=== PATIENT | female | born 1970 | race Caucasian/White ===

== ENCOUNTER 2017-04-16 10:37 | Day surgery (SDC) | payer BC, SELFPAY ==
[2017-04-16] VITALS (11 sets, daily range): BP systolic 115–148; BP diastolic 55–87; PULSE 78–98; RESP 16–18; TEMP 36.3–36.7; O2SAT 94–100; BMI 36.6; BMI 36.8
--- NOTE | 2017-04-16 11:15 | PCM.HPOB.BLA ---
(1) Uterine fibroid Status: Acute History and Physical Date of Admission: 04/16/17 Intake Vital Signs 03/29/17 Height 5 ft 7 in 03/29/17 Weight: 238 lb 03/29/17 Body Mass Index (BMI) 37.3 03/29/17 Blood Pressure 140/83 03/29/17 Blood Pressure Location Lt brachial 03/29/17 Blood Pressure Position Sitting Intake Visit Reasons: Pelvic Exam Is patient in pain?: No Allergies No Known Allergies Allergy (Verified 03/29/17 11:24) Medications Amitriptyline HCl 100 mg PO QHS 03/07/16 [History Confirmed 03/29/17] Amlodipine [Norvasc] 10 mg PO DAILY 03/07/16 [History Confirmed 03/29/17] Calcium Citrate/Vitamin D3 [Calcium Citrate - Vit D Caplet] 1 ea PO DAILY 03/07/16 [History Confirmed 03/29/17] Cranberry Conc/Ascorbic Acid [Cranberry 12,600 mg Softgel] 1 ea PO DAILY 03/07/16 [History Confirmed 03/29/17] Lisinopril [Zestril] 20 mg PO DAILY 03/07/16 [History Confirmed 03/29/17] Metoprolol(XL)Succ [Toprol Xl (Beta Adan)] 100 mg PO DAILY 03/07/16 [History Confirmed 03/29/17] Multivitamin [Multiple Vitamins] 1 ea PO DAILY 03/07/16 [History Confirmed 03/29/17] Omeprazole [Prilosec] 20 mg PO DAILY 03/07/16 [History Confirmed 03/29/17] Potassium (Otc) [Potassium Otc] 99 mg PO DAILY 03/07/16 [History Confirmed 03/29/17] Simvastatin [Zocor] 10 mg PO QHS 03/07/16 [History Confirmed 03/29/17] Docusate Sodium [Colace] 100 mg PO BID PRN PRN #10 cap 03/14/16 [Rx Confirmed 03/29/17] Hydrocodone Bitart/Apap 5-325 [[place] 5/325] 1 - 2 tab PO Q4H PRN PRN #20 tab 03/24/17 [Rx Confirmed 03/29/17] Naproxen [Naprosyn] 500 mg PO BID PRN #20 tab 03/24/17 [Rx Confirmed 03/29/17] Is last menstrual period known: Yes Patient : No PFSH Medical History Hypertension (Chronic) Surgical History H/O tubal ligation (Acute) History of tonsillectomy (Acute) carpal tunnel surgery (Acute) tailbone cyst (Acute) Family History Mother Breast cancer Father Heart disease Grandfather Myocardial infarction Social History Smoking Status: Never smoker alcohol intake: current details: 1 glass of wine a night substance use type: does not use caffeine: Yes what type of physical activity do you participate in: none seatbelt use: always do you feel safe at home: Yes additional social history: 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 Date Name GA/Weeks Outcome Route Bth Weight Infant Gen Labor Lgth Anesthesia Del Locatn Provider FOB Unknown 1990 [place] Unknown 1998 [facility] Pelvic Exam: Details: GABRIELA RUSSELL is a 46 year old who presents for surgical consultation for hysterectomy. She has had persistent lower pelvic pain and irregular bleeding, enlarged uterus with multiple fibroids seen on US. she denies any previous pelvic srugery other than a tubal ligation.. she has had 2 previous SVDs. Female Reproductive History Questions: Metorrhagia: Yes, Sexually active: Yes ROS Const Constitutional: Denies poor appetite, headache(s), fever(s), increased appetite, weight gain, weight loss or fatigue Cardio Card: Denies chest pain Resp Resp: Denies dyspnea or cough : Reports as per HPI Exam Const General: cooperative, healthy appearing, comfortable, no acute distress, well developed Nutritional Appearance: average body habitus Orientation: alert HENMT Head: normal to inspection, normocephalic Neck Neck: normal visual inspection, trachea midline Thyroid: thyroid normal Resp Effort & Inspection: normal respiratory effort GI Palpation: soft, mass (enlarged uterus 16 week size mobile, with right lower and upper fibroids) Skin General: no rashes or lesions noted Assessment & Plan Problems 1. Intramural and subserous leiomyoma of uterus D25.1; D25.2 2. Pelvic mass in female R19.00 3. Abnormal uterine bleeding N93.9 Plan discussed hysterectomy approach- will attempt laparoscopic approach but at least a 30% chance of having to open. patient agrees to procedure. Discussed with the patient risks of surgery including risks of anesthesia, bleeding, infection, damage to surrounding structures such as bowel, bladder, or vasculature that could lead to additional surgery to repair. I discussed the risk of needing to convert to open abdominal procedure if unable to perform the procedure laparoscopically.
[2017-04-16 11:21] LABS: Basophil# 0.07 X10^3/uL; Basophil% 0.8 % (0-1); Eosinophils% 2.3 % (0-5); Hematocrit 38.3 % (37-47); Lymphocyte % 22.6 % (19-41); Mean Corp Hgb Conc 33.9 g/gl (32-36); Mean Corpuscular Hgb 28.8 pg (27.0-32.0); Mean Corpuscular Volume 84.9 fL (81-99); Mean Platelet Vol. 9.5 fl (6.2-12.0); Monocyte# 0.58 X10^3/uL; Monocyte% 6.6 % (0-10); Neutrophil # 5.98 X10^3/uL (2.7-7.7); Neutrophil % 67.5 % (47-70); Platelet Count 301 K/mm3 (150-450); RBC Distribution Width CV 12.8 % (11.6-14.6); RBC Distribution Width SD 38.8 fl (35.1-43.9); Red Blood Count 4.51 M/mm3 (4.2-5.4); White Blood Count 8.9 K/mm3 (4.4-11.0)
[2017-04-16 11:25] LABS: POSITIVE COUNT NO; POSITIVE DIFFERENTIAL NO; POSITIVE MORPHOLOGY NO
[2017-04-16 11:32] LABS: Anion Gap 8 (5-15); BUN 11 mg/dL (7-18); Calcium,Total 8.5 mg/dL (8.5-10.1); Chloride 108 mmol/L (98-107); Creatinine, Serum 0.79 mg/dL (0.55-1.02); EST Glomerular Filtration Rate 84 mL/min (>60); Est Glom Filt Rate - Afr Amer 101 mL/min (>60); Estimated Creatinine Clearance 86.53 ml/min; Glucose 100 mg/dL (70-110); Sodium Level 140 mmol/L (136-145)
--- NOTE | 2017-04-16 13:00 | HYST_PTH ---
PATIENT: GABRIELA RUSSELL LOC: [facility] [place] U#:[id number] AGE/SX: 47/F ROOM: RE04/16/[address]: Dr. Petty Spirnger MD : [id number] BED: DIS: 04/17/2017 SPEC #: [id number] RECD: 04/17/17 08:17 STATUS: FLAKITA RAFFY #: [id number] HOLLIE: 04/16/17 13:[address]: Petty Springer DEPT: SURGICAL PATHOLOGY RECD BY: Lalit Acosta ENTERED: 04/17/17 12:33 SP TYPE: HYSTERECT OTHR DR: Dr. Kandy Valle DO Tissues: Uterus, NOS Procedures: Surgery Specimen Level V HEADER OPERATION: Laparoscopic-assisted vaginal hysterectomy, bilateral salpingectomy PRE-OP DIAGNOSIS: Intramural and subserosus leiomyoma of uterus; pelvic mass; abnormal uterine bleeding TISSUE SUBMITTED: Uterus, bilateral fallopian tubes MICROSCOPIC DIAGNOSIS Uterus, hysterectomy (morcellated uterus): Cervix ? nabothian cysts and mild chronic inflammation. Endometrium ? secretory endometrium. Myometrium ? leiomyomas. Right and fallopian tubes ? changes of hydrosalpinx and hemosalpinx. AM:bertha 04/18/17 COMMENT Case has been reviewed in consultation with Dr. Umana who concurs with the above diagnosis. IDC:SJ MICROSCOPIC DESCRIPTION Slides are reviewed. GROSS DESCRIPTION Received in fixative is one container labeled with the patient's name and designated uterus and bilateral fallopian tubes. The specimen consists of a hysterectomy specimen in multiple pieces consisting of uterus, cervix and bilateral fallopian tubes. One of the fallopian tubes is attached to one piece and the second fallopian tube is detached. All the pieces of uterus with cervix weigh in aggregate 940 gm and measures in aggregate 25 x 21 x 7 cm. The largest piece of uterus measures 14 x 12 x 7 cm. Two pieces show portion of cervix. The endocervical canal measures 4 cm in length and the endocervical mucosa is focally congested and unremarkable. The ectocervical mucosa is also unremarkable. Obvious endometrial lining could not be identified. Focal areas show hemorrhagic surfaces of possible endometrial lining. No obvious lesion is identified. Possible endometrium measures 0.1 cm in thickness. Some of the pieces show nodular masses. The largest identifiable nodular mass measures 9 cm in greatest dimension. Sections of these masses reveal yoon whorled cut surfaces without areas of hemorrhage, necrosis or cystic degeneration. The uninvolved uterine wall measures up to 3 cm in thickness. The fallopian tube attached to one of the pieces of uterus measures 6.5 cm in length and up to 0.7 cm in diameter. It is interrupted in the middle consistent with previous tubal occlusion. The proximal portion of the fallopian tube is dilated and filled with clear fluid. The lumen measures up to 0.3 to 0.4 cm in diameter. The lumen is filled with clear to bloody fluid. The portion of the second fallopian tube attached to the other piece of uterus measures 3 cm in length and up to 1 cm in diameter. The lumen is dilated and filled with clear fluid. The detached portion of second fallopian tube with fimbrial end measures 3 cm in length and 0.6 cm in diameter. Sections of this piece reveal unremarkable cut surfaces. Technical Inspector sections are submitted in 12 cassettes as follows: 1 & 2 ? cervix, 3-6 ? uterine wall with possible endometrial tissue, 7 & 8 ? largest nodular mass, 9 & 10 ? smaller and intermediate size nodular masses, 11 ? fallopian tube, 12 ? second fallopian tube (12 contains the second fallopian tube with detached portion and also the attached portion). / RIGOBERTO:bertha 04/17/17 TC:1 CPT: 25804
--- NOTE | 2017-04-16 13:46 | PCM.OPRPT ---
Problem List (1) Uterine fibroid Status: Acute (2) Enlarged uterus Status: Acute Report of Operation Date of Procedure: 04/16/17 Pre-Operative Diagnosis: fibroid enlarged uterus aub Post-Operative Diagnosis: same Surgery/Procedure Performed:: lavh bs cystoscopy significant debulking of uterus and removal of the morcellated portions vaginally Description of Surgical Findings:: Significantly enlarged uterus with numerous fibroids located serosal and intramural with normal fallopian tubes and normal ovaries bilaterally normal intra-abdominal contents seen otherwise normal bladder lining with bilateral ureteral patency vending machine operator: Maria Del Carmen Hickman Type of Anesthesia:: General Specimen's removed: uterus tubes Drains: vanegas Estimated Blood Loss (mL): 200 cc Fluids Replaced: crystalloid Description of Procedure: Patient received preoperative antibiotics and SCDs were on preoperatively. Patient was taken back to the operating room and placed in the dorsal lithotomy position. General anesthesia was induced and patient was prepped and draped in normal sterile fashion. Uterine manipulator was placed inside the uterus and Vanegas catheter placed in the bladder. The umbilicus was grasped with towel clamps and an intraumbilical incision was made after injecting with quarter percent Marcaine and a Veress needle entered into the abdomen confirmed to be intra-abdominal with a low opening pressure. Abdomen was insufflated with CO2 gas and the Veress needle removed and the 5 mm trocar was placed under direct visualization without complication. Right and left lower quadrants were transilluminated and injected with quarter percent Marcaine and 5 mm ports placed under direct visualization. Pelvis was well visualized see operative findings for additional information. Due to the extreme size of the uterus both the 0? and 30? scopes were used to obtain adequate visualization. A small omental to anterior abdominal wall adhesion was taken with LigaSure device and then bilateral fallopian tubes were identified and transected with the LigaSure device across the mesosalpinx to the level of the utero-ovarian ligament which was also transected with the LigaSure device. The broad ligament was opened up by transecting the round ligament bilaterally and skeletonizing the uterine vessels bilaterally and creating a bladder flap using the LigaSure device. This took a significant amount of time due to the large fibroids that were noted on the right and left interstitial portion of the uterus and a 10 cm fibroid located in the left lower uterine corpus near the cervical insertion. Large blood vessels were noted and cauterized with the LigaSure device. Approximately 45 minutes of additional work above that of typical hysterectomy was needed in order to safely skeletonized and cauterized the uterine vessels and create the bladder flap. The uterine arteries were transected bilaterally with good visualization of the bladder and the ureters were seen to be inferior lateral to the operative area. Attention was then paid to the vaginal portion of the procedure and the cervix was grasped with Tabby clamps and circumferentially injected with dilute vasopressin. A circumferential incision was made and the vaginal mucosa was mobilized off posteriorly and the cul-de-sac entered into sharply and a longneck speculum placed. The anterior cul-de-sac was then identified and entered into sharply. The uterosacral ligaments were clamped cut and suture ligated with 0 Monocryl bilaterally followed by the cardinal ligaments which were clamped cut and suture ligated bilaterally with 0 Monocryl. Due to the extreme size of the uterus it was removed in multiple pieces and through different morcellation techniques including coring and wedge resection. Over 40 minutes of the procedure were devoted to uterine morcellation alone in order to safely remove the different portions of the uterus through the vagina. The total weight of the uterus and fallopian tubes removed through the vagina was 918 g per after all pieces were removed the pelvic sidewall pedicles were checked and noted to have excellent hemostasis. The vaginal mucosa was reapproximated incorporating the posterior peritoneum. This was reapproximated using 0 Vicryl [id number] sutures. Excellent hemostasis was noted. The cystoscopy was then performed and bilateral ureteral strong spray was noted and the bladder was noted to have no abnormality or lesions seen. There were several small blood clots noted in the bladder lining with no stitches or laceration seen only minimal ecchymoses due to the manipulation of the bladder during the removal of the large uterus. Vanegas catheter was replaced and then attention paid to the abdominal portion of the procedure again. The pelvis and cul-de-sac was well visualized and no significant active bleeding noted. Pressure was taken down and the areas visualized and noted of excellent hemostasis. All ports were removed under direct visualization without complication and the abdomen was desufflated of air. The instruments removed from the abdomen and the vagina vaginal sweep was negative. Port sites on the abdomen were closed with 4-0 Monocryl interrupted sutures and Steri's and windows were applied. She was awoken and taken recovery in stable condition. Grafts/Implants Used: vanegas - Complications none - Admit VTE Documentation VTE Pharm Prophylaxis ordered?: No
[2017-04-16] MEDS: Bupivacaine 0.25% 30 ML Vial (14:05)
[2017-04-16] MEDS: Vasopressin 20 UNITS/ML Vial (15:10)
[2017-04-16] MEDS: Methylene Blue 1% 100 MG/10 ML VIAL (16:06)
[2017-04-16] MEDS: HYDROmorphone HCL 0.5 MG/0.5 ML SYRINGE IV (21:37)
[2017-04-16] MEDS: Acetaminophen 500 MG Tablet 1000 MG PO (21:37)
[2017-04-16] MEDS: Lactated Ringers 1,000 ML 125 ML IV (23:45)
[2017-04-16] MEDS: Ketorolac 30 MG/ML Syringe IV (23:45)
[2017-04-17 05:43] VITALS: BP 128/85; PULSE 99; RESP 18; TEMP 36.7; O2SAT 100
[2017-04-17] MEDS: Ketorolac 30 MG/ML Syringe IV (05:46)
[2017-04-17] MEDS: Acetaminophen 500 MG Tablet 1000 MG PO (05:47)
--- NOTE | 2017-04-17 06:40 | NURSING ---
Patient ambulated in hallway with this RN tolerated well. Patient now sitting up in chair, no needs voiced.
[2017-04-17 07:02] LABS: Hematocrit 34.3 % (37-47); Hemoglobin 11.6 g/dl (12.0-15.0); Mean Corp Hgb Conc 33.8 g/gl (32-36); Mean Corpuscular Hgb 29.4 pg (27.0-32.0); Mean Corpuscular Volume 86.8 fL (81-99); Mean Platelet Vol. 9.9 fl (6.2-12.0); Platelet Count 325 K/mm3 (150-450); RBC Distribution Width CV 12.8 % (11.6-14.6); RBC Distribution Width SD 39.6 fl (35.1-43.9); Red Blood Count 3.95 M/mm3 (4.2-5.4); White Blood Count 17.5 K/mm3 (4.4-11.0)
[2017-04-17 07:09] LABS: Scan Indicated on CBC? Y/N NO
--- NOTE | 2017-04-17 08:55 | PCM.PN.OB ---
Patient Problems: Active and Suspected Problems (Last Reviewed 03/29/17 @ 11:25 by Jacqueline Faria) Uterine fibroid (Acute) Enlarged uterus (Acute) - Physical Exam General: Alert, Oriented x3, Cooperative Lungs: Normal air movement Abdomen: Soft, Non Tender Vital Signs Temp Pulse Resp BP Pulse Ox 98.0 F 99 18 128/85 H 100 04/17/17 05:43 04/17/17 05:43 04/17/17 05:43 04/17/17 05:43 04/17/17 05:43 Oxygen Flow Rate 1 Oxygen Delivery Method Room Air Weight: 235 lb Body Mass Index (BMI) 36.8 Intake and Output for Last 24 Hours 04/15/17 04/16/17 04/17/17 23:59 23:59 23:59 Intake Total 5039 / 5039 1738 / 1738 Output Total 800 / 800 3400 / 3400 Balance 4239 / 4239 -1662 / -1662 Laboratory Tests Past 24 Hrs 04/16/17 04/16/17 04/16/17 11:10 11:10 11:10 WBC 8.9 RBC 4.51 Hgb 13.0 Hct 38.3 MCV 84.9 MCH 28.8 MCHC 33.9 RDW 12.8 RDW Differential 38.8 Plt Count 301 MPV 9.5 Immature Gran % (Auto) 0.200 Neut % (Auto) 67.5 Lymph % (Auto) 22.6 Saunders % (Auto) 6.6 Eos % (Auto) 2.3 Baso % (Auto) 0.8 Absolute Neuts (auto) 6.0 Absolute Lymphs (auto) 2.00 Total Counted Not Reportable Sodium 140 Potassium 4.0 Chloride 108 H Carbon Dioxide 24.0 Anion Gap 8 BUN 11 Creatinine 0.79 Estim Creat Clear Calc 86.53 Est GFR (MDRD) Af Amer 101 Est GFR (MDRD) Non-Af 84 BUN/Creatinine Ratio 14.0 Glucose 100 Calcium 8.5 Blood Type A NEGATIVE Antibody Screen NEGATIVE 04/17/17 06:42 WBC 17.5 H RBC 3.95 L Hgb 11.6 L Hct 34.3 L MCV 86.8 MCH 29.4 MCHC 33.8 RDW 12.8 RDW Differential 39.6 Plt Count 325 MPV 9.9 Immature Gran % (Auto) Neut % (Auto) Lymph % (Auto) Saunders % (Auto) Eos % (Auto) Baso % (Auto) Absolute Neuts (auto) Absolute Lymphs (auto) Total Counted Sodium Potassium Chloride Carbon Dioxide Anion Gap BUN Creatinine Estim Creat Clear Calc Est GFR (MDRD) Af Amer Est GFR (MDRD) Non-Af BUN/Creatinine Ratio Glucose Calcium Blood Type Antibody Screen Assessment/Plan Active and Suspected Problems (Last Reviewed 03/29/17 @ 11:25 by Jacqueline Faria) Uterine fibroid (Acute) Enlarged uterus (Acute) s/p LAVH doing well routine care dc home today
--- NOTE | 2017-04-17 08:57 | PCM.DC.VHY ---
Discharge Diet: No Restrictions Discharge Activity: Return to Normal Activity, May Not Drive - while taking narcotic pain medications., May Shower May resume sexual activity in: 6-8 weeks Call your doctor if your incision/area has: Continuous Slow Oozing, Sudden Increased Bleeding, Increased Pain/ Swelling, Increased Redness, Foul Smelling Discharge Call your doctor if you observe: Fever of 101 or Higher, Inability to urinate, Inability to have a bowel movement, Using more than one pad per hour Allergies/Adverse Reactions: Allergies morphine Adverse Reaction (Verified 04/09/17 14:28) Nausea Medications to take at Discharge Amitriptyline HCl 100 mg PO QHS 03/07/16 Amlodipine [Norvasc] 10 mg PO DAILY 03/07/16 Calcium Citrate/Vitamin D3 [Calcium Citrate - Vit D Caplet] 1 ea PO DAILY 03/07/16 Cranberry Conc/Ascorbic Acid [Cranberry 12,600 mg Softgel] 1 ea PO DAILY 03/07/16 Lisinopril [Zestril] 20 mg PO DAILY 03/07/16 Metoprolol(XL)Succ [Toprol Xl (Beta Adan)] 100 mg PO DAILY 03/07/16 Multivitamin [Multiple Vitamins] 1 ea PO DAILY 03/07/16 Omeprazole [Prilosec] 20 mg PO DAILY 03/07/16 Potassium (Otc) [Potassium Otc] 99 mg PO DAILY 03/07/16 Simvastatin [Zocor] 10 mg PO QHS 03/07/16 Docusate Sodium [Colace] 100 mg PO BID PRN PRN #10 cap 03/14/16 Hydrocodone Bitart/Apap 5-325 [[place] 5/325] 1 - 2 tab PO Q4H PRN PRN #20 tab 03/24/17 Naproxen [Naprosyn] 500 mg PO BID PRN #20 tab 03/24/17 Naproxen [Naprosyn] 250 - 500 mg PO Q8H PRN PRN #30 tab 04/17/17 Naproxen [Naprosyn] 500 mg PO BID PRN PRN #30 tab 04/17/17 Oxycodone HCl/Acetaminophen [Percocet 5-325] 2 tablet PO Q4H PRN PRN #28 tablet 04/17/17 The following prescriptions were given: Oxycodone HCl/Acetaminophen [Percocet 5-325] 2 tablet PO Q4H PRN PRN #28 tablet PRN Reason: Moderate-Severe pain Naproxen [Naprosyn] 250 - 500 mg PO Q8H PRN PRN #30 tab PRN Reason: MILD PAIN Naproxen [Naprosyn] 500 mg PO BID PRN PRN #30 tab PRN Reason: Pain Primary Care Physician: Kandy Valle DO [Primary Care Provider] - Please Follow Up With: Petty Springer MD - [phone] in 2 and 6 weeks
[2017-04-17 09:05] VITALS: BP 146/80; PULSE 97; RESP 16; TEMP 37; O2SAT 97
== END 2017-04-17 09:00 | disposition home or self-care (01) ==
LOC: SDC 10:38 → AC 10:39 → MS3 14:42
PROVIDERS: Family Provider Family Medicine; PCP Family Medicine; Visit Provider Obstetrics & Gynecology
PROC: 0UT9FZZ Resection of Uterus, Via Natural or Artificial Opening With Percutaneous Endoscopic Assistance (ICD-10-PCS; CPT 58554; principal; 2017-04-16 12:35)
DX: D25.1 Intramural leiomyoma of uterus (principal); D25.2 Subserosal leiomyoma of uterus; N85.2 Hypertrophy of uterus; N72 Inflammatory disease of cervix uteri; I10 Essential (primary) hypertension; E78.00 Pure hypercholesterolemia, unspecified; K21.9 Gastro-esophageal reflux disease without esophagitis; Z79.1 Long term (current) use of non-steroidal anti-inflammatories (NSAID); Z79.899 Other long term (current) drug therapy; Z98.51 Tubal ligation status
CPT/HCPCS: 58554; 36415; 80048; 85025; 85027; 86850; 86900; 88307; J7120; J2405

== ENCOUNTER 2017-04-20 07:04 | Observation (INO) | payer BC, SELFPAY ==
[2017-04-20] VITALS (13 sets, daily range): BP systolic 132–151; BP diastolic 63–91; PULSE 78–89; RESP 12–18; TEMP 36.4–37.1; O2SAT 95–100; BMI 36.4; BMI 35.9; BMI 36.0
--- NOTE | 2017-04-20 07:16 | RAD_ITS ---
STUDY: X-RAY CHEST REASON FOR EXAM: Female, 47 years old. Left-sided chest pain. TECHNIQUE: Single AP portable view of the chest. COMPARISON: Comparison is made with prior study dated March 24, 2017. FINDINGS: The lungs are clear and expanded. There is no demonstrated pleural abnormality. Normal size heart. Normal mediastinum and sebastián. Normal visualized pulmonary arteries. Normal visualized aortic arch and descending thoracic aorta. Normal visualized thoracic spine. Normal visualized ribs, clavicles, and shoulders. There is no demonstrated abnormality of the visualized soft tissue structures of the upper abdomen. RAD/Chest 1 View (Portable) IMPRESSION: Normal x-ray examination of the chest. Electronically Signed: Melvin Alex MD at 8:07 EST Tel [phone], Service support ,
--- NOTE | 2017-04-20 07:17 | EKG12_ITS ---
Test Reason : CP Blood Pressure : / mmHG Vent. Rate : 084 BPM Atrial Rate : 084 BPM P-R Int : 108 ms QRS Dur : 076 ms QT Int : 382 ms P-R-T Axes : 010 000 010 degrees QTc Int : 451 ms Sinus rhythm with short AR Otherwise normal ECG Confirmed by JENNIE BELL, ENOCH ([id number]), state editor TAMI POOLE ([id number]) on 04/23/2017 3:31:41 PM Referred By: MARIA ELENA Confirmed By:ENOCH SCHNEIDER MD
--- NOTE | 2017-04-20 07:37 | ED.VISSUMM ---
- ER Visit Summary Date of Service: 04/20/17 Chief Complaint: Left arm and left-sided chest pain History of Present Illness: The patient is a 47 F is post hysterectomy on Sunday discharged on Sunday. Patient states she was doing well last evening she had tightness in her left arm and left lateral chest. At times difficulty breathing. She denies any pleuritic pain. She denies any hemoptysis. She denies any calf pain. She has never had a DVT or PE. She has never had any cardiac history nor any cardiac workup. She states prior to having the surgery the last several weeks she has not had any exertional type of chest pain. She denies any fever or cough. Physical Examination: Well-appearing middle-age female. He looks very good after having surgery 4 days ago. Vital signs are stable and afebrile. Her blood pressure is 151/63. Her pulse ox is 100% on room air. She is in no distress. Sitting upright in bed. HEENT exam unremarkable. Neck nontender no JVD. Lungs are clear to auscultation bilaterally. Heart is regular rate and rhythm no murmur. Chest wall is nontender. No ecchymosis or bruising. She does have a slight rash appears to be a contact dermatitis from the surgical drapes. This is in her left lower chest and upper abdomen. Abdomen is soft and nontender. No peritoneal signs. Very well healing surgical incisions. Normal bowel sounds. She is moving all 4 extremities. She is equal and symmetrical radial pulses. Calves are nontender without edema or cords. Neurologically she is awake and alert without focal motor deficits. Back exam nontender. Test Results: Portable chest x-ray no acute abnormality. EKG sinus rhythm rate of 84 no acute signs of NH or ischemia. CBC normal. H&H 12 and 38. BMP normal. Normal creatinine. UA negative. Troponin normal. D-dimer was elevated at 1.07. For that reason a CTA was obtained which shows bilateral pulmonary emboli as read by the radiologist and reviewed by me. The radiologist and I did discuss her CAT scan results. Emergency Department Course and Treatment: Patient undergo a cardiac along with a d-dimer due to the recent surgery. Treatment Plan: I discussed test results with the patient's in the diagnosis of bilateral pulmonary emboli. 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 Springer and also Dr. Teresa Becerra the hospitalist will admit her. She will be started on Xarelto. Disposition: Admission Impression: Acute atypical left-sided chest pain secondary to bilateral pulmonary emboli Status post recent laparoscopic hysterectomy This note was generated with Patient[employer] dictation software. It may contain incorrect words, spelling, and punctuation that were not noted in review of the chart prior to signing ED Disposition - Plan for ED Patient: Chief Complaint: Chest Pain Referrals: Kandy Valle DO [Primary Care Provider] -
[2017-04-20 07:39] LABS: Absolute Lymphocyte Count 2.41 X10^3/ul (0.83-4.51); Absolute Neutrophil Count 6.6 X10^3/uL (2.0-7.7); Basophil# 0.07 X10^3/uL; Basophil% 0.7 % (0-1); Eosinophil# 0.34 X10^3/uL; Eosinophils% 3.4 % (0-5); Hematocrit 38.3 % (37-47); Hemoglobin 12.7 g/dl (12.0-15.0); Lymphocyte # 2.41 X10^3/ul (4.0); Lymphocyte % 24.3 % (19-41); Mean Corp Hgb Conc 33.2 g/gl (32-36); Mean Corpuscular Hgb 28.7 pg (27.0-32.0); Mean Corpuscular Volume 86.5 fL (81-99); Mean Platelet Vol. 9.3 fl (6.2-12.0); Monocyte# 0.44 X10^3/uL; Monocyte% 4.4 % (0-10); Neutrophil # 6.62 X10^3/uL (2.7-7.7); Platelet Count 301 K/mm3 (150-450); RBC Distribution Width CV 13.2 % (11.6-14.6); RBC Distribution Width SD 41.4 fl (35.1-43.9); Red Blood Count 4.43 M/mm3 (4.2-5.4); White Blood Count 9.9 K/mm3 (4.4-11.0)
[2017-04-20 07:41] LABS: Bacteria 0 SEEN /hpf (None Seen); Mucous, Urine 0 SEEN /hpf (<or=2+)
[2017-04-20 07:46] LABS: Color, Urine Yellow (Yellow); Glucose, Dipstick Normal (Normal); Ketone-Dipstick Negative (Negative); Leukocyte Esterase-Dipstick 500 /ul (Negative); Nitrite-Dipstick Negative (Negative); Occult Blood-Urine 250 /ul (Negative); Protein-Dipstick 30 mg/dl (Negative); Urine Bilirubin Dipstick Negative (Negative); Urine Clarity Sl. Cloudy (Clear); Urine Urobilinogen Normal (Normal); Urine pH 6.5 (5.0 - 8.0)
[2017-04-20 07:47] LABS: Anion Gap 7 (5-15); BUN 14 mg/dL (7-18); BUN/Creat Ratio 16.6 RATIO (10-20); Calcium,Total 8.6 mg/dL (8.5-10.1); Chloride 104 mmol/L (98-107); Creatinine, Serum 0.84 mg/dL (0.55-1.02); EST Glomerular Filtration Rate 77 mL/min (>60); Est Glom Filt Rate - Afr Amer 94 mL/min (>60); Estimated Creatinine Clearance 81.38 ml/min; Glucose 101 mg/dL (70-110); POSITIVE COUNT NO; POSITIVE DIFFERENTIAL NO; POSITIVE MORPHOLOGY NO; Potassium 3.8 mmol/L (3.5-5.1); Sodium Level 140 mmol/L (136-145)
[2017-04-20 07:53] LABS: Squamous Epithelial Cells - UA 0-5 SEEN /hpf (5-10)
[2017-04-20 07:54] LABS: Red Blood Cells-Urine 5-10 SEEN /hpf (0-5); White Blood Cells 0-5 SEEN /hpf (0-5)
[2017-04-20 07:55] LABS: D-Dimer Quantitative (DVT/PE) 1.07 FEU/ug/m (0.27-0.49)
--- NOTE | 2017-04-20 07:56 | ED.RN ---
DDIMER 1.[address] CALLED FROM THE LAB. DR ALVAREZ AWARE
--- NOTE | 2017-04-20 08:12 | CT_ITS ---
STUDY: CTA CHEST REASON FOR EXAM: Female, 47 years old. Left-sided chest pain. History of 5 days posthysterectomy. RADIATION DOSAGE (If Supplied By Facility): CTDIvol = ( 14.75 ) mGy, DLP = ( 592.94 ) mGycm TECHNIQUE: The examination was performed with the intravenous administration of 100 ml of Isovue 370 contrast material. Post-processing of the angiographic images was performed, with multiplanar reformation and 3D reconstruction. Individualized dose optimization techniques were used for this CT. COMPARISON: None. FINDINGS: Nonocclusive intraluminal filling defects are seen in branches of the right intermediate lobe and right and left lower lung pulmonary arterial branches. This is in keeping with bilateral pulmonary emboli. Tiny filling defects are also seen in branches of both upper lobes. Normal thoracic aorta and visualized great vessels. There is no demonstrated aortic dissection. Normal heart and pericardium. Normal mediastinum. Normal hilar regions. Normal visualized trachea and bronchi. The lungs are well expanded. Normal pulmonary parenchyma. Normal pleura. Normal chest wall structures. Normal osseous structures. Normal visualized upper abdomen. CT/CTA Chest W/WO Contrast IMPRESSION: Bilateral pulmonary emboli as described. N.B. : The above information has been verbally conveyed by Melvin Alex MD to Devin Chamberlain on 04/20/2017 09:21:23 (ET). Electronically Signed: Melvin Alex MD at 9:21 EST Tel [phone], Service support , N.B. : The above information has been verbally conveyed by Melvin Alex MD to Devin Chamberlain on 04/20/2017 09:21:23 (ET).
--- NOTE | 2017-04-20 09:30 | PCM.HP.STD ---
Problem List (1) Pulmonary embolism, bilateral Status: Acute (2) HTN (hypertension) Status: Chronic Qualifiers: Hypertension type: essential hypertension Qualified Code(s): I10 - Essential (primary) hypertension (3) HLD (hyperlipidemia) Status: Chronic Qualifiers: Hyperlipidemia type: unspecified Qualified Code(s): E78.5 - Hyperlipidemia, unspecified (4) Obesity (BMI 30-39.9) Status: Chronic (5) Uterine fibroid Status: Chronic Qualifiers: Uterine leiomyoma location: unspecified location Qualified Code(s): D25.9 - Leiomyoma of uterus, unspecified (6) Enlarged uterus Status: Acute History of Present Illness Date of Admission: 04/20/17 Chief Complaint: Chest pain, difficulty breathing The patient is a 47 y/o F w/ PMHx: Obesity, HTN, HLD, Fibroid Uterus who presents to the [facility] ED on 04/20/17 with history of recent laparoscopic assisted vaginal hysterectomy this past Sunday per Dr. Springer with no perioperative issues who now presents with onset the evening prior of left sided chest discomfort, abnormal heaviness and sensation of difficulty taking deep breathe which continued upon awakening prompting ED evaluation. She denies any recent BL LE calf discomfort or swelling. In the ED work-up included T 97.6, HR 78, BP 149/86, RR 18, 99% on RA, CBC unremarkable, D-dimer 1.07, BMP without acute findings, trop < 0.02, UA unremarkable, CXR without acute process, EKG w/ SR without acute evidence of ischemia, CTPA w/ bilateral pulmonary emboli. Discussed case with Dr. Chamberlain and decision for administration xarelto in the ED with admission to complete evaluation given recent operative intervention. Dr. Springer consulted per ED and amenable to initiation of anticoagulation therapy. Past Medical History Past Medical History (Chronic Problems): Chronic Problems (Last Reviewed 03/29/17 @ 11:25 by Jacqueline Faria) Uterine fibroid (Chronic) HTN (hypertension) (Chronic) HLD (hyperlipidemia) (Chronic) Obesity (BMI 30-39.9) (Chronic) Allergies morphine Adverse Reaction (Verified 04/20/17 07:09) Nausea Home Medications: Ambulatory Orders Medication Instructions Recorded Amitriptyline HCl 100 mg PO QHS 03/07/16 Amlodipine [Norvasc] 10 mg PO DAILY 03/07/16 Calcium Citrate/Vitamin D3 1 ea PO DAILY 03/07/16 [Calcium Citrate - Vit D Caplet] Cranberry Conc/Ascorbic Acid 1 ea PO DAILY 03/07/16 [Cranberry 12,600 mg Softgel] Lisinopril [Zestril] 20 mg PO DAILY 03/07/16 Metoprolol(XL)Succ [Toprol Xl 100 mg PO DAILY 03/07/16 (Beta Adan)] Multivitamin [Multiple Vitamins] 1 ea PO DAILY 03/07/16 Omeprazole [Prilosec] 20 mg PO DAILY 03/07/16 Potassium (Otc) [Potassium Otc] 99 mg PO DAILY 03/07/16 Simvastatin [Zocor] 10 mg PO QHS 03/07/16 Docusate Sodium [Colace] 100 mg PO BID PRN PRN #10 cap 03/14/16 Hydrocodone Bitart/Apap 5-325 1 - 2 tab PO Q4H PRN PRN #20 tab 03/24/17 [[place] 5/325] Naproxen [Naprosyn] 500 mg PO BID PRN #20 tab 03/24/17 Surgical History: - - Laparoscopic assisted hysterectomy, right carpal tunnel release, tonsillectomy. 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 Tobacco Use: Non-smoker Alcohol: Occasional Drugs: None - *Family History Maternal History Items: - - Maternal family history of breast cancer with metastatic disease now, hyperlipidemia. Paternal History Items: - - Paternal family history of coronary disease with father undergoing a CABG in his 60s. Review of Systems Constitutional: Reports: Fatigue. Denies: Chills, Fever, Weight Change HEENT: Denies: Head Aches, Sinus Congestion, Sinus Drainage Cardiovascular: Reports: Chest Pain, Chest Pressure, Heaviness. Denies: Palpitations Respiratory: Reports: Shortness of Breath, Shortness of breath at rest, Shortness of breath upon exertion. Denies: Cough, Sputum production Gastrointestinal: Reports: Constipation. Denies: Abdominal Pain, Nausea, Vomiting Genitourinary: Denies: Dysuria Gynecological: Reports: Vaginal bleeding Musculoskeletal: Denies: Joint Pain, Joint Tenderness Skin: Denies: Rash, Wounds Neurological: Denies: Numbness, Tingling, Focal weakness Psychiatric: Denies: Anxiety, Depression, Homicidal Ideations, Suicidal Ideations Hematologic/ Lymphatic: Denies: Easy Bruising, Easy Bleeding VTE Information - Inpt Only VTE Present on Admission: No VTE Mechan Device Prophylaxis: SCD's VTE Pharm Prophylaxis ordered?: Yes Patient Problems: Active and Suspected Problems (Last Reviewed 03/29/17 @ 11:25 by Jacqueline Faria) Pulmonary embolism, bilateral (Acute) Subjective: Seated upright in the bed, no acute distress. Objective: Physical Examination: General: awake, alert, oriented x 3 and cooperative, seated upright in bed in no apparent distress. Skin: normal color, turgor, no icterus, cyanosis, recent OR lap-assist hysterectomy w/ incisions C/D/I. HEENT: AT/NC, EOMI, PERRLA, MMM, no carotid bruits or JVD noted. Lungs: CTA bilaterally, moderate effort, mild decrease BL bases, no rales, ronchi or wheezing. Heart: Regular rate and rhythm; no gallop, rub audible. Abdomen: soft, obese, expected mildly discomfort given recent lap assisted hysterectomy but otherwise no marked TTP, ND, normal BS, no HSM but habitus makes examination difficult. Extremities: no cyanosis, clubbing, or edema. No TTP BL LE. Negative homans BL. Neurological: patient awake, alert, oriented x 3; cognitive function intact; pupils equally reactive to light and accomodation; cranial nerves II-XII grossly normal, moving all 4 extremities, no focal deficits, strength mildly globally decreased. Psychiatric: affect appears normal, no acute evidence of depressive or anxiety feelings. - Physical Exam Vital Signs Temp Pulse Resp BP Pulse Ox 97.6 F L 84 18 151/63 H 99 04/20/17 07:05 04/20/17 07:05 04/20/17 07:05 04/20/17 07:05 04/20/17 07:22 Oxygen Delivery Method Room Air Weight: 232 lb 12.93 oz Body Mass Index (BMI) 36.4 Laboratory Tests Past 24 Hrs 04/20/17 04/20/17 04/20/17 07:20 07:20 07:20 WBC 9.9 RBC 4.43 Hgb 12.7 Hct 38.3 MCV 86.5 MCH 28.7 MCHC 33.2 RDW 13.2 RDW Differential 41.4 Plt Count 301 MPV 9.3 Immature Gran % (Auto) 0.200 Neut % (Auto) 67.0 Lymph % (Auto) 24.3 [place] % (Auto) 4.4 Eos % (Auto) 3.4 Baso % (Auto) 0.7 Absolute Neuts (auto) 6.6 Absolute Lymphs (auto) 2.41 Total Counted Not Reportable D-Dimer Quant (PE/DVT) 1.07 H* Sodium 140 Potassium 3.8 Chloride 104 Carbon Dioxide 29.0 Anion Gap 7 BUN 14 Creatinine 0.84 Estim Creat Clear Calc 81.38 Est GFR (MDRD) Af Amer 94 Est GFR (MDRD) Non-Af 77 BUN/Creatinine Ratio 16.6 Glucose 101 Calcium 8.6 Troponin I < 0.02 Urine Color Urine Clarity Urine pH Ur Specific [place] Urine Protein Urine Glucose (UA) Urine Ketones Urine Occult Blood Urine Nitrite Urine Bilirubin Urine Urobilinogen Ur Leukocyte Esterase Urine RBC Urine WBC Ur Squamous Epith Cells Urine Bacteria Urine Mucus 04/20/17 07:26 WBC RBC Hgb Hct MCV MCH MCHC RDW RDW Differential Plt Count MPV Immature Gran % (Auto) Neut % (Auto) Lymph % (Auto) [place] % (Auto) Eos % (Auto) Baso % (Auto) Absolute Neuts (auto) Absolute Lymphs (auto) Total Counted D-Dimer Quant (PE/DVT) Sodium Potassium Chloride Carbon Dioxide Anion Gap BUN Creatinine Estim Creat Clear Calc Est GFR (MDRD) Af Amer Est GFR (MDRD) Non-Af BUN/Creatinine Ratio Glucose Calcium Troponin I Urine Color Yellow Urine Clarity Sl. Cloudy Urine pH 6.5 Ur Specific [place] 1.010 Urine Protein 30 H Urine Glucose (UA) Normal Urine Ketones Negative Urine Occult Blood 250 H Urine Nitrite Negative Urine Bilirubin Negative Urine Urobilinogen Normal Ur Leukocyte Esterase 500 H Urine RBC 5-10 SEEN Urine WBC 0-5 SEEN Ur Squamous Epith Cells 0-5 SEEN Urine Bacteria 0 SEEN Urine Mucus 0 SEEN Assessment/Plan Active and Suspected Problems (Last Reviewed 03/29/17 @ 11:25 by Jacqueline Faria) Pulmonary embolism, bilateral (Acute) The patient is a 47 y/o F w/ PMHx: Obesity, HTN, HLD, Fibroid Uterus who presents to the [facility] ED on 04/20/17 with history of recent laparoscopic assisted vaginal hysterectomy this past Sunday per Dr. Springer with no perioperative issues who now presents with onset the evening prior of left sided chest discomfort, abnormal heaviness and sensation of difficulty taking deep breathe which continued upon awakening prompting ED evaluation. (1) Atypical Dyspnea, chest pain secondary to Pulmonary Embolism: EKG without acute findings, CXR no acute process, D-dimer elevated, CTPA with bilateral pulmonary emboli, CBC and BMP unremarkable, troponin ?1 normal. Given recent OR, considered provoked. Will admit to PCU, maintain on cardiac telemetry. Will obtain ECHO, BNP and BL LE DVT US. Will continue therapeutic xarelto regimen with pending AM insurance oral regimen investigation. (2) Recent Lap Assisted Hysterectomy secondary to Fibroid Uterus: Recent OR lap assisted hysterectomy, Dr. Springer consulted per ED, will assess upon admission, amenable to anticoagulation, admission Hgb normal range. Noted constipation following operative intervention, will initiate bowel regimen and continue to monitor, notes no longer taking any narcotics. (3) Hypertension: Continue home regimen including Norvasc, lisinopril, metoprolol, PRN hydralazine. (4) Hyperlipidemia: Continue home statin regimen. (5) Obesity: Weight loss and lifestyle changes encouraged. (6) GERD: Famotidine. (7) DVT Prophylaxis: SCDs pending DVT US, Xarelto. Code Visit OBSV E&M: 24865 Initial observation care L3
--- NOTE | 2017-04-20 09:42 | HP.PCM_ITS ---
Problem List (1) Pulmonary embolism, bilateral Status: Acute (2) HTN (hypertension) Status: Chronic Qualifiers: Hypertension type: essential hypertension Qualified Code(s): I10 - Essential (primary) hypertension (3) HLD (hyperlipidemia) Status: Chronic Qualifiers: Hyperlipidemia type: unspecified Qualified Code(s): E78.5 - Hyperlipidemia , unspecified (4) Obesity (BMI 30-39.9) Status: Chronic (5) Uterine fibroid Status: Chronic Qualifiers: Uterine leiomyoma location: unspecified location Qualified Code(s): D25.9 - Leiomyoma of uterus, unspecified (6) Enlarged uterus Status: Acute History of Present Illness Date of Admission: 04/20/17 Chief Complaint: Chest pain, difficulty breathing The patient is a 47 y/o F w/ PMHx: Obesity, HTN, HLD, Fibroid Uterus who presents to the [facility] ED on 04/20/17 with history of recent laparoscopic assisted vaginal hysterectomy this past Sunday per Dr. Springer with no perioperative issues who now presents with onset the evening prior of left sided chest discomfort, abnormal heaviness and sensation of difficulty taking deep breathe which continued upon awakening prompting ED evaluation. She denies any recent BL LE calf discomfort or swelling. In the ED work-up included T 97.6, HR 78, BP 149/86, RR 18, 99% on RA, CBC unremarkable, D-dimer 1.07, BMP without acute findings, trop < 0.02, UA unremarkable, CXR without acute process, EKG w/ SR without acute evidence of ischemia, CTPA w/ bilateral pulmonary emboli. Discussed case with Dr. Chamberlain and decision for administration xarelto in the ED with admission to complete evaluation given recent operative intervention. Dr. Springer consulted per ED and amenable to initiation of anticoagulation therapy. Past Medical History Past Medical History (Chronic Problems): Chronic Problems (Last Reviewed 03/29/17 @ 11:25 by Jacqueline Faria) Uterine fibroid (Chronic) HTN (hypertension) (Chronic) HLD (hyperlipidemia) (Chronic) Obesity (BMI 30-39.9) (Chronic) Allergies morphine Adverse Reaction (Verified 04/20/17 07:09) Nausea Home Medications: Ambulatory Orders Medication Instructions Recorded Amitriptyline HCl 100 mg PO QHS 03/07/16 Amlodipine [Norvasc] 10 mg PO DAILY 03/07/16 Calcium Citrate/Vitamin D3 1 ea PO DAILY 03/07/16 [Calcium Citrate - Vit D Caplet] Cranberry Conc/Ascorbic Acid 1 ea PO DAILY 03/07/16 [Cranberry 12,600 mg Softgel] Lisinopril [Zestril] 20 mg PO DAILY 03/07/16 Metoprolol(XL)Succ [Toprol Xl 100 mg PO DAILY 03/07/16 (Beta Adan)] Multivitamin [Multiple Vitamins] 1 ea PO DAILY 03/07/16 Omeprazole [Prilosec] 20 mg PO DAILY 03/07/16 Potassium (Otc) [Potassium Otc] 99 mg PO DAILY 03/07/16 Simvastatin [Zocor] 10 mg PO QHS 03/07/16 Docusate Sodium [Colace] 100 mg PO BID PRN PRN #10 cap 03/14/16 Hydrocodone Bitart/Apap 5-325 1 - 2 tab PO Q4H PRN PRN #20 tab 03/24/17 [[place] 5/325] Naproxen [Naprosyn] 500 mg PO BID PRN #20 tab 03/24/17 Surgical History: - - Laparoscopic assisted hysterectomy, right carpal tunnel release, tonsillectomy. 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 Tobacco Use: Non-smoker Alcohol: Occasional Drugs: None - *Family History Maternal History Items: - - Maternal family history of breast cancer with metastatic disease now, hyperlipidemia. Paternal History Items: - - Paternal family history of coronary disease with father undergoing a CABG in his 60s. Review of Systems Constitutional: Reports: Fatigue. Denies: Chills, Fever, Weight Change HEENT: Denies: Head Aches, Sinus Congestion, Sinus Drainage Cardiovascular: Reports: Chest Pain, Chest Pressure, Heaviness. Denies: Palpitations Respiratory: Reports: Shortness of Breath, Shortness of breath at rest, Shortness of breath upon exertion. Denies: Cough, Sputum production Gastrointestinal: Reports: Constipation. Denies: Abdominal Pain, Nausea, Vomiting Genitourinary: Denies: Dysuria Gynecological: Reports: Vaginal bleeding Musculoskeletal: Denies: Joint Pain, Joint Tenderness Skin: Denies: Rash, Wounds Neurological: Denies: Numbness, Tingling, Focal weakness Psychiatric: Denies: Anxiety, Depression, Homicidal Ideations, Suicidal Ideations Hematologic/ Lymphatic: Denies: Easy Bruising, Easy Bleeding VTE Information - Inpt Only VTE Present on Admission: No VTE Mechan Device Prophylaxis: SCD's VTE Pharm Prophylaxis ordered?: Yes Patient Problems: Active and Suspected Problems (Last Reviewed 03/29/17 @ 11:25 by Jacqueline Faria) Pulmonary embolism, bilateral (Acute) Subjective: Seated upright in the bed, no acute distress. Objective: Physical Examination: General: awake, alert, oriented x 3 and cooperative, seated upright in bed in no apparent distress. Skin: normal color, turgor, no icterus, cyanosis, recent OR lap-assist hysterectomy w/ incisions C/D/I. HEENT: AT/NC, EOMI, PERRLA, MMM, no carotid bruits or JVD noted. Lungs: CTA bilaterally, moderate effort, mild decrease BL bases, no rales, ronchi or wheezing. Heart: Regular rate and rhythm; no gallop, rub audible. Abdomen: soft, obese, expected mildly discomfort given recent lap assisted hysterectomy but otherwise no marked TTP, ND, normal BS, no HSM but habitus makes examination difficult. Extremities: no cyanosis, clubbing, or edema. No TTP BL LE. Negative homans BL. Neurological: patient awake, alert, oriented x 3; cognitive function intact; pupils equally reactive to light and accomodation; cranial nerves II-XII grossly normal, moving all 4 extremities, no focal deficits, strength mildly globally decreased. Psychiatric: affect appears normal, no acute evidence of depressive or anxiety feelings. - Physical Exam Vital Signs Temp Pulse Resp BP Pulse Ox 97.6 F L 84 18 151/63 H 99 04/20/17 07:05 04/20/17 07:05 04/20/17 07:05 04/20/17 07:05 04/20/17 07:22 Oxygen Delivery Method Room Air Weight: 232 lb 12.93 oz Body Mass Index (BMI) 36.4 Laboratory Tests Past 24 Hrs 04/20/17 04/20/17 04/20/17 07:20 07:20 07:20 WBC 9.9 RBC 4.43 Hgb 12.7 Hct 38.3 MCV 86.5 MCH 28.7 MCHC 33.2 RDW 13.2 RDW Differential 41.4 Plt Count 301 MPV 9.3 Immature Gran % (Auto) 0.200 Neut % (Auto) 67.0 Lymph % (Auto) 24.3 [place] % (Auto) 4.4 Eos % (Auto) 3.4 Baso % (Auto) 0.7 Absolute Neuts (auto) 6.6 Absolute Lymphs (auto) 2.41 Total Counted Not Reportable D-Dimer Quant (PE/DVT) 1.07 H* Sodium 140 Potassium 3.8 Chloride 104 Carbon Dioxide 29.0 Anion Gap 7 BUN 14 Creatinine 0.84 Estim Creat Clear Calc 81.38 Est GFR (MDRD) Af Amer 94 Est GFR (MDRD) Non-Af 77 BUN/Creatinine Ratio 16.6 Glucose 101 Calcium 8.6 Troponin I < 0.02 Urine Color Urine Clarity Urine pH Ur Specific [place] Urine Protein Urine Glucose (UA) Urine Ketones Urine Occult Blood Urine Nitrite Urine Bilirubin Urine Urobilinogen Ur Leukocyte Esterase Urine RBC Urine WBC Ur Squamous Epith Cells Urine Bacteria Urine Mucus 04/20/17 07:26 WBC RBC Hgb Hct MCV MCH MCHC RDW RDW Differential Plt Count MPV Immature Gran % (Auto) Neut % (Auto) Lymph % (Auto) [place] % (Auto) Eos % (Auto) Baso % (Auto) Absolute Neuts (auto) Absolute Lymphs (auto) Total Counted D-Dimer Quant (PE/DVT) Sodium Potassium Chloride Carbon Dioxide Anion Gap BUN Creatinine Estim Creat Clear Calc Est GFR (MDRD) Af Amer Est GFR (MDRD) Non-Af BUN/Creatinine Ratio Glucose Calcium Troponin I Urine Color Yellow Urine Clarity Sl. Cloudy Urine pH 6.5 Ur Specific [place] 1.010 Urine Protein 30 H Urine Glucose (UA) Normal Urine Ketones Negative Urine Occult Blood 250 H Urine Nitrite Negative Urine Bilirubin Negative Urine Urobilinogen Normal Ur Leukocyte Esterase 500 H Urine RBC 5-10 SEEN Urine WBC 0-5 SEEN Ur Squamous Epith Cells 0-5 SEEN Urine Bacteria 0 SEEN Urine Mucus 0 SEEN Assessment/Plan Active and Suspected Problems (Last Reviewed 03/29/17 @ 11:25 by Jacqueline Faria) Pulmonary embolism, bilateral (Acute) The patient is a 47 y/o F w/ PMHx: Obesity, HTN, HLD, Fibroid Uterus who presents to the [facility] ED on 04/20/17 with history of recent laparoscopic assisted vaginal hysterectomy this past Sunday per Dr. Springer with no perioperative issues who now presents with onset the evening prior of left sided chest discomfort, abnormal heaviness and sensation of difficulty taking deep breathe which continued upon awakening prompting ED evaluation. (1) Atypical Dyspnea, chest pain secondary to Pulmonary Embolism: EKG without acute findings, CXR no acute process, D-dimer elevated, CTPA with bilateral pulmonary emboli, CBC and BMP unremarkable, troponin ?1 normal. Given recent OR , considered provoked. Will admit to PCU, maintain on cardiac telemetry. Will obtain ECHO, BNP and BL LE DVT US. Will continue therapeutic xarelto regimen with pending AM insurance oral regimen investigation. (2) Recent Lap Assisted Hysterectomy secondary to Fibroid Uterus: Recent OR lap assisted hysterectomy, Dr. Springer consulted per ED, will assess upon admission, amenable to anticoagulation, admission Hgb normal range. Noted constipation following operative intervention, will initiate bowel regimen and continue to monitor, notes no longer taking any narcotics. (3) Hypertension: Continue home regimen including Norvasc, lisinopril, metoprolol, PRN hydralazine. (4) Hyperlipidemia: Continue home statin regimen. (5) Obesity: Weight loss and lifestyle changes encouraged. (6) GERD: Famotidine. (7) DVT Prophylaxis: SCDs pending DVT US, Xarelto. Code Visit OBSV E&M: 45010 Initial observation care L3
[2017-04-20] MEDS: Acetaminophen 500 MG Tablet 1000 MG PO (09:46)
[2017-04-20] MEDS: 0.9% Normal Saline 1,000 ML 999 ML IV (09:47)
[2017-04-20] MEDS: Rivaroxaban 15 MG Tablet PO ×2 (09:47→16:42)
--- NOTE | 2017-04-20 10:21 | VDLE_ITS ---
Reason For Study: PE RIGHT LEFT GSV is normal. GSV is normal. CFV is compressible, spontaneous, phasic, CFV is compressible, spontaneous, phasic, competent and demonstrates normal competent, and demonstrates normal augmentation. augmentation. FV is compressible, spontaneous, phasic, FV is compressible, spontaneous, phasic, competent and demonstrates normal competent and demonstrates normal augmentation. augmentation. POP V is compressible, spontaneous, phasic, POP V is compressible, spontaneous, phasic, competent and demonstrates normal competent and demonstrates normal augmentation. augmentation. T/P Trunk is compressible. T/P Trunk is compressible. PTV is compressible. PTV is compressible. RT PerV is compressible. LT PerV is compressible. Procedure Exam performed portable in patient room. A preliminary report was called and/or faxed to [facility]. Interpretation Summary Deep veins of the lower extremities are bilaterally patent and compressible segmentally. There is no evidence of deep vein thrombosis on either side. Valvular competence appears intact within the proximal deep venous systems bilaterally. The greater saphenous veins appear bilaterally patent and compressible segmentally. Ordering Physician: Teresa Becerra Referring Physician: Petty Springer Performed By: Camilla Lui RVT
--- NOTE | 2017-04-20 10:21 | ECHOD_ITS ---
Reason For Study: EMBOLI Procedure This was a 2D Doppler, Color Flow transthoracic echocardiogram. Exam performed portable in patient room. Left Ventricle Normal LV size. Left ventricular systolic function is normal. The estimated ejection fraction is 60 %. No regional wall motion abnormalities noted. Right Ventricle Normal RV size. Normal systolic function. Atria Normal left atrium. Mitral Valve Normal mitral valve. Tricuspid Valve Normal tricuspid valve. Mild tricuspid valve insufficiency. Aortic Valve Normal aortic valve. Pulmonic Valve Normal pulmonic valve. Great Vessels Normal aortic root. The pulmonary artery is normal size. Pericardium/Pleural No pericardial effusion. MMode/2D Measurements & Calculations LVIDd: 4.2 cm IVSd: 1.1 cm LVOT diam: 2.0 cm LVIDs: 2.9 cm LVPWd: 1.0 cm LVOT area: 3.0 cm2 RVDd: 3.1 cm FS: 31.5 % Ao root diam: 3.3 cm LAV(MOD-bp): 38.3 ml LA A4 area: 14.2 cm2 LA dimension: 3.6 cm LAV(MOD-bp) Indexed: 17.8 ml/m2 LAV(MOD-sp2): 40.0 ml LAV(MOD-sp4): 34.1 ml RA A4 area: 11.5 cm2 Doppler Measurements & Calculations MV E max silver: 92.5 cm/sec Ao V2 max: 165.3 cm/sec LV V1 max: 137.1 cm/sec MV A max silver: 77.5 cm/sec Ao max P.9 mmHg LV V1 max P.5 mmHg MV E/A: 1.2 SHELLY(V,D): 2.5 cm2 PA V2 max: 166.4 cm/sec TR max silver: 179.9 cm/sec TR max P.9 mmHg Interpretation Summary Normal LV size. Left ventricular systolic function is normal. The estimated ejection fraction is 60 %. Mild tricuspid valve insufficiency. Ordering Physician: Teresa Becerra Referring Physician: Petty Springer Performed By: Joyce Martin, IQRA, RVT
[2017-04-20 10:36] LABS: Magnesium 2.4 mg/dL (1.6-2.6)
[2017-04-20] MEDS: Lisinopril 20 MG Tablet PO (11:15)
[2017-04-20] MEDS: Metoprolol(XL)Succ 100 MG Tablet PO (11:15)
[2017-04-20] MEDS: Famotidine 20 MG Tablet PO ×2 (11:15→21:03)
[2017-04-20] MEDS: amLODIPine 10 MG Tablet PO (11:15)
[2017-04-20] MEDS: Senna/Docusate Sodium 1 Tablet 2 TABLET PO (16:09)
--- NOTE | 2017-04-20 16:12 | CASEMGMT ---
Per Dr. Becerra, pt to be sent home on Xarelto. Script sent to [facility] at this time to check co-pay and per Lalit, co-pay is $30.00. Doreen KEATING aware at this time and she states she will update pt and provide with co-pay card. Whitley KEATING CM
[2017-04-20] MEDS: Atorvastatin Calcium 10 MG Tablet 5 MG PO (21:02)
[2017-04-20] MEDS: Amitriptyline 100 MG Tablet PO (21:06)
[2017-04-21] VITALS (7 sets, daily range): BP systolic 116–127; BP diastolic 55–62; PULSE 78–98; RESP 18; TEMP 36.8–37; O2SAT 95–98
[2017-04-21] MEDS: oxyCODONE 5 MG Tablet PO (01:01)
[2017-04-21 06:35] LABS: Hematocrit 36.6 % (37-47); Mean Corp Hgb Conc 32.8 g/gl (32-36); Mean Corpuscular Hgb 28.8 pg (27.0-32.0); Mean Corpuscular Volume 87.8 fL (81-99); Mean Platelet Vol. 9.2 fl (6.2-12.0); Platelet Count 278 K/mm3 (150-450); RBC Distribution Width CV 13.4 % (11.6-14.6); RBC Distribution Width SD 42.8 fl (35.1-43.9); Red Blood Count 4.17 M/mm3 (4.2-5.4); White Blood Count 10.4 K/mm3 (4.4-11.0)
[2017-04-21 06:49] LABS: Scan Indicated on CBC? Y/N NO
--- NOTE | 2017-04-21 07:03 | CON.PCM_ITS ---
Problem List (1) Postoperative state Status: Acute (2) Pulmonary embolism, bilateral Status: Acute (3) HTN (hypertension) Status: Chronic Qualifiers: Hypertension type: essential hypertension Qualified Code(s): I10 - Essential (primary) hypertension (4) HLD (hyperlipidemia) Status: Chronic Qualifiers: Hyperlipidemia type: unspecified Qualified Code(s): E78.5 - Hyperlipidemia , unspecified (5) Obesity (BMI 30-39.9) Status: Chronic Reason for Consult Date of Consultation: 04/20/17 - patient seen and evaluated at 1330 04/20/17 Reason for Consultation: postop PE History of Present Illness: The patient is a 47 year old F presnted to ED With chest pain and was diagnosed with bilateral PE. She is 4 days postop from a laparoscopic assisted vaginal hysterectomy. She is hemodynamically stable and was admitted to the PCU under hospitalist care for managment of the PE. Past Medical History Past Medical History (Chronic Problems): Chronic Problems (Last Reviewed 03/29/17 @ 11:25 by Jacqueline Faria) Uterine fibroid (Chronic) HTN (hypertension) (Chronic) HLD (hyperlipidemia) (Chronic) Obesity (BMI 30-39.9) (Chronic) Allergies morphine Adverse Reaction (Verified 04/20/17 07:09) Nausea Home Medications: Ambulatory Orders Medication Instructions Recorded Amitriptyline HCl 100 mg PO QHS 03/07/16 Amlodipine [Norvasc] 10 mg PO DAILY 03/07/16 Calcium Citrate/Vitamin D3 1 ea PO DAILY 03/07/16 [Calcium Citrate - Vit D Caplet] Cranberry Conc/Ascorbic Acid 1 ea PO DAILY 03/07/16 [Cranberry 12,600 mg Softgel] Lisinopril [Zestril] 20 mg PO DAILY 03/07/16 Metoprolol(XL)Succ [Toprol Xl 100 mg PO DAILY 03/07/16 (Beta Adan)] Multivitamin [Multiple Vitamins] 1 ea PO DAILY 03/07/16 Omeprazole [Prilosec] 20 mg PO DAILY 03/07/16 Potassium (Otc) [Potassium Otc] 99 mg PO DAILY 03/07/16 Simvastatin [Zocor] 10 mg PO QHS 03/07/16 Docusate Sodium [Colace] 100 mg PO BID PRN PRN #10 cap 03/14/16 Hydrocodone Bitart/Apap 5-325 1 - 2 tab PO Q4H PRN PRN #20 tab 03/24/17 [[place] 5/325] Naproxen [Naprosyn] 500 mg PO BID PRN #20 tab 03/24/17 Rivaroxaban [Xarelto] 1 ea PO UD #1 tab.ds.pk 04/20/17 Surgical History: - - Laparoscopic assisted hysterectomy, right carpal tunnel release, tonsillectomy. 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 Tobacco Use: Non-smoker Alcohol: Occasional Drugs: None - *Family History Maternal History Items: - - Maternal family history of breast cancer with metastatic disease now, hyperlipidemia. Paternal History Items: - - Paternal family history of coronary disease with father undergoing a CABG in his 60s. Review of Systems Constitutional: Denies: Fever HEENT: Denies: Head Aches, Sinus Congestion, Sinus Drainage Cardiovascular: Reports: Chest Pain, Chest Tightness Respiratory: Reports: Shortness of Breath Gastrointestinal: Reports: Abdominal Pain Genitourinary: Denies: Dysuria Musculoskeletal: Denies: Joint Pain, Joint Tenderness Skin: Denies: Rash, Wounds Neurological: Denies: Numbness, Tingling, Focal weakness Patient Problems: Active and Suspected Problems (Last Reviewed 03/29/17 @ 11:25 by Jacqueline Faria) Pulmonary embolism, bilateral (Acute) Postoperative state (Acute) - Physical Exam General: Alert, Oriented x3, Cooperative HEENT: Atraumatic, PERRLA, EOMI, Normocephalic Neck: Supple, No JVD, Negative Carotid Bruits Lungs: Normal air movement Cardiovascular: Regular rate, Regular Rhythm Abdomen: Soft, Non Tender, - - Incisions C/D/I Extremities: No edema, Capillary Refill Less than 3 Seconds Skin: No rashes, No breakdown Musculoskeletal: No Tenderness to Palpation of Joints or Extremities Neurological: Neuro grossly intact Psych/Mental Status: Normal Affect, Appropriate Vital Signs Temp Pulse Resp BP Pulse Ox 98.3 F 80 18 116/62 95 04/21/17 03:00 04/21/17 03:03 04/21/17 03:00 04/21/17 03:00 04/21/17 03:00 Oxygen Delivery Method Room Air Weight: 229 lb 11.547 oz Body Mass Index (BMI) 35.9 Intake and Output for Last 24 Hours 04/19/17 04/20/17 04/21/17 23:59 23:59 23:59 Intake Total 620 / 620 800 / 800 Balance 620 / 620 800 / 800 Laboratory Tests Past 24 Hrs 04/21/17 04/21/17 06:06 06:06 WBC 10.4 RBC 4.17 L Hgb 12.0 Hct 36.6 L MCV 87.8 MCH 28.8 MCHC 32.8 RDW 13.4 RDW Differential 42.8 Plt Count 278 MPV 9.2 Sodium Pending Potassium Pending Chloride Pending Carbon Dioxide Pending Anion Gap Pending BUN Pending Creatinine Pending Est GFR (MDRD) Af Amer Pending Est GFR (MDRD) Non-Af Pending BUN/Creatinine Ratio Pending Glucose Pending Calcium Pending Assessment/Plan Active and Suspected Problems (Last Reviewed 03/29/17 @ 11:25 by Jacqueline Faria) Pulmonary embolism, bilateral (Acute) Postoperative state (Acute) 47 yo POD#4 after LAVH for uterine fibroids 1. bilateral PE- management per hospitalist appreciated. stable and additional workup ordered. 2. postoperative care- minimal risk for bleeding this long postoperative so agree with anticoagulation- continue ambulation, regular diet, oral pain control 3. HTN- appreciate hospitalist managment continue home meds
[2017-04-21 07:12] LABS: Anion Gap 12 (5-15); BUN 9 mg/dL (7-18); BUN/Creat Ratio 13.6 RATIO (10-20); Calcium,Total 7.8 mg/dL (8.5-10.1); Chloride 107 mmol/L (98-107); Creatinine, Serum 0.66 mg/dL (0.55-1.02); EST Glomerular Filtration Rate 102 mL/min (>60); Est Glom Filt Rate - Afr Amer 123 mL/min (>60); Estimated Creatinine Clearance 103.57 ml/min; Glucose 91 mg/dL (74-106); Potassium 3.8 mmol/L (3.5-5.1); Sodium Level 138 mmol/L (136-145)
--- NOTE | 2017-04-21 07:38 | PCM.PN.OB ---
Patient Problems: Active and Suspected Problems (Last Reviewed 03/29/17 @ 11:25 by Jacqueline Faria) Pulmonary embolism, bilateral (Acute) Postoperative state (Acute) Subjective: chest pain improved, tolerating po and positive BM. - Physical Exam General: Alert, Oriented x3 Lungs: Normal air movement Cardiovascular: Regular rate Abdomen: Soft, - - incisions: C/D/I Vital Signs Temp Pulse Resp BP Pulse Ox 98.3 F 80 18 116/62 95 04/21/17 03:00 04/21/17 03:03 04/21/17 03:00 04/21/17 03:00 04/21/17 03:00 Oxygen Delivery Method Room Air Weight: 229 lb 11.547 oz Body Mass Index (BMI) 35.9 Intake and Output for Last 24 Hours 04/19/17 04/20/17 04/21/17 23:59 23:59 23:59 Intake Total 620 / 620 800 / 800 Balance 620 / 620 800 / 800 Laboratory Tests Past 24 Hrs 04/21/17 04/21/17 06:06 06:06 WBC 10.4 RBC 4.17 L Hgb 12.0 Hct 36.6 L MCV 87.8 MCH 28.8 MCHC 32.8 RDW 13.4 RDW Differential 42.8 Plt Count 278 MPV 9.2 Sodium 138 Potassium 3.8 Chloride 107 Carbon Dioxide 19.0 L Anion Gap 12 BUN 9 Creatinine 0.66 Estim Creat Clear Calc 103.57 Est GFR (MDRD) Af Amer 123 Est GFR (MDRD) Non-Af 102 BUN/Creatinine Ratio 13.6 Glucose 91 Calcium 7.8 L Assessment/Plan Active and Suspected Problems (Last Reviewed 03/29/17 @ 11:25 by Jacqueline Faria) Pulmonary embolism, bilateral (Acute) Postoperative state (Acute) 47 yo POD#4 after LAVH for uterine fibroids 1. bilateral PE- management per hospitalist appreciated. stable and additional workup ordered. 2. postoperative care- minimal risk for bleeding this long postoperative so agree with anticoagulation- continue ambulation, regular diet, oral pain control 3. HTN- appreciate hospitalist managment continue home meds
[2017-04-21] MEDS: Rivaroxaban 15 MG Tablet PO (08:28)
[2017-04-21] MEDS: amLODIPine 10 MG Tablet PO (09:20)
[2017-04-21] MEDS: Lisinopril 20 MG Tablet PO (09:21)
[2017-04-21] MEDS: Famotidine 20 MG Tablet PO (09:21)
[2017-04-21] MEDS: Senna/Docusate Sodium 1 Tablet 2 TABLET PO (09:21)
[2017-04-21] MEDS: Metoprolol(XL)Succ 100 MG Tablet PO (09:21)
--- NOTE | 2017-04-21 10:26 | PCM.DC ---
- Discharge Diagnoses Current Active Problems: Current Active and Chronic Problems (Last Reviewed 03/29/17 @ 11:25 by Jacqueline Faria) Pulmonary embolism, bilateral (Acute) HTN (hypertension) (Chronic) HLD (hyperlipidemia) (Chronic) Obesity (BMI 30-39.9) (Chronic) Postoperative state (Acute) You will use the following diet at home:: Cardiac Your food should be the consistency of: Regular Your liquids should be the consistency of: Regular/Thin Discharge Activity: - - Encourage routine activity, mild to moderate only until re-evaluation per your PCP and also parameters per Shopper'S Aide to be continued given recent operative intervention. May resume sexual activity in: - - Follow parameters per master printer given recent operative intervention. Weight Bearing Status: Weight bearing as tolerated Call your doctor if your incision/area has: Continuous Slow Oozing, Sudden Increased Bleeding, Increased Pain/ Swelling, Increased Redness, Foul Smelling Discharge, Swelling at the incision site Call your doctor if you observe: Fever of 101 or Higher, Inability to urinate, Inability to have a bowel movement, Shortness of breath, Dizziness, Fainting spells, Chest pain, Calf discomfort, Uncontrolled pain Instructions: Pulmonary Embolism, Discharge Instructions for Pulmonary Embolism, Treating Constipation, Discharge Instructions: Eating a High Fiber Diet Allergies/Adverse Reactions: Allergies morphine Adverse Reaction (Verified 04/20/17 07:09) Nausea Medications to take at Discharge Amitriptyline HCl 100 mg PO QHS 03/07/16 Amlodipine [Norvasc] 10 mg PO DAILY 03/07/16 Calcium Citrate/Vitamin D3 [Calcium Citrate - Vit D Caplet] 1 ea PO DAILY 03/07/16 Cranberry Conc/Ascorbic Acid [Cranberry 12,600 mg Softgel] 1 ea PO DAILY 03/07/16 Lisinopril [Zestril] 20 mg PO DAILY 03/07/16 Metoprolol(XL)Succ [Toprol Xl (Beta Adan)] 100 mg PO DAILY 03/07/16 Multivitamin [Multiple Vitamins] 1 ea PO DAILY 03/07/16 Omeprazole [Prilosec] 20 mg PO DAILY 03/07/16 Potassium (Otc) [Potassium OTC] 99 mg PO DAILY 03/07/16 Simvastatin [Zocor] 10 mg PO QHS 03/07/16 Rivaroxaban [Xarelto] 1 ea PO UD #1 tab.ds.pk 04/20/17 Acetaminophen [Tylenol Tablet] 650 mg PO Q6H PRN PRN tablet 04/21/17 Albuterol IH (ProAir) [Proair Hfa] 1 - 2 puff INHALATION Q4H PRN PRN #1 inhaler 04/21/17 Oxycodone [Oxyir] 5 mg PO Q4H PRN PRN 5 Days #30 tablet 04/21/17 Senna/Docusate Sodium [Senokot-S] 2 tab PO DAILY #60 tab 04/21/17 The following prescriptions were given: Albuterol IH (ProAir) [Proair Hfa] 1 - 2 puff INHALATION Q4H PRN PRN #1 inhaler PRN Reason: dyspnea, wheezing Oxycodone [Oxyir] 5 mg PO Q4H PRN PRN 5 Days #30 tablet PRN Reason: Moderate Pain (pain scale 4-5) Rivaroxaban [Xarelto] 1 ea PO UD #1 tab.ds.pk Senna/Docusate Sodium [Senokot-S] 2 tab PO DAILY #60 tab Primary Care Physician: Kandy Valle DO [Primary Care Provider] - Please follow up with your Primary Care Physician in: Follow-up within 3-5 days to review admission. Please Follow Up With: Petty Springer MD When: Follow-up as previously arranged for post-op evaluation. Proposed Discharge Date: 04/21/17
--- NOTE | 2017-04-21 10:36 | DCINST_ITS ---
- Discharge Diagnoses Current Active Problems: Current Active and Chronic Problems (Last Reviewed 03/29/17 @ 11:25 by Jacqueline Faria) Pulmonary embolism, bilateral (Acute) HTN (hypertension) (Chronic) HLD (hyperlipidemia) (Chronic) Obesity (BMI 30-39.9) (Chronic) Postoperative state (Acute) You will use the following diet at home:: Cardiac Your food should be the consistency of: Regular Your liquids should be the consistency of: Regular/Thin Discharge Activity: - - Encourage routine activity, mild to moderate only until re-evaluation per your PCP and also parameters per Billing Representative to be continued given recent operative intervention. May resume sexual activity in: - - Follow parameters per technical writing lead/mgr given recent operative intervention. Weight Bearing Status: Weight bearing as tolerated Call your doctor if your incision/area has: Continuous Slow Oozing, Sudden Increased Bleeding, Increased Pain/ Swelling, Increased Redness, Foul Smelling Discharge, Swelling at the incision site Call your doctor if you observe: Fever of 101 or Higher, Inability to urinate, Inability to have a bowel movement, Shortness of breath, Dizziness, Fainting spells, Chest pain, Calf discomfort, Uncontrolled pain Instructions: Pulmonary Embolism, Discharge Instructions for Pulmonary Embolism , Treating Constipation, Discharge Instructions: Eating a High Fiber Diet Allergies/Adverse Reactions: Allergies morphine Adverse Reaction (Verified 04/20/17 07:09) Nausea Medications to take at Discharge Amitriptyline HCl 100 mg PO QHS 03/07/16 Amlodipine [Norvasc] 10 mg PO DAILY 03/07/16 Calcium Citrate/Vitamin D3 [Calcium Citrate - Vit D Caplet] 1 ea PO DAILY Cranberry Conc/Ascorbic Acid [Cranberry 12,600 mg Softgel] 1 ea PO DAILY Lisinopril [Zestril] 20 mg PO DAILY 03/07/16 Metoprolol(XL)Succ [Toprol Xl (Beta Adan)] 100 mg PO DAILY 03/07/16 Multivitamin [Multiple Vitamins] 1 ea PO DAILY 03/07/16 Omeprazole [Prilosec] 20 mg PO DAILY 03/07/16 Potassium (Otc) [Potassium OTC] 99 mg PO DAILY 03/07/16 Simvastatin [Zocor] 10 mg PO QHS 03/07/16 Rivaroxaban [Xarelto] 1 ea PO UD #1 tab.ds.pk 04/20/17 Acetaminophen [Tylenol Tablet] 650 mg PO Q6H PRN PRN tablet 04/21/17 Albuterol IH (ProAir) [Proair Hfa] 1 - 2 puff INHALATION Q4H PRN PRN #1 inhaler 04/21/17 Oxycodone [Oxyir] 5 mg PO Q4H PRN PRN 5 Days #30 tablet 04/21/17 Senna/Docusate Sodium [Senokot-S] 2 tab PO DAILY #60 tab 04/21/17 The following prescriptions were given: Albuterol IH (ProAir) [Proair Hfa] 1 - 2 puff INHALATION Q4H PRN PRN #1 inhaler PRN Reason: dyspnea, wheezing Oxycodone [Oxyir] 5 mg PO Q4H PRN PRN 5 Days #30 tablet PRN Reason: Moderate Pain (pain scale 4-5) Rivaroxaban [Xarelto] 1 ea PO UD #1 tab.ds.pk Senna/Docusate Sodium [Senokot-S] 2 tab PO DAILY #60 tab Primary Care Physician: Kandy Valle DO [Primary Care Provider] - Please follow up with your Primary Care Physician in: Follow-up within 3-5 days to review admission. Please Follow Up With: Petty Springer MD When: Follow-up as previously arranged for post-op evaluation. Proposed Discharge Date: 04/21/17
--- NOTE | 2017-04-21 10:37 | DS.PCM_ITS ---
Discharge Date and Diagnosis Date of Admission: 04/20/17 Date of Discharge: 04/21/17 - Primary Discharge Diagnosis Active and Suspected Problems (Last Reviewed 03/29/17 @ 11:25 by Jacqueline Faria) Pulmonary embolism, bilateral (Acute) HTN (hypertension) (Chronic) HLD (hyperlipidemia) (Chronic) Obesity (BMI 30-39.9) (Chronic) Fibroid Uterus s/p lap assisted hysterectomy (postoperative status) - Secondary Discharge Diagnosis Chronic Problems (Last Reviewed 03/29/17 @ 11:25 by Jacqueline Faria) Uterine fibroid (Chronic) HTN (hypertension) (Chronic) HLD (hyperlipidemia) (Chronic) Obesity (BMI 30-39.9) (Chronic) Hospital Course and Treatment Dr. Springer Therapy Administrative Assistant Operations: None Procedures: 2-D Echocardiogram, EKG Summary of Care Provided: The patient is a 47 y/o F w/ PMHx: Obesity, HTN, HLD, Fibroid Uterus who presented to the [facility] ED on 04/20/17 with history of recent laparoscopic assisted vaginal hysterectomy this past Sunday per Dr. Springer with no perioperative issues who now presents with onset the evening prior of left sided chest discomfort, abnormal heaviness and sensation of difficulty taking deep breathe which continued upon awakening prompting ED evaluation. EKG without acute findings, CXR no acute process, D-dimer elevated, CTPA with bilateral pulmonary emboli, CBC and BMP unremarkable, troponin ?1 normal. Given recent OR, considered provoked. Admitted to PCU, maintained on cardiac telemetry without event, ECHO obtained and noted to be unremarkable w/ normal LV systolic function , normal LV size, EF 60%, mild TV insufficiency, BNP unremarkable, DVT US obtained w/ final read pending at discharge, therapeutic xarelto regimen continued and verified cost affordable to patient per case management. Patient with admitted constipation during admission given recent narcotic usage, bowel regimen altered with improvement. Patient discharged to home with continued xarelto regimen, stool regimen as well as alteration in pain regimen in case increased more acute needs given acute PE BL, although chest pain improved during admission. Patient discharged to home in stable condition on room air with follow-up with PCP as well as Therapy Administrative Assistant as previously arranged. DAY OF DISCHARGE PROGRESS NOTE: Subjective: Patient without acute event overnight per self and nursing report. She notes chest discomfort improved and no dyspnea complaint, moving with greater ease. Discussed xarelto cost which is affordable ($30/month). Patient denies fever, chills, nausea, emesis, abdominal pain, worsened chest pain or dyspnea. Patient agreeable to discharge to home. Patient will be discharged with follow-up with primary care physician within 3-5 days in addition to Ob/ Inventory Control Specialist as previously arranged. Objective: T 98.6, heart rate 78, BP 127/55, respiratory rate 18, 98% on room air. Physical Examination: General: awake, alert, oriented x 3 and cooperative, seated upright in bed in no apparent distress. Skin: normal color, turgor, no icterus, cyanosis, recent OR lap-assist hysterectomy w/ incisions C/D/I, mild L sided abdomen tape irritation. HEENT: AT/NC, EOMI, PERRLA, MMM. Lungs: CTA bilaterally, moderate effort, mild decrease BL bases, no rales, ronchi or wheezing. Heart: Regular rate and rhythm; no gallop, rub audible. Abdomen: soft, obese, expected mildly discomfort given recent lap assisted hysterectomy but otherwise no marked TTP, tape rash as noted, ND, normal BS. Extremities: no cyanosis, clubbing, or edema. No TTP BL LE. Neurological: patient awake, alert, oriented x 3; cognitive function intact; pupils equally reactive to light and accomodation; cranial nerves II-XII grossly normal, moving all 4 extremities, no focal deficits, strength improved, mildly globally decreased. Psychiatric: affect appears normal, no acute evidence of depressive or anxiety feelings. Assessment and Plan: Please see hospital summary above. Discharge Activity: - - Encourage routine activity, mild to moderate only until re-evaluation per your PCP and also parameters per Therapy Administrative Assistant to be continued given recent operative intervention. May resume sexual activity in: - - Follow parameters per autocad draftsman given recent operative intervention. Weight Bearing Status: Weight bearing as tolerated Call your doctor if your incision/area has: Continuous Slow Oozing, Sudden Increased Bleeding, Increased Pain/ Swelling, Increased Redness, Foul Smelling Discharge, Swelling at the incision site Call your doctor if you observe: Fever of 101 or Higher, Inability to urinate, Inability to have a bowel movement, Shortness of breath, Dizziness, Fainting spells, Chest pain, Calf discomfort, Uncontrolled pain Home Medications: Medications to take at Discharge Amitriptyline HCl 100 mg PO QHS 03/07/16 Amlodipine [Norvasc] 10 mg PO DAILY 03/07/16 Calcium Citrate/Vitamin D3 [Calcium Citrate - Vit D Caplet] 1 ea PO DAILY Cranberry Conc/Ascorbic Acid [Cranberry 12,600 mg Softgel] 1 ea PO DAILY Lisinopril [Zestril] 20 mg PO DAILY 03/07/16 Metoprolol(XL)Succ [Toprol Xl (Beta Adan)] 100 mg PO DAILY 03/07/16 Multivitamin [Multiple Vitamins] 1 ea PO DAILY 03/07/16 Omeprazole [Prilosec] 20 mg PO DAILY 03/07/16 Potassium (Otc) [Potassium OTC] 99 mg PO DAILY 03/07/16 Simvastatin [Zocor] 10 mg PO QHS 03/07/16 Rivaroxaban [Xarelto] 1 ea PO UD #1 tab.ds.pk 04/20/17 Acetaminophen [Tylenol Tablet] 650 mg PO Q6H PRN PRN tablet 04/21/17 Albuterol IH (ProAir) [Proair Hfa] 1 - 2 puff INHALATION Q4H PRN PRN #1 inhaler 04/21/17 Oxycodone [Oxyir] 5 mg PO Q4H PRN PRN 5 Days #30 tablet 04/21/17 Senna/Docusate Sodium [Senokot-S] 2 tab PO DAILY #60 tab 04/21/17 Following Prescrptions Were Given to Patient: Albuterol IH (ProAir) [Proair Hfa] 1 - 2 puff INHALATION Q4H PRN PRN #1 inhaler PRN Reason: dyspnea, wheezing Oxycodone [Oxyir] 5 mg PO Q4H PRN PRN 5 Days #30 tablet PRN Reason: Moderate Pain (pain scale 4-5) Rivaroxaban [Xarelto] 1 ea PO UD #1 tab.ds.pk Senna/Docusate Sodium [Senokot-S] 2 tab PO DAILY #60 tab Primary Care Physician: Kandy Valle DO [Primary Care Provider] - Please follow up with your Primary Care Physician in: Follow-up within 3-5 days to review admission. Please Follow Up With: Petty Springer MD When: Follow-up as previously arranged for post-op evaluation. Patient Instructions: Pulmonary Embolism, Treating Constipation, Discharge Instructions for Pulmonary Embolism, Discharge Instructions: Eating a High Fiber Diet Disposition: Home Minutes spent on discharge:: 25 Patient Condition:: Fair Meaningful Use Info Meaningful Use Diagnoses (Choose all that apply): VTE - VTE Anticoag overlap given w/in hospital stay or rx'd at dc?: No Pt receive overlap for 5 days?: No Reason overlap not ordered, prescribed, or given for 5 days: Treatment Not Indicated - xarelto therapeutic regimen. Code Visit OBSV E&M: 48208 Observation care discharge
== END 2017-04-21 11:53 | disposition home or self-care (01) ==
LOC: ED 08:12 → PCU 09:57
PROVIDERS: Admitting Provider Family Medicine; Emergency Provider Emergency Medicine; Family Provider Family Medicine; PCP Family Medicine; Visit Provider Family Medicine
DX: R07.89 Other chest pain (principal); I26.99 Other pulmonary embolism without acute cor pulmonale; E78.5 Hyperlipidemia, unspecified; I10 Essential (primary) hypertension; E66.9 Obesity, unspecified; Z68.36 Body mass index [BMI] 36.0-36.9, adult; Z71.3 Dietary counseling and surveillance; Z90.710 Acquired absence of both cervix and uterus; Z79.899 Other long term (current) drug therapy; Z87.891 Personal history of nicotine dependence; Z98.890 Other specified postprocedural states; R06.00 Dyspnea, unspecified
CPT/HCPCS: 36415; 71045; 71275; 80048; 81001; 83735; 83880; 84484; 85025; 85027; 85379; 93005; 93306; 93970; 96360; 99218; 99285; J7030; Q9967; A4216; G0378

== ENCOUNTER → 2017-05-08 09:47 | Outpatient (CLI) | payer BC, SELFPAY ==
--- NOTE | 2017-05-08 09:51 | HPBI_ITS ---
MAMMOGRAPHY - BILATERAL SCREENING REASON FOR EXAM: Female, 47 years old. Routine annual screening examination. PERTINENT HISTORY: Mother with breast cancer. TECHNIQUE: Digital bilateral breast regis (3D mammographic acquisition) in the CC and MLO projections. 2-D mediolateral oblique (MLO) and craniocaudad (CC) views of both breasts were obtained. CAD: Full Field Digital Mammography with Computer Added Detection was performed. COMPARISON: Comparison is made with prior study dated April 07, 2016 and March 09, 2014. FINDINGS: Breast Composition: There are scattered areas of fibroglandular density. There are no dominant masses or suspicious calcifications. Stable benign-appearing bilateral axillary lymph nodes. No other significant abnormalities are identified. There has been no significant change since the prior study. HPBI/SCREENING MAMM (CAD), BILAT IMPRESSION: Stable bilateral screening mammogram. Yearly follow-up mammogram recommended. (A) ASSESSMENT CATEGORY: BIRADS Category 2: Benign. A letter regarding these results will be sent to the patient by the facility within 30 days. Approximately 10% of breast cancers are not detected by mammography. A normal mammogram should not delay biopsy of a clinically suspicious abnormality. [id number] Electronically Signed: Melvin Alex MD at 11:34 EST Tel [phone], Service support ,
== END ==
PROVIDERS: Family Provider Family Medicine; PCP Family Medicine; Visit Provider Family Medicine
DX: Z12.31 Encounter for screening mammogram for malignant neoplasm of breast (principal)
CPT/HCPCS: 77063; 77067

== ENCOUNTER → 2017-10-30 13:35 | Outpatient (CLI) | payer BC, SELFPAY | PROVIDERS: Family Provider Family Medicine; PCP Family Medicine; Visit Provider Family Medicine | DX: I26.99 Other pulmonary embolism without acute cor pulmonale (principal); E55.9 Vitamin D deficiency, unspecified; R53.83 Other fatigue | CPT/HCPCS: 36415; 71275; 82306; 84443; Q9967 ==

== ENCOUNTER → 2017-11-07 06:46 | Outpatient (CLI) | payer BC, SELFPAY ==
--- NOTE | 2017-11-07 10:23 | NEURO ---
NCS and/or EMG Patient Report Ordering Doctor: Ori Collins DATE OF SERVICE: 11/07/17 This is a left upper extremity EMG and nerve conduction study performed on this 47-year-old female with a previous right carpal tunnel repair, she reports cramping in her left wrist. No neck pain and she is healthy otherwise. Left upper extremity sensory and motor nerve conduction studies performed. The median sensory and motor distal latencies are prolonged with preserved amplitudes but decreased conduction velocities. The ulnar motor and sensory and radial sensory responses are normal. The median and ulnar F-wave latencies are normal. Left upper extremity needle electromyography is performed. Muscles evaluated included the first dorsal interosseous, abductor pollicis brevis, brachioradialis, biceps, triceps and deltoid muscles. All muscles demonstrated normal insertional activity with absence of pathologic spontaneous activity. Motor unit potential recruitment pattern and amplitude was normal in all muscles tested. Impression abnormal electrophysiologic study of the left upper extremity consistent with mild carpal tunnel syndrome at the left wrist.
== END ==
PROVIDERS: Family Provider Family Medicine; PCP Family Medicine; Visit Provider Physician Assistant
DX: G56.02 Carpal tunnel syndrome, left upper limb (principal)
CPT/HCPCS: 95886; 95909

== ENCOUNTER → 2017-12-20 10:46 | Outpatient (CLI) | payer BC, SELFPAY ==
--- NOTE | 2017-12-20 10:47 | RAD_ITS ---
STUDY: X-RAY - LEFT SHOULDER REASON FOR EXAM: Left shoulder pain when raising arm. TECHNIQUE: 3 view(s) of the shoulder. COMPARISON: Radiographs 07/02/2015. FINDINGS: Normal glenohumeral articulation. Normal acromioclavicular joint. Normal acromion. Normal humeral head and visualized proximal humerus. There is interval development of a very small focus of calcific tendinitis on the AP view. Normal visualized pulmonary apex. RAD/Shoulder min 2 Views IMPRESSION: Very small focus of calcific tendinitis. Electronically Signed: Prosper Almazan MD at 14:50 EDT Tel , Service support ,
== END ==
PROVIDERS: Family Provider Family Medicine; PCP Family Medicine; Referring Provider Orthopaedic Surgery; Visit Provider Orthopaedic Surgery
DX: M25.512 Pain in left shoulder (principal)
CPT/HCPCS: 73030

== ENCOUNTER 2018-01-02 10:30 | Outpatient (RCR) | payer BC, SELFPAY ==
--- NOTE | 2017-12-27 17:57 | HP.PTEVAL ---
Patient's Visit Information GABRIELA RUSSELL is a 47 year old F referred to Physical Therapy by Stacie Alcantar DO with a diagnosis of LEFT SHOULDER RTC SYNDROME. Date of Evaluation: 12/27/17 Physical Therapist: Jovon Cross PT, - Visit Plan Frequency: 2x /Week Duration: 4 Weeks Plan: RTC/SCAPULAR STRENGTHENING,POSTURAL EX'S ,THORACIC MOBLITY,MODALITES NEEDED FOR PAIN RELEIVE - Subjective Subjective: This 47 y/o female presents to physical therapy left shoulder RTC syndrome. Patient injuried left shoulder about 3 years ago cutting wood. Patient has had pain has got worse over time. Patient is aggravated with certain activities with syamptosmrefer to lateral deltoid. Aggravating factors with activity to side ,and overhead lifting.Pain affects ADL'S ,job demands and housework tasks. Denies parathesia/tingling/,.Symptoms affect sleeping.Patient pain in shoulder affects QOL. Patient seen Katharine recommend PT and cortizone injection and x-rays. 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 SOCAIL: - Pain Left Shoulder Pain Intensity (Out of 10): 7 Pain Intensity Range: 10 - Objective POSTURE: mild foward posture rounded shoulders. PALAPTION: unremarkable. NEURO: intact,denies parathesia/tingling. AROM: shoulder flexion 150 degrees,abduction 150 in scapation,ER 90 ,IR 70 PAIN. PASSIVE OVERPRESSURE - increases pain with flexion /abduction. MMT: infraspinatous 4/5,subscapularis 4/5,supraspisnatous 4-/5,anterior/lateral deletoid 4-/5 mild pain,shoulder extensors 4/m,middle traps 3+/5 - Special Tests L Shoulder External Rotation Lag Test - RC Tear: Negative L Shoulder Supine Impingement Test - RC Tear: Negative L Shoulder Lift Off Test - Subscapular Tear: Negative L Shoulder Drop Sign - IS Test: Negative L Shoulder Empty Can - SS: Positive L Shoulder Neer - Impingement: Positive L Shoulder Gonzalez Walter - Impingement: Positive L Shoulder Sulcus Sign - Inferior Laxity: Negative L Shoulder Shrug Sign - OA/Adhesive Capsulitis: Negative - Goals Goal 1:: Patient to be Independant with HEP Goal Time Frame: 4-6 Weeks Goal 2:: Patient to be Independant with posture for ADL'S Goal Time Frame: 4-6 Weeks Goal 3:: Patient to decrease lecft shoulder pain by 60% or greatwer to improve function with ADL'S activities above 90 degrees. Goal Time Frame: 4-6 Weeks Goal 4:: Patient to increase RTC 4+/5 and deltoid 4/5 to improve function and ADL'S Goal Time Frame: 4-6 Weeks Goal 5:: Patient be able to perform ADL'S and housework tasks with min limitations with OH activities Goal Time Frame: 4-6 Weeks - Rehabilitation Potential Physical Therapy Diagnosis: This patient appears to have RTC involvemnt due to possible tendonesis with pain with activity and overhaed for 3 years thus benifit from skilled PT due to weakness RTC and pain. Rehabilitation Potential: Good - Anticipated Interventions Patient/Client Instruction: Educate patient on: Condition, Plan of Care For the Purpose of:: To decrease pain, To increase ROM, To improve muscle performance and motor function, To improve ability to perform ADL's, To increase tolerance to activity/condition/position, To improve ability of physical actions for home/community/work/leisure, To improve health of tissue, To decrease soft tissue restriction, To increase flexibility/ROM, To improve ability to perform tasks related to life management Therapeutic Exercise to Include: Strength training, Postural training, Flexibilty training, Active ROM, Scapular Strength/Stabilization Comment: RTC For the Purpose of:: To decrease pain, To increase ROM, To improve muscle performance and motor function, To increase tolerance to activity/condition/position, To improve ability of physical actions for home/community/work/leisure, To improve health of tissue, To decrease soft tissue restriction, To increase flexibility/ROM, To reduce risk of recurrence, To improve ability to perform tasks related to life management TENS: Yes IF ES: Yes Cryotherapy (ice pack, ice massage): Yes Thermo therapy (hot pack): Yes For the Purpose of:: To decrease pain, To increase ROM, To improve nutrient delivery to tissue, To increase oxygenation perfusion, To improve health of tissue, To decrease soft tissue restriction Thank you for the opportunity to evaluate your patient. For Medicare and Medicare HMO plans, please review the plan of care and approve it. It will need to be FAXED BACK to us at [phone] for Medicare purposes. Please let me know if there are questions or concerns regarding this plan of care. Physician Signature: Date:
--- NOTE | 2018-04-05 12:24 | HP.PTDCNRP_ITS ---
HP - Discharge Summary (1) - Patient Information GABRIELA RUSSELL was seen in my office for initial evaluation on 12/27/17. The following Plan of Care was established for this patient: Initial Frequency: 2x /Week Initial Duration: 4 Weeks - Anticipated Interventions Patient/Client Instruction: Educate patient on: Condition, Plan of Care For the Purpose of:: To decrease pain, To increase ROM, To improve muscle perfor [place] and motor function, To improve ability to perform ADL's, To increase tolerance to activity/condition/position, To improve ability of physical actions for home/community/work/leisure, To improve health of tissue, To decrease soft tissue restriction, To increase flexibility/ROM, To improve ability to perform tasks related to life management Therapeutic Exercise to Include: Strength training, Postural training, Flexibilty training, Active ROM, Scapular Strength/Stabilization For the Purpose of:: To decrease pain, To increase ROM, To improve muscle performance and motor function, To increase tolerance to activity/condition/position, To improve ability of physical actions for home/community/work/leisure, To improve health of tissue, To decrease soft tissue restriction, To increase flexibility/ROM, To reduce risk of recurrence, To improve ability to perform tasks related to life management TENS: Yes IF ES: Yes Cryotherapy (ice pack, ice massage): Yes Thermo therapy (hot pack): Yes For the Purpose of:: To decrease pain, To increase ROM, To improve nutrient delivery to tissue, To increase oxygenation perfusion, To improve health of tissue, To decrease soft tissue restriction This patient was last seen in our office 01/02/18. Pertinent comments regarding their Physical therapy will appear below: Patient was seen for PT for shoulder pain focusing on RTC/scapular strengthening and after cortizone injection patienr has no pain. At this point I will be discontinuing this patient from physical therapy. I would be happy to see this patient again in the future if found appropriate by the physician. Thank you! Jovon Cross, PT, Cert MDT, OCS
== END 2018-01-02 19:00 | disposition home or self-care (01) ==
LOC: PT 10:30
PROVIDERS: Family Provider Family Medicine; PCP Family Medicine; Referring Provider Orthopaedic Surgery; Visit Provider Orthopaedic Surgery
DX: M75.102 Unspecified rotator cuff tear or rupture of left shoulder, not specified as traumatic (principal)
CPT/HCPCS: 97110; 97162

== ENCOUNTER → 2018-03-14 12:32 | Outpatient (CLI) | payer BC, SELFPAY ==
[2018-02-02 09:49] VITALS: BMI 35.9
[2018-03-14 13:58] LABS: ALB/GLOB Ratio 1.1 RATIO (0.9-2.4); AST(SGOT) 26 U/L (15-37); Alanine Aminotransfer ALT/SGPT 51 U/L (13-56); Albumin, Serum 3.7 g/dL (3.2-5.0); Alkaline Phosphatase 123 U/L (45-117); Anion Gap 6 (5-15); BUN 11 mg/dL (7-18); BUN/Creat Ratio 12.8 RATIO (10-20); Calcium,Total 8.5 mg/dL (8.5-10.1); Chloride 108 mmol/L (98-107); Creatinine, Serum 0.86 mg/dL (0.55-1.02); EST Glomerular Filtration Rate 75 mL/min (>60); Est Glom Filt Rate - Afr Amer 91 mL/min (>60); Globulin 3.4 g/dL (2.2-4.2); Glucose 94 mg/dL (74-106); Potassium 3.5 mmol/L (3.5-5.1); Protein, Total 7.1 g/dL (6.4-8.2); Sodium Level 141 mmol/L (136-145)
== END ==
PROVIDERS: Family Provider Family Medicine; PCP Family Medicine; Referring Provider Family Medicine; Visit Provider Family Medicine
DX: E87.6 Hypokalemia (principal); K76.0 Fatty (change of) liver, not elsewhere classified; R94.5 Abnormal results of liver function studies
CPT/HCPCS: 36415; 80053

== ENCOUNTER → 2018-05-13 16:33 | Outpatient (CLI) | payer OTHER, SELFPAY ==
[2018-02-02 09:49] VITALS: BMI 35.9
[2018-05-13 17:28] LABS: ALB/GLOB Ratio 1.1 RATIO (0.9-2.4); AST(SGOT) 41 U/L (15-37); Alanine Aminotransfer ALT/SGPT 71 U/L (13-56); Alkaline Phosphatase 129 U/L (45-117); Anion Gap 9 (5-15); BUN 13 mg/dL (7-18); BUN/Creat Ratio 13.3 RATIO (10-20); Calcium,Total 9.1 mg/dL (8.5-10.1); Chloride 104 mmol/L (98-107); Creatinine, Serum 0.97 mg/dL (0.55-1.02); EST Glomerular Filtration Rate 65 mL/min (>60); Est Glom Filt Rate - Afr Amer 79 mL/min (>60); Globulin 3.5 g/dL (2.2-4.2); Glucose 107 mg/dL (74-106); Potassium 3.2 mmol/L (3.5-5.1); Protein, Total 7.5 g/dL (6.4-8.2); Sodium Level 138 mmol/L (136-145)
[2018-05-13 17:46] LABS: Vitamin D,25 Hydroxy 37.9 ng/mL (29.95-100.01)
== END ==
PROVIDERS: Family Provider Family Medicine; PCP Family Medicine; Referring Provider Family Medicine; Visit Provider Family Medicine
DX: E87.6 Hypokalemia (principal); I10 Essential (primary) hypertension; E78.5 Hyperlipidemia, unspecified; E55.9 Vitamin D deficiency, unspecified
CPT/HCPCS: 36415; 80053; 82306

== ENCOUNTER → 2018-07-12 15:24 | Outpatient (CLI) | payer OTHER, SELFPAY ==
[2018-02-02 09:49] VITALS: BMI 35.9
[2018-07-12 16:38] LABS: ALB/GLOB Ratio 1.2 RATIO (0.9-2.4); AST(SGOT) 28 U/L (15-37); Alanine Aminotransfer ALT/SGPT 52 U/L (13-56); Albumin, Serum 3.8 g/dL (3.2-5.0); Alkaline Phosphatase 113 U/L (45-117); Anion Gap 8 (5-15); BUN 11 mg/dL (7-18); BUN/Creat Ratio 12.5 RATIO (10-20); Calcium,Total 8.7 mg/dL (8.5-10.1); Chloride 107 mmol/L (98-107); Creatinine, Serum 0.88 mg/dL (0.55-1.02); EST Glomerular Filtration Rate 73 mL/min (>60); Est Glom Filt Rate - Afr Amer 88 mL/min (>60); Globulin 3.3 g/dL (2.2-4.2); Glucose 99 mg/dL (74-106); Potassium 3.3 mmol/L (3.5-5.1); Protein, Total 7.1 g/dL (6.4-8.2); Sodium Level 140 mmol/L (136-145)
== END ==
PROVIDERS: Family Provider Family Medicine; PCP Family Medicine; Referring Provider Family Medicine; Visit Provider Family Medicine
DX: E87.6 Hypokalemia (principal); R94.5 Abnormal results of liver function studies
CPT/HCPCS: 36415; 80053

== ENCOUNTER → 2018-07-31 11:59 | Outpatient (CLI) | payer OTHER, SELFPAY ==
[2018-02-02 09:49] VITALS: BMI 35.9
[2018-07-31 14:55] LABS: ALB/GLOB Ratio 1.3 RATIO (0.9-2.4); AST(SGOT) 33 U/L (15-37); Alanine Aminotransfer ALT/SGPT 57 U/L (13-56); Alkaline Phosphatase 115 U/L (45-117); Anion Gap 6 (5-15); BUN 9 mg/dL (7-18); BUN/Creat Ratio 10.1 RATIO (10-20); Calcium,Total 8.5 mg/dL (8.5-10.1); Chloride 105 mmol/L (98-107); EST Glomerular Filtration Rate 72 mL/min (>60); Est Glom Filt Rate - Afr Amer 87 mL/min (>60); Globulin 3.1 g/dL (2.2-4.2); Glucose 86 mg/dL (74-106); Potassium 3.6 mmol/L (3.5-5.1); Protein, Total 7.1 g/dL (6.4-8.2); Sodium Level 139 mmol/L (136-145)
== END ==
PROVIDERS: Family Provider Family Medicine; PCP Family Medicine; Referring Provider Family Medicine; Visit Provider Family Medicine
DX: E87.6 Hypokalemia (principal); R94.5 Abnormal results of liver function studies
CPT/HCPCS: 36415; 80053

== ENCOUNTER → 2018-08-09 07:20 | Outpatient (CLI) | payer OTHER, SELFPAY ==
[2018-02-02 09:49] VITALS: BMI 35.9
--- NOTE | 2018-08-09 07:21 | BI_ITS ---
MAMMOGRAPHY - BILATERAL SCREENING REASON FOR EXAM: Female, 48 years old. Routine annual screening examination. PERTINENT HISTORY: Mother with breast cancer. TECHNIQUE: Digital bilateral breast regis (3D mammographic acquisition) in the CC and MLO projections. 2-D mediolateral oblique (MLO) and craniocaudad (CC) views of both breasts were obtained. CAD: Full Field Digital Mammography with Computer Added Detection was performed. COMPARISON: Comparison is made with prior study dated May 08, 2017 and April 07, 2016. FINDINGS: Breast Composition: There are scattered areas of fibroglandular density. There are no dominant masses or suspicious calcifications. Stable benign-appearing bilateral axillary lymph nodes. No other significant abnormalities are identified. There has been no significant change since the prior study. BI/SCREENING MAMM (CAD), BILAT IMPRESSION: Stable bilateral screening mammogram. Yearly follow-up mammogram recommended. (A) ASSESSMENT CATEGORY: BIRADS Category 2: Benign. A letter regarding these results will be sent to the patient by the facility within 30 days. Approximately 10% of breast cancers are not detected by mammography. A normal mammogram should not delay biopsy of a clinically suspicious abnormality. [id number] Electronically Signed: Melvin Alex, at 9:14 EDT , Service support ,
== END ==
PROVIDERS: Family Provider Family Medicine; PCP Family Medicine; Referring Provider Family Medicine; Visit Provider Family Medicine
DX: Z12.31 Encounter for screening mammogram for malignant neoplasm of breast (principal)
CPT/HCPCS: 77063; 77067

== ENCOUNTER → 2019-10-08 07:18 | Outpatient (CLI) | payer BC, SELFPAY ==
[2018-12-16 11:23] VITALS: BMI 35.9
[2019-10-08 09:13] LABS: ALB/GLOB Ratio 1.1 RATIO (0.9-2.4); AST(SGOT) 30 U/L (15-37); Alanine Aminotransfer ALT/SGPT 57 U/L (13-56); Albumin, Serum 3.7 g/dL (3.2-5.0); Alkaline Phosphatase 101 U/L (45-117); Anion Gap 3 (5-15); BUN 10 mg/dL (7-18); BUN/Creat Ratio 12.2 RATIO (10-20); Calcium,Total 8.3 mg/dL (8.5-10.1); Chloride 107 mmol/L (98-107); Cholesterol 190 mg/dL (200); Creatinine, Serum 0.82 mg/dL (0.55-1.02); EST Glomerular Filtration Rate 79 mL/min (>60); Est Glom Filt Rate - Afr Amer 95 mL/min (>60); Globulin 3.3 g/dL (2.2-4.2); Glucose 89 mg/dL (74-106); High Density Lipoprotein 35 mg/dL; Magnesium 2.2 mg/dL (1.6-2.6); Potassium 3.9 mmol/L (3.5-5.1); Sodium Level 139 mmol/L (136-145); Triglycerides 250 mg/dL; Very Low Density Lipoprotein 50 mg/dL (5-40)
== END ==
PROVIDERS: PCP Family Medicine; Referring Provider Family Medicine; Visit Provider Family Medicine
DX: Z51.81 Encounter for therapeutic drug level monitoring (principal); E78.5 Hyperlipidemia, unspecified; E87.6 Hypokalemia
CPT/HCPCS: 36415; 80053; 80061; 83735

== ENCOUNTER → 2019-10-09 14:54 | Outpatient (CLI) | payer BC, SELFPAY ==
[2018-12-16 11:23] VITALS: BMI 35.9
--- NOTE | 2019-10-09 15:00 | BI_ITS ---
MAMMOGRAPHY - BILATERAL SCREENING 3-D TOMOSYNTHESIS REASON FOR EXAM: Female, 49 years old. Routine screening PERTINENT HISTORY: LEFT AREOLAR MOLE REMOVED, NO OTHER PREV SURG/BX, NO PROBLEMS, FAM HX CA IN MOTHER AGE 59. TECHNIQUE: 2-D mammograms and 3-D Tomosynthesis of the breast (s) were performed. CAD was performed. COMPARISON: 08/09/2018 FINDINGS: The breast composition is composed of scattered fibroglandular density. Scattered benign calcifications are seen. No dense spiculated masses or suspicious microcalcifications are identified. No architectural distortion is identified. There is no skin thickening or retraction. There has been no significant change since the prior study. BI/SCREEN MAMM (CAD) W/DWIGHT BILAT IMPRESSION: No mammographic signs of malignancy. Routine yearly mammograms recommended. ASSESSMENT CATEGORY: BIRADS Category 1: Negative. A letter regarding these results will be sent to the patient by the facility within 30 days. FOLLOW UP RECOMMENDATION: Yearly follow up mammogram recommended. (A) Approximately 10% of breast cancers are not detected by mammography. A normal mammogram should not delay biopsy of a clinically suspicious abnormality. Electronically Signed: Mani Masters MD at 8:12 EDT , Service support ,
== END ==
PROVIDERS: PCP Family Medicine; Referring Provider Family Medicine; Visit Provider Family Medicine
DX: Z12.31 Encounter for screening mammogram for malignant neoplasm of breast (principal)
CPT/HCPCS: 77063; 77067

== ENCOUNTER 2020-07-21 11:53 | Emergency (ER) | payer OTHER, SELFPAY ==
[2018-12-16 11:23] VITALS: BMI 35.9
[2020-07-21 11:54] VITALS: BP 172/90; PULSE 97; RESP 18; TEMP 37.2; O2SAT 100; BMI 37.7
--- NOTE | 2020-07-21 12:24 | EKG12_ITS ---
Test Reason : CHEST PRESSURE Blood Pressure : / mmHG Vent. Rate : 088 BPM Atrial Rate : 088 BPM P-R Int : 100 ms QRS Dur : 088 ms QT Int : 362 ms P-R-T Axes : 008 -09 003 degrees QTc Int : 438 ms Sinus rhythm with short DC Otherwise normal ECG Confirmed by JENNIE BELL, ENOCH ([id number]), press reader LUCAS THOMASON ([id number]) on 07/26/2020 1:22:19 PM Referred By: MR Confirmed By:ENOCH SCHNEIDER MD
--- NOTE | 2020-07-21 12:24 | RAD_ITS ---
STUDY: X-RAY CHEST REASON FOR EXAM: Female, 50 years old. Chest pain TECHNIQUE: Single AP portable view of the chest. COMPARISON: Comparison is made with prior study dated 04/20/2017. FINDINGS: EKG electrodes are seen. The lungs are clear and expanded. There is no demonstrated pleural abnormality. Normal size heart. Normal mediastinum and sebastián. Normal visualized pulmonary arteries. Normal visualized aortic arch and descending thoracic aorta. Normal visualized thoracic spine. Normal visualized ribs, clavicles, and shoulders. There is no demonstrated abnormality of the visualized soft tissue structures of the upper abdomen. RAD/Chest 1 View (Portable) IMPRESSION: Normal x-ray examination of the chest. Electronically Signed: Melvin Alex MD at 12:55 EDT , Service support ,
[2020-07-21] MEDS: Aspirin 81 MG TAB.CHEW 324 MG PO (12:40)
[2020-07-21 12:43] LABS: Absolute Lymphocyte Count 2.87 X10^3/uL (0.83-4.51); Absolute Neutrophil Count 5.5 X10^3/uL (2.0-7.7); Basophil# 0.07 X10^3/uL; Basophil% 0.7 % (0-1); Eosinophil# 0.16 X10^3/uL; Eosinophils% 1.7 % (0-5); Hematocrit 39.5 % (37-47); Hemoglobin 13.3 g/dL (12.0-15.0); Lymphocyte # 2.87 X10^3/ul (0.83-4.51); Lymphocyte % 30.6 % (19-41); Mean Corp Hgb Conc 33.7 g/dL (32-36); Mean Corpuscular Hgb 29.5 pg (27.0-32.0); Mean Corpuscular Volume 87.6 fL (81-99); Mean Platelet Vol. 9.6 fl (6.2-12.0); Monocyte# 0.72 X10^3/uL; Monocyte% 7.7 % (0-10); NRBC Flagged by Analyzer 0 % (0-5); Neutrophil # 5.52 X10^3/uL (2.7-7.7); Platelet Count 334 K/mm3 (150-450); RBC Distribution Width CV 12.4 % (11.6-14.6); RBC Distribution Width SD 39.8 fl (35.1-43.9); Red Blood Count 4.51 M/mm3 (4.2-5.4); White Blood Count 9.4 K/mm3 (4.4-11.0)
[2020-07-21 12:44] VITALS: O2SAT 99
[2020-07-21 12:55] LABS: Anion Gap 6 (5-15); BUN 15 mg/dL (7-18); BUN/Creat Ratio 16.8 RATIO (10-20); Calcium,Total 9.4 mg/dL (8.5-10.1); Chloride 105 mmol/L (98-107); Creatinine, Serum 0.89 mg/dL (0.55-1.02); EST Glomerular Filtration Rate 71 mL/min (>60); Est Glom Filt Rate - Afr Amer 86 mL/min (>60); Estimated Creatinine Clearance 74.36 ml/min; Glucose 95 mg/dL (74-106); Potassium 3.9 mmol/L (3.5-5.1); Sodium Level 138 mmol/L (136-145)
[2020-07-21 12:57] VITALS: BP 145/81; PULSE 82; RESP 23; O2SAT 100
[2020-07-21 13:00] LABS: D-Dimer Quantitative (DVT/PE) 0.51 FEU/ug/m (0.27-0.49)
--- NOTE | 2020-07-21 13:16 | EDS_ITS ---
HPI History of Present Illness Chief Complaint: Chest Pain Narrative Narrative: Patient fell out of her shower 3 days ago she developed some left lateral chest pain. It is in the middle and posterior axillary line in the lower rib region. She has no anterior chest pain she has no shortness of breath she has no cough. She also hit her hip but she has minimal hip pain and she is able to ambulate. No other injuries. She has no pleuritic component. [facility] Medical History (Updated 07/21/20 @ 13:[address] Tejas Chaudhary MD) Hay fever High cholesterol Hypertension Home Medications amlodipine 10 mg PO DAILY 03/07/16 [History Last Taken 04/19/17] metoprolol succinate 100 mg PO DAILY 03/07/16 [History Last Taken 04/19/17] multivitamin 1 ea PO DAILY 03/07/16 [History Last Taken 04/19/17] omeprazole 20 mg PO DAILY 03/07/16 [History Last Taken 04/19/17] albuterol sulfate 1 - 2 puff INHALATION Q4H PRN PRN #1 inhaler 04/21/17 [Rx Last Taken Unknown] amitriptyline 75 mg tablet 75 mg PO DAILY #90 tab 12/14/18 [History Last Taken Unknown] lisinopril 10 mg tablet 10 mg PO DAILY #180 tab 12/14/18 [History Last Taken Unknown] gemfibrozil 600 mg PO BID 07/21/20 [History Last Taken Unknown] meloxicam 15 mg PO DAILY 07/21/20 [History Last Taken Unknown] Allergy/AdvReac Type Severity Reaction Status Date / Time morphine AdvReac Nausea Verified 07/21/20 12:01 Family History Mother Breast cancer Father Heart disease Grandfather Myocardial infarction Surgical History carpal tunnel surgery H/O tubal ligation H/O: hysterectomy History of tonsillectomy tailbone cyst Social History (Updated 12/16/18 @ 11:36 by BITA Lujan) Smoking Status: Never smoker alcohol intake: current details: 1 glass of wine a night substance use type: does not use caffeine: Yes what type of physical activity do you participate in: none seatbelt use: always do you feel safe at home: Yes additional social history: 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 Medications: Reviewed Social history: Noncontributory Review of systems: All systems negative except as indicated General: No fever Eyes: No visual changes ENT: No upper airway congestion, normal voice Neck: No neck pain Cardiovascular: Chest pain as in HPI Respiratory: No shortness of breath or cough Gastrointestinal: No abdominal pain, nausea vomiting or diarrhea Genitourinary: No dysuria Musculoskeletal: Denies myalgias no difficulty with ambulation Skin: No rash Neurological: No memory loss, confusion or any focal weakness Psych: No recent behavioral changes Hematologic: No easy bleeding or easy bruising EXAM Physical Exam Narrative Exam Narrative: Physical exam General: Well nourished, Well developed, No Acute Distress Head: Normocephalic, Atraumatic Eyes: Conjunctiva not pale ENT: Moist mucous membranes Neck: Supple, Nontender, No lymphadenopathy Cardiovascular: Regular rate, Regular rhythm Chest wall: Do not appreciate any contusions or hematomas. There is slight tenderness to palpation although the pain is somewhat ill-defined. Respiratory: No distress, CTA bilaterally Abdomen: Soft, Nontender, Nondistended Back: Nontender, Normal Inspection. Negative for: CVA tenderness Extremities: Nontender, No edema Skin: Normal color, No rash Neurological: Alert, Normal Strength, Normal Sensation Psychological: Normal affect Const Vital Signs: 07/21/20 11:54 07/21/20 12:44 07/21/20 12:57 Temperature 98.9 F Temperature Source Oral Pulse Rate 97 82 Respiratory Rate 18 23 H Respiratory Effort Normal Non-Labored Respiratory Pattern Normal Blood Pressure 172/90 H 145/81 H Blood Pressure Mean 117 102 Pulse Ox 100 99 100 Oxygen Delivery Method Room Air Room Air Room Air 07/21/20 13:42 Temperature Temperature Source Pulse Rate 72 Respiratory Rate 18 Respiratory Effort Respiratory Pattern Blood Pressure 131/95 H Blood Pressure Mean Pulse Ox 99 Oxygen Delivery Method Heart Score History: Slightly/Non-Suspicious ECG: Normal Age: >45 - <65 years Risk Factors: 1 or 2 Risk Factors Score: 2 MDM MDM MDM Narrative Medical decision making narrative: Patient did fall and sustained an injury, she has an unremarkable work-up, because the pain was ill-defined I did a cardiac work-up and a D-dimer. D-dimer was 0.51. I believe this is likely a normal variant. I had a discussion with her about the possibility of a CT angiogram but at this time I do not believe it is needed since the D-dimer is virtually normal and I have an alternative diagnosis. I did tell her if anything changes or worsens she needs to return she understands this. She has a heart score of 2. Lab Data Labs: Laboratory Results - last 24 hr 07/21/20 07/21/20 07/21/20 12:05 12:05 12:05 WBC 9.4 RBC 4.51 Hgb 13.3 Hct 39.5 MCV 87.6 MCH 29.5 MCHC 33.7 RDW Std Deviation 39.8 RDW Coeff of Mak 12.4 Plt Count 334 MPV 9.6 Immature Gran % (Auto) 0.300 Neut % (Auto) 59.0 Lymph % (Auto) 30.6 [place] % (Auto) 7.7 Eos % (Auto) 1.7 Baso % (Auto) 0.7 Absolute Neuts (auto) 5.5 Absolute Lymphs (auto) 2.87 Nucleated RBC % 0 D-Dimer Quant (PE/DVT) 0.51 H* Sodium 138 Potassium 3.9 Chloride 105 Carbon Dioxide 27.0 Anion Gap 6 BUN 15 Creatinine 0.89 Estim Creat Clear Calc 74.36 Est GFR (MDRD) Af Amer 86 Est GFR (MDRD) Non-Af 71 BUN/Creatinine Ratio 16.8 Glucose 95 Calcium 9.4 Troponin I < 0.015 Radiography Diagnostic Testing: Radiology Impression Chest X-Ray 07/21/20 12:24 IMPRESSION: Normal x-ray examination of the chest. Electronically Signed: Melvin Alex MD at 12:55 EDT , Service support , X-ray interpreted by ER doctor and radiologist does not show any fractures, normal cardiac silhouette normal lungs. Discharge Plan Triage Chief Complaint: Chest Pain ED Provider: Tejas Chaudhary Dx/Rx/DC Orders Clinical Impression: Chest pain Instructions: ED Chest Pain, Noncardiac, ED Chest Pain, Uncertain Cause Prescriptions: No Action lisinopril 10 mg tablet 10 mg PO DAILY Qty: 180 RF: 0 amitriptyline 75 mg tablet 75 mg PO DAILY Qty: 90 RF: 0 multivitamin 1 EACH tablet 1 ea PO DAILY RF: 0 metoprolol succinate 100 MG tablet 100 mg PO DAILY RF: 0 amlodipine 10 MG tablet 10 mg PO DAILY RF: 0 omeprazole 20 MG capsule 20 mg PO DAILY RF: 0 albuterol sulfate 1 PUFF inhaler 1 - 2 puff INHALATION Q4H PRN PRN (Reason: dyspnea, wheezing) Qty: 1 RF: 0 meloxicam 15 mg Tablet 15 mg PO DAILY RF: 0 gemfibrozil 600 mg Tablet 600 mg PO BID RF: 0 Primary Care Provider: Kandy Valle Referrals: Kandy Valle DO [Primary Care Provider] - 2 Days Disposition Disposition: Home, self care Discharge Date/Time: 07/21/20 13:43
[2020-07-21 13:42] VITALS: BP 131/95; PULSE 72; RESP 18; O2SAT 99
== END 2020-07-21 13:43 | disposition home or self-care (01) ==
PROVIDERS: Emergency Provider Emergency Medicine; PCP Family Medicine
DX: R07.9 Chest pain, unspecified (principal); I10 Essential (primary) hypertension; E78.5 Hyperlipidemia, unspecified; Z79.1 Long term (current) use of non-steroidal anti-inflammatories (NSAID); Z79.899 Other long term (current) drug therapy; Z86.711 Personal history of pulmonary embolism
CPT/HCPCS: 71045; 80048; 84484; 85025; 85379; 93005; 99285; A4216

== ENCOUNTER → 2020-10-06 08:47 | Outpatient (CLI) | payer OTHER, SELFPAY ==
[2018-12-16 11:23] VITALS: BMI 35.9
[2020-10-06 09:42] LABS: ALB/GLOB Ratio 1.2 RATIO (0.9-2.4); AST(SGOT) 47 U/L (15-37); Alanine Aminotransfer ALT/SGPT 112 U/L (13-56); Albumin, Serum 3.6 g/dL (3.2-5.0); Alkaline Phosphatase 102 U/L (45-117); Anion Gap 7 (5-15); BUN 11 mg/dL (7-18); Calcium,Total 8.4 mg/dL (8.5-10.1); Chloride 105 mmol/L (98-107); Cholesterol 275 mg/dL (200); Creatinine, Serum 0.79 mg/dL (0.55-1.02); EST Glomerular Filtration Rate 82 mL/min (>60); Est Glom Filt Rate - Afr Amer 100 mL/min (>60); Globulin 3.1 g/dL (2.2-4.2); Glucose 106 mg/dL (74-106); High Density Lipoprotein 36 mg/dL; Protein, Total 6.7 g/dL (6.4-8.2); Sodium Level 139 mmol/L (136-145); Triglycerides 183 mg/dL; Very Low Density Lipoprotein 37 mg/dL (5-40)
== END ==
PROVIDERS: PCP Family Medicine; Visit Provider Family Medicine
DX: E78.5 Hyperlipidemia, unspecified (principal); Z51.81 Encounter for therapeutic drug level monitoring
CPT/HCPCS: 36415; 80053; 80061

== ENCOUNTER → 2020-10-25 07:17 | Outpatient (CLI) | payer OTHER, SELFPAY ==
--- NOTE | 2020-10-25 07:18 | BI_ITS ---
MAMMOGRAPHY - BILATERAL SCREENING REASON FOR EXAM: Female, 50 years old. Routine annual screening examination. PERTINENT HISTORY: Mother with breast cancer. TECHNIQUE: Digital bilateral breast dwight (3D mammographic acquisition) in the CC and MLO projections. 2-D mediolateral oblique (MLO) and craniocaudad (CC) views of both breasts were obtained. CAD: Full Field Digital Mammography with Computer Added Detection was performed. COMPARISON: Comparison is made with prior examination dated 10/09/2019 and 08/09/2018. FINDINGS: Breast Composition: There are scattered areas of fibroglandular density. There are no dominant masses or suspicious calcifications. Stable small benign-appearing bilateral axillary lymph nodes. No other significant abnormalities are identified. There has been no significant change since the prior study. BI/SCRN MAMM (CAD)W/DWIGHT BILAT IMPRESSION: Stable bilateral screening mammogram. Yearly follow-up mammogram recommended. (A) ASSESSMENT CATEGORY: BIRADS Category 2: Benign. A letter regarding these results will be sent to the patient by the facility within 30 days. Approximately 10% of breast cancers are not detected by mammography. A normal mammogram should not delay biopsy of a clinically suspicious abnormality. [id number] Electronically Signed: Melvin Alex MD at 10:01 EDT , Service support ,
== END ==
PROVIDERS: PCP Family Medicine; Referring Provider Family Medicine; Visit Provider Family Medicine
DX: Z12.31 Encounter for screening mammogram for malignant neoplasm of breast (principal)
CPT/HCPCS: 77063; 77067

== ENCOUNTER → 2020-10-25 09:01 | Outpatient (CLI) | payer OTHER, SELFPAY ==
[2020-10-25 09:58] LABS: ALB/GLOB Ratio 1.1 RATIO (0.9-2.4); AST(SGOT) 62 U/L (15-37); Alanine Aminotransfer ALT/SGPT 114 U/L (13-56); Albumin, Serum 3.6 g/dL (3.2-5.0); Alkaline Phosphatase 108 U/L (45-117); Anion Gap 6 (5-15); BUN 12 mg/dL (7-18); BUN/Creat Ratio 16.8 RATIO (10-20); Calcium,Total 8.7 mg/dL (8.5-10.1); Chloride 106 mmol/L (98-107); Creatinine, Serum 0.71 mg/dL (0.55-1.02); EST Glomerular Filtration Rate 92 mL/min (>60); Est Glom Filt Rate - Afr Amer 112 mL/min (>60); Globulin 3.4 g/dL (2.2-4.2); Glucose 102 mg/dL (74-106); Potassium 3.8 mmol/L (3.5-5.1); Sodium Level 140 mmol/L (136-145)
== END ==
PROVIDERS: PCP Family Medicine; Referring Provider Family Medicine; Visit Provider Family Medicine
DX: R74.8 Abnormal levels of other serum enzymes (principal)
CPT/HCPCS: 36415; 80053

== ENCOUNTER → 2020-11-04 11:58 | Outpatient (CLI) | payer OTHER, SELFPAY ==
[2020-11-06 08:09] LABS: HEPATITIS B SURFACE AG Negative (Negative); Hepatitis A IgM Antibody Negative (Negative); Hepatitis B Core AB IgM Negative (Negative)
[2020-11-06 15:29] LABS: Hep C Antibodies <0.1 s/co ratio (0.0-0.9)
== END ==
PROVIDERS: PCP Family Medicine; Referring Provider Family Medicine; Visit Provider Family Medicine
DX: R74.8 Abnormal levels of other serum enzymes (principal)
CPT/HCPCS: 36415; 80074

== ENCOUNTER → 2020-11-11 08:26 | Outpatient (CLI) | payer OTHER, SELFPAY ==
--- NOTE | 2020-11-11 08:28 | US_ITS ---
STUDY: ABDOMINAL ULTRASOUND - RIGHT UPPER QUADRANT REASON FOR VISIT: Female, 50 years old ELEVATED LIVER Enzymes, ho FATTY LIVER TECHNIQUE: Ultrasound evaluation of the right upper quadrant was performed with real-time and static grider-scale imaging. TECHNICAL QUALITY: Adequate. COMPARISON: None. FINDINGS: Liver: The liver is enlarged and measures 20 cm. There is increased echogenicity consistent with fatty infiltration. The bile ducts are within normal limits. There is hepatic color flow. The direction of portal flow is hepatopetal. There is no demonstrated mass lesion. Gallbladder: Normal distended gallbladder. The gallbladder wall measures 2.2 mm. There is a negative sonographic Chapa''s sign. There is no pericholecystic fluid. There are no gallstones. Common Bile Duct (C.B.D.): The common bile duct measures 4.1 mm. Pancreas: Normal size of the head, body of the pancreas. The tail portion is obscured due to overlying bowel gas. There is normal echogenicity of the pancreas. There is no demonstrated pancreatic mass or cyst. Right Kidney: Normal size of the right kidney. The right kidney measures 10.9 cm x 5.6 cm x 4.2 cm. Normal renal cortex. The right cortex measures 1.4 cm. There is no demonstrated renal mass or cyst. There is no right hydronephrosis. US/Abdomen Limited IMPRESSION: Hepatomegaly and fatty infiltration of the liver. Electronically Signed: Melvin Alex MD at 14:34 EDT , Service support ,
== END ==
PROVIDERS: PCP Family Medicine; Referring Provider Family Medicine; Visit Provider Family Medicine
DX: R74.8 Abnormal levels of other serum enzymes (principal); K76.0 Fatty (change of) liver, not elsewhere classified
CPT/HCPCS: 76705

== ENCOUNTER → 2020-12-10 09:27 | Outpatient (CLI) | payer OTHER, SELFPAY ==
[2020-12-10 10:06] LABS: AST(SGOT) 72 U/L (15-37); Alanine Aminotransfer ALT/SGPT 97 U/L (13-56); Albumin, Serum 3.5 g/dL (3.2-5.0); Alkaline Phosphatase 120 U/L (45-117); Bilirubin, Direct 0.11 mg/dL (0.00-0.30); Globulin 3.7 g/dL (2.2-4.2); Protein, Total 7.2 g/dL (6.4-8.2)
== END ==
PROVIDERS: PCP Family Medicine; Visit Provider Family Medicine
DX: R74.8 Abnormal levels of other serum enzymes (principal)
CPT/HCPCS: 36415; 80076

== ENCOUNTER 2021-03-28 07:01 | Outpatient (CLI) | payer OTHER, SELFPAY ==
[2021-03-28 07:48] LABS: ALB/GLOB Ratio 0.9 RATIO (0.9-2.4); AST(SGOT) 15 U/L (15-37); Alanine Aminotransfer ALT/SGPT 40 U/L (13-56); Albumin, Serum 3.3 g/dL (3.2-5.0); Alkaline Phosphatase 120 U/L (45-117); Anion Gap 6 (5-15); BUN 10 mg/dL (7-18); BUN/Creat Ratio 12.4 RATIO (10-20); Calcium,Total 8.6 mg/dL (8.5-10.1); Chloride 104 mmol/L (98-107); Cholesterol 259 mg/dL (200); Creatinine, Serum 0.81 mg/dL (0.55-1.02); EST Glomerular Filtration Rate 80 mL/min (>60); Est Glom Filt Rate - Afr Amer 97 mL/min (>60); Globulin 3.7 g/dL (2.2-4.2); Glucose 100 mg/dL (74-106); High Density Lipoprotein 35 mg/dL; Potassium 3.5 mmol/L (3.5-5.1); Sodium Level 141 mmol/L (136-145); Triglycerides 207 mg/dL; Very Low Density Lipoprotein 41 mg/dL (5-40)
== END 2021-03-28 23:59 | disposition short-term general hospital (02) ==
LOC: LAB 07:03
PROVIDERS: PCP Family Medicine; Referring Provider Family Medicine; Visit Provider Family Medicine
DX: E78.5 Hyperlipidemia, unspecified (principal); R74.8 Abnormal levels of other serum enzymes
CPT/HCPCS: 36415; 80053; 80061

== ENCOUNTER 2021-05-16 13:03 | Outpatient (CLI) | payer OTHER, SELFPAY ==
--- NOTE | 2021-05-16 14:31 | NEURO_ITS ---
NCS and/or EMG Patient Report Ordering Doctor: Ori Collins DATE OF SERVICE: 05/16/21 Indication: History of bilateral carpal tunnel syndrome (right greater than left). She is now status post release on the right side. Symptoms improved initially, but have since begun to recur albeit more mild than preoperatively. Findings: Nerve conduction studies were performed in the right and left upper extremities. The right median motor study recording the abductor pollicis brevis showed a reduced amplitude, prolonged distal latency and mildly slowed conduction velocity. The right ulnar motor study recording the abductor digiti minimi showed a normal amplitude, normal distal latency and normal conduction velocity. No conduction block or focal slowing was present across the elbow. The right median sensory response recording digit two showed a reduced amplitude, prolonged latency and slowed conduction velocity. The right ulnar sensory response recording digit five showed a normal amplitude, latency and conduction velocity. The right radial sensory response recording over the extensor snuff box showed a normal amplitude, latency and conduction velocity. The left median motor study recording the abductor pollicis brevis showed a normal amplitude, normal distal latency and normal conduction velocity. The left ulnar motor study recording the abductor digiti minimi showed a normal amplitude, normal distal latency and normal conduction velocity. No conduction block or focal slowing was present across the elbow. Left median-ulnar lumbrical / interosseous motor latencies showed a prolonged median latency compared to the ulnar. The left median sensory response recording digit two showed a normal amplitude, borderline latency and mildly slowed conduction velocity. The left ulnar sensory response recording digit five showed a normal amplitude, latency and conduction velocity. The left radial sensory response recording over the extensor snuff box showed a normal amplitude, latency and conduction velocity. Needle EMG of the right upper extremity muscles was performed. No denervation was seen in any muscle. Motor units in the abductor pollicis brevis were large amplitude and long duration. All motor other unit morphology, activation and recruitment patterns were normal. Impression: This is an abnormal study. 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 Please note, nerve conductions may never fully normalized even after successful release due to decreased internodal distance of the remyelination in the affected nerve segment. A neuromuscular ultrasound may be of use to determine if the nerve has been remains impinged. Christopher [place], D.O. Multi Select Codes Neurology Neurology Interp Codes: 01939-12 Musc test done w/n test comp (interp) and 84014-84 Nrv cndj test 11-12 studies (interp)
== END 2021-05-16 23:59 | disposition home or self-care (01) ==
LOC: PSN 13:04
PROVIDERS: PCP Family Medicine; Referring Provider Physician Assistant; Visit Provider Physician Assistant
DX: R20.0 Anesthesia of skin (principal); R20.2 Paresthesia of skin
CPT/HCPCS: 95886; 95912

== ENCOUNTER → 2021-11-01 | Outpatient (CLI) | payer OTHER, SELFPAY ==
--- NOTE | 2021-11-01 15:31 | BI_ITS ---
MAMMOGRAPHY - BILATERAL SCREENING 3-D TOMOSYNTHESIS REASON FOR EXAM: Female, 51 years old. SCREENING PERTINENT HISTORY: No significant family history. TECHNIQUE: 2-D mammograms and 3-D Tomosynthesis of the breast (s) were performed. CAD was performed. COMPARISON: 10/25/2020 FINDINGS: The breast composition is composed of scattered fibroglandular density. Scattered benign calcifications are seen. No dense spiculated masses or suspicious microcalcifications are identified. No architectural distortion is identified. There is no skin thickening or retraction. There has been no significant change since the prior study. BI/SCRN MAMM (CAD)W/DWIGHT BILAT IMPRESSION: No mammographic signs of malignancy. Routine yearly mammograms recommended. ASSESSMENT CATEGORY: BIRADS Category 1: Negative. A letter regarding these results will be sent to the patient by the facility within 30 days. FOLLOW UP RECOMMENDATION: Yearly follow up mammogram recommended. (A) Approximately 10% of breast cancers are not detected by mammography. A normal mammogram should not delay biopsy of a clinically suspicious abnormality. Electronically Signed: Rangel Keller MD at 17:14 EDT ,
== END | disposition home or self-care (01) ==
LOC: OPBI 15:30
PROVIDERS: PCP Family Medicine; Visit Provider Family Medicine
DX: Z12.31 Encounter for screening mammogram for malignant neoplasm of breast (principal)
CPT/HCPCS: 77063; 77067

== ENCOUNTER → 2022-02-04 | Outpatient (CLI) | payer OTHER, SELFPAY ==
[2022-02-04 11:36] LABS: ALB/GLOB Ratio 1.1 RATIO (0.9-2.4); AST(SGOT) 57 U/L (15-37); Alanine Aminotransfer ALT/SGPT 89 U/L (13-56); Albumin, Serum 3.7 g/dL (3.2-5.0); Alkaline Phosphatase 106 U/L (45-117); Anion Gap 5 (5-15); BUN 9 mg/dL (7-18); BUN/Creat Ratio 11.2 RATIO (10-20); Calcium,Total 8.9 mg/dL (8.5-10.1); Chloride 107 mmol/L (98-107); EST Glomerular Filtration Rate 80 mL/min (>60); Est Glom Filt Rate - Afr Amer 97 mL/min (>60); Globulin 3.5 g/dL (2.2-4.2); Glucose 107 mg/dL (74-106); Potassium 4.1 mmol/L (3.5-5.1); Protein, Total 7.2 g/dL (6.4-8.2); Sodium Level 140 mmol/L (136-145)
== END | disposition home or self-care (01) ==
LOC: MTLAB 10:44 → LAB 10:44
PROVIDERS: PCP Family Medicine; Referring Provider Family Medicine; Visit Provider Family Medicine
DX: E78.5 Hyperlipidemia, unspecified (principal); R79.89 Other specified abnormal findings of blood chemistry
CPT/HCPCS: 36415; 80053

== ENCOUNTER → 2022-04-05 | Outpatient (CLI) | payer OTHER, SELFPAY ==
[2022-04-05 12:08] LABS: AST(SGOT) 54 U/L (15-37); Alanine Aminotransfer ALT/SGPT 97 U/L (13-56); Albumin, Serum 3.6 g/dL (3.2-5.0); Alkaline Phosphatase 113 U/L (45-117); Anion Gap 9 (5-15); BUN 9 mg/dL (7-18); Calcium,Total 8.7 mg/dL (8.5-10.1); Chloride 104 mmol/L (98-107); Cholesterol 243 mg/dL (200); Creatinine, Serum 0.75 mg/dL (0.55-1.02); EST Glomerular Filtration Rate 87 mL/min (>60); Est Glom Filt Rate - Afr Amer 105 mL/min (>60); Globulin 3.5 g/dL (2.2-4.2); Glucose 113 mg/dL (74-106); High Density Lipoprotein 38 mg/dL; Potassium 3.6 mmol/L (3.5-5.1); Protein, Total 7.1 g/dL (6.4-8.2); Sodium Level 141 mmol/L (136-145); Triglycerides 190 mg/dL; Very Low Density Lipoprotein 38 mg/dL (5-40)
== END | disposition home or self-care (01) ==
LOC: LAB 10:49
PROVIDERS: PCP Family Medicine; Referring Provider Family Medicine; Visit Provider Family Medicine
DX: E78.5 Hyperlipidemia, unspecified (principal); E87.6 Hypokalemia; R74.8 Abnormal levels of other serum enzymes
CPT/HCPCS: 36415; 80053; 80061

== ENCOUNTER → 2022-11-23 | Outpatient (CLI) | payer OTHER, SELFPAY ==
--- NOTE | 2022-11-23 07:33 | BI_ITS ---
MAMMOGRAPHY - BILATERAL SCREENING REASON FOR EXAM: Female, 52 years old. Routine annual screening examination. PERTINENT HISTORY: Mother with breast cancer. TECHNIQUE: Digital bilateral breast dwight (3D mammographic acquisition) in the CC and MLO projections. 2-D mediolateral oblique (MLO) and craniocaudad (CC) views of both breasts were obtained. CAD: Full Field Digital Mammography with Computer Added Detection was performed. COMPARISON: Comparison is made with prior study dated November 01, 2021 and October 25, 2020. FINDINGS: Breast Composition: There are scattered areas of fibroglandular density. There are no dominant masses or suspicious calcifications. Stable small benign-appearing bilateral axillary lymph nodes. No other significant abnormalities are identified. There has been no significant change since the prior study. BI/SCRN MAMM (CAD)W/DWIGHT BILAT IMPRESSION: Stable bilateral screening mammogram. Yearly follow-up mammogram recommended. (A) ASSESSMENT CATEGORY: BIRADS Category 2: Benign. A letter regarding these results will be sent to the patient by the facility within 30 days. Approximately 10% of breast cancers are not detected by mammography. A normal mammogram should not delay biopsy of a clinically suspicious abnormality. [id number] Electronically Signed: Melvni Alex MD at 9:14 EDT ,
== END | disposition home or self-care (01) ==
PROVIDERS: PCP Family Medicine; Referring Provider Family Medicine; Visit Provider Family Medicine
DX: Z12.31 Encounter for screening mammogram for malignant neoplasm of breast (principal); Z80.3 Family history of malignant neoplasm of breast
CPT/HCPCS: 77063; 77067

== ENCOUNTER → 2023-11-26 | Outpatient (CLI) | payer OTHER, SELFPAY ==
--- NOTE | 2023-11-26 13:10 | BI_ITS ---
MAMMOGRAPHY - BILATERAL SCREENING 3-D TOMOSYNTHESIS REASON FOR EXAM: Female, 53 years old. SCREENING PERTINENT HISTORY: No significant family history. TECHNIQUE: 2-D mammograms and 3-D Tomosynthesis of the breast (s) were performed. CAD was performed. COMPARISON: 11/23/2022 FINDINGS: The breast composition is composed of scattered fibroglandular density. Scattered benign calcifications are seen. No dense spiculated masses or suspicious microcalcifications are identified. No architectural distortion is identified. There is no skin thickening or retraction. There has been no significant change since the prior study. BI/SCRN MAMM (CAD)W/DWIGHT BILAT IMPRESSION: No mammographic signs of malignancy. Routine yearly mammograms recommended. ASSESSMENT CATEGORY: BIRADS Category 1: Negative. A letter regarding these results will be sent to the patient by the facility within 30 days. FOLLOW UP RECOMMENDATION: Yearly follow up mammogram recommended. (A) Approximately 10% of breast cancers are not detected by mammography. A normal mammogram should not delay biopsy of a clinically suspicious abnormality. Electronically Signed: Rangel Keller MD at 14:42 EDT ,
== END | disposition home or self-care (01) ==
LOC: OPBI 13:05
PROVIDERS: PCP Family Medicine; Referring Provider Family Medicine; Visit Provider Family Medicine
DX: Z12.31 Encounter for screening mammogram for malignant neoplasm of breast (principal)
CPT/HCPCS: 77063; 77067

== ENCOUNTER → 2024-01-26 | Outpatient (CLI) | payer OTHER, SELFPAY ==
--- NOTE | 2024-01-26 09:30 | RAD_ITS ---
STUDY: X-RAY - LUMBAR SPINE REASON FOR EXAM: Female, 53 years old. LOW BACK PAIN TECHNIQUE: 5 view(s) of the lumbar spine were obtained. COMPARISON: None FINDINGS: Normal lumbar lordosis. Mild dextroscoliosis centered at L1/L2. There is a normal alignment of the vertebrae. There is multilevel endplate spondylosis of the lumbar vertebrae. There is multi-level degenerative disc disease with multi-level disc space narrowing. There is multilevel facet hypertrophy. The soft tissue structures are unremarkable. RAD/L/S Spine Min 4 Views IMPRESSION: Mild dextroscoliosis with diffuse degenerative disc disease. MRI may be useful. Electronically Signed: Rangel Keller MD at 11:12 [facility] ,
--- NOTE | 2024-01-26 09:30 | RAD_ITS ---
STUDY: X-RAY - PELVIS AND LEFT HIP REASON FOR EXAM: Female, 53 years old. Pain in left hip TECHNIQUE: 3 views of the pelvis and hip. COMPARISON: None. FINDINGS: There is a non-specific bowel gas pattern. Normal visualized soft tissue structures. Normal bilateral iliac wings, sacroiliac joints and visualized sacrum. Normal bilateral superior and inferior pubic rami. Normal pubic symphysis. Normal bilateral ischial tuberosities. Normal visualized femoral head. There is osteoarthritic spur formation of the acetabular rim. There is mild articular joint space narrowing of the hip. RAD/HIP, UNI W/ Pelvis 2-3 Views IMPRESSION: Mild arthrosis. Electronically Signed: Rangel Keller MD at 11:18 EST ,
== END | disposition home or self-care (01) ==
PROVIDERS: PCP Family Medicine; Referring Provider Family Medicine; Visit Provider Family Medicine
DX: M54.50 Low back pain, unspecified (principal); M25.552 Pain in left hip
CPT/HCPCS: 72110; 73502

== ENCOUNTER → 2024-02-18 | Outpatient (CLI) | payer OTHER, SELFPAY | END | disposition home or self-care (01) | LOC: LABSPEC 10:41 | PROVIDERS: PCP Family Medicine; Referring Provider Nurse Practitioner Family; Visit Provider Nurse Practitioner Family | DX: N39.0 Urinary tract infection, site not specified (principal) | CPT/HCPCS: 87086; 87088 ==

== ENCOUNTER → 2024-05-15 | Outpatient (CLI) | payer OTHER, SELFPAY ==
--- NOTE | 2024-05-15 12:33 | RAD_ITS ---
PROCEDURE: Right wrist radiographs REASON FOR EXAM: Pain, weakness TECHNIQUE: Three views of the right wrist COMPARISON: None. FINDINGS: See impression RAD/Wrist min 3 Views IMPRESSION: Negative for acute displaced fracture or dislocation. No significant arthropat hy. Reading Location: [facility]
== END | disposition home or self-care (01) ==
LOC: MTRAD 12:32
PROVIDERS: PCP Family Medicine; Referring Provider Nurse Practitioner Family; Visit Provider Nurse Practitioner Family
DX: M79.641 Pain in right hand (principal); R20.2 Paresthesia of skin
CPT/HCPCS: 73110

== ENCOUNTER 2024-06-09 12:00 | Outpatient (RCR) | payer OTHER, SELFPAY ==
--- NOTE | 2024-06-05 07:36 | HP.OTEVAL ---
Patient's Visit Information Visit Information Visit Information: GABRIELA RUSSELL is a 54 year old F, referred to Occupational Therapy by PIEP Luna, with a diagnosis of right hand paresthesia, sprain metacarpophalangeal joint R thumb, pain. Date of Evaluation: 06/04/24 Occupational Therapist: Stacey Qureshi, NELL/David, CHT Subjective Subjective: This 54 year old female was seen for OT eval with dx of right hand pain- right hand paresthesia- sprain CMCJ right thumb. pt states she noticed pain and limited ability to pinch items while at work. States she had CTR done about 7 years ago. states she has had numbness in her right thumb, IF and MF for about 8 weeks or more and weakness. states putting rubber gloves on at work does hurt and feels like I hit my funny bone in my thumb Pain right hand: Current Pain Intensity: 2 Pain Intensity Range: 0 and 3 ROM Forearm: right/left WFL supination Wrist: right 65/55 left 65/65 ROM Comments: pt demo thumb opposition of right to MF only noted thumb abduction is limited at rest pts right thumb is in CMC ext of 10* Strength Forearm: right /left WFL Wrist: Right/left WFL Classification Inspector: right 60# left 60# Lateral Pinch: right 10# with cmc deviation to ulnar side left 16# Tripod Pinch: right 8# left 20# Strength Comments: pt demo with compensated right thumb lateral and tripod pinch Sensation Thumb: right 3.84 left 2.83 Index: right 3.84 left 2.83 Middle: right 3.84 left 2.83 Ring: right 3.61 left 2.83 Little: right 2.83 left 2.83 Sensation Comments: due to sensation deficits of right thumb, IF and MF would recommend nerve conduction test Goals Goal:: pt will demo a increase in right lateral and tripod pinch by 5# to increase IND with work and daily tasks by d.c Goal:: pt will demo increase in thumb opposition to tip of LF by d.c to increase pts ind with ADLs and IADLs by d/c Goal:: pt will report no pain greater than 1/10 with use of adls and IADls by d.c Goal:: pt will demo a reduction on monofilaments to 2.83 indication of normal sensation to return pt to PLOF. by d.c Rehabilitation General Assessment: pt demo with weakness of right lateral and tripod pinch- limited thumb abduction and sensation deficits throughout median nerve distribution. pt demo with muscle atrophy and limited motor movement of thenar eminence muscles. Pt is limited with use of dominant right hand with ADLs and IADLs. Pt would benefit from skilled OT services 1-2x week for 4 weeks to ed. pt on dx. median nerve glides, wrist and thumb ergonomics to decrease pain. pt may need orthosis to position thumb in opposition to improve pinch. pt demo understanding and agree to POC. Rehabilitation Potential: Good Anticipated Interventions Anticipated Interventions: A/AAROM/PROM, Strengthening, Triggerpoint Release, Sensory Retraining, Modalities, Orthoses, Joint Protection/Energy Conservation, Ergonomic Education, Fine Motor Coord/Joey, ADL Training, Education re assistive Equipment, Education re Diagnosis and Home Program Other Interventions: nerve glides may need supportive orthosis to allow placement of thumb in opposition (abduction) to improve pts pinch Visit Plan Frequency: 1-2x /Week Duration: 4 Weeks General Plan: nerve glides due to sensation deficits and noted motor compensation of right thumb -would rec'd nerve conduction testing. TEXT: Thank you for the opportunity to evaluate your patient. For Medicare and Medicare HMO plans, please review the plan of care and approve it. It will need to be FAXED BACK to us at [phone] for Medicare purposes. Please let me know if there are questions or concerns regarding this plan of care. Physician Signature: Date:
--- NOTE | 2024-11-19 11:32 | HP.OT.NRP ---
Patient Information Patient Information: GABRIELA RUSSELL was seen in my office for initial evaluation on 06/04/24. The following Plan of Care was established for this patient: POC Established Initial Frequency: 1-2x /Week Initial Duration: 4 Weeks Plan: nerve glides Anticipated Interventions Anticipated Interventions: A/AAROM/PROM, Strengthening, Triggerpoint Release, Sensory Retraining, Modalities, Orthoses, Joint Protection/Energy Conservation, Ergonomic Education, Fine Motor Coord/Joey, ADL Training, Education re assistive Equipment, Education re Diagnosis and Home Program Other Interventions: nerve glides may need supportive orthosis to allow placement of thumb in opposition (abduction) to improve pts pinch Last Seen Last Seen: This patient was last seen in our office 06/09/24. Pertinent comments regarding their Occupational therapy will appear below: pt d/c as she was referred to hand specialist At this point I will be discontinuing this patient from occupational therapy. I would be happy to see this patient again in the future if found appropriate by the physician. Thank you! Stacey Qureshi, OTR/L, CHT
== END 2024-06-09 19:00 | disposition home or self-care (01) ==
LOC: OT 12:00
PROVIDERS: PCP Family Medicine; Visit Provider Nurse Practitioner Family
DX: S63.641D Sprain of metacarpophalangeal joint of right thumb, subsequent encounter (principal); M79.641 Pain in right hand; R20.2 Paresthesia of skin
CPT/HCPCS: 97035; 97140; 97166

== ENCOUNTER → 2024-06-10 | Outpatient (CLI) | payer OTHER, SELFPAY ==
--- NOTE | 2024-06-10 09:29 | NEURO ---
NCS and/or EMG Patient Report Ordering Doctor: Priti Hammond DATE OF SERVICE: 06/10/24 Clinical Summary: 54 year old female patient with symptoms of numbness in the first three digits of the right hand and decreased range of motion of the thumb. She has a history of right carpal tunnel release surgery about 8 to 9 years ago. Nerve Conduction Studies Summary: Nerve conduction studies of the right upper extremity were performed. The right median-D2 SNAP distal latency was prolonged with reduced amplitude. The right median-APB CMAP distal latency was prolonged. Needle Examination Summary: Needle examination of the right upper extremity demonstrated increased insertional activity and spontaneous activity (positive sharp waves and fibrillation potentials) in the right abductor pollicis brevis muscle. No motor units were seen in the right abductor pollicis brevis muscle. Impression: This is an abnormal study. There is electrodiagnostic evidence of the following - 1) Severe, right median mononeuropathy at the wrist (carpal tunnel syndrome), with active denervation NOTE: in comparison to the EMG/NCS performed on , there has been interval worsening of the right median sensory and motor response amplitudes and development of active denervation. Multi Select Codes Neurology Neurology Interp Codes: 48142-91 Musc test done w/n test comp (interp) (1) and 23120-93 Nrv cndj tst 5-6 studies (interp)
== END | disposition home or self-care (01) ==
LOC: PSN 08:38
PROVIDERS: PCP Family Medicine; Referring Provider Nurse Practitioner Family; Visit Provider Nurse Practitioner Family
DX: R20.2 Paresthesia of skin (principal); S63.641A Sprain of metacarpophalangeal joint of right thumb, initial encounter; X58.XXXA Exposure to other specified factors, initial encounter
CPT/HCPCS: 95886; 95909

== ENCOUNTER → 2024-06-17 | Outpatient (CLI) | payer OTHER, SELFPAY ==
[2024-06-17 09:35] LABS: ALB/GLOB Ratio 1.5 RATIO (0.9-2.4); AST(SGOT) 52 U/L (<=31); Alanine Aminotransfer ALT/SGPT 84 U/L (<=34); Albumin, Serum 4.5 g/dL (3.5-5.0); Alkaline Phosphatase 131 U/L (35-104); Anion Gap 14 (5-15); BUN 11 mg/dL (4-19); BUN/Creat Ratio 13.8 RATIO (10-20); Calcium,Total 9.1 mg/dL (7.6-11.0); Carbon Dioxide 21.4 mmol/L (21.0-32.0); Chloride 105 mmol/L (98-108); Cholesterol 257 mg/dL (<=200); Creatinine, Serum 0.79 mg/dL (0.70-1.20); EST Glomerular Filtration Rate 90 (>60); Globulin 2.9 g/dL (2.2-4.2); Glucose 132 mg/dL (70-99); High Density Lipoprotein 43 mg/dL; Low Density Lipoprotein Calc. 165 mg/dL; Potassium 3.8 mmol/L (3.3-5.1); Protein, Total 7.4 g/dL (5.9-8.4); Sodium Level 141 mmol/L (133-145); Total Bilirubin 0.39 mg/dL (0.00-1.30); Triglycerides 244 mg/dL; Very Low Density Lipoprotein 49 mg/dL (5-40); cholesterol:hdl ratio screen 5.99
== END | disposition home or self-care (01) ==
LOC: LAB 08:47
PROVIDERS: PCP Family Medicine; Referring Provider Family Medicine; Visit Provider Family Medicine
DX: E78.5 Hyperlipidemia, unspecified (principal); Z51.81 Encounter for therapeutic drug level monitoring
CPT/HCPCS: 36415; 80053; 80061

== ENCOUNTER → 2024-07-10 | Outpatient (CLI) | payer OTHER, SELFPAY ==
[2024-07-10 07:28] LABS: Glucose GTT- Fasting 126 mg/dL (70-99)
[2024-07-10 09:22] LABS: Glucose GTT-30 minutes 165 mg/dL (110-170)
[2024-07-10 09:22] LABS: Glucose GTT- 1 Hour 223 mg/dL (120-170)
[2024-07-10 10:24] LABS: Glucose GTT- 2 Hour 155 mg/dL (70-120)
== END | disposition home or self-care (01) ==
LOC: LAB 06:52
PROVIDERS: PCP Family Medicine; Referring Provider Family Medicine; Visit Provider Family Medicine
DX: R73.01 Impaired fasting glucose (principal)
CPT/HCPCS: 36415; 82951; 82952

== ENCOUNTER → 2024-09-03 | Outpatient (CLI) | payer OTHER, SELFPAY ==
--- NOTE | 2024-09-03 13:11 | RAD_ITS ---
PROCEDURE: WRIST MIN 3 VIEWS 09/03/2024 REASON FOR EXAM: WRSIT AND HAND PAIN/NUMBNESS TECHNIQUE: WRIST MIN 3 VIEWS COMPARISON: None. FINDINGS: Mild osteopenia of the visualized bones. Degenerative joint disease. No fracture or dislocation is seen. . RAD/Wrist min 3 Views IMPRESSION: No evidence for acute abnormality. Reading [facility]
--- NOTE | 2024-09-03 14:09 | NEURO ---
NCS and/or EMG Patient Report Ordering Doctor: Priti Hammond DATE OF SERVICE: 09/03/24 Gina presents with complaints of numbness and tingling in the first 4 digits of the left hand. Electrodiagnostic findings: Left median motor nerve demonstrates prolonged latency with normal amplitude and reduced conduction velocity. Left ulnar motor response within normal limits. Normal left median and left ulnar F?waves. Prolonged left median sensory latency at the wrist with reduced conduction velocity. Needle EMG testing was performed in the left upper limb. All muscles tested showed no evidence of denervation with normal motor unit action potentials. Electrodiagnostic impression: This is an abnormal study in the left upper limb. 1. Electrodiagnostic findings suggestive of left-sided median mononeuropathy. This consistent with a moderate left carpal tunnel syndrome. Multi Select Codes Neurology Neurology Interp Codes: 20582-01 Musc test done w/n test comp (interp) and 02443-41 Nrv cndj tst 5-6 studies (interp)
== END | disposition home or self-care (01) ==
LOC: PSN 13:10
PROVIDERS: PCP Family Medicine; Referring Provider Nurse Practitioner Family; Visit Provider Nurse Practitioner Family
DX: R20.2 Paresthesia of skin (principal); M25.532 Pain in left wrist
CPT/HCPCS: 73110; 95886; 95909

== ENCOUNTER 2024-09-22 15:30 | Outpatient (RCR) | payer OTHER, SELFPAY ==
--- NOTE | 2024-08-14 16:56 | HP.OTEVAL ---
Patient's Visit Information Visit Information Visit Information: GABRIELA RUSSELL is a 54 year old F, referred to Occupational Therapy by Maria Teresa Osborn PA-C, with a diagnosis of Carpal Tunnel Syndrome R Upper Limb G56.01. Date of Evaluation: 08/14/24 Occupational Therapist: Tessy Ba Subjective Subjective: Pt is a 54 y/o female s/p R revision carpal tunnel release with Guyon canal release and palmaris longus tendon transfer flexor tenosynovectomy fasciocutaneous flap on 07/22/[address] Magalis Rivera. Pt arrives 3 weeks 2 days post op. 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 Her first day back is intended to be September 08. She reports she has a follow up appointment with orthotics in mid-late September. 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 Pt reports modifying activities to be more independent at home Objective Objective/Observation: Pt presents with radial sided forearm based wrist and thumb extension orthosis. Pt with scarring to carpal tunnel incision and at CMC joint from palmaris longis tendon transfer flexor tenosynovectomy fasciocutaneous flap. Pt reports no pain post sx. ROM CMC: R: 32 adduction L: 50 adduction MP: R: 42 L: 55 IP: R: 51 L: 61 ROM Comments: No limitations with digits Strength Instructor [employer]: R: NT L: 42 Lateral Pinch: R: NT L: 12 Tripod Pinch: R: NT L: 12 Tip-to-Tip Pinch: R: NT L: 6 Strength Comments: NT for R hand at this time, movement to comfort Sensation Sensation Comments: Slight tingling in fingertips of R hand Quick DASH-Disab of Arm,Shoulder& Hand Quick DASH Score: 56.8175 Goals Goal:100% adherence to protocol: Yes Goal:Daily scar massage when approriate: Yes Goal:ROM equal to unaffected hand: Yes Goal:Instructor [employer]/Pinch strength at least 75% of unaffected hand: Yes Comment: After 8 weeks post op Goal:Full use of affected hand in daily activities including work: Yes Comment: After 8 weeks post op Rehabilitation General Assessment: Pt limited in function at this time due to being 3 weeks 2 days s/p carpal tunnal and palmaris longis tendon transfer flexor tenosynovectomy fasciocutaneous flap. Pt demonstrating with newly healing structures. Rehabilitation Potential: Good Anticipated Interventions Anticipated Interventions: A/AAROM/PROM, Strengthening, Edema Control, Scar Care, Massage, Desensitization, Modalities, Ergonomic Education and Education re Self Massage Techniques Visit Plan Frequency: 2x /Week Duration: 6 Weeks General Plan: Pt arrives 3 weeks 2 days s/p R carpal tunnel release with Guyon canal release and palmaris longus tendon transfer. Pt would benefit from outpatient occupational therapy for 2x/wk for 6 weeks including scar management, manual therapy, modalities, therapeutic activities and therapeutic exercise as able. Midrange AROM exercises for wrist flexion/extension with thumb relaxed at this time at 3 weeks. 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 TEXT: Thank you for the opportunity to evaluate your patient. For Medicare and Medicare HMO plans, please review the plan of care and approve it. It will need to be FAXED BACK to us at [phone] for Medicare purposes. Please let me know if there are questions or concerns regarding this plan of care. Physician Signature: Date:
--- NOTE | 2024-08-14 16:56 | HP.OTEVAL ---
Patient's Visit Information Visit Information Visit Information: GABRIELA RUSSELL is a 54 year old F, referred to Occupational Therapy by Maria Teresa Osborn PA-C, with a diagnosis of Carpal Tunnel Syndrome R Upper Limb G56.01. Date of Evaluation: 08/14/24 Occupational Therapist: Tessy Ba Subjective Subjective: Pt is a 54 y/o female s/p R revision carpal tunnel release with Guyon canal release and palmaris longus tendon transfer flexor tenosynovectomy fasciocutaneous flap on 07/22/[address] Magalis Rivera. Pt arrives 3 weeks 2 days post op. 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 Her first day back is intended to be September 08. She reports she has a follow up appointment with orthotics in mid-late September. 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 Pt reports modifying activities to be more independent at home Objective Objective/Observation: Pt presents with radial sided forearm based wrist and thumb extension orthosis. Pt with scarring to carpal tunnel incision and at CMC joint from palmaris longis tendon transfer flexor tenosynovectomy fasciocutaneous flap. Pt reports no pain post sx. ROM CMC: R: 32 adduction L: 50 adduction MP: R: 42 L: 55 IP: R: 51 L: 61 ROM Comments: No limitations with digits Strength Criminal Justice Program Director: R: NT L: 42 Lateral Pinch: R: NT L: 12 Tripod Pinch: R: NT L: 12 Tip-to-Tip Pinch: R: NT L: 6 Strength Comments: NT for R hand at this time, movement to comfort Sensation Sensation Comments: Slight tingling in fingertips of R hand Quick DASH-Disab of Arm,Shoulder& Hand Quick DASH Score: 56.8175 Goals Goal:100% adherence to protocol: Yes Goal:Daily scar massage when approriate: Yes Goal:ROM equal to unaffected hand: Yes Goal:Criminal Justice Program Director/Pinch strength at least 75% of unaffected hand: Yes Comment: After 8 weeks post op Goal:Full use of affected hand in daily activities including work: Yes Comment: After 8 weeks post op Rehabilitation General Assessment: Pt limited in function at this time due to being 3 weeks 2 days s/p carpal tunnal and palmaris longis tendon transfer flexor tenosynovectomy fasciocutaneous flap. Pt demonstrating with newly healing structures. Rehabilitation Potential: Good Anticipated Interventions Anticipated Interventions: A/AAROM/PROM, Strengthening, Edema Control, Scar Care, Massage, Desensitization, Modalities, Ergonomic Education and Education re Self Massage Techniques Visit Plan Frequency: 2x /Week Duration: 6 Weeks General Plan: Pt arrives 3 weeks 2 days s/p R carpal tunnel release with Guyon canal release and palmaris longus tendon transfer. Pt would benefit from outpatient occupational therapy for 2x/wk for 6 weeks including scar management, manual therapy, modalities, therapeutic activities and therapeutic exercise as able. Midrange AROM exercises for wrist flexion/extension with thumb relaxed at this time at 3 weeks. 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 TEXT: Thank you for the opportunity to evaluate your patient. For Medicare and Medicare HMO plans, please review the plan of care and approve it. It will need to be FAXED BACK to us at [phone] for Medicare purposes. Please let me know if there are questions or concerns regarding this plan of care. Physician Signature: Date:
== END 2024-09-22 19:00 | disposition home or self-care (01) ==
LOC: OT 15:30
PROVIDERS: PCP Family Medicine; Referring Provider Physician Assistant; Visit Provider Physician Assistant
DX: G56.01 Carpal tunnel syndrome, right upper limb (principal)
CPT/HCPCS: 97110; 97140; 97166; 97530

== ENCOUNTER 2024-11-29 14:07 | Emergency (ER) | payer OTHER, SELFPAY ==
[2024-11-29 14:07] VITALS: BP 153/83; PULSE 88; RESP 16; TEMP 37.2; O2SAT 99; BMI 32.5
--- NOTE | 2024-11-29 14:33 | RAD_ITS ---
PROCEDURE: HUMERUS MIN 2 VIEWS 11/29/2024 REASON FOR EXAM: INJURY TECHNIQUE: Procedure Code: RADHUM Modality: DX Procedure: HUMERUS MIN 2 VIEWS Laterality: COMPARISON: None. FINDINGS: Bones: No acute bony abnormalities. Joints: No dislocations. Soft tissues: No soft tissue abnormalities. RAD/Humerus min 2 Views IMPRESSION: No acute bony abnormalities. Reading Location: [id number]
--- NOTE | 2024-11-29 14:33 | RAD_ITS ---
PROCEDURE: HAND MIN 3 VIEWS 11/29/2024 REASON FOR EXAM: INJURY TECHNIQUE: Procedure Code: KULDEEP Modality: DX Procedure: HAND MIN 3 VIEWS Laterality: Left COMPARISON: None. FINDINGS: Bones: No acute bony abnormalities. Joints: No dislocations. Soft tissues: No soft tissue abnormalities. RAD/Hand Min 3 Views IMPRESSION: No acute osseous abnormalities. Reading Location: [id number]
--- NOTE | 2024-11-29 14:33 | RAD_ITS ---
PROCEDURE: WRIST MIN 3 VIEWS 11/29/2024 REASON FOR EXAM: INJURY TECHNIQUE: Procedure Code: RADWR Modality: DX Procedure: WRIST MIN 3 VIEWS Laterality: COMPARISON: Left FINDINGS: Bones: No acute bony abnormalities. Joints: No dislocations. Soft tissues: No soft tissue abnormalities. RAD/Wrist min 3 Views IMPRESSION: No acute osseous abnormalities. Reading Location: [id number]
--- NOTE | 2024-11-29 14:45 | EX.ED.DYSGE1 ---
HPI History of Present Illness Chief Complaint: Fall Narrative Narrative: Patient is a 54-year-old female with past medical history hypercholesteremia, hypertension who presented to the emergency department the chief complaint of left wrist pain. Patient states that she was in the garage tripped over items causing her to fall at her knees and on her left wrist. States that wood charge hand landed on her left wrist causing her pain and swelling prompting her to come here for further evaluation management. Patient denies any blood thinning medications. [facility] Medical History Urinary tract infection with hematuria Acute pharyngitis Encounter for screening for COVID-19 High cholesterol Hay fever Hypertension Home Medications ?Medication ?Instructions ?Recorded ?Last Taken ?Type amlodipine 10 mg tablet 10 mg PO DAILY BP 03/07/16 04/19/17 History metoprolol succinate 100 mg 100 mg PO DAILY BP 03/07/16 04/19/17 History tablet,extended release 24 hr multivitamin 1 ea PO DAILY supplement 03/07/16 04/19/17 History omeprazole 20 mg capsule,delayed 20 mg PO DAILY acid reflux 03/07/16 04/19/17 History release amitriptyline 75 mg tablet 75 mg PO DAILY #90 tabs 12/14/18 Unknown History lisinopril 10 mg tablet 10 mg PO DAILY #180 tabs 12/14/18 Unknown History meloxicam 15 mg tablet 15 mg PO DAILY 07/21/20 Unknown History cyclobenzaprine 5 mg tablet ea PO 05/02/21 Unknown History pravastatin 20 mg tablet 20 mg PO QDAY 05/28/23 Unknown History escitalopram oxalate 10 mg tablet mg PO DAILY 05/15/24 Unknown History Allergy/AdvReac Type Severity Reaction Status Date / Time morphine AdvReac Nausea Verified 11/29/24 14:09 Family History Mother Breast cancer Father Heart disease Grandfather Myocardial infarction Surgical History History of surgery on right wrist H/O: hysterectomy carpal tunnel surgery History of tonsillectomy H/O tubal ligation tailbone cyst Social History Smoking Status: Never smoker alcohol intake: current details: 1 glass of wine a night substance use type: does not use caffeine: Yes what type of physical activity do you participate in: none seatbelt use: always do you feel safe at home: Yes additional social history: 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 ROS ROS ED ROS Narrative Neurological: Denies any numbness, weakness, tingling Musculoskeletal: Complains of left wrist pain as noted above Skin: Denies any rashes or lesions complains of some swelling to the dorsal aspect of her left wrist EXAM Physical Exam Narrative Exam Narrative: General: Patient was lying in bed rest comfortably did not appear to be in acute distress Head: Atraumatic, normocephalic Eyes: PERRL bilaterally, EOMI bilaterally, no conjunctival injection noted Neck: Soft, supple, trachea midline Cardiovascular: Regular rate and rhythm Musculoskeletal: Patient has a tender to palpation over the left distal wrist Extremities: Radial pulses +2/4 in the left upper extremity, +5/5 strength noted in the bilateral upper and lower extremities Neurological: Patient following commands and that she was at [facility] the year is 2024 sensation grossly intact in the median, ulnar and radial nerve distribution bilaterally Skin: Warm, dry, intact no rashes or lesions noted patient has edema noted to the dorsal aspect of the left wrist and states that her hands are chronically swollen and states that she has not been able to get her ring off for a very long time she was advised that she needs to try to take this off here in the emergency department Const Vital Signs: 11/29/24 14:07 11/29/24 14:57 Temperature 98.9 F Temperature Source Oral Pulse Rate 88 Respiratory Rate 16 Respiratory Effort Normal Non-Labored Respiratory Depth Normal Respiratory Pattern Normal Blood Pressure 153/83 H Blood Pressure Mean 106 Pulse Ox 99 96 Oxygen Delivery Method Room Air Room Air MDM MDM MDM Narrative Medical decision making narrative: Patient is a 54-year-old female who presents to the emergency department with a chief complaint of left wrist pain after mechanical fall tripping over some items in her garage and object falling on her left wrist. On the differential diagnose includes but not limited to wrist sprain, distal radius fracture, ulnar fracture. Once the workup is obtained reviewed she will be reevaluated. Patient's x-ray of the wrist reviewed by myself by radiology showed no acute fracture or dislocation. Patient's humerus x-ray reviewed by myself by radiology showed no acute fracture or dislocation. Patient's hand x-ray reviewed myself and by radiology and showed no acute fracture or dislocation. Discussed results with the patient she was advised to keep her hand elevated to help with the swelling as well as rotate Tylenol and ibuprofen [id number] for mild to moderate pain. She is advised to return with worsening symptoms or concerns. She is advised to follow-up her doctor in the outpatient setting. All question concerns answered she was discharged home in stable condition. Radiography Diagnostic Testing: Clinical Impression(s) from Imaging Studies Hand X-Ray 11/29/24 14:33 IMPRESSION: No acute osseous abnormalities. Reading Location: [id number] Humerus X-Ray 11/29/24 14:33 IMPRESSION: No acute bony abnormalities. Reading Location: [id number] Wrist X-Ray 11/29/24 14:33 IMPRESSION: No acute osseous abnormalities. Reading Location: [id number] Discharge Plan Triage Chief Complaint: Fall ED Provider: Mikhail Davis Dx/Rx/DC Orders Clinical Impression: Left wrist pain, HTN (hypertension), Fall Prescriptions: No Action lisinopril 10 mg tablet 10 mg PO DAILY Qty: 180 amitriptyline 75 mg tablet 75 mg PO DAILY Qty: 90 cyclobenzaprine 5 mg tablet PO pravastatin 20 mg tablet 20 mg PO QDAY escitalopram oxalate 10 mg tablet PO DAILY multivitamin 1 EACH tablet 1 ea PO DAILY Patient Comments: supplement metoprolol succinate 100 MG tablet 100 mg PO DAILY Patient Comments: bp med amlodipine 10 MG tablet 10 mg PO DAILY Patient Comments: bp med omeprazole 20 MG capsule 20 mg PO DAILY Patient Comments: acid reflux med meloxicam 15 mg Tablet 15 mg PO DAILY Primary Care Provider: Kandy Valle Referrals: Kandy Valle DO [Primary Care Provider] - Activity Restrictions/Additional Instructions: Your x-rays did not show any acute broken bones. Follow-up your doctor in the outpatient setting. Return with worsening symptoms or any other concerns. Rotate Tylenol and ibuprofen [id number] for pain when you do this you can take something every 3 hours for pain. Max dose of Tylenol in 24 hours 4000 mg max dose of ibuprofen in 24 hours 3200 mg Print Language: Hungarian Disposition Disposition: Home, Self Care
[2024-11-29 14:57] VITALS: O2SAT 96
--- OUTSIDE RECORDS SUMMARY | 2024-11-29 14:59 | XMS RPT_ITS | CCD ---
Author Organization [facility] Care Team Providers Care Resident Programs Assistant Name Role Phone Juan David Brink Unavailable Dr. Kandy Valle Primary Care Provider Dr. Kandy Valle Referring Provider 1([facility])[phone] BITA Elena Attending Provider Dr. Kandy Valle DO Primary Care Provider Dr. Kandy Valle DO Referring Provider 1([facility])[phone] Saima INTERNATIONAL FIRST OFFICER-CDanny Attending Provider Saima INTERNATIONAL FIRST OFFICER-CDanny Referring Provider Manish INTERNATIONAL FIRST OFFICER-CPriti Attending Provider 1([facility])[phone] Manish INTERNATIONAL FIRST OFFICER-CPriti Referring Provider 1([facility])[phone] Jatinder SARMIENTO, Dr. Poole Attending Provider Manish INTERNATIONAL FIRST OFFICER-CPriit Other Provider 1([facility])[phone] Casimiro BELL, Dr. Barakat Attending Provider Dr. Kandy Valle DO Primary Care Provider 1([facility])[phone] Dr. Kandy Valle DO Referring Provider Dr. Kandy Valle DO Attending Provider 1([facility])[phone] Roshni BELL, Dr. Martinez Attending Provider 1([facility])[phone] Maria Teresa Osborn PA-C Attending Provider 1([facility])[phone] Anurag MARTINEZ, Maria Teresa Trevizo Referring Provider Tori WALKER, Dr. Gaitan Primary Care Provider Tori WALKER, Dr. Gaitan Referring Provider Manish INTERNATIONAL FIRST OFFICER-CPriti Attending Provider Manish INTERNATIONAL FIRST OFFICER-C, Priti Referring Provider Anurag SUNSHINE-Maria Teresa Alegria Attending Provider Anurag PA-CMaria Teresa Referring Provider Tori WALKER, Dr. Gaitan Primary Care Provider Tori WALKER, Dr. Gaitan Referring Provider Manish INTERNATIONAL FIRST OFFICER-C, Priti Attending Provider Manish INTERNATIONAL FIRST OFFICER-C, Priti Referring Provider Manish INTERNATIONAL FIRST OFFICER-C, Priti Other Provider Lisa Hammondanne Consulting Unavailable Hammond, Priti Referring Unavailable Malys, Kandy Primary Care Unavailable AhMichelle tineo Attending Unavailable Manish, Priti Referring Unavailable Hammond, Priti Attending Unavailable Malys, Kandy Primary Care Unavailable Malys, Knady Primary Care Unavailable Hammond, Priti Attending Unavailable Hammond, Priti Attending Unavailable Malys, Kandy Primary Care Unavailable Malys, Kandy Referring Unavailable Malys, Kandy Primary Care Unavailable Malys, Kandy Referring Unavailable Malys, Kandy Attending Unavailable Malys, Kandy Primary Care Unavailable Malys, Kandy Referring Unavailable Malys, Kandy Attending Unavailable Malys, Kandy Primary Care Unavailable TariqucarMaria Teresa A Referring Unavailable KlucarMaria Teresa Attending Unavailable Manish, Priti Referring Unavailable Hammond, Priti Attending Unavailable Malys, Kandy Primary Care Unavailable Hammond, Priti Referring Unavailable Malys, Kandy Primary Care Unavailable Hammond, Priti Attending Unavailable Malys, Kandy Attending Unavailable Malys, Kandy Primary Care Unavailable Malys, Kandy Referring Unavailable Malys, Kandy Primary Care Unavailable Malys, Kandy Referring Unavailable Zulema Tobias Attending Unavailable Malys, Kandy Primary Care Unavailable Assessment, Health Risk Referring Unavaila ble Assessment, Health Risk Attending Unavaila ble Malys, Kandy Attending Unavailable Malys, Kandy Primary Care Unavailable Malys, Kandy Referring Unavailable Malys, Kandy Primary Care Unavailable Roof INTERNATIONAL FIRST OFFICER, Danny H Referring Unavailable Roof INTERNATIONAL FIRST OFFICER, Danny H Attending Unavailable Malys, Kandy Primary Care Unavailable Malys, Kandy Referring Unavailable Roof INTERNATIONAL FIRST OFFICER, Danny H Attending Unavailable Malys, Kandy Referring Unavailable Priti Hammond Attending Unavailable Malys, Kandy Primary Care Unavailable Malys, Kandy Referring Unavailable Zulema Tobias Attending Unavailable Malys, Kandy Primary Care Unavailable Malys, Kandy Referring Unavailable Priti Hammond Attending Unavailable Malys, Kandy Primary Care Unavailable Malys, Kandy Primary Care Unavailable Malys, Kandy Referring Unavailable Priti Hammond Attending Unavailable Priti Hammond Consulting Unavailable Priti Hammond Referring Unavailable Malys, Kandy Primary Care Unavailable Casimiro, Ahmad Attending Unavailable Allergies Allergy Classification Reported Allergen(s) Allergy Type Date of Onset Reaction(s) Facility (11 sources) Morphine Drug Allergy 05-02-2021 Nausea [facility] (1 source) Morphine Drug Allergy 08-08-2024 [facility] Repository Medications Current Medications Medication Drug Class(es) Dates Sig (Normalized) Sig (Original) Albuterol (5 sources) beta2-Adrenergic Agonist Start: 04-21-2017 take 1 puff(s) by inhalation every four hours as needed Albuterol Sulfate Active 1 - 2 PUFF INHALATION EVERY 4 HOURS NEEDED April 21, 2017 12:00am Start: 04-21-2017 take 1 puff(s) by in halation every four hours as needed Albuterol Sulfate Active 1 - 2 PUFF INHALATION EVERY 4 HOURS NEEDED April 21, 2017 1:00am amitriptyline hydrochloride 75 mg oral tablet (20 sources) Tricyclic Antidepressant Start: 12-14-2018 take 1 tablet by mouth once daily Amitriptyline 75 mg tablet Active 75 mg PO DAILY 90 0 December 14, 2018 12:00am Start: 03-07-2016 End: 12-14-2018 take 1 tablet by mouth at bedtime Amitriptyline 100 MG tablet Discontinued 100 mg PO AT BEDTIME March 07, 2016 1:00am December 14, 2018 10:49am sleep/depression Start: 04-01-2014 take 1 tablet by deepthi th once daily at bedtime AMITRIPTYLINE HCL 75 MG TABS 1 po QHS AMITRIPTYLINE HCL [id number] June Alex PA-C amLODIPine 10 mg oral tablet (14 sources) Dihydropyridine Calcium Channel Adan Start: 08-05-2015 take 1 tablet by mouth once daily Amlodipine 10 MG tablet Active 10 mg PO DAILY March 07, 2016 1:00am BP cyclobenzaprine hydrochloride 5 mg oral tablet (11 sources) Muscle Relaxant Start: 05-02-2021 Cyclobenzaprine 5 mg tablet Active NMA PO May 02, 2021 1:00am Start: 05-02-2021 Cyclobenzaprin e Active EACH PO May 02, 2021 1:00am escitalopram 10 mg oral tablet (6 sources) Serotonin Reuptake Inhibitor Start: 05-15-2024 take 1 mg by mouth once daily Escitalopram Oxalate 10 mg tablet Active mg PO DAILY May 15, 2024 1:00am lisinopril 10 mg oral tablet (20 sources) Angiotensin Converting Enzyme Inhibitor Start: 12-14-2018 take 1 tablet by mouth once daily Lisinopril 10 mg tablet Active 10 mg PO DAILY 180 0 December 14, 2018 12:00am Start: 03-07-2016 End: 12-14-2018 take 1 tablet by mouth once daily Lisinopril 20 MG tablet Discontinued 20 mg PO DAILY March 07, 2016 1:00am December 14, 2018 10:50am BP Start: 02-24-2014 take 1 tablet by deepthi once daily LISINOPRIL 10 MG TABS One tablet by mouth daily LISINOPRIL [id number] Kandy Valle DO Start: 02-24-2014 [facility] LISINOPRIL 10 MG TABS Two tablets by mouth daily LISINOPRIL [id number] Cipriano Guzman DO meloxicam 15 mg oral tablet (14 sources) Nonsteroidal Anti-inflammatory Drug Start: 07-21-2020 take 1 tablet by mouth once daily Meloxicam 15 mg Tablet Active 15 mg PO DAILY July 21, 2020 12:00am Start: 10-18-2016 take 1 tablet by deepthi once daily MELOXICAM 15 MG TABS 1 po daily MELOXICAM [id number] Juan David Brink 24 hr metoprolol succinate 100 mg extended release oral tablet (20 sources) beta-Adrenergic Adan Start: 03-07-2016 take 1 tablet by mouth once daily Metoprolol Succinate 100 MG tablet Active 100 mg PO DAILY March 07, 2016 1:00am BP Start: 02-24-2014 End: 08-05-2015 METOPROLOL SUCCINATE ER 100 MG [id number] METOPROLOL SUCCINATE [id number] Cipriano Guzman DO Multivitamin 1 EACH tablet (6 sources) Start: 03-07-2016 Multivitamin 1 EACH tablet Active 1 NMA PO DAILY March 07, 2016 1:00am supplement Start: 03-07-2016 Multivitamin 1 EACH tablet Active 1 NMA PO DAILY March 07, 2016 1:00am Multivitamin preparation (5 sources) Start: 03-07-2016 Multivitamin A ctive 1 EACH PO DAILY March 07, 2016 12:00am Start: 03-07-2016 Multivitamin A ctive 1 EACH PO DAILY March 07, 2016 1:00am omeprazole 20 mg delayed release oral capsule (17 sources) Proton Pump Inhibitor Start: 03-07-2016 take 1 capsule by mouth once daily Omeprazole 20 MG capsule Active 20 mg PO DAILY March 07, 2016 1:00am acid reflux Start: 02-24-2014 [facility] OMEPRAZOLE 20 MG [facility] OMEPRAZOLE [id number] Cipriano Guzman DO pravastatin sodium 20 mg oral tablet (6 sources) HMG-CoA Reductase Inhibitor Start: 05-28-2023 take 1 tablet by mouth once daily Pravastatin 20 mg tablet Active 20 mg PO daily May 28, 2023 12:00am Completed/Discontinued Medications Medication Drug Class(es) Dates Sig (Normalized) Sig (Original) acetaminophen 325 mg oral tablet (11 sources) Start: 04-21-2017 End: 12-14-2018 Acetaminophen 325 MG tablet Discontinued 650 mg PO EVERY 6 HOURS NEEDED as needed for Mild Pain (scale 0-3)/T>100.7 0 April 21, 2017 1:00am December 14, 2018 10:49am Start: 04-21-2017 End: 12-14-2018 take 650 mg by mouth every six hours as needed Acetaminophen Discontinued 650 MG PO EVERY 6 HOURS NEEDED April 21, 2017 1:00am December 14, 2018 10:49am acetaminophen 325 mg / HYDROcodone bitartrate 5 mg oral tablet (11 sources) Opioid Agonist Start: 03-24-2017 End: 04-21-2017 Hydrocodone-Acetaminophen 1 TABLET tablet Discontinued 1 - 2 {tbl} PO EVERY 4 HOURS NEEDED as needed for Pain 20 0 March 24, 2017 1:00am April 21, 2017 11:16am Enlarged uterus Hypertrophy of uterus Start: 03-24-2017 End: 04-21-2017 take 1 tablet by mouth every four hours as needed Hydrocodone-Acetaminophen Discontinued 1 - 2 TABLET PO EVERY 4 HOURS NEEDED March 24, 2017 1:00am April 21, 2017 11:16am Albuterol Sulfate 1 PUFF inhaler (6 sources) Start: 04-21-2017 End: 05-28-2023 Albuterol Sulfate 1 PUFF inhaler Discontinued 1 - 2 NMA INHALATION EVERY 4 HOURS NEEDED as needed for dyspnea, wheezing April 21, 2017 1:00am May 28, 2023 3:37pm azithromycin 250 mg oral tablet (11 sources) Macrolide Antimicrobial Start: 12-16-2018 End: 12-16-2018 take 2-5 tablets by mouth once daily Azithromycin 250 mg tablet Discontinued 0 PO .COMPLEX 6 0 December 16, 2018 12:00am December 16, 2018 11:48am take 500 mg today (day 1), then 250 mg for 4 days (days 2-5) PO CALCIUM CARBONATE-VITAMIN D CAPS (3 sources) Start: 02-24-2014 take 1 tablet by mouth once daily CALCIUM PLUS VITAMIN D CAPS One tablet by mouth daily CALCIUM CARBONATE-VITAMIN D CAPS [id number] Kandy Valle DO calcium citrate 1500 mg / cholecalciferol 250 unt oral tablet (11 sources) Vitamin D Start: 03-07-2016 End: 12-14-2018 Calcium Citrate-Vitamin D3 1 EACH tablet Discontinued 1 NMA PO DAILY March 07, 2016 1:00am December 14, 2018 10:49am supplement Start: 03-07-2016 End: 12-14-2018 Calcium Citrate-Vitamin D3 D iscontinued 1 EACH PO DAILY March 07, 2016 1:00am December 14, 2018 10:49am cetirizine hydrochloride 10 mg oral capsule (3 sources) Histamine-1 Receptor Antagonist Start: 02-24-2014 take 1 tablet by mouth once daily ZYRTEC ALLERGY 10 MG CAPS One tablet by mouth daily CETIRIZINE HCL [id number] Kandy Valle DO clindamycin 0.01 mg/mg topical gel (3 sources) Lincosamide Antibacterial Start: 03-15-2015 CLINDAMYCIN PHOSPHATE 1 % GEL apply thin layer to affected area 1-2 times daily CLINDAMYCIN PHOSPHATE [id number] Kandy Valle DO Cranberry Conc-Ascorbic Acid (5 sources) Start: 03-07-2016 End: 12-14-2018 Cranberry Conc-Ascorbic Acid Discontinued 1 EACH PO DAILY March 07, 2016 12:00am December 14, 2018 9:49am Start: 03-07-2016 End: 12-14-2018 Cranberry Conc-Ascorbic Acid Discontinued 1 EACH PO DAILY March 07, 2016 1:00am December 14, 2018 10:49am Cranberry Conc-Ascorbic Acid 1 EACH capsule (6 sources) Start: 03-07-2016 End: 12-14-2018 Cranberry Conc-Ascorbic Acid 1 EACH capsule Discontinued 1 NMA PO DAILY March 07, 2016 1:00am December 14, 2018 10:49am supplement Start: 03-07-2016 End: 12-14-2018 Cranberry Conc-Ascorbic Acid 1 EACH capsule Discontinued 1 NMA PO DAILY March 07, 2016 1:00am December 14, 2018 10:49am CRANBERRY-VITAMIN C-VITAMIN E CAPS (3 sources) Start: 02-24-2014 CRANBERRY CAPS 2 caps once daily CRANBERRY-VITAMIN C-VITAMIN E CAPS [id number] Kandy Valle DO docusate sodium 100 mg oral capsule (11 sources) Start: 03-14-2016 End: 04-21-2017 take 1 capsule by mouth twice daily as needed for constipation Docusate Sodium 100 MG capsule Discontinued 100 mg PO TWICE DAILY NEEDED as needed for Constipation 10 0 March 14, 2016 1:00am April 21, 2017 11:14am docusate sodium 50 mg / sennosides, group home 8.6 mg oral tablet (11 sources) Start: 04-21-2017 End: 12-14-2018 Sennosides-Docusate Sodium 1 TABLET tablet Discontinued 2 {tbl} PO DAILY 60 0 April 21, 2017 1:00am December 14, 2018 10:50am Start: 04-21-2017 End: 12-14-2018 take 2 tablets by mouth once daily Sennosides-Docusate Sodium Discontinued 2 TABLET PO DAILY April 21, 2017 1:00am December 14, 2018 10:50am fluticasone propionate 0.05 mg/actuat metered dose nasal spray (9 sources) Corticosteroid Start: 02-24-2014 End: 12-07-2014 take 2 spray(s) nasal route once daily FLUTICASONE PROPIONATE 50 MCG/ACT SUSP 2 sprays each nostril once daily FLUTICASONE PROPIONATE [id number] Kandy Valle DO gemfibrozil 600 mg oral tablet (11 sources) Peroxisome Proliferator Receptor alpha Agonist Start: 07-21-2020 End: 05-28-2023 take 1 tablet by mouth twice daily Gemfibrozil 600 mg Tablet Discontinued 600 mg PO TWICE A DAY July 21, 2020 12:00am May 28, 2023 3:38pm methylPREDNISolone 4 mg oral tablet (6 sources) Corticosteroid Start: 05-15-2024 End: 05-26-2024 take 1 tablet by mouth once Methylprednisolone (Medrol (Juan)) 4 mg tablets,dose pack Discontinued 0 PO per package directions May 15, 2024 1:00am May 26, 2024 3:08pm PO PER PKG DIR for 6 days methylsulfonylmethane 1000 mg oral tablet (3 sources) Start: 02-24-2014 take 1 tablet by mouth once daily MSM 1000 MG TABS One tablet by mouth daily METHYLSULFONYLMETHANE [id number] Kandy Valle DO [email or web address] (3 sources) Start: 02-24-2014 take 2 tablets by mouth once daily GLUCOSAMINE CHONDROITIN ADV TABS Two tablets by mouth daily [facility] [employer] [id number] Kandy Valle DO naproxen 500 mg oral tablet (11 sources) Nonsteroidal Anti-inflammator y Drug Start: 03-24-2017 End: 04-21-2017 take 1 tablet by mouth twice daily as needed Naproxen 500 MG tablet Discontinued 500 mg PO TWICE DAILY NEEDED March 24, 2017 1:00am April 21, 2017 11:16am No Diagnosis Code nitrofurantoin, macrocrystals 25 mg / nitrofurantoin, monohydrate 75 mg oral capsule (17 sources) Nitrofuran Antibacterial Start: 02-17-2024 End: 02-24-2024 take 1 capsule by mouth every twelve hours at mealtime Nitrofurantoin Monohyd/M-Cryst (Macrobid) 100 mg capsule Discontinued 100 mg PO Q12H 14 7 0 February 17, 2024 1:00am February 23, 2024 1:00am February 24, 2024 1:09am must administer with a meal/food Start: 09-14-2021 End: 09-19-2021 take 1 capsule by mouth every twelve hours at mealtime Nitrofurantoin Monohyd/M-Cryst (Macrobid) 100 mg capsule Discontinued 100 mg PO Q12H 10 5 0 September 14, 2021 12:00am September 18, 2021 12:00am September 19, 2021 12:03am must administer with a meal/food oxyCODONE hydrochloride 5 mg oral tablet (11 sources) Opioid Agonist Start: 04-21-2017 End: 12-14-2018 take 1 tablet by mouth every four hours as needed for pain Oxycodone 5 MG tablet Discontinued 5 mg PO EVERY 4 HOURS NEEDED as needed for Moderate Pain (pain scale 4-5) 30 5 0 April 21, 2017 1:00am December 14, 2018 10:50am Bilateral pulmonary embolism Other pulmonary embolism without acute cor pulmonale potassium gluconate 2.5 meq oral tablet (14 sources) Start: 03-07-2016 End: 12-14-2018 take 1 tablet by mouth once daily Potassium 99 MG tablet Discontinued 99 mg PO DAILY March 07, 2016 1:00am December 14, 2018 10:50am supplement Start: 02-24-2014 POTASSIUM GLUC SUDHA TABS 99mg once daily POTASSIUM GLUCONATE TABS [id number] Kandy Valle DO rivaroxaban 20 mg oral tablet (11 sources) Factor Xa Inhibitor Start: 04-20-2017 End: 12-14-2018 take 1 tablet by mouth once daily Rivaroxaban 1 EACH tablets,dose pack Discontinued 1 NMA PO DIRECTED 1 0 April 20, 2017 1:00am December 14, 2018 10:50am Acute BL Pulmonary Emboli Please take xarelto pack as noted with 15 mg po BID x 21 days and then transition to 20 mg daily following. simvastatin 10 mg oral tablet (14 sources) HMG-CoA Reductase Inhibitor Start: 03-07-2016 End: 12-14-2018 take 1 tablet by mouth at bedtime Simvastatin 10 MG tablet Discontinued 10 mg PO AT BEDTIME March 07, 2016 1:00am December 14, 2018 10:50am cholesterol Start: 03-02-2014 take 1 tablet by deepthi th once daily at bedtime SIMVASTATIN 20 MG TABS 1 po daily at bedtime SIMVASTATIN [id number] Kandy Valle, DO temazepam 7.5 mg oral capsule (6 sources) Benzodiazepine Start: 02-24-2014 End: 04-01-2014 take 1 capsule by mouth once daily for sleep TEMAZEPAM 7.5 MG CAPS 1-2 po every night for sleep TEMAZEPAM [id number] Kandy Valle DO traMADol hydrochloride 50 mg oral tablet (3 sources) Opioid Agonist Start: 10-18-2016 take 1 tablet by mouth every eight hours as needed TRAMADOL HCL 50 MG TABS 1-2 po q8h prn TRAMADOL HCL [id number] Juan David Brink valACYclovir 1000 mg oral tablet (3 sources) Herpesvirus Nucleoside Analog DNA Polymerase Inhibitor, Herpes Simplex Virus Nucleoside Analog DNA Polymerase Inhibitor, Herpes Zoster Virus Nucleoside Analog DNA Polymerase Inhibitor Start: 02-24-2014 VALACYCLOVIR HCL 1 GM TABS 2 tabs every 12 hours as needed for cold sores VALACYCLOVIR HCL [id number] Kandy Valle DO Problems Active Problems Problem Classification Problem Date Documented Date Episodic/Chronic Benign neoplasm of uterus (11 sources) Uterine leiomyoma; Translations: [Leiomyoma of uterus, unspecified] 04-21-2017 Episodic Disorders of lipid metabolism (15 sources) Hyperlipidemia; Translations: [Hyperlipidemia, unspecified] Onset: 5 09-04-2014 Chronic Esophageal disorders (3 sources) Gastroesophageal reflux disease; Translations: [Gastro-esophageal reflux disease without esophagitis] Onset: 4 02-24-2014 Chronic Essential hypertension (14 sources) Hypertensive disorder; Translations: [Essential (primary) hypertension] 02-24-2014 Chronic Immunizations and screening for infectious disease (11 sources) Patient encounter status; Translations: [Encounter for screening for COVID-19] 03-09-2021 Episodic Joint disorders and dislocations; trauma-related (2 sources) Derangement of knee; Translations: [Unspecified internal derangement of right knee] Onset: 7 10-30-2016 Chronic Menstrual disorders (6 sources) Dysmenorrhea; Translations: [Menorrhagia] Onset: 6 06-28-2015 Chronic Nonspecific chest pain (11 sources) Chest pain; Translations: [Chest pain, unspecified] 07-22-2020 Episodic Osteoarthritis (2 sources) Localized, primary osteoarthritis; Translations: [Unilateral primary osteoarthritis, right knee] Onset: 7 10-30-2016 Chronic Other bone disease and musculoskeletal deformities (20 sources) Segmental and somatic dysfunction; Translations: [Segmental and somatic dysfunction of cervical region] 05-29-2023 Episodic Other connective tissue disease (17 sources) Hand pain; Translations: [Pain in right hand] 05-14-2024 Episodic Other connective tissue disease (1 source) Pain in right hand; Translations: [Pain in right hand] Onset: 5 Episodic Other female genital disorders (11 sources) Enlarged uterus; Translations: [Hypertrophy of uterus] 04-21-2017 Episodic Other nervous system disorders (3 sources) Carpal tunnel syndrome; Translations: [Carpal tunnel syndrome, right upper limb] Onset: 6 12-16-2015 Chronic Other nervous system disorders (9 sources) Carpal tunnel syndrome of right wrist; Translations: [Carpal tunnel syndrome, right upper limb] 06-10-2024 Chronic Other nervous system disorders (1 source) Carpal tunnel syndrome, right upper limb; Translations: [Carpal tunnel syndrome, right upper limb] Onset: 5 Chronic Other nervous system disorders (11 sources) Paresthesia of upper limb; Translations: [Anesthesia of skin] 05-02-2021 Episodic Other nervous system disorders (15 sources) Paresthesia of hand ; Translations: [Paresthesia of skin] 05-14-2024 Episodic Other nervous system disorders (6 sources) Paresthesia of left upper limb; Translations: [Paresthesia of skin] 08-08-2024 Episodic Comment on above: Current symptoms, pr ogression and exam findings consistent with carpal tunnel syndrome Other nervous system disorders (2 sources) Paresthesia of skin; Translations: [Paresthesia of skin] Onset: 5 Episodic Other non-traumatic joint disorders (9 sources) Pain in wrist; Translations: [Pain in left wrist] Onset: 6 12-22-2015 Episodic Other non-traumatic joint disorders (1 source) Pain in left wrist; Translations: [Pain in left wrist] Onset: 5 Episodic Other nutritional; endocrine; and metabolic disorders (11 sources) Body mass index 30+ - obesity; Translations: [Obesity, unspecified] 04-20-2017 Chronic Other upper respiratory disease (3 sources) Allergic rhinitis; Translations: [Allergic rhinitis, unspecified] Onset: 4 02-24-2014 Chronic Other upper respiratory infections (20 sources) Acute upper respiratory infection; Translations: [Acute upper respiratory infection, unspecified] 12-16-2018 Episodic Pulmonary heart disease (11 sources) Pulmonary embolism; Translations: [Other pulmonary embolism without acute cor pulmonale] 04-20-2017 Episodic Residual codes; unclassified (11 sources) Postoperative state; Translations: [Other specified postprocedural states] 04-21-2017 Episodic Spondylosis; intervertebral disc disorders; other back problems (6 sources) Backache; Translations: [Dorsalgia, unspecified] 05-29-2023 Episodic Sprains and strains (20 sources) Strain of muscle(s) and tendon(s) of the rotator cuff of left shoulder, initial encounter; Translations: [Sprain of right thumb] Onset: 6 07-21-2015 Episodic Comment on above: DDx includes thumb s prain, UCL ligament partial tear versus full tear/gamekeeper's thumb secondary to repetitive motion Unclassified (3 sources) Postoperative physical examination; Translations: [Encounter for other specified surgical aftercare] Onset: 7 03-27-2016 Unclassified (5 sources) S63.641A - Sprain of metacarpophalangeal joint of right thumb, initial encounter,M79.641 - Pain in right hand,R20.2 - Paresthesia of skin Unclassified (1 source) Sprain of right thumb Unclassified (1 source) Pain of right hand Unclassified (1 source) Right hand paresthesia Unclassified (1 source) Low back pain, unspecified; Translations: [Low back pain, unspecified] Onset: 4 Past or Other Problems Problem Classification Problem Date Documented Da te Episodic/Chronic Diabetes mellitus without complication (1 source) Hyperglycemia, unspecified; Translations: [Hyperglycemia, unspecified] Onset: 07-14-2024 Episodic Fluid and electrolyte disorders (3 sources) Hypokalemia; Translations: [Hypokalemia] Onset: 08-09-2015 08-09-2015 Episodic Genitourinary symptoms and ill-defined conditions (1 source) Dysuria; Translations: [Dysuria] Onset: 02-17-2024 Episodic Joint disorders and dislocations; trauma-related (2 sources) Other tear of medial meniscus, current injury, right knee, initial encounter; Translations: [Other tear of medial meniscus, current injury, right knee, initial encounter] Onset: 10-18-2016 10-30-2016 Episodic Other bone disease and musculoskeletal deformities (1 source) Segmental and somatic dysfunction of pelvic region; Translations: [Segmental and somatic dysfunction of pelvic region] Onset: 05-19-2024 Episodic Other bone disease and musculoskeletal deformities (1 source) Segmental and somatic dysfunction of lumbar region; Translations: [Segmental and somatic dysfunction of lumbar region] Onset: 05-19-2024 Episodic Other bone disease and musculoskeletal deformities (1 source) Segmental and somatic dysfunction of thoracic region; Translations: [Segmental and somatic dysfunction of thoracic region] Onset: 05-19-2024 Episodic Other bone disease and musculoskeletal deformities (1 source) Segmental and somatic dysfunction of cervical region; Translations: [Segmental and somatic dysfunction of cervical region] Onset: 05-19-2024 Episodic Other connective tissue disease (3 sources) Impingement syndrome of shoulder region; Translations: [Impingement syndrome of left shoulder] Onset: 07-02-2015 07-21-2015 Episodic Other non-traumatic joint disorders (3 sources) Shoulder pain; Translations: [Pain in left shoulder] Onset: 07-02-2015 07-21-2015 Episodic Other non-traumatic joint disorders (3 sources) Pain in left shoulder; Translations: [Pain in left shoulder] Onset: 07-02-2015 07-02-2015 Episodic Other non-traumatic joint disorders (2 sources) Knee pain; Translations: [Pain in right knee] Onset: 10-18-2016 10-18-2016 Episodic Other screening for suspected conditions (not mental disorders or infectious disease) (1 source) Encounter for screening mammogram for malignant neoplasm of breast; Translations: [Encounter for screening mammogram for malignant neoplasm of breast] Onset: 12-05-2023 Episodic Other skin disorders (3 sources) Acne vulgaris; Translations: [Acne vulgaris] Onset: 03-15-2015 03-16-2015 Episodic Other skin disorders (3 sources) Senile hyperkeratosis; Translations: [Other seborrheic keratosis] Onset: 02-24-2014 02-27-2014 Episodic Residual codes; unclassified (3 sources) Edema of lower extremity; Translations: [Localized edema] Onset: 07-14-2015 Resolved: 07-24-2015 07-14-2015 Episodic Residual codes; unclassified (3 sources) Insomnia; Translations: [Psychophysiologic insomnia] Onset: 02-24-2014 02-24-2014 Episodic Unclassified (11 sources) carpal tunnel surgery 10-13-2021 Unclassified (11 sources) tailbone cyst 10-13-2021 Urinary tract infections (15 sources) Urinary tract infectious disease; Translations: [Urinary tract infection, site not specified] Onset: 03-18-2024 Episodic Results Test Name Value Interpretation Reference Range Facility OT D/C of Non Returning Pton 11-19-2024 OT D/C of Non Returning Pt [facility] Occupational Therapy [facility] [address] [place] [address] [address] [place] [address] / REHABILITATION SERVICES DISCHARGE SUMMARY MR#: [id number] Acct: [id number] Name: GABRIELA RUSSELL Rep #: [id number] : 1970 54 From: Stacey Qureshi OTR/David, CHT Referring DrWojciech: PIPE Hammond Status: REG RCR Eval Date: Discharge Date: Patient Information Patient Information: GABRIELA RUSSELL was seen in my office for initial evaluation on 06/04/24. The following Plan of Care was established for this patient: POC Established Initial Frequency: 1-2x /Week Initial Duration: 4 Weeks Plan: nerve glides Anticipated Interventions Anticipated Interventions: A/AAROM/PROM, Strengthening, Triggerpoint Release, Sensory Retraining, Modalities, Orthoses, Joint Protection/Energy Conservation, Ergonomic Education, Fine Motor Coord/Joey, ADL Training, Education re assistive Equipment, Education re Diagnosis and Home Program Other Interventions: nerve glides may need supportive orthosis to allow placement of thumb in opposition (abduction) to improve pts pinch Last Seen Last Seen: This patient was last seen in our office 06/09/24. Pertinent comments regarding their Occupational therapy will appear below: pt d/c as she was referred to hand specialist At this point I will be discontinuing this patient from occupational therapy. I would be happy to see this patient again in the future if found appropriate by the physician. Thank you! Stacey Qureshi, OTR/L, CHT 11/19/24 1132 CC: INTERNATIONAL FIRST OFFICER-C Priti Hammond; Dr. Kandy Vlale, DO MK Signed Normal [facility] NCS and/or EMG Patienton NCS and/or EMG Patient [facility] Pulmonary Services/Neurology [address] [place] [address] MR#: [id number] Acct: [id number] Name: GABRIELA RUSSELL KYLE Rep #: [id number] : 1970 54 From: Michelle Barakat MD Referring Dr: Priti HammondC Status: REG C LI Location: PSN Date: 09/03/24 Sex: F C NCS and/or EMG Patient Report Ordering Doctor: Priti Hammond DATE OF SERVICE: 09/03/24 Gabriela presents with complaints of numbness and tingling in the first 4 digits of the left hand. Electrodiagnostic findings: Left median motor nerve demonstrates prolonged latency with normal amplitude and reduced conduction velocity. Left ulnar motor response within normal limits. Normal left median and left ulnar F???waves. Prolonged left median sensory latency at the wrist with reduced conduction velocity. Needle EMG testing was performed in the left upper limb. All muscles tested showed no evidence of denervation with normal motor unit action potentials. Electrodiagnostic impression: This is an abnormal study in the left upper limb. 1. Electrodiagnostic findings suggestive of left-sided median mononeuropathy. This consistent with a moderate left carpal tunnel syndrome. Multi Select Codes Neurology Neurology Interp Codes: 98831-06 Musc test done w/n test comp (interp) and 31027-59 Nrv cndj tst 5-6 studies (interp) 09/03/24 1410 Date Michelle Barakat MD CC: PIPE Hammond; Dr. Michelle Barakat MD; Dr. Kandy Valle DO Date Dictated: 09/03/241408 Date Transcribed: 09/03/241408 Binder Fixer: AA Signed Normal [facility] Wrist min 3 Viewson 09-04-19 Wrist min [address] [facility] Imaging Services [address] [place] [address] Wrist min 3 Views MR#: [id number] Acct: [id number] Name: RACHELLGABRIELA NUNEZ KYLE Rep #: [id number] : 1970 F 54 From: Gonzalo cotter MD PCP: Dr. Kandy Valle DO Status: REG CLI Study: Wrist min 3 Views Date of Exam: 09/03/24 Exam# [id number] Ordering Dr: Priti Hammond PROCEDURE: WRIST MIN 3 VIEWS 09/03/2024 REASON FOR EXAM: WRSIT AND HAND PAIN/NUMBNESS TECHNIQUE: WRIST MIN 3 VIEWS COMPARISON: None. FINDINGS: Mild osteopenia of the visualized bones. Degenerative joint disease. No fracture or dislocation is seen. . RAD/Wrist min 3 Views IMPRESSION: No evidence for acute abnormality. [facility] CC: PIPE Hammond; Dr. Kandy Valle DO Binder Fixer: Signed Normal [facility] OT General Evaluationon 07-18 OT General Evaluation [facility] Occupational Therapy [address] [place] [address] / REHABILITATION SERVICES INITIAL EVALUATION MR#: [id number] Acct: [id number] Name: RACHELLTERI NUNEZGABRIELA KYLE Rep #: [id number] : 1970 54 From: Tessy Ba Referring Dr.: MICHELLE Osborn Status: REG RCR Insurance: [employer] Eval Date: SELF PAY INSURANCE Patient's Visit Information Visit Information Visit Information: GABRIELA RUSSELL is a 54 year old F, referred to Occupational Therapy by Maria Teresa Osborn PA-C, with a diagnosis of Carpal Tunnel Syndrome R Upper Limb G56.01. Date of Evaluation: 08/14/24 Occupational Therapist: Tessy Ba Subjective Subjective: Pt is a 54 y/o female s/p R revision carpal tunnel release with Guyon canal release and palmaris longus tendon transfer flexor tenosynovectomy fasciocutaneous flap on 07/22/[address] Magalis Rivera. Pt arrives 3 weeks 2 days post op. 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 Her first day back is intended to be September 08. She reports she has a follow up appointment with orthotics in mid-late September. ADLs Dressing: Pants Comments: Button and zipper on pants Fasteners: Buttons and Zippers Kitchen: Load/unload product marketing director Comments: completing at this time Comments: Pt reports is able to assist with home management/IADLs if they are too heavy. Pt reports modifying activities to be more independent at home Objective Objective/Observation: Pt presents with radial sided forearm based wrist and thumb extension orthosis. Pt with scarring to carpal tunnel incision and at CMC joint from palmaris longis tendon transfer flexor tenosynovectomy fasciocutaneous flap. Pt reports no pain post sx. ROM CMC: R: 32 adduction L: 50 adduction MP: R: 42 L: 55 IP: R: 51 L: 61 ROM Comments: No limitations with digits Strength Slot Host: R: NT L: 42 Lateral Pinch: R: NT L: 12 Tripod Pinch: R: NT L: 12 Tip-to-Tip Pinch: R: NT L: 6 Strength Comments: NT for R hand at this time, movement to comfort Sensation Sensation Comments: Slight tingling in fingertips of R hand Quick DASH-Disab of Arm,Shoulder Hand Quick DASH Score: 56.8175 Goals Goal:100% adherence to protocol: Yes Goal:Daily scar massage when approriate: Yes Goal:ROM equal to unaffected hand: Yes Goal:Slot Host/Pinch strength at least 75% of unaffected hand: Yes Comment: After 8 weeks post op Goal:Full use of affected hand in daily activities including work: Yes Comment: After 8 weeks post op Rehabilitation General Assessment: Pt limited in function at this time due to being 3 weeks 2 days s/p carpal tunnal and palmaris longis tendon transfer flexor tenosynovectomy fasciocutaneous flap. Pt demonstrating with newly healing structures. Rehabilitation Potential: Good Anticipated Interventions Anticipated Interventions: A/AAROM/PROM, Strengthening, Edema Control, Scar Care, Massage, Desensitization, Modalities, Ergonomic Education and Education re Self Massage Techniques Visit Plan Frequency: 2x /Week Duration: 6 Weeks General Plan: Pt arrives 3 weeks 2 days s/p R carpal tunnel release with Guyon canal release and palmaris longus tendon transfer. Pt would benefit from outpatient occupational therapy for 2x/wk for 6 weeks including scar management, manual therapy, modalities, therapeutic activities and therapeutic exercise as able. Midrange AROM exercises for wrist flexion/extension with thumb relaxed at this time at 3 weeks. 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 TEXT: Thank you for the opportunity to evaluate your patient. For Medicare and Medicare HMO plans, please review the plan of care and approve it. It will need to be FAXED BACK to us at [phone] for Medicare purposes. Please let me know if there are questions or concerns regarding this plan of care. Physician Signature: Date:__ 08/14/24 1656 CC: MICHELLE Osborn; Dr. Kandy Valle, OM Signed For Medicare only, by signing this I certify the plan of care. Physicians Signature Date Normal [facility] Orthopedic Visit Reporton Orthopedic Visit Report [facility] [address] [place] [address] OFFICE VISIT Date of Service: 08/08/24 MR#: [id number] Acct: [id number] Name: GABRIELA RUSSELL Rep #: [id number] : 1970 Provider: PIPE breaux Age/Sex: 54/F Location: [facility] Status: Signed Intake Vital Signs 06/10/24 14:28 Height 5 ft 7 in Intake Visit Reasons: LEFT HAND Chief Complaint: Left Hand Pain Accompanied by: Is patient in pain?: No Allergies morphine Adverse Reaction (Verified 08/08/24 13:30) Nausea Medications ???Medication ???Instructions ???Recorded ???Confirmed ???Type amlodipine 10 mg tablet 10 mg PO DAILY BP 03/07/16 5 History metoprolol succinate 100 mg 100 mg PO DAILY BP 03/07/16 History tablet,extended release 24 hr multivitamin 1 ea PO DAILY supplement 03/07/16 08/08/24 History omeprazole 20 mg capsule,delayed 20 mg PO DAILY acid reflux 6 08/08/24 History release amitriptyline 75 mg tablet 75 mg PO DAILY #90 tabs 12/14/18 0 08/08/24 History lisinopril 10 mg tablet 10 mg PO DAILY #180 tabs 12/14/18 08/08/24 History meloxicam 15 mg tablet 15 mg PO DAILY 07/21/20 08/08/24 H istory cyclobenzaprine 5 mg tablet ea PO 05/02/21 08/08/24 History pravastatin 20 mg tablet 20 mg PO QDAY 05/28/23 08/08/24 Hi story escitalopram oxalate 10 mg tablet mg PO DAILY 05/15/24 08/08/24 His pam [facility] Medical History Urinary tract infection with hematuria Acute pharyngitis Encounter for screening for COVID-19 High cholesterol Hay fever Hypertension Surgical History History of surgery on right wrist H/O: hysterectomy carpal tunnel surgery History of tonsillectomy H/O tubal ligation tailbone cyst Family History Mother Breast cancer Father Heart disease Grandfather Myocardial infarction Social History Smoking Status: Never smoker alcohol intake: current details: 1 glass of wine a night substance use type: does not use caffeine: Yes what type of physical activity do you participate in: none seatbelt use: always do you feel safe at home: Yes additional social history: 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 Part of today???s visit was documented by Martina Terrell ATC, acting as scribe. GABRIELA RUSSELL is a 54 year old F here today for left hand carpal tunnel symptoms and pain. Patient states she does not have pain in the hand but it is numbness and tingling. She describes the numbness/tingling in the tips of the fingers. She states she has this numbness/tingling all of the time. She denies any bracing for the wrist. She has never had surgery on the left wrist but did just have a carpal tunnel revision and tendon transfer surgery on the right wrist. Patient is LHD. She denies any numbness/tingling into the forearm or elbow. She denies any prior treatment for this. Agree with above. Gabriela is a pleasant 54-year-old female presenting for evaluation of left wrist and hand pain with paresthesias. The symptoms have been present for at least a year and progressively worse over the last few months. Over the last few months, she had severe aggravation of right sided carpal tunnel and recently had surgical release and tendon transfer with Dr. Rivera. She is currently in thumb spica brace with minimal use of that hand. Patient is currently taking meloxicam and Tylenol which helps some with the pain. Patient states she wakes most nights with tingling sensation that she can sometimes shake out. These occur intermittently during the daytime as well. She does report dropping some things but not as severe as the right hand was, this is confirmed by her spouse who was present for today's visit. Main symptoms are to index and middle finger distal portion as well as thumb. Reports frequent cramping sensation. ROS Const All systems reviewed are unremarkable except as noted in H and other (A O x 3, no apparent distress. No recent illness.) ENT Denies dizziness Card Denies chest pain, Denies dyspnea, Denies edema and Reports other (No palpitations) Resp Denies cough, Denies dyspnea and Reports other (No recent URI) GI Reports system reviewed and no additional complaints, except as documented, Denies nausea and Denies vomiting Musc Reports as per HPI, Reports limited range of motion, Reports muscle weakness and Reports numbness Neuro No dizziness and Yes numbness Psych Reports system reviewed and no additional compl (more content not included)... Normal [facility] 2 HR Glucose Tolerance Testo n 07-10-2024 2HR GTT High [facility] Comment on above: Order Comment: Y Result Comment: FAST ING 126 H Col: 07/10/24 0658 GLU 1/2 HR 165 Col: 07/10/24 0731 GLU 1 HR 223 H Col: 07/10/24 0801 GLU 2 HR 155 H Col: 07/10/24 0901 Performed By: #### L 500.4600 #### [facility] [address] [place], [place] [address] [place], [address] Serum or plasma glucose quinton urement 2 hours after glucose dose (mass/volume)Ordered By: Kandy Valle on 07-10-2024 Glucose 2 Hr post dose glucose [Mass/Vol] See comment [facility] Comment on above: FASTING 126 H Col: 0 07/10/24 0658 GLU 1/2 HR 165 Col: 07/10/24 0731 GLU 1 HR 223 H Col: 07/10/24 0801 GLU 2 HR 155 H Col: 07/10/24 0901 Anion gap in Serum or Plasma Ordered By: Kandy Valle on 06-17-2024 Anion gap [Moles/Vol] 14 mmol/L 5- [facility] BUN/creatinine ratioOrdered By: Kandy Valle on 06-17-2024 Urea nitrogen/Creatinine [Mass ratio] 13.8 mg/mg 10- [facility] Bilirubin, totalOrdered By: Kandy Valle on 06-17-2024 Bilirubin [Mass/Vol] 0.39 mg/dL 0.00-1.30 [facility] Calculated very low density lipoprotein (VLDL) cholesterol measurementOrdered By: Kandy Valle on 06-17-2024 Calculated very low density lipoprotein (VLDL) cholesterol measurement 49 mg/dL High 5-40 [facility] VLDL Cholesterol 49 mg/dL High 5-40 [facility] Carbon dioxide, total [Moles /volume] in Central venous bloodOrdered By: Kandy Valle on 06-17-2024 CO2 [Moles/Vol] 21.4 mmol/L 21.0-32.0 [facility] Chloride assayOrdered By: Shelby Valle on 06-17-2024 Chloride [Moles/Vol] 105 mmol/L 98-108 [facility] Comprehensive Metabolic Prof ilon 06-17-2024 Albumin [Mass/Vol] 4.5 g/dL Normal 3.5-5.0 [facility] Comment on above: Performed By: #### L 500.4050, L500.4100 #### [facility] [address] [place], [address] Albumin/Globulin [Mass ratio] 1.5 {ratio} Normal 0.9-2.4 [facility] Comment on above: Performed By: #### L 500.4050, L500.4100 #### [facility] [address] [place], [address] ALK PHOS 131 U/L High 35-104 [facility] Comment on above: Performed By: #### L 500.4050, L500.4100 #### [facility] [address] [place], [address] ALT [Catalytic activity/Vol] 84 U/L High <=34 [facility] Comment on above: Performed By: #### L 500.4050, L500.4100 #### [facility] [address] [place], [address] AST [Catalytic activity/Vol] 52 U/L High <=31 [facility] Comment on above: Performed By: #### L 500.4050, L500.4100 #### [facility] [address] [place], [address] Bilirubin [Mass/Vol] 0.39 mg/dL Normal 0.00-1.30 [facility] Comment on above: Performed By: #### L 500.4050, L500.4100 #### [facility] [address] [place], [address] BUN/CRE 13.8 RATIO Normal 10-20 [facility] Comment on above: Performed By: #### L 500.4050, L500.4100 #### [facility] [address] [place], [address] Calcium [Mass/Vol] 9.1 mg/dL Normal 7.6-11.0 [facility] Comment on above: Performed By: #### L 500.4050, L500.4100 #### [facility] [address] [place], [address] Chloride [Moles/Vol] 105 mmol/L Normal 98-108 [facility] Comment on above: Performed By: #### L 500.4050, L500.4100 #### [facility] [address] [place], [address] CO2 [Moles/Vol] 21.4 mmol/L Normal 21.0-32.0 [facility] Comment on above: Performed By: #### L 500.4050, L500.4100 #### [facility] [address] [place], [address] Creatinine [Mass/Vol] 0.79 mg/dL Normal 0.70-1.20 [facility] Comment on above: Performed By: #### L 500.4050, L500.4100 #### [facility] [address] [place], [address] GAP 14 Normal 5-15 [facility] Comment on above: Performed By: #### L 500.4050, L500.4100 #### [facility] [address] [place], [address] GFR/1.73 sq M.predicted among non-blacks MDRD (S/P/Bld) [Vol rate/Area] 90 mL/min/{1.73_m2} Normal >60 [facility] Comment on above: Result Comment: mL/m in/1.73m2 CKD-EPI Creatinine Equation (2020) Performed By: #### L 500.4050, L500.4100 #### [facility] [address] [place], [address] Globulin (S) [Mass/Vol] 2.9 g/dL Normal 2.2-4.2 [facility] Comment on above: Performed By: #### L 500.4050, L500.4100 #### [facility] [address] [place], [address] Glucose [Mass/Vol] 132 mg/dL High 70-99 [facility] Comment on above: Performed By: #### L 500.4050, L500.4100 #### [facility] [address] [place], [address] Potassium [Moles/Vol] 3.8 mmol/L Normal 3.3-5.1 [facility] Comment on above: Performed By: #### L 500.4050, L500.4100 #### [facility] [address] [place], [address] Sodium [Moles/Vol] 141 mmol/L Normal 133-145 [facility] Comment on above: Performed By: #### L 500.4050, L500.4100 #### [facility] [address] [place], [address] T PROT 7.4 g/dL Normal 5.9-8.4 [facility] Comment on above: Performed By: #### L 500.4050, L500.4100 #### [facility] [address] [place], [place], [address] Urea nitrogen [Mass/Vol] 11 mg/dL Normal 4-19 [facility] Comment on above: Performed By: #### L 500.4050, L500.4100 #### [facility] [address] [place], [place], [address] GFR/1.73 sq M.predicted jorge l g non-blacks MDRD (S/P/Bld) [Vol rate/Area]Ordered By: Kandy Valle on 06-17-2024 Estimated GFR (MDRD) Non-Af Amer 90 >60 [facility] Comment on above: mL/min/1.73m2 CKD-EP I Creatinine Equation (2020) Glomerular filtration rate ( GFR) estimation/1.73 sq m using serum, plasma, or whole bOrdered By: Kandy Valle on 06-17-2024 GFR/1.73 sq M.predicted among non-blacks MDRD (S/P/Bld) [Vol rate/Area] 90 mL/min/{1.73_m2} >60 [facility] Comment on above: mL/min/1.73m2 CKD-EP I Creatinine Equation (2020) LDL calc ser/plasOrdered By: Kandy Valle on 06-17-2024 Cholesterol in LDL [Mass/Vol] 165 mg/dL [facility] Comment on above: Elzghcrzdz=589-624 m g/dL & Higher Quws=216 mg/dL or greater LDL Cholesterol, Calculated 165 mg/dL [facility] Comment on above: Ddwvjljgfo=508-688 m g/dL & Higher Wgyp=844 mg/dL or greater Laboratory - Chemistry and C hemistry - challengeOrdered By: Kandy Valle on 06-17-2024 AST [Catalytic activity/Vol] 52 U/L High <32 [facility] Lipid Profileon 06-17-2024 CHOL:HDL 5.99 Normal [facility] Comment on above: Performed By: #### L 500.4050, L500.4100 ####[facility] [address] [place], [address] Cholesterol [Mass/Vol] 257 mg/dL High <=200 [facility] Comment on above: Result Comment: Chol esterol level, Desirable <200 mg/dL Borderline high cholesterol 200-239 mg/dL High cholesterol >=240 mg/dL Recommendations of the NCEP Adult Treatment Panel for the following risk-cutoff thresholds for the [place] population. Performed By: #### L 500.4050, L500.4100 ####[facility] [address] [place], [address] Cholesterol in HDL [Mass/Vol] 43 mg/dL Normal [facility] Comment on above: Result Comment: Mary onal Cholesterol Education Program (NCEP) guidelines: <40 mg/dL: Low HDL-cholesterol (major risk factor for CHD) >= 60 mg/dL: High HDL-cholesterol (negative risk factor for CHD) HDL-cholesterol is affected by a number of factors, e.g. smoking, exercise, hormones, sex and age. Performed By: #### L 500.4050, L500.4100 ####[facility] [address] [place], [address] Cholesterol in LDL [Mass/Vol] 165 mg/dL Normal [facility] Comment on above: Result Comment: Bord sfffth=438-996 mg/dL Higher Kawc=047 mg/dL or greater Performed By: #### L 500.4050, L500.4100 ####[facility] [address] [place], [address] Cholesterol in VLDL [Mass/Vol] 49 mg/dL High 5-40 [facility] Comment on above: Performed By: #### L 500.4050, L500.4100 ####[facility] [address] [place], [address] Triglyceride [Mass/Vol] 244 mg/dL High [facility] Comment on above: Result Comment: The drugs N-Acetylcysteine and Metamizole may falsely depress this assay. Normal range: <150 mg/dL Borderline High: 150-199 mg/dL High: 200-499 mg/dL Very High: >500 mg/dL Performed By: #### L 500.4050, L500.4100 ####[facility] [address] [place], [address] Potassium (Unsp spec) [Mass/ Vol]Ordered By: Kandy Valle on 06-17-2024 Potassium [Moles/Vol] 3.8 mmol/L 3.3-5.1 [facility] Potassium measurement (mass/ volume)Ordered By: Kandy Valle on 06-17-2024 Potassium (Unsp spec) [Mass/Vol] 3.8 mmol/L 3.3-5.1 [facility] Screening total cholesterol/ high density lipoprotein (HDL) cholesterol ratioOrdered By: Kandy Valle on 06-17-2024 Cholesterol.total/Cho lesterol in HDL [Mass ratio] 5.99 {ratio} [facility] Serum creatinine measurement (mass/volume)Ordered By: Kandy Valle on 06-17-2024 Creatinine [Mass/Vol] 0.79 mg/dL 0.70-1.20 [facility] Serum globulin measurementOr dered By: Kandy Valle on 06-17-2024 Globulin (S) [Mass/Vol] 2.9 g/dL 2.2-4.2 [facility] Serum glucose measurement (m ass/volume)Ordered By: Kandy Valle on 06-17-2024 Glucose [Mass/Vol] 132 mg/dL High 70-99 [facility] Serum or plasma alanine townsend otransferase (ALT) measurementOrdered By: Kandy Valle on 06-17-2024 ALT [Catalytic activity/Vol] 84 U/L High <35 [facility] Serum or plasma albumin quinton urement (mass/volume)Ordered By: Kandy Valle on 06-17-2024 Albumin [Mass/Vol] 4.5 g/dL 3.5-5.0 [facility] Serum or plasma albumin/glob ulin mass ratioOrdered By: Kandy Valle on 06-17-2024 Albumin/Globulin [Mass ratio] 1.5 {ratio} 0.9-2.4 [facility] Serum or plasma alkaline tianna sphatase measurementOrdered By: Kandy Valle on 06-17-2024 ALP [Catalytic activity/Vol] 131 U/L High 35-104 [facility] Serum or plasma calcium quinton urement (mass/volume)Ordered By: Kandy Valle on 06-17-2024 Calcium [Mass/Vol] 9.1 mg/dL 7.6-11.0 [facility] Serum or plasma cholesterol in HDL measurement (mass/volume)Ordered By: Kandy Valle on 06-17-2024 Cholesterol in HDL [Mass/Vol] 43 mg/dL >40 [facility] Comment on above: National Cholesterol Education Program (NCEP) guidelines:<40 mg/dL: Low HDL-cholesterol (major risk factor for CHD)>= 60 mg/dL: High HDL-cholesterol (negative risk factor for CHD)HDL-cholesterol is affected by a number of factors, e.g. smoking, exercise, hormones, sex and age. Serum or plasma cholesterol measurement (mass/volume)Ordered By: Kandy Valle on 06-17-2024 Cholesterol [Mass/Vol] 257 mg/dL High <201 [facility] Comment on above: Cholesterol level, D esirable <200 mg/dLBorderline high cholesterol 200-239 mg/dLHigh cholesterol >=240 mg/dLRecommendations of the NCEP Adult Treatment Panel for the following risk-cutoff thresholds for the [place] population. Serum or plasma urea nitroge n measurement (mass/volume)Ordered By: Kandy Valle on 06-17-2024 Urea nitrogen [Mass/Vol] 11 mg/dL 4-19 [facility] Sodium levelOrdered By: Kandy Valle on 06-17-2024 Sodium [Moles/Vol] 141 mmol/L 133-145 [facility] Total proteinOrdered By: Anupama Valle on 06-17-2024 Protein [Mass/Vol] 7.4 g/dL 5.9-8.4 [facility] Triglycerides measurementOrd ered By: Kandy Valle on 06-17-2024 Triglyceride [Mass/Vol] 244 mg/dL High <199 [facility] Comment on above: The drugs N-Acetylcy steine and Metamizole may falsely depress this assay. Normal range: <150 mg/dLBorderline High: 150-199 mg/dLHigh: 200-499 mg/dLVery High: >500 mg/dL NCS and/or EMG Patienton NCS and/or EMG Patient [facility] Pulmonary Services/Neurology [address] [place] [address] MR#: [id number] Acct: [id number] Name: GABRIELA RUSSELL Rep #: [id number] : 1970 54 From: Roshni Kirkpatrick MD Referring Dr: Priti Hammodn [employer]ICER-C Status: REG C LI Location: [facility] Date: 06/10/24 Sex: F C NCS and/or EMG Patient Report Ordering Doctor: Priti Hammond DATE OF SERVICE: 06/10/24 Clinical Summary: 54 year old female patient with symptoms of numbness in the first three digits of the right hand and decreased range of motion of the thumb. She has a history of right carpal tunnel release surgery about 8 to 9 years ago. Nerve Conduction Studies Summary: Nerve conduction studies of the right upper extremity were performed. The right median-D2 SNAP distal latency was prolonged with reduced amplitude. The right median-APB CMAP distal latency was prolonged. Needle Examination Summary: Needle examination of the right upper extremity demonstrated increased insertional activity and spontaneous activity (positive sharp waves and fibrillation potentials) in the right abductor pollicis brevis muscle. No motor units were seen in the right abductor pollicis brevis muscle. Impression: This is an abnormal study. There is electrodiagnostic evidence of the following - 1) Severe, right median mononeuropathy at the wrist (carpal tunnel syndrome), with active denervation NOTE: in comparison to the EMG/NCS performed on , there has been interval worsening of the right median sensory and motor response amplitudes and development of active denervation. Multi Select Codes Neurology Neurology Interp Codes: 43012-53 Musc test done w/n test comp (interp) (1) and 31004-65 Nrv cndj tst 5-6 studies (interp) 06/10/24 0937 Date Roshni Kirkpatrick MD CC: PIPE Hammond; Dr. Roshni Kirkpatrick MD; Dr. Kandy Valle DO Date Dictated: 06/10/24928 Date Transcribed: 06/10/24928 Binder Fixer: Signed Normal [facility] Orthopedic Visit Reporton Orthopedic Visit Report [facility] [address] [place] [address] 5 [place] [address] OFFICE VISIT Date of Service: 06/10/24 MR#: [id number] Acct: [id number] Name: GABRIELA RUSSELL Rep #: [id number] : 1970 Provider: PIPE breaux Age/Sex: 54/F Location: [facility] Status: Signed Intake Vital Signs 05/15/24 12:56 Height 5 ft 7 in Intake Visit Reasons: RIGHT HAND Chief Complaint: Follow-up EMG results Allergies morphine Adverse Reaction (Verified 05/26/24 15:08) Nausea PFSH Medical History Urinary tract infection with hematuria Acute pharyngitis Encounter for screening for COVID-19 High cholesterol Hay fever Hypertension Surgical History H/O: hysterectomy carpal tunnel surgery History of tonsillectomy H/O tubal ligation tailbone cyst Family History Mother Breast cancer Father Heart disease Grandfather Myocardial infarction Social History Smoking Status: Never smoker alcohol intake: current details: 1 glass of wine a night substance use type: does not use caffeine: Yes what type of physical activity do you participate in: none seatbelt use: always do you feel safe at home: Yes 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 GABRIELA RUSSELL is a 54 year old F here today for phone result follow-up of EMG results. Reports no changes in strength, paresthesias or improvements. No noted improvements with OT. ROS Const All systems reviewed are unremarkable except as noted in H and other (A O x 3, no apparent distress. No recent illness.) ENT Denies dizziness Card Denies chest pain, Denies dyspnea, Denies edema and Reports other (No palpitations) Resp Denies cough, Denies dyspnea and Reports other (No recent URI) GI Reports system reviewed and no additional complaints, except as documented, Denies nausea and Denies vomiting Musc Reports as per HPI, Reports limited range of motion, Reports muscle weakness and Reports numbness Neuro No dizziness and Yes numbness Psych Reports system reviewed and no additional complaints, except as documented Stephon/Lymph Denies easy bleeding and Denies easy bruising Ortho Exam Right Wrist/Hand Skin/Wound: Yes nail intact and Yes capillary refill normal WRIST: Phone appointment only, patient reports no changes in assessment, strength or paresthesias Supplemental Info Reviewed EMG results reported today with findings of: Impression: This is an abnormal study. There is electrodiagnostic evidence of the following - 1) Severe, right median mononeuropathy at the wrist (carpal tunnel syndrome), with active denervation NOTE: in comparison to the EMG/NCS performed on , there has been interval worsening of the right median sensory and motor response amplitudes and development of active denervation. Coding Level of Care Code Attention Tamia Diagnoses Carpal tunnel syndrome of right wrist G56.01 Right hand paresthesia R20.2 Assessment and Plan Assessment and Plan (1) Carpal tunnel syndrome of right wrist: Status: Acute Plan: EMG findings of severe right median neuropathy with active denervation identified. Case was reviewed with both Dr. Ascencio and Dr. Vasquez who both recommend referral to a hand surgeon to discuss possible revision. Patient requests referral for Dr. Rivera at [facility]. At this time, patient may continue home stretches and exercises, okay to put OT on hold until evaluation at specialist. Message to staff to share EMG results with [facility]. Plan will be to follow-up here on as needed basis. Patient in agreement with plan of care This document has been transcribed using Appside dictation software. There may be incorrect words, spelling, and punctuation. (2) Right hand paresthesia: Status: Acute Plan Details Goals Barriers: Goals Decrease spasm Decrease pain Improve ability to perform job 06/10/24 1443 Date Priti BETANCUR Cosigner Signature: Date (if applicable) CC: NELL/David Qureshi; Dr. Kandy Valle, DO Normal [facility] OT General Evaluationon 05-18 OT General Evaluation [facility] Occupational Therapy Health[address] [place] [address] / REHABILITATION SERVICES INITIAL EVALUATION MR#: [id number] Acct: [id number] Name: GABRIELA RUSSELL Rep #: [id number] : 1970 54 From: Stacey VELAZUQEZ CHT Referring Dr.: PIPE Hammond Status: REG RCR [facility] Eval Date: SELF PAY INSURANCE Patient's Visit Information Visit Information Visit Information: GABRIELA RUSSELL is a 54 year old F, referred to Occupational Therapy by PIPE Luna, with a diagnosis of right hand paresthesia, sprain metacarpophalangeal joint R thumb, pain. Date of Evaluation: 06/04/24 Occupational Therapist: Stacey Qureshi, NELL/OUSMANE Hernandez Subjective Subjective: This 54 year old female was seen for OT eval with dx of right hand pain- right hand paresthesia- sprain CMCJ right thumb. pt states she noticed pain and limited ability to pinch items while at work. States she had CTR done about 7 years ago. states she has had numbness in her right thumb, IF and MF for about 8 weeks or more and weakness. states putting rubber gloves on at work does hurt and feels like I hit my funny bone in my thumb Pain right hand: Current Pain Intensity: 2 Pain Intensity Range: 0 and 3 ROM Forearm: right/left WFL supination Wrist: right 65/55 left 65/65 ROM Comments: pt demo thumb opposition of right to MF only noted thumb abduction is limited at rest pts right thumb is in CMC ext of 10* Strength Forearm: right /left WFL Wrist: Right/left WFL Slot Host: right 60# left 60# Lateral Pinch: right 10# with cmc deviation to ulnar side left 16# Tripod Pinch: right 8# left 20# Strength Comments: pt demo with compensated right thumb lateral and tripod pinch Sensation Thumb: right 3.84 left 2.83 Index: right 3.84 left 2.83 Middle: right 3.84 left 2.83 Ring: right 3.61 left 2.83 Little: right 2.83 left 2.83 Sensation Comments: due to sensation deficits of right thumb, IF and MF would recommend nerve conduction test Goals Goal:: pt will demo a increase in right lateral and tripod pinch by 5# to increase IND with work and daily tasks by d.c Goal:: pt will demo increase in thumb opposition to tip of LF by d.c to increase pts ind with ADLs and IADLs by d/c Goal:: pt will report no pain greater than 1/10 with use of adls and IADls by d.c Goal:: pt will demo a reduction on monofilaments to 2.83 indication of normal sensation to return pt to PLOF. by d.c Rehabilitation General Assessment: pt demo with weakness of right lateral and tripod pinch- limited thumb abduction and sensation deficits throughout median nerve distribution. pt demo with muscle atrophy and limited motor movement of thenar eminence muscles. Pt is limited with use of dominant right hand with ADLs and IADLs. Pt would benefit from skilled OT services 1-2x week for 4 weeks to ed. pt on dx. median nerve glides, wrist and thumb ergonomics to decrease pain. pt may need orthosis to position thumb in opposition to improve pinch. pt demo understanding and agree to POC. Rehabilitation Potential: Good Anticipated Interventions Anticipated Interventions: A/AAROM/PROM, Strengthening, Triggerpoint Release, Sensory Retraining, Modalities, Orthoses, Joint Protection/Energy Conservation, Ergonomic Education, Fine Motor Coord/Joey, ADL Training, Education re assistive Equipment, Education re Diagnosis and Home Program Other Interventions: nerve glides may need supportive orthosis to allow placement of thumb in opposition (abduction) to improve pts pinch Visit Plan Frequency: 1-2x /Week Duration: 4 Weeks General Plan: nerve glides due to sensation deficits and noted motor compensation of right thumb -would rec'd nerve conduction testing. TEXT: Thank you for the opportunity to evaluate your patient. For Medicare and Medicare HMO plans, please review the plan of care and approve it. It will need to be FAXED BACK to us at [phone] for Medicare purposes. Please let me know if there are questions or concerns regarding this plan of care. Physician Signature: Date:__ 06/05/24 0737 CC: PIPE Hammond; Dr. Kandy Valle, DO MK Signed For Medicare only, by signing this I certify the plan of care. Physicians Signature Date Normal [facility] Orthopedic Visit Reporton Orthopedic Visit Report [facility] [address] [place] [address] OFFICE VISIT Date of Service: 05/26/24 MR#: [id number] Acct: [id number] Name: DREWGABRIELABILL WRIGHT Rep #: [id number] : 1970 Provider: PIPE breaux Age/Sex: 54/F Location: [facility] Status: Signed Intake Vital Signs 05/15/24 12:56 Height 5 ft 7 in Intake Visit Reasons: RIGHT HAND Allergies morphine Adverse Reaction (Verified 05/26/24 15:08) Nausea Medications ???Medication ???Instructions ???Recorded ???Confirmed ???Type amlodipine 10 mg tablet 10 mg PO DAILY BP 03/07/16 5 History metoprolol succinate 100 mg 100 mg PO DAILY BP 03/07/16 History tablet,extended release 24 hr multivitamin 1 ea PO DAILY supplement 03/07/16 05/26/24 History omeprazole 20 mg capsule,delayed 20 mg PO DAILY acid reflux 6 05/26/24 History release amitriptyline 75 mg tablet 75 mg PO DAILY #90 tabs 12/14/18 0 05/26/24 History lisinopril 10 mg tablet 10 mg PO DAILY #180 tabs 12/14/18 05/26/24 History meloxicam 15 mg tablet 15 mg PO DAILY 07/21/20 05/26/24 H istory cyclobenzaprine 5 mg tablet ea PO 05/02/21 05/26/24 History pravastatin 20 mg tablet 20 mg PO QDAY 05/28/23 05/26/24 Hi story escitalopram oxalate 10 mg tablet mg PO DAILY 05/15/24 05/26/24 His tory [facility] Medical History Urinary tract infection with hematuria Acute pharyngitis Encounter for screening for COVID-19 High cholesterol Hay fever Hypertension Surgical History H/O: hysterectomy carpal tunnel surgery History of tonsillectomy H/O tubal ligation tailbone cyst Family History Mother Breast cancer Father Heart disease Grandfather Myocardial infarction Social History Smoking Status: Never smoker alcohol intake: current details: 1 glass of wine a night substance use type: does not use caffeine: Yes what type of physical activity do you participate in: none seatbelt use: always do you feel safe at home: Yes 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 Part of today???s visit was documented by Nikia PANDEY, acting as scribe. GABRIELA RUSSELL is a 54 year old F here today for 2 week f/u on right hand pain. Patient states that she is still having the same amount of pain as before. She is also still having the numbness in her fingertips of her first, second, and third digits. She states that the medrol dose juan that was prescribed didn't help. She has been wearing her brace but only about 50% of the time. She did try the Voltaren gel but she doesn't think that helped either. Agree with above. Gabriela is a pleasant 54-year-old female here for 2-week follow-up of right hand paresthesias. No improvement noted with oral Medrol Dosepak and part-time bracing. States she wears the brace at home. Most repetitive tasks are at work with fine motor movements, states she is unable to wear at work. OTC medications with no symptom improvement. No significant improvement with Voltaren gel. ROS Const All systems reviewed are unremarkable except as noted in H and other (A O x 3, no apparent distress. No recent illness.) ENT Denies dizziness Card Denies chest pain, Denies dyspnea, Denies edema and Reports other (No palpitations) Resp Denies cough, Denies dyspnea and Reports other (No recent URI) GI Reports system reviewed and no additional complaints, except as documented, Denies nausea and Denies vomiting Musc Reports as per HPI, Reports limited range of motion, Reports muscle weakness and Reports numbness Neuro No dizziness and Yes numbness Psych Reports system reviewed and no additional complaints, except as documented Stehpon/Lymph Denies easy bleeding and Denies easy bruising Ortho Exam Right Wrist/Hand Skin/Wound: Yes nail intact and Yes capillary refill normal WRIST: Full range of motion of wrist in all directions with no symptom aggravation. Skin to the hand is pink, warm, dry and intact. There is nontender swelling noted at the IP joint, dorsal aspect at ulnar side which appears slightly smaller than last visit. Blunted distal sen sation to distal fingertips of the thumb, index and middle fingers. Cap refills brisk at 1 to 2 seconds to all fingers. Range of motion at the IP joint is 0 to approximately 40 degrees, MCP joint 0 to approximately 45 degrees. Positive swelling noted to the thumb index finger webspace as well as thenar region. Patient is luda (more content not included)... Normal [facility] Chiropractic Reporton 2024 Chiropractic Report [facility] [address] [place] [id number] OFFICE VISIT Date of Service: 05/19/24 MR#: [id number] Acct: [id number] Name: GABRIELA RUSSELL KYLE Rep #: [id number] : 1970 Provider: GUILLERMINA Poole Do ssi Age/Sex: 54/F Location: [facility] Status: Signed Intake Vital Signs 02/17/24 08:00 05/15/24 12:56 Height 5 ft 7 in 5 ft 7 in Weight: 236 lb 4 oz BMI 37.0 Intake Visit Reasons: Back pain Chief Complaint: low back discomfort Allergies morphine Adverse Reaction (Verified 05/19/24 15:15) Nausea Medications ???Medication ???Instructions ???Recorded ???Confirmed ???Type amlodipine 10 mg tablet 10 mg PO DAILY BP 03/07/16 5 History metoprolol succinate 100 mg 100 mg PO DAILY BP 03/07/16 History tablet,extended release 24 hr multivitamin 1 ea PO DAILY supplement 03/07/16 05/19/24 History omeprazole 20 mg capsule,delayed 20 mg PO DAILY acid reflux 6 05/19/24 History release amitriptyline 75 mg tablet 75 mg PO DAILY #90 tabs 12/14/18 0 05/19/24 History lisinopril 10 mg tablet 10 mg PO DAILY #180 tabs 12/14/18 05/19/24 History meloxicam 15 mg tablet 15 mg PO DAILY 07/21/20 05/19/24 H istory cyclobenzaprine 5 mg tablet ea PO 05/02/21 05/19/24 History pravastatin 20 mg tablet 20 mg PO QDAY 05/28/23 05/19/24 Hi story escitalopram oxalate 10 mg tablet mg PO DAILY 05/15/24 05/19/24 His tory methylprednisolone 4 mg tablets in See Rx Instructions PO PER PKG D IR 05/15/24 05/19/24 Rx a dose pack (Medrol (Juan)) #21 tabs PFSH Medical History Urinary tract infection with hematuria Acute pharyngitis Encounter for screening for COVID-19 High cholesterol Hay fever Hypertension Surgical History H/O: hysterectomy carpal tunnel surgery History of tonsillectomy H/O tubal ligation tailbone cyst Family History Mother Breast cancer Father Heart disease Grandfather Myocardial infarction Social History Smoking Status: Never smoker alcohol intake: current details: 1 glass of wine a night substance use type: does not use caffeine: Yes what type of physical activity do you participate in: none seatbelt use: always do you feel safe at home: Yes 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 Pt. advises her neck has improved and feels great. Pt. complains of low back achiness that is equal across bilaterally. She states she pulled her left glute muscle 2 weeks ago. She was trying to put on her socks when she felt the pain begin. She states it is sore and extends into her left hamstring. 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 She has been trying to rest it and stretch it as needed to alleviate her discomfort. She denies numbness, tingling or radiculopathy. She treats pain with Tylenol and heat as needed. She reports the e-stim and adjustments help alleviate her pain and stiffness. Location: low back pain Duration: frequent Aggravating or associated factors: bending, lifting, mornings,sitting Relieving factors: chiro Pain Quality: aching, dull and radiating Exam Musc General: Yes normal posture, normal gait and joint tenderness; No muscle weakness Cervical Spine: Yes loss of normal cervical lordosis Thoracic/Lumber: Yes thoracic and lumbar spine normal to inspection, Yes paraspinal tenderness bilaterally (upper thoracic) in the upper thoracic and in the mid thoracic and on the left greater than right (lumbopelvic), No scoliosis, Yes thoraco-lumbar spasm bilaterally (trap,levator) in the upper thoracic and in the mid thoracic, on the right greater than left (paraspinal L2-L5) and on the left greater than right (left glute,hamstring) and Yes misalignment T3, T4, T5, L4, L5 and LIL Sacroiliac joints: on the left tender to palpation Office Procedures Procedures - Chiropractic Procedures Manipulation: Cervical C6, Lumbar L4, Thoracic T3 and Pelvis LIL Manipulation: 3-4 regions Electronic Stimulation: Yes Electrical Stimulation: Lumbar (left) 15 mins (14) mA Therapy Performed by:: Batool Donis Traction, Mechanical: Yes Patient Response: positive Assessment and Plan Assessment and Plan (1) Segmental and somatic dysfunction of cervical region: Status: Acute (2) Segmental and somatic dysfunction of thoracic region: Status: Acute (3) Segmental and somatic dysfunction of lumbar region: Status: Acute (4) Segmental and somatic dysfunction of pelvic re (more content not included)... Normal [facility] Orthopedic Visit Reporton Orthopedic Visit Report [facility] [address] [place] [address] OFFICE VISIT Date of Service: 05/15/24 MR#: [id number] Acct: [id number] Name: GABRIELA RUSSELL KYLE Rep #: [id number] : 1970 Provider: PIPE breaux Age/Sex: 54/F Location: [facility] Status: Signed Intake Vital Signs 02/17/24 08:00 05/15/24 12:56 Height 5 ft 7 in 5 ft 7 in Weight: 236 lb 4 oz BMI 37.0 Intake Visit Reasons: RIGHT HAND Chief Complaint: Right Hand Pain - thumb, first and second digits Accompanied by: Self Is patient in pain?: Yes Allergies morphine Adverse Reaction (Verified 05/15/24 13:00) Nausea Medications ???Medication ???Instructions ???Recorded ???Confirmed ???Type amlodipine 10 mg tablet 10 mg PO DAILY BP 03/07/16 5 History metoprolol succinate 100 mg 100 mg PO DAILY BP 03/07/16 History tablet,extended release 24 hr multivitamin 1 ea PO DAILY supplement 03/07/16 05/15/24 History omeprazole 20 mg capsule,delayed 20 mg PO DAILY acid reflux 6 05/15/24 History release amitriptyline 75 mg tablet 75 mg PO DAILY #90 tabs 12/14/18 0 05/15/24 History lisinopril 10 mg tablet 10 mg PO DAILY #180 tabs 12/14/18 05/15/24 History meloxicam 15 mg tablet 15 mg PO DAILY 07/21/20 05/15/24 H istory cyclobenzaprine 5 mg tablet ea PO 05/02/21 05/15/24 History pravastatin 20 mg tablet 20 mg PO QDAY 05/28/23 05/15/24 Hi story escitalopram oxalate 10 mg tablet mg PO DAILY 05/15/24 05/15/24 His tory methylprednisolone 4 mg tablets in See Rx Instructions PO PER PKG D IR 05/15/24 05/15/24 Rx a dose pack (Medrol (Juan)) #21 tabs PFSH Medical History Urinary tract infection with hematuria Acute pharyngitis Encounter for screening for COVID-19 High cholesterol Hay fever Hypertension Surgical History H/O: hysterectomy carpal tunnel surgery History of tonsillectomy H/O tubal ligation tailbone cyst Family History Mother Breast cancer Father Heart disease Grandfather Myocardial infarction Social History Smoking Status: Never smoker alcohol intake: current details: 1 glass of wine a night substance use type: does not use caffeine: Yes what type of physical activity do you participate in: none seatbelt use: always do you feel safe at home: Yes 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 Part of today???s visit was documented by Martina Terrell ATC, acting as scribe. GABRIELA RUSSELL is a 54 year old F here today for right hand pain. She states it is mainly the thumb, index and middle finger. She states the fingertips are numb and the fingers feel weak and she has no strength. 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 She complains of an electrical sensation in her thumb. She did have carpal tunnel release surgery on the right wrist with Dr. Brink that was in this office in February 2016. Patient is left handed when it comes to writing but everything else she will do with her right hand. She denies any bracing. Agree with above. Gabriela is a pleasant 54-year-old female with 6-week history of decreased range of motion, fiberglass luggage molder strength and paresthesias mainly of the thumb and index finger. Denies any acute injury. Does correlate with increased repetitive fine motor tasks. 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 She is having difficulty doing some of these tasks. Denies similarity to carpal tunnel symptoms in the past. Patient routinely takes meloxicam with no improvement of symptoms. ROS Const All systems reviewed are unremarkable except as noted in H and other (A O x 3, no apparent distress. No recent illness.) ENT Denies dizziness Card Denies chest pain, Denies dyspnea, Denies edema and Reports other (No palpitations) Resp Denies cough, Denies dyspnea and Reports other (No recent URI) GI Reports system reviewed and no additional complaints, except as documented, Denies nausea and Denies vomiting Musc Reports as per HPI, Reports limited range of motion, Reports muscle weakness and Reports numbness Neuro No dizziness and Yes numbness Psych Reports system reviewed and no additional complaints, except as documented Stephon/Lymph Denies easy bleeding and Denies easy bruising Ortho Exam Right Wrist/Hand Skin/Wound: Yes Swelling, Yes nail intact and Yes capillary refill normal WRIST: Full range of motion of wrist (more content not included)... Normal [facility] Wrist min 3 Viewson 05-15-19 25 Wrist min [address] [facility] [address] [place], [place] [id number] Wrist min 3 Views MR#: [id number] Acct: [id number] Name: GABRIELA RUSSELL KYLE Rep #: [id number] : 1970 F 54 From: Landry Zacarias PCP: Dr. Kandy Valle, DO Status: REG CLI Study: Wrist min 3 Views Date of Exam: 05/15/24 Exam# [id number] Ordering Dr: Priti Hammond PROCEDURE: Right wrist radiographs REASON FOR EXAM: Pain, weakness TECHNIQUE: Three views of the right wrist COMPARISON: None. FINDINGS: See impression RAD/Wrist min 3 Views IMPRESSION: Negative for acute displaced fracture or dislocation. No significant arthropathy. Reading Location: [facility] CC: INTERNATIONAL FIRST OFFICER-Airam Hammond; Dr. Kandy Valle DO Binder Fixer: Signed Normal [facility] Urine Cultureon 02-20-2024 URC #1, 2 Below infectio n level. GNR lactose engineering geologist Boyce Count <1000 Mixed Gram Positive Organisms Mixed Gram Positive Organisms MIXC Mixed contaminants. Submit a new specimen if indicated. Normal [facility] Comment on above: Performed By: #### M 100.2200 ####[facility] [address] [place], [place], [id number] Urine cultureOrdered By: Tima Landaverde on 02-18-2024 Bacteria identified Cx Nom (U) GNR lactose engineering geologist Abnormal [facility] Bacteria identified Cx Nom (U) Positive Abnormal [facility] Laboratory - Chemistry and C hemistry - challengeon 02-17-2024 Bilirubin Ql (U) Negative [facility] Glucose Ql (U) Negative [facility] Ketones Ql (U) Negative [facility] pH (U) 6.0 [pH] [facility] Specific gravity (U) [Rel density] 1.010 [facility] Urobilinogen (U) [Mass/Vol] Negative [facility] Laboratory - Hematology and Cell countson 02-17-2024 Hemoglobin Ql (U) Large [facility] Laboratory - Specimen inform ationon 02-17-2024 Clarity (U) Cloudy [facility] Color (U) Yellow [facility] Laboratory - Urinalysison Nitrite Ql (U) Negative [facility] Protein Ql (U) 1+ [facility] No Panel Informationon 02-16 Urine Leukocytes Positive [facility] Urine Non-Hemolyzed Blood [facility] Urgent Care Visit Reporton 1 04-19-2023 Urgent Care Visit Report [facility] [address], [address] [place] [address] OFFICE VISIT Date of Service: 02/17/24 MR#: [id number] Acct: [id number] Name: GABRIELA RUSSELL Rep #: [id number] : 1970 Provider: PIPE ellis Age/Sex: 53/F Location: [facility] Status: Signed Intake Vital Signs 05/28/23 15:50 02/17/24 08:00 02/17/24 08:06 Height 5 ft 7 in 5 ft 7 in BP 126/70 H Blood Pressure Location Lt brachial Position Sitting Respiration 15 Pulse 94 Pulse Source NIBP Temp 98.3 F Temp Source Oral Pulse Oximetry (%) 96 Oxygen Delivery Method room air Intake Visit Reasons: Urinary tract infection Chief Complaint: dysuria, frequency 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 denies back pain, abd pain, fever. concern for UTI PFSH Medical History Urinary tract infection with hematuria Acute pharyngitis Encounter for screening for COVID-19 High cholesterol Hay fever Hypertension Surgical History H/O: hysterectomy carpal tunnel surgery History of tonsillectomy H/O tubal ligation tailbone cyst Family History Mother Breast cancer Father Heart disease Grandfather Myocardial infarction Social History Smoking Status: Never smoker alcohol intake: current details: 1 glass of wine a night substance use type: does not use caffeine: Yes what type of physical activity do you participate in: none seatbelt use: always do you feel safe at home: Yes 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 Her symptoms have been ongoing for one day. This feels similar to previous UTI. ROS Const Constitutional: No body ache, chills, fatigue, fever(s) (no fever greater than 99.9 F), malaise, night sweats or other (rigors) Resp Respiratory: No shortness of breath Cardio Cardiology: No chest pain at rest or chest pain with exertion Gastro GI: No abdominal pain Genitourinary-Female: Positive for painful urination and urinary frequency; No burning urination, urinary urgency, blood in urine, suprapubic fullness or side pain Endo Endocrine: No fatigue Exam Const General: cooperative, healthy appearing, comfortable and no acute distress Orientation: alert, awake and oriented x3 Chest Chest palpation inspection: normal inspection of the chest Resp Effort Inspection: normal respiratory effort Auscultation: Bilateral: Clear to Auscultation Cardio Rhythm: other (Normal) Heart Sounds: S1 normal, S2 normal and no murmurs GI Inspection: normal to inspection and non-distended Auscultation: normal bowel sounds Palpation: soft and nontender General: No CVA tenderness Skin General: no rashes or lesions noted Coding Level of Care Code Off vis,est,level 3 Diagnoses Acute cystitis with hematuria N30.01 Urinary tract infection type: acute cystitis Assessment and Plan Assessment and Plan (1) Urinary tract infection with hematuria: Status: Acute Qualifiers: Urinary tract infection type: acute cystitis Qualified Code(s): N30.01 - Acute cystitis with hematuria Plan: Will treat as prescribed. We will send out for culture to confirm diagnosis and to guide treatment. We will contact her if treatment plan changes based on results. Encouraged to get plenty of rest, drink lots of clear liquids, and use Tylenol or Ibuprofen (unless contraindicated) for fever and comfort. Patient also educated on other symptomatic management techniques. To be seen in 7-10 days if no improvement; sooner if worsening of symptoms.??? Patient advised of potential red flags and when appropriate to report to the ED.??? Patient verbalized understanding and agreement with all the above. Orders: Orders POC Urinalysis Dip (Clinic) Today R30.0 - Dysuria Culture, Urine Today N39.0 - Urinary tract infection, site not specified Medications: New nitrofurantoin monohyd/m-cryst 100 mg (Macrobid) must administer with a meal/food 100 mg PO Q12H 7 days 14 caps 0RF Plan Details Goals Barriers: Goals Decrease spasm Decrease pain Improve ability to perform job Clinical Quality Measures Falls Risk Screening/Assistive Devices Have you fallen in the past year?: No 02/17/24 0833 Date _ (more content not included)... Normal [facility] HIP, UNI W/ Pelvis 2-3 Views on 01-26-2024 HIP, UNI W/ Pelvis 2-[address] [facility] [address] [place], [place] [id number] HIP, UNI W/ Pelvis 2-3 Views MR#: [id number] Acct: [id number] Name: GABRIELA RUSSELL KYLE Rep #: [id number] : 1970 F 53 From: Rangel Keller MD PCP: Dr. Kandy Valle DO Status: [facility] Study: HIP, UNI W/ Pelvis 2-3 Views Date of Exam: 12/10 Exam# [id number] Ordering Dr: Kandy Valle DO [id number] STUDY: X-RAY - PELVIS AND LEFT HIP REASON FOR EXAM: Female, 53 years old. Pain in left hip TECHNIQUE: 3 views of the pelvis and hip. COMPARISON: None. FINDINGS: There is a non-specific bowel gas pattern. Normal visualized soft tissue structures. Normal bilateral iliac wings, sacroiliac joints and visualized sacrum. Normal bilateral superior and inferior pubic rami. Normal pubic symphysis. Normal bilateral ischial tuberosities. Normal visualized femoral head. There is osteoarthritic spur formation of the acetabular rim. There is mild articular joint space narrowing of the hip. RAD/HIP, UNI W/ Pelvis 2-3 Views IMPRESSION: Mild arthrosis. Electronically Signed: Rangel Keller MD at 11:18 EST , CC: Dr. Kandy Valle DO Binder Fixer: Signed Normal [facility] L/S Spine Min 4 Viewson 11-0 L/S Spine Min [address] [facility] [address] [place], [place] [address] L/S Spine Min 4 Views MR#: [id number] Acct: [id number] Name: GABRIELA RUSSELL KYLE Rep #: [id number] : 1970 F 53 From: Rangel Keller MD PCP: Dr. Kandy Valle DO Status: REG CLI Study: L/S Spine Min 4 Views Date of Exam: 01/26/24 Exam# [id number] Ordering Dr: Kandy Valle DO [id number] STUDY: X-RAY - LUMBAR SPINE REASON FOR EXAM: Female, 53 years old. LOW BACK PAIN TECHNIQUE: 5 view(s) of the lumbar spine were obtained. COMPARISON: None FINDINGS: Normal lumbar lordosis. Mild dextroscoliosis centered at L1/L2. There is a normal alignment of the vertebrae. There is multilevel endplate spondylosis of the lumbar vertebrae. There is multi-level degenerative disc disease with multi-level disc space narrowing. There is multilevel facet hypertrophy. The soft tissue structures are unremarkable. RAD/L/S Spine Min 4 Views IMPRESSION: Mild dextroscoliosis with diffuse degenerative disc disease. MRI may be useful. Electronically Signed: Rangel Keller MD at 11:12 EST , CC: Dr. Kandy Valle DO Binder Fixer: Signed Normal [facility] Chiropractic Reporton 2023 Chiropractic Report [facility] [address] [place] [address] OFFICE VISIT Date of Service: 12/19/23 MR#: [id number] Acct: [id number] Name: GABRIELA RUSSELL KYLE Rep #: [id number] : 1970 Provider: GUILLERMINA Poole Do ssi Age/Sex: 53/F Location: [facility] Status: Signed Intake Vital Signs 05/28/23 15:50 Height 5 ft 7 in Intake Visit Reasons: Back pain Chief Complaint: Back pain Is patient in pain?: Yes (low back ) Pain scale (1-10): 5 Allergies morphine Adverse Reaction (Verified 12/19/23 10:10) Nausea Medications ???Medication ???Instructions ???Recorded ???Confirmed ???Type amlodipine 10 mg tablet 10 mg PO DAILY BP 03/07/16 12/19/23 History metoprolol succinate 100 mg 100 mg PO DAILY BP 03/07/16 12/19/23 History tablet,extended release 24 hr multivitamin 1 ea PO DAILY supplement 03/07/16 12/19/23 History omeprazole 20 mg capsule,delayed 20 mg PO DAILY acid reflux 03/07/16 12/19/23 History release amitriptyline 75 mg tablet 75 mg PO DAILY #90 tabs 12/14/18 12/19/23 History lisinopril 10 mg tablet 10 mg PO DAILY #180 tabs 12/14/18 12/19/23 History meloxicam 15 mg tablet 15 mg PO DAILY 07/21/20 12/19/23 History cyclobenzaprine 5 mg tablet ea PO 05/02/21 12/19/23 History pravastatin 20 mg tablet 20 mg PO QDAY 05/28/23 12/19/23 History PFSH Medical History Urinary tract infection with hematuria Acute pharyngitis Encounter for screening for COVID-19 High cholesterol Hay fever Hypertension Surgical History H/O: hysterectomy carpal tunnel surgery History of tonsillectomy H/O tubal ligation tailbone cyst Family History Mother Breast cancer Father Heart disease Grandfather Myocardial infarction Social History Smoking Status: Never smoker alcohol intake: current details: 1 glass of wine a night substance use type: does not use caffeine: Yes what type of physical activity do you participate in: none seatbelt use: always do you feel safe at home: Yes 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 Pt. advises her neck has improved and feels great. Pt. complains low back pain that is equal bilaterally. She states it is worse in the mornings and she is having difficulty bending over to put her socks and shoes on. States that it feels like it is pinching at times. 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 She rates her pain at a 5/10 today. She denies new injury, numbness, tingling or radiculopathy. She treats pain with Tylenol and heat as needed. She reports the e-stim and adjustments help alleviate her pain and stiffness. Location: low back pain Duration: intermittent Aggravating or associated factors: bending, lifting, mornings Relieving factors: chiro Pain Quality: aching, dull and radiating Exam Musc General: Yes normal posture, normal gait and joint tenderness; No muscle weakness Cervical Spine: Yes loss of normal cervical lordosis, Yes cervical muscular tenderness (mild) bilateral lower , Yes cervical spasm bilateral lower trapezius and paracervical muscles and Yes misalignment misalignment: C4, C5 and C6 Thoracic/Lumber: Yes thoracic and lumbar spine normal to inspection, Yes paraspinal tenderness bilaterally (upper thoracic) in the upper thoracic and in the mid thoracic and on the left greater than right (lumbopelvic), No scoliosis, Yes thoraco-lumbar spasm bilaterally (trap,levator) in the upper thoracic and in the mid thoracic, on the right greater than left (paraspinal L2-L5) and on the left greater than right (left glute) and Yes misalignment T3, T4, T5, L4, L5 and LIL Sacroiliac joints: on the left tender to palpation Office Procedures Procedures - Chiropractic Procedures Manipulation: Cervical C6, Lumbar L4, Thoracic T3 and Pelvis LIL Manipulation: 3-4 regions Electronic Stimulation: Yes Electrical Stimulation: Lumbar 15 mins (18) mA Therapy Performed by:: Batool Donis Traction, Mechanical: Yes Patient Response: positive Assessment and Plan Assessment and Plan (1) Segmental and somatic dysfunction of cervical region: Status: Acute (2) Segmental and somatic dysfunction of thoracic region: Status: Acute (3) Segmental and somatic dysfunction of lumbar region: Status: Acute (4) Segmental and somatic dysfunction of pelvic region: Status: Acute Orders: Orders Chiropractic Treatments Today M99.01 - Segmental and somatic dysfunction of cervical region, M99.02 - Segmental (more content not included)... Normal [facility] CBC, Employeeon 12-14-2023 Absolute Lymph 1.50 X10 3/uL Normal 0.83-4.51 [facility] Comment on above: Performed By: #### L 400.0100, L500.2900, L100.0200 ####[facility] [address] [place], [address] Absolute Neut 3.6 X10 3/uL Normal 2.0-7.7 [facility] Comment on above: Performed By: #### L 400.0100, L500.2900, L100.0200 ####[facility] [address] [place], [address] Basophils/100 WBC (Bld) 0.8 % Normal 0-1 [facility] Comment on above: Performed By: #### L 400.0100, L500.2900, L100.0200 ####[facility] [address] [place], [address] Eosinophils/100 WBC (Bld) 2.5 % Normal 0-5 [facility] Comment on above: Performed By: #### L 400.0100, L500.2900, L100.0200 ####[facility] [address] [place], [address] Erythrocyte distribution width (RBC) [Ratio] 12.9 % Normal 11.6-14.6 [facility] Comment on above: Performed By: #### L 400.0100, L500.2900, L100.0200 ####[facility] [address] [place], [address] Hematocrit (Bld) [Volume fraction] 39.9 % Normal 37-47 [facility] Comment on above: Performed By: #### L 400.0100, L500.2900, L100.0200 ####[facility] [address] [place], [address] Hemoglobin (Bld) [Mass/Vol] 13.3 g/dL Normal 12.0-15.0 [facility] Comment on above: Performed By: #### L 400.0100, L500.2900, L100.0200 ####[facility] [address] [place], [address] Lymphocytes/100 WBC (Bld) 25.3 % Normal 19-41 [facility] Comment on above: Performed By: #### L 400.0100, L500.2900, L100.0200 ####[facility] [address] [place], [address] MCH (RBC) [Entitic mass] 29.4 pg Normal 27.0-32.0 [facility] Comment on above: Performed By: #### L 400.0100, L500.2900, L100.0200 ####[facility] [address] [place], [address] MCHC (RBC) [Mass/Vol] 33.3 g/dL Normal 32-36 [facility] Comment on above: Performed By: #### L 400.0100, L500.2900, L100.0200 ####[facility] [address] [place], [address] MCV (RBC) [Entitic vol] 88.1 fL Normal 81-99 [facility] Comment on above: Performed By: #### L 400.0100, L500.2900, L100.0200 ####[facility] [address] [place], [address] Monocytes/100 WBC (Bld) 10.9 % High 0-10 [facility] Comment on above: Performed By: #### L 400.0100, L500.2900, L100.0200 ####[facility] [address] [place], [address] Neutrophils/100 WBC (Bld) 59.8 % Normal 47-70 [facility] Comment on above: Performed By: #### L 400.0100, L500.2900, L100.0200 ####[facility] [address] [place], [address] NRBC # 0.00 10 3/uL Normal 0-5 [facility] Comment on above: Performed By: #### L 400.0100, L500.2900, L100.0200 ####[facility] [address] [place], [address] Nucleated RBC (Bld) [#/Vol] 0 10*3/uL Normal 0-5 [facility] Comment on above: Performed By: #### L 400.0100, L500.2900, L100.0200 ####[facility] [address] [place], [address] Platelet mean volume (Bld) [Entitic vol] 9.3 fL Normal 6.2-12.0 [facility] Comment on above: Performed By: #### L 400.0100, L500.2900, L100.0200 ####[facility] [address] [place], [address] Platelets (Bld) [#/Vol] 273 10*3/uL Normal 150-450 [facility] Comment on above: Performed By: #### L 400.0100, L500.2900, L100.0200 ####[facility] [address] [place], [address] RBC (Bld) [#/Vol] 4.53 10*6/uL Normal 4.2-5.4 [facility] Comment on above: Performed By: #### L 400.0100, L500.2900, L100.0200 ####[facility] [address] [place], [address] RDW SD 41.2 fl Normal 35.1-43.9 [facility] Comment on above: Performed By: #### L 400.0100, L500.2900, L100.0200 ####[facility] [address] [place], [address] WBC (Bld) [#/Vol] 5.9 10*3/uL Normal 4.4-11.0 [facility] Comment on above: Performed By: #### L 400.0100, L500.2900, L100.0200 ####[facility] [address] [place], [address] Employee Profileon 4 Albumin [Mass/Vol] 3.5 g/dL Normal 3.2-5.0 [facility] Comment on above: Performed By: #### L 400.0100, L500.2900, L100.0200 ####[facility] [address] [place], [address] Albumin/Globulin [Mass ratio] 0.9 {ratio} Normal 0.9-2.4 [facility] Comment on above: Performed By: #### L 400.0100, L500.2900, L100.0200 ####[facility] [address] [place], [address] ALK P 116 U/L Normal 45-117 [facility] Comment on above: Performed By: #### L 400.0100, L500.2900, L100.0200 ####[facility] [address] [place], [address] ALT [Catalytic activity/Vol] 54 U/L Normal 13-56 [facility] Comment on above: Performed By: #### L 400.0100, L500.2900, L100.0200 ####[facility] [address] [place], [address] AST [Catalytic activity/Vol] 38 U/L High 15-37 [facility] Comment on above: Result Comment: Slig ht Hemolysis, Result may be falsely increased. Performed By: #### L 400.0100, L500.2900, L100.0200 ####[facility] [address] [place], [address] Bilirubin [Mass/Vol] 0.40 mg/dL Normal 0.20-1.00 [facility] Comment on above: Result Comment: For patients on eltrombopag therapy, use of Dimension [place] TBIL is not recommended. Performed By: #### L 400.0100, L500.2900, L100.0200 ####[facility] [address] [place], [address] Bilirubin.direct [Mass/Vol] 0.07 mg/dL Normal 0.00-0.30 [facility] Comment on above: Performed By: #### L 400.0100, L500.2900, L100.0200 ####[facility] [address] [place], [address] BUN/CRE 11.4 RATIO Normal 10-20 [facility] Comment on above: Performed By: #### L 400.0100, L500.2900, L100.0200 ####[facility] [address] [place], [address] CA,Total 9.0 mg/dL Normal 8.5-10.1 [facility] Comment on above: Performed By: #### L 400.0100, L500.2900, L100.0200 ####[facility] [address] [place], [address] Chloride [Moles/Vol] 104 mmol/L Normal 98-107 [facility] Comment on above: Performed By: #### L 400.0100, L500.2900, L100.0200 ####[facility] [address] [place], [address] CHOL:HDL 6.30 Normal [facility] Comment on above: Performed By: #### L 400.0100, L500.2900, L100.0200 ####[facility] [address] [place], [address] Cholesterol [Mass/Vol] 238 mg/dL High 200 [facility] Comment on above: Result Comment: <200 mg/dL Desirable 200-240 mg/dL Borderline >240 mg/dL High Risk Performed By: #### L 400.0100, L500.2900, L100.0200 ####[facility] [address] [place], [address] Cholesterol in HDL [Mass/Vol] 38 mg/dL Low [facility] Comment on above: Result Comment: The drugs N-Acetylcysteine and Metamizole may falsely depress this assay. Reference Range HDL <40 mg/dL Low HDL Cholesterol HDL >or= 60 mg/dL High HDL Cholesterol Performed By: #### L 400.0100, L500.2900, L100.0200 ####[facility] [address] [place], [address] Cholesterol in LDL [Mass/Vol] 140 mg/dL High 0-130 [facility] Comment on above: Performed By: #### L 400.0100, L500.2900, L100.0200 ####[facility] [address] [place], [address] Cholesterol in VLDL [Mass/Vol] 60 mg/dL High 5-40 [facility] Comment on above: Performed By: #### L 400.0100, L500.2900, L100.0200 ####[facility] [address] [place], [address] CO2 [Moles/Vol] 31.0 mmol/L Normal 21.0-32.0 [facility] Comment on above: Performed By: #### L 400.0100, L500.2900, L100.0200 ####[facility] [address] [place], [address] Creatinine [Mass/Vol] 0.79 mg/dL Normal 0.55-1.02 [facility] Comment on above: Result Comment: The validity of the calculated GFR GFRAA in patients over 70 years has not been determined. Clinical correlation is essential. Performed By: #### L 400.0100, L500.2900, L100.0200 ####[facility] [address] [place], [address] EST GFR - AA 98 mL/min Normal >60 [facility] Comment on above: Result Comment: Afri can Vietnamese GFR Calc Performed By: #### L 400.0100, L500.2900, L100.0200 ####[facility] [address] [place], [address] GAP 4 Low 5-15 [facility] Comment on above: Performed By: #### L 400.0100, L500.2900, L100.0200 ####[facility] [address] [place], [address] GFR/1.73 sq M.predicted among non-blacks MDRD (S/P/Bld) [Vol rate/Area] 81 mL/min/{1.73_m2} Normal >60 [facility] Comment on above: Result Comment: Non- GFR Calc Performed By: #### L 400.0100, L500.2900, L100.0200 ####[facility] [address] [place], [address] Globulin (S) [Mass/Vol] 3.8 g/dL Normal 2.2-4.2 [facility] Comment on above: Performed By: #### L 400.0100, L500.2900, L100.0200 ####[facility] [address] [place], [address] Glucose [Mass/Vol] 111 mg/dL High 74-106 [facility] Comment on above: Result Comment: Fast ing Glucose result from 100 to 125 mg/dL suggests IMPAIRED HOMEOSTASIS per A.D.A. criteria. Performed By: #### L 400.0100, L500.2900, L100.0200 ####[facility] [address] [place], [address] LDH 341 U/L High 84-246 [facility] Comment on above: Result Comment: Slig ht Hemolysis, Result may be falsely increased. Performed By: #### L 400.0100, L500.2900, L100.0200 ####[facility] [address] [place], [address] Phosphate [Mass/Vol] 3.2 mg/dL Normal 2.5-4.9 [facility] Comment on above: Performed By: #### L 400.0100, L500.2900, L100.0200 ####[facility] [address] [place], [address] Potassium [Moles/Vol] 4.1 mmol/L Normal 3.5-5.1 [facility] Comment on above: Result Comment: Slig ht Hemolysis, Result may be falsely increased. Performed By: #### L 400.0100, L500.2900, L100.0200 ####[facility] [address] [place], [address] Sodium [Moles/Vol] 138 mmol/L Normal 136-145 [facility] Comment on above: Performed By: #### L 400.0100, L500.2900, L100.0200 ####[facility] [address] [place], [address] T PROT 7.3 g/dL Normal 6.4-8.2 [facility] Comment on above: Performed By: #### L 400.0100, L500.2900, L100.0200 ####[facility] [address] [place], [address] Triglyceride [Mass/Vol] 299 mg/dL High [facility] Comment on above: Result Comment: The drugs N-Acetylcysteine and Metamizole may falsely depress this assay. Serum Triglycerides Reference Interval Normal <150 mg/dL Borderline high 150 - 199 mg/dL High 200 - 499 mg/dL Very High > or = 500 mg/dL Performed By: #### L 400.0100, L500.2900, L100.0200 ####[facility] [address] [place], [address] Urea nitrogen [Mass/Vol] 9 mg/dL Normal 7-18 [facility] Comment on above: Performed By: #### L 400.0100, L500.2900, L100.0200 ####[facility] [address] [place], [address] URIC 4.9 mg/dL Normal 2.6-6.0 [facility] Comment on above: Result Comment: The drugs N-Acetylcysteine and Metamizole may falsely depress this assay. Performed By: #### L 400.0100, L500.2900, L100.0200 ####[facility] [address] [place], [address] Urinalysis, Employeeon 12-13 BILIRUBIN URINE Normal Negative [facility] Comment on above: Order Comment: CLEAN CATCH Result Comment: PT D OES NOT WNT Performed By: #### L 400.0100, L500.2900, L100.0200 ####[facility] [address] [place], [address] Clarity (U) Normal Clear [facility] Comment on above: Order Comment: CLEAN CATCH Result Comment: PT D OES NOT WNT Performed By: #### L 400.0100, L500.2900, L100.0200 ####[facility] [address] [place], [address] Color (U) Normal Yellow [facility] Comment on above: Order Comment: CLEAN CATCH Result Comment: PT D OES NOT WNT Performed By: #### L 400.0100, L500.2900, L100.0200 ####[facility] [address] [place], [address] GLUCOSE, UR Normal Normal [facility] Comment on above: Order Comment: CLEAN CATCH Result Comment: PT D OES NOT WNT Performed By: #### L 400.0100, L500.2900, L100.0200 ####[facility] [address] [place], [address] KETONE UR Normal Negative [facility] Comment on above: Order Comment: CLEAN CATCH Result Comment: PT D OES NOT WNT Performed By: #### L 400.0100, L500.2900, L100.0200 ####[facility] [address] [place], [address] LEUK ESTERASE Normal Negative [facility] Comment on above: Order Comment: CLEAN CATCH Result Comment: PT D OES NOT WNT Performed By: #### L 400.0100, L500.2900, L100.0200 ####[facility] [address] [place], [address] Nitrite Ql (U) Normal Negative [facility] Comment on above: Order Comment: CLEAN CATCH Result Comment: PT D OES NOT WNT Performed By: #### L 400.0100, L500.2900, L100.0200 ####[facility] [address] [place], [address] OCCULT BLOOD-UR Normal Negative [facility] Comment on above: Order Comment: CLEAN CATCH Result Comment: PT D OES NOT WNT Performed By: #### L 400.0100, L500.2900, L100.0200 ####[facility] [address] [place], [address] pH UR Normal 5.0 - 8.0 [facility] Comment on above: Order Comment: CLEAN CATCH Result Comment: PT D OES NOT WNT Performed By: #### L 400.0100, L500.2900, L100.0200 ####[facility] [address] [place], [address] PROT DIPSTX Normal Negative [facility] Comment on above: Order Comment: CLEAN CATCH Result Comment: PT D OES NOT WNT Performed By: #### L 400.0100, L500.2900, L100.0200 ####[facility] [address] [place], [address] SP.GR. DIPSTX Normal 1.002-1.030 [facility] Comment on above: Order Comment: CLEAN CATCH Result Comment: PT D OES NOT WNT Performed By: #### L 400.0100, L500.2900, L100.0200 ####[facility] [address] [place], [address] UR Preservative Normal [facility] Comment on above: Order Comment: CLEAN CATCH Result Comment: PT D OES NOT WNT Performed By: #### L 400.0100, L500.2900, L100.0200 ####[facility] [address] [place], [address] UROBILI Normal Normal [facility] Comment on above: Order Comment: CLEAN CATCH Result Comment: PT D OES NOT WNT Performed By: #### L 400.0100, L500.2900, L100.0200 ####[facility] [address] [place], [address] SCRN MAMM (CAD)W/DWIGHT BILATo n 11-26-2023 SCRN MAMM (CAD)W/DWIGHT BILAT [facility] [address] [place] [address] SCRN MAMM (CAD)W/DWIGHT BILAT MR#: [id number] Acct: [id number] Name: GABRIELA RUSSELL Rep #: [id number] : 1970 F 53 From: Rangel Keller MD PCP: Dr. Kandy Valle DO Status: [facility] Study: SCRN MAMM (CAD)W/DWIGHT BILAT Date of Exam: 12/10 Exam# [id number] Ordering Dr: Kandy Valle DO [id number] MAMMOGRAPHY - BILATERAL SCREENING 3-D TOMOSYNTHESIS REASON FOR EXAM: Female, 53 years old. SCREENING PERTINENT HISTORY: No significant family history. TECHNIQUE: 2-D mammograms and 3-D Tomosynthesis of the breast (s) were performed. CAD was performed. COMPARISON: 11/23/2022 FINDINGS: The breast composition is composed of scattered fibroglandular density. Scattered benign calcifications are seen. No dense spiculated masses or suspicious microcalcifications are identified. No architectural distortion is identified. There is no skin thickening or retraction. There has been no significant change since the prior study. BI/SCRN MAMM (CAD)W/DWIGHT BILAT IMPRESSION: No mammographic signs of malignancy. Routine yearly mammograms recommended. ASSESSMENT CATEGORY: BIRADS Category 1: Negative. A letter regarding these results will be sent to the patient by the facility within 30 days. FOLLOW UP RECOMMENDATION: Yearly follow up mammogram recommended. (A) Approximately 10% of breast cancers are not detected by mammography. A normal mammogram should not delay biopsy of a clinically suspicious abnormality. Electronically Signed: Rangel Keller MD at 14:42 EDT , CC: Dr. Kandy Valle, DO Binder Fixer: Signed Normal [facility] Basophil percentageOrdered B y: Dr. Valle on 04-05-2022 Bilirubin [Mass/Vol] 0.50 mg/dL 0.20-1.00 [facility] Comment on above: For patients on eltr ombopag therapy, use of Dimension [place] TBIL is not recommended. Chloride [Moles/Vol] 104 mmol/L 98-107 [facility] Cholesterol [Mass/Vol] 243 mg/dL <200 [facility] Comment on above: <200 mg/dL Desirable 200-240 mg/dL Borderline >240 mg/dL High Risk Glucose [Mass/Vol] 113 mg/dL 74-106 [facility] Comment on above: Fasting Glucose resu lt from 100 to 125 mg/dL suggests IMPAIRED HOMEOSTASIS per A.D.A. criteria. Potassium [Moles/Vol] 3.6 mmol/L 3.5-5.1 [facility] Protein [Mass/Vol] 7.1 g/dL 6.4-8.2 [facility] Sodium [Moles/Vol] 141 mmol/L 136-145 [facility] Triglyceride [Mass/Vol] 190 mg/dL <199 [facility] Comment on above: The drugs N-Acetylcy steine and Metamizole may falsely depress this assay.Serum Triglycerides Reference Interval Normal <150 mg/dL Borderline high 150 - 199 mg/dL High 200 - 499 mg/dL Very High > or = 500 mg/dL Laboratory - Chemistry and C hemistry - challengeOrdered By: Dr. Valle on 04-05-2022 ALP [Catalytic activity/Vol] 113 U/L 45-117 [facility] ALT [Catalytic activity/Vol] 97 U/L 13-56 [facility] CO2 [Moles/Vol] 28.0 mmol/L 21.0-32.0 [facility] Globulin (S) [Mass/Vol] 3.5 g/dL 2.2-4.2 [facility] Urea nitrogen/Creatinine [Mass ratio] 12.0 mg/mg 10-20 [facility] No Panel InformationOrdered By: Dr. Valle on 04-05-2022 Estimated GFR (MDRD) Amer 105 mL/min >60 [facility] Comment on above: GFR Calc Estimated GFR (MDRD) Non-Af Amer 87 mL/min >60 [facility] Comment on above: Non- GFR Calc Serum or plasma albumin quinton urement (mass/volume)Ordered By: Dr. Valle on 04-05-2022 Albumin [Mass/Vol] 3.6 g/dL 3.2-5.0 [facility] Serum or plasma albumin/glob ulin mass ratioOrdered By: Dr. Valle on 04-05-2022 Albumin/Globulin [Mass ratio] 1.0 {ratio} 0.9-2.4 [facility] Serum or plasma calcium quinton urement (mass/volume)Ordered By: Dr. Valle on 04-05-2022 Calcium [Mass/Vol] 8.7 mg/dL 8.5-10.1 [facility] Serum or plasma cholesterol in HDL measurement (mass/volume)Ordered By: Dr. Valle on 04-05-2022 Cholesterol in HDL [Mass/Vol] 38 mg/dL >40 [facility] Comment on above: The drugs N-Acetylcy steine and Metamizole may falsely depress this assay. Reference Range HDL <40 mg/dL Low HDL Cholesterol HDL >or= 60 mg/dL High HDL Cholesterol Serum or plasma cholesterol in VLDL measurement (mass/volume)Ordered By: Dr. Valle on 04-05-2022 Cholesterol in VLDL [Mass/Vol] 38 mg/dL 5-40 [facility] Serum or plasma creatinine m easurement (mass/volume)Ordered By: Dr. Valle on 04-05-2022 Creatinine [Mass/Vol] 0.75 mg/dL 0.55-1.02 [facility] Comment on above: The validity of the calculated GFR & GFRAA in patients over 70 years has not been determined. Clinical correlation is essential. Serum or plasma low density lipoprotein (LDL) cholesterol measurement (mass/volume)Ordered By: Dr. Valle on 04-05-2022 Cholesterol in LDL [Mass/Vol] 167 mg/dL 0-130 [facility] Serum or plasma urea nitroge n measurement (mass/volume)Ordered By: Dr. Valle on 04-05-2022 Urea nitrogen [Mass/Vol] 9 mg/dL 7-18 [facility] Thin prep Papanicolaou smear with manual screeningOrdered By: Dr. Valle on 04-05-2022 Thin prep Papanicolaou smear with manual screening 54 U/L 15-37 [facility] Thin prep Papanicolaou smear with manual screening 9 5-15 [facility] Basophil percentageOrdered B y: Dr. Valle on 02-04-2022 Bilirubin [Mass/Vol] 0.50 mg/dL 0.20-1.00 [facility] Comment on above: For patients on eltr ombopag therapy, use of Dimension [place] TBIL is not recommended. Chloride [Moles/Vol] 107 mmol/L 98-107 [facility] Glucose [Mass/Vol] 107 mg/dL 74-106 [facility] Comment on above: Fasting Glucose resu lt from 100 to 125 mg/dL suggests IMPAIRED HOMEOSTASIS per A.D.A. criteria. Potassium [Moles/Vol] 4.1 mmol/L 3.5-5.1 [facility] Protein [Mass/Vol] 7.2 g/dL 6.4-8.2 [facility] Sodium [Moles/Vol] 140 mmol/L 136-145 [facility] Laboratory - Chemistry and C hemistry - challengeOrdered By: Dr. Valle on 02-04-2022 ALP [Catalytic activity/Vol] 106 U/L 45-117 [facility] ALT [Catalytic activity/Vol] 89 U/L 13-56 [facility] CO2 [Moles/Vol] 28.0 mmol/L 21.0-32.0 [facility] Globulin (S) [Mass/Vol] 3.5 g/dL 2.2-4.2 [facility] Urea nitrogen/Creatinine [Mass ratio] 11.2 mg/mg 10-20 [facility] No Panel InformationOrdered By: Dr. Valle on 02-04-2022 Estimated GFR (MDRD) Amer 97 mL/min >60 [facility] Comment on above: GFR Calc Estimated GFR (MDRD) Non-Af Amer 80 mL/min >60 [facility] Comment on above: Non- GFR Calc Serum or plasma albumin quinton urement (mass/volume)Ordered By: Dr. Valle on 02-04-2022 Albumin [Mass/Vol] 3.7 g/dL 3.2-5.0 [facility] Serum or plasma albumin/glob ulin mass ratioOrdered By: Dr. Valle on 02-04-2022 Albumin/Globulin [Mass ratio] 1.1 {ratio} 0.9-2.4 [facility] Serum or plasma calcium quinton urement (mass/volume)Ordered By: Dr. Valle on 02-04-2022 Calcium [Mass/Vol] 8.9 mg/dL 8.5-10.1 [facility] Serum or plasma creatinine m easurement (mass/volume)Ordered By: Dr. Valle on 02-04-2022 Creatinine [Mass/Vol] 0.80 mg/dL 0.55-1.02 [facility] Comment on above: The validity of the calculated GFR & GFRAA in patients over 70 years has not been determined. Clinical correlation is essential. Serum or plasma urea nitroge n measurement (mass/volume)Ordered By: Dr. Valle on 02-04-2022 Urea nitrogen [Mass/Vol] 9 mg/dL 7-18 [facility] Thin prep Papanicolaou smear with manual screeningOrdered By: Dr. Valle on 02-04-2022 Thin prep Papanicolaou smear with manual screening 57 U/L 15-37 [facility] Thin prep Papanicolaou smear with manual screening 5 5-15 [facility] Absolute lymphocyte countOrd ered By: HEALTH ASSESSMENT on 12-22-2021 Lymphocytes Auto (Unsp spec) [#/Vol] 2.24 10*3/uL 0.83-4.51 [facility] Absolute reticulocyte countO rdered By: HEALTH ASSESSMENT on 12-22-2021 Reticulocytes (Bld) [#/Vol] 0.00 10*3/uL 0-5 [facility] Basophil percentageOrdered B y: HEALTH ASSESSMENT on 12-22-2021 Basophil percentage 3.2 mg/dL 2.5-4.9 [facility] Bilirubin [Mass/Vol] 0.50 mg/dL 0.20-1.00 [facility] Comment on above: For patients on eltr ombopag therapy, use of Dimension [place] TBIL is not recommended. Chloride [Moles/Vol] 106 mmol/L 98-107 [facility] Cholesterol [Mass/Vol] 299 mg/dL <200 [facility] Comment on above: <200 mg/dL Desirable 200-240 mg/dL Borderline >240 mg/dL High Risk Glucose [Mass/Vol] 101 mg/dL 74-106 [facility] Comment on above: Fasting Glucose resu lt from 100 to 125 mg/dL suggests IMPAIRED HOMEOSTASIS per A.D.A. criteria. Neutrophils (Bld) [#/Vol] 4.6 10*3/uL 2.0-7.7 [facility] Potassium [Moles/Vol] 3.5 mmol/L 3.5-5.1 [facility] Protein [Mass/Vol] 7.4 g/dL 6.4-8.2 [facility] Sodium [Moles/Vol] 140 mmol/L 136-145 [facility] Triglyceride [Mass/Vol] 297 mg/dL <199 [facility] Comment on above: The drugs N-Acetylcy steine and Metamizole may falsely depress this assay.Serum Triglycerides Reference Interval Normal <150 mg/dL Borderline high 150 - 199 mg/dL High 200 - 499 mg/dL Very High > or = 500 mg/dL WBC (Bld) [#/Vol] 7.7 10*3/uL 4.4-11.0 [facility] Blood erythrocytes count (nu mber/volume)Ordered By: HEALTH ASSESSMENT on 12-22-2021 RBC (Bld) [#/Vol] 4.77 10*6/uL 4.2-5.4 [facility] Blood hemoglobin measurement (mass/volume)Ordered By: HEALTH ASSESSMENT on 12-22-2021 Hemoglobin (Bld) [Mass/Vol] 14.0 g/dL 12.0-15.0 [facility] Blood platelet mean volumeOr dered By: HEALTH ASSESSMENT on 12-22-2021 Platelet mean volume (Bld) [Entitic vol] 9.4 fL 6.2-12.0 [facility] Determination of erythrocyte mean corpuscular volume (MCV)Ordered By: HEALTH ASSESSMENT on 12-22-2021 MCV (RBC) [Entitic vol] 88.7 fL 81-99 [facility] Direct bilirubinOrdered By: HEALTH ASSESSMENT on 12-22-2021 Bilirubin.direct [Mass/Vol] 0.09 mg/dL 0.00-0.30 [facility] Hematocrit Auto (Bld) [Volum e fraction]Ordered By: HEALTH ASSESSMENT on 12-22-2021 Hematocrit (Bld) [Volume fraction] 42.3 % 37-47 [facility] Laboratory - Chemistry and C hemistry - challengeOrdered By: HEALTH ASSESSMENT on 12-22-2021 ALP [Catalytic activity/Vol] 106 U/L 45-117 [facility] ALT [Catalytic activity/Vol] 128 U/L 13-56 [facility] Cholesterol.total/Cho lesterol in HDL [Mass ratio] 9.10 {ratio} [facility] CO2 [Moles/Vol] 27.0 mmol/L 21.0-32.0 [facility] Globulin (S) [Mass/Vol] 3.8 g/dL 2.2-4.2 [facility] Urea nitrogen/Creatinine [Mass ratio] 11.7 mg/mg 10-20 [facility] Laboratory - Hematology and Cell countsOrdered By: HEALTH ASSESSMENT on 12-22-2021 Erythrocyte distribution width (RBC) [Entitic vol] 39.9 fL 35.1-43.9 [facility] Erythrocyte distribution width (RBC) [Ratio] 12.2 % 11.6-14.6 [facility] MCH (RBC) [Entitic mass] 29.4 pg 27.0-32.0 [facility] Nucleated RBC/100 WBC (Bld) [Ratio] 0 % 0-5 [facility] MCHC Auto (RBC) [Mass/Vol]Or dered By: HEALTH ASSESSMENT on 12-22-2021 MCHC (RBC) [Mass/Vol] 33.1 g/dL 32-36 [facility] No Panel InformationOrdered By: HEALTH ASSESSMENT on 12-22-2021 Estimated GFR (MDRD) Amer 102 mL/min >60 [facility] Comment on above: GFR Calc Estimated GFR (MDRD) Non-Af Amer 85 mL/min >60 [facility] Comment on above: Non- GFR Calc Platelets bldOrdered By: WAYNE LT ASSESSMENT on 12-22-2021 Platelets (Bld) [#/Vol] 296 10*3/uL 150-450 [facility] Segmented neutrophils/100 WB C Auto (Bld)Ordered By: HEALTH ASSESSMENT on 12-22-2021 Segmented neutrophils/100 WBC (Bld) 59.0 % 47-70 [facility] Serum or plasma albumin quinton urement (mass/volume)Ordered By: HEALTH ASSESSMENT on 12-22-2021 Albumin [Mass/Vol] 3.6 g/dL 3.2-5.0 [facility] Serum or plasma albumin/glob ulin mass ratioOrdered By: HEALTH ASSESSMENT on 12-22-2021 Albumin/Globulin [Mass ratio] 0.9 {ratio} 0.9-2.4 [facility] Serum or plasma calcium quinton urement (mass/volume)Ordered By: HEALTH ASSESSMENT on 12-22-2021 Calcium [Mass/Vol] 8.6 mg/dL 8.5-10.1 [facility] Serum or plasma cholesterol in HDL measurement (mass/volume)Ordered By: HEALTH ASSESSMENT on 12-22-2021 Cholesterol in HDL [Mass/Vol] 33 mg/dL >40 [facility] Comment on above: The drugs N-Acetylcy steine and Metamizole may falsely depress this assay. Reference Range HDL <40 mg/dL Low HDL Cholesterol HDL >or= 60 mg/dL High HDL Cholesterol Serum or plasma cholesterol in VLDL measurement (mass/volume)Ordered By: HEALTH ASSESSMENT on 12-22-2021 Cholesterol in VLDL [Mass/Vol] 59 mg/dL 5-40 [facility] Serum or plasma creatinine m easurement (mass/volume)Ordered By: HEALTH ASSESSMENT on 12-22-2021 Creatinine [Mass/Vol] 0.77 mg/dL 0.55-1.02 [facility] Comment on above: The validity of the calculated GFR & GFRAA in patients over 70 years has not been determined. Clinical correlation is essential. Serum or plasma low density lipoprotein (LDL) cholesterol measurement (mass/volume)Ordered By: HEALTH ASSESSMENT on 12-22-2021 Cholesterol in LDL [Mass/Vol] 207 mg/dL 0-130 [facility] Serum or plasma urea nitroge n measurement (mass/volume)Ordered By: HEALTH ASSESSMENT on 12-22-2021 Urea nitrogen [Mass/Vol] 9 mg/dL 7-18 [facility] Serum or plasma uric acid me asurement (mass/volume)Ordered By: HEALTH ASSESSMENT on 12-22-2021 Urate [Mass/Vol] 5.4 mg/dL 2.6-6.0 [facility] Comment on above: The drugs N-Acetylcy steine and Metamizole may falsely depress this assay. Thin prep Papanicolaou smear with manual screeningOrdered By: HEALTH ASSESSMENT on 12-22-2021 Thin prep Papanicolaou smear with manual screening 71 U/L 15-37 [facility] Thin prep Papanicolaou smear with manual screening 7 5-15 [facility] Thin prep Papanicolaou smear with manual screening 265 U/L 84-246 [facility] Laboratory - Chemistry and C hemistry - challengeon 09-14-2021 Bilirubin Ql (U) Negative [facility] Work Phone: Glucose Ql (U) Negative [facility] Work Phone: Ketones Ql (U) Trace (5) [facility] Work Phone: pH (U) 6.5 [pH] [facility] Work Phone: Specific gravity (U) [Rel density] 1.005 [facility] Work Phone: Urobilinogen (U) [Mass/Vol] Negative [facility] Work Phone: Laboratory - Hematology and Cell countson 09-14-2021 Hemoglobin Ql (U) Hemolyzed [facility] Work Phone: Laboratory - Specimen inform ationon 09-14-2021 Clarity (U) Turbid [facility] Work Phone: Color (U) STRAW [facility] Work Phone: Laboratory - Urinalysison Nitrite Ql (U) Negative [facility] Work Phone: Protein Ql (U) Negative [facility] Work Phone: No Panel Informationon 09-14 Urine Leukocytes Positive [facility] Work Phone: Urine Non-Hemolyzed Blood Large [facility] Work Phone: Office Visiton 10-18-2016 Protein mass conc [facility] Work Phone: Tobacco smoking status [place] Former smoker [facility] Work Phone: Office Visiton 03-27-2016 Protein mass conc Done [facility] Work Phone: Tobacco smoking status [place] Former smoker [facility] Work Phone: Lab Report: Miscellaneous La b Procedureon 08-14-2015 MISC LAB TEST . [facility] Work Phone: Lab Report: Basic Metabolic Profile (BMP)on 08-06-2015 Anion gap molar conc 8 mmol/L 5-15 [facility] Work Phone: Calcium mass conc 8.7 mg/dL 8.5-10.1 [facility] Work Phone: Chloride molar conc 109 mmol/L High 98-107 [facility] Work Phone: CO2 ppres (BldV) 27.0 mmol/L 21.0-32.0 [facility] Work Phone: Creatinine mass conc 0.85 mg/dL 0.55-1.20 [facility] Work Phone: EST GFR - AA 93 mL/min >60 [facility] Work Phone: GFR/1.73 sq M predicted among non-blacks MDRD vol rate/area (S/P/Bld) 77 mL/min/{1.73_m2} >60 [facility] Work Phone: Glucose mass conc 95 mg/dL 70-110 [facility] Work Phone: Potassium molar conc 3.4 mmol/L Low 3.5-5.1 [facility] Work Phone: Sodium molar conc 144 mmol/L 136-145 [facility] Work Phone: Urea nitrogen mass conc 9 mg/dL 7-18 [facility] Orth[facility] Work Phone: Urea nitrogen/Creatinine mass ratio 10.5 RATIO 10-20 [facility] Work Phone: Lab Report: CBC W/Diff, Auto matedon 08-05-2015 Basophils/100 WBC (Bld) 0.4 % 0-1 [facility] Work Phone: Eosinophils/100 WBC (Bld) 1.4 % 0-5 [facility] Work Phone: Erythrocyte distribution width Ratio (RBC) 14.0 % 11.6-14.6 [facility] Work Phone: Erythrocyte distribution width Ratio (RBC) 43.4 fL 35.1-43.9 [facility] Work Phone: Hematocrit Volume Fraction (Bld) 39.1 % 37-47 [facility] Work Phone: Hemoglobin mass conc (Bld) 12.7 g/dL 12.0-15.0 [facility] Work Phone: Immature granulocytes #/vol (Bld) 0.200 % 0.0-0.9 [facility] Work Phone: Lymphocytes #/vol (Bld) 2.30 X10 3/UL 0.83-4.51 [facility] Work Phone: Lymphocytes/100 WBC (Bld) 23.6 % 19-41 [facility] Work Phone: MCH Entitic mass (RBC) 27.5 pg 27.0-32.0 [facility] Work Phone: MCHC mass conc (RBC) 32.5 G/GL 32-36 [facility] Work Phone: MCV Entitic volume (RBC) 84.6 fL 81-99 [facility] Work Phone: Monocytes/100 WBC (Bld) 6.3 % 0-10 [facility] Work Phone: Neutrophils #/vol (Bld) 6.7 X10 3/UL 2.0-7.7 [facility] Work Phone: Neutrophils/100 WBC (Bld) 68.1 % 47-70 [facility] Work Phone: Platelet mean volume Entitic volume (Bld) 9.2 fL 6.2-12.0 [facility] Work Phone: Platelets #/vol (Bld) 297 10*3/mm3 150-450 [facility] Work Phone: RBC #/vol (Bld) 4.62 10*6/uL 4.2-5.4 [facility] Work Phone: WBC #/vol (Bld) 9.8 10*3/uL 4.4-11.0 [facility] Work Phone: Lab Report: CK-MB Quantitati ve and Indexon 08-06-2015 CK enzyme act/vol 185 U/L 26-192 [facility] Work Phone: CK.MB mass conc 1.1 % 0.0-1.4 [facility] Work Phone: Creatine kinase.MB 2.0 NG/ML 0.0-5.0 [facility] Work Phone: Lab Report: Troponin-Ion Troponin I.cardiac mass conc ng/mL <0.06 [facility] Work Phone: Rx Refill: eRx Request for T OPROL XL 100 MG [id number] 05-15-2015 [facility]_RR [id number]`TOPROL XL 100 MG [id number]``90 Tablet``ONE TABLET BY MOUTH DAILY``3`0`05/21/2014` 01/21/2015`[employer] [facility] [employer]*`[id number] `[id number]``METOPROL OL SUCCINATE ER TABS 100MG Quantity: 90 Tablet Instructions: TAKE 1 TABLET DAILY Better [facility] Work Phone: Lab Report: Employee Profile on 02-22-2015 Albumin mass conc 3.5 g/dL 3.4-5.0 [facility] Work Phone: Albumin/Globulin mass ratio 1 {ratio} 0.9-2.4 [facility] Work Phone: ALP enzyme act/vol (Bld) 107 U/L 50-136 [facility] Work Phone: ALT enzyme act/vol 73 U/L 12-78 [facility] Work Phone: AST enzyme act/vol 41 U/L High 15-37 [facility] Work Phone: Bilirubin mass conc 0.20 mg/dL 0.20-1.00 [facility] [place] [facility] Work Phone: Bilirubin.direct mass conc 0.08 mg/dL 0.00-0.30 [facility] Work Phone: Cholesterol in HDL mass conc 35 mg/dL Low [facility] Work Phone: Cholesterol in LDL mass conc 98 mg/dL 0-130 [facility] Work Phone: Cholesterol mass conc 172 mg/dL 200 [facility] Work Phone: Globulin mass conc (S) 3.5 g/dL 2.3-3.5 [facility] Work Phone: LDH 260 U/L High 84-246 [facility] Work Phone: Lipoprotein.pre-beta mass conc 39 mg/dL 5-40 [facility] Work Phone: PHOS 4.1 mg/dL 2.5-4.9 [facility] Work Phone: Protein mass conc 7.0 g/dL 6.4-8.2 [facility] [place] [facility] Work Phone: Triglyceride mass conc 194 mg/dL [facility] Work Phone: Urate mass conc 5.1 mg/dL 2.6-6.0 [facility] Work Phone: Lab Report: Urinalysis, Keshawn león 02-22-2015 Albumin Ql (U) Negative Negative [facility] [place] [facility] Work Phone: Bilirubin Ql (U) Negative Negative [facility] [place] [facility] Work Phone: Clarity Nom (U) Clear Clear [facility] [place] [facility] Work Phone: Color Nom (U) Yellow Yellow [facility] Work Phone: Glucose Ql (U) Normal mg/dl Normal [facility] Work Phone: Ketones mass conc (U) Negative Negative [facility] Work Phone: Leukocyte esterase Test strip Ql (U) 25 High Negative [facility] Work Phone: OCCULT BLOOD-UR 50 High Negative [facility] Work Phone: pH (U) 6.0 [pH] 5.0 - 8.0 [facility] Work Phone: Specific gravity Refractometry Relative Density (U) 1.015 1.002-1.030 [facility] Work Phone: Office Visit: 6 month follow upon 09-04-2014 Protein mass conc yes [facility] Work Phone: Lab Report: CBC, Employeeon 02-24-2014 Absolute Neut 6.5 X10 3/UL 2.0-7.7 [facility] Work Phone: Lab Report: Employee Profile on 02-24-2014 LDH enzyme act/vol 273 U/L Critically high 87-241 [facility] Work Phone: Vital Signs Date Time Vital Sign Value Performing Clinician Facility 06-10-2024 14:28-0400 Body height 170.[address] Kandy Valle DO Work Phone: [facility] 05-15-2024 12:56-0500 Body height 170.[address] Kandy Valle DO Work Phone: [facility] 05-15-2024 12:56-0500 Body mass index (BMI) [Ratio] 37 kg/m2 Dr. Kandy Valle DO Work Phone: [facility] 05-15-2024 12:56-0500 Body weight 107.[address] Kandy Valle DO Work Phone: [facility] 02-17-2024 08:06-0500 Body temperature 98.3 [degF] Dr. Kandy Valle DO Work Phone: [facility] 02-17-2024 08:06-0500 Diastolic blood pressure 70 mm[Hg] Dr. Kandy Valle DO Work Phone: [facility] 02-17-2024 08:06-0500 Heart rate 94 /min Dr. Kandy Valle DO Work Phone: [facility] 02-17-2024 08:06-0500 Respiratory rate 15 /min Dr. Kandy Valle DO Work Phone: [facility] 02-17-2024 08:06-0500 SaO2% (BldA) [Mass fraction] 96 % Dr. Kandy Valle DO Work Phone: [facility] 02-17-2024 08:06-0500 Systolic blood pressure 126 mm[Hg] Dr. Kandy Valle DO Work Phone: [facility] 09-14-2021 09:05-0400 Body temperature 97.8 [degF] Dr. Kandy Valle Work Phone: [facility] Work Phone: 09-14-2021 09:05-0400 Diastolic blood pressure 74 mm[Hg] Dr. Kandy Valle Work Phone: [facility] Work Phone: 09-14-2021 09:05-0400 Heart rate 88 /min Dr. Kandy Valle Work Phone: [facility] Work Phone: 09-14-2021 09:05-0400 Respiratory rate 14 /min Dr. Kandy Valle Work Phone: [facility] Work Phone: 09-14-2021 09:05-0400 SaO2% (BldA) [Mass fraction] 99 % Dr. Kandy Valle Work Phone: [facility] Work Phone: 09-14-2021 09:05-0400 Systolic blood pressure 128 mm[Hg] Dr. Kandy Valle Work Phone: [facility] Work Phone: 08-09-2015 14:58-0400 BMI (Body Mass Index) 36.02 kg/m2 [facility] Work Phone: 08-09-2015 14:58-0400 Body Temperature 98.7 [degF] [facility] ter [facility] Work Phone: 08-09-2015 14:58-0400 BP Diastolic 90 mm[Hg] [facility] Work Phone: 08-09-2015 14:58-0400 BP Systolic 134 mm[Hg] [facility] Work Phone: 08-09-2015 14:58-0400 BSA (Body Surface Area) 2.22 m2 [facility] Work Phone: 08-09-2015 14:58-0400 Pulse (Heart Rate) 86 /min [facility] Work Phone: 08-09-2015 14:58-0400 Respiratory Rate 14 /min [facility] Work Phone: 08-09-2015 14:58-0400 Weight 109.05 kg [facility] Work Phone: 08-06-2015 14:51-0400 Body surface area Derived from formula 82.13 mL/min [facility] Work Phone: 07-14-2015 09:10-0400 BP Diastolic 100 mm[Hg] [facility] Work Phone: 07-14-2015 09:10-0400 BP Systolic 170 mm[Hg] Juan David ASTORGA [facility] Work Phone: 02-24-2014 08:08-0500 Height 173.99 cm Juan David ASTORGA [facility] Work Phone: Encounters Encounter Date Encounter Type Care Provider Facility Start: 09-22-2024 End: 09-22-[address] Kandy Valle DO Work Phone: -Occupational Therapy Start: 09-22-2024 End: 09-22-2024 Discharged Recurring Maria Teresa SUNSHINE-[facility] -Occupational Thera py Work Phone: Start: 09-04-2024 Registered Recurring Maria Teresa SUNSH[facility] -Occupational Therapy Work Phone: Start: 09-03-2024 Non-patient / Non-visit Dr. Michelle tineo MD -[facility]- Start: 09-03-2024 End: 09-03-[address] Kandy Valle DO Work Phone: [facility] Work Phone: Start: 09-03-2024 End: 09-03-2024 Patient encounter procedure Priti Hammond NP-[facility] -Pulmonary Services/Neurology Work Phone: Start: 09-03-2024 End: 09-03-2024 ambulatory Priti Hammond Facility:[facility] Start: 08-08-2024 End: 08-08-2024 Patient encounter procedure Priti Hammond NP-[facility] -[facility] Work Phone: Start: 08-08-2024 End: 08-08-2024 ambulatory Priti Hammond Facility:[facility] Start: 07-10-2024 End: 07-10-[address] Kandy Valle DO -Laboratory Work Phone: Start: 07-10-2024 End: 07-10-2024 [facility] Start: 06-17-2024 End: 06-17-[address] Kandy Valle DO Work Phone: [facility] Work Phone: Start: 06-17-2024 End: 06-17-[address] Kadny Valle DO -Laboratory Work Phone: Start: 06-17-2024 End: 06-17-2024 [facility] Start: 06-10-2024 End: 06-10-2024 Patient encounter procedure Priti [facility] -[facility] Work Phone: Start: 06-10-2024 End: 06-10-2024 ambulatory Kandy Valle Facility:[facility] Start: 06-10-2024 Non-patient / Non-visit Dr. Roshni franklin MD -[facility] Start: 06-10-2024 End: 06-10-[address] Kandy Valle DO Work Phone: [facility] Work Phone: Start: 06-10-2024 End: 06-10-2024 Patient encounter procedure Priti BETANCUR -Pulmonary Services/Neurology Work Phone: Start: 06-09-2024 End: 06-10-2024 ambulatory Priti Hammond Facility:[facility] Start: 06-09-2024 Registered Recurring Priti Hammond [employer]-C -Occupational Therapy Work Phone: Start: 05-26-2024 End: 05-26-2024 Patient encounter procedure Priti [facility] Work Phone: Start: 05-26-2024 End: 05-26-2024 [facility] Start: 05-19-2024 End: 05-19-[address] Zulema Tobias DC -[facility] Work Phone: Start: 05-19-2024 End: 05-19-2024 ambulatory Kandy Valle Facility:[facility] Start: 05-15-2024 End: 05-15-[address] Kandy Valle DO Work Phone: [facility] Work Phone: Start: 05-15-2024 End: 05-15-2024 Patient encounter procedure Priti Hammond [employer]-C -[facility] Work Phone: Start: 05-15-2024 End: 05-15-2024 ambulatory Priti Hammond Facility:[facility] Start: 02-18-2024 End: 02-18-2024 Patient encounter procedure Danny Landaverde NP-C -Laboratory, Specimen Work Phone: Start: 02-17-2024 End: 02-17-2024 Patient encounter procedure Danny Landaverde NP-[facility] Work Phone: Start: 02-17-2024 End: 02-18-2024 ambulatory Kandy Malys Facility:[facility] Start: 01-26-2024 End: 01-26-2024 ambulatory Kandy Malys Facility:[facility] Start: 12-19-2023 End: 12-19-2023 ambulatory Kandy Malys Facility:[facility] Start: 12-14-2023 ambulatory Kandy Malys Facility:[facility] Start: 11-26-2023 End: 11-26-2023 ambulatory Kandy Malys Facility:[facility] Start: 11-23-2022 End: 11-23-2022 ambulatory [facility] Work Phone: Start: 11-23-2022 End: 11-23-2022 Patient encounter procedure [facility]-Outpatient Breast Imaging Work Phone: Start: 04-05-2022 End: 04-05-2022 ambulatory [facility] Work Phone: Start: 04-05-2022 End: 04-05-2022 Patient encounter procedure [facility]-Laboratory Start: 02-04-2022 End: 02-04-2022 ambulatory [facility] Work Phone: Start: 02-04-2022 End: 02-04-2022 Patient encounter procedure [facility]-Laboratory Start: 12-22-2021 Registered Referred [facility] Start: 11-01-2021 End: 11-01-[address] Kandy Valle Work Phone: [facility]-Outpatient Breast Imaging Start: 09-14-2021 End: 09-14-[address] Kandy Valle Work Phone: [facility] Procedures Date Procedure Procedure Detail Performing Clinician Start: 09-03-2024 Plain x-ray of wrist Dr Wojciech Valle DO Work Phone: Start: 05-15-2024 Plain x-ray of wrist Dr Wojciech Valle DO Work Phone: Start: 02-18-[address] Kandy Valle DO Work Phone: Start: 11-23-2022 Screening mammography Start: 11-01-2021 Screening mammography D tomasz Valle Work Phone: Start: 10-18-2016 End: 10-30-2016 Arthrocentesis aspir&/inj major jt/bursa w/o Juan David Brink Work Phone: Start: 08-09-2015 End: 08-17-2015 other Cipriano Trevizo Megan Work Phone: Start: 07-14-2015 End: 08-17-2015 Dup-scan xtr veins complete bilateral study Cipriano Trevizo Megan WALKER Work Phone: Start: 07-02-2015 End: 07-21-2015 Arthrocentesis aspir&/inj major jt/bursa w/o us Juan David Brink Work Phone: Start: 02-22-2015 End: 02-22-2015 Urinalysis Juan David Brink Start: 09-04-2014 End: 09-10-2014 *CMP Complete Metabolic Panel Kandy Valle DO Work Phone: Start: 09-04-2014 End: 09-10-2014 Lipid 1996 panel - Serum or Plasma Kandy Trevizo Gurinderkaylah, DO Work Phone: Start: 02-24-2014 Screening mammography Screening mamm carrillo Brink Plan of Treatment Date Care Activity Detail Author Start: 05-26-2024 Patient referral [facility] Work Phone: Start: 10-18-2016 End: 10-18-2016 Appointment Appointment [facility] Work Phone: Start: 10-18-2016 End: 10-18-2016 Radiologic exam knee complete 4/more views X-Ray, Knee [facility] Work Phone: Start: 12-16-2015 End: 12-16-2015 EMG EMG [facility] Work Phone: Start: 12-16-2015 End: 12-16-2015 Nerve Conduction Nerve Conduction [facility] Work Phone: Start: 08-09-2015 End: 08-17-2015 Other Other [facility] Work Phone: Start: 07-14-2015 End: 08-17-2015 Dup-scan xtr veins complete bilateral study Venous Doppler LE Left [facility] Work Phone: Start: 07-02-2015 End: 07-02-2015 Radex shoulder complete minimum 2 views X-Ray, Shoulder [facility] Work Phone: Start: 06-25-2015 End: 06-29-2015 Gynecology & Obstetrics Gynecology & Obstetrics [facility], [address] [place] [address], [address], [place], [address] [facility] Work Phone: Start: 03-15-2015 End: 03-15-2015 Mammogram, screening Mammogram, Screening, both breasts [facility] Work Phone: Start: 09-04-2014 End: 09-10-2014 *CMP Complete Metabolic Panel *CMP Complete Metabolic Panel [facility] Work Phone: Start: 09-04-2014 End: 09-10-2014 Lipid 1996 panel *Lipid Profile [facility] Work Phone: Start: 02-24-2014 End: 02-24-2014 Mammogram, Screening, both breasts Mammogram, Screening, both breasts [facility] Work Phone: Patient referral [facility] Work Phone: Immunizations Immunization Date Immunization Notes [facility]23 influenza, seasonal, injectable, preservative free Dr. Kandy Valle DO Work Phone: [facility] 12-12-2023 Covid (Spikevax) Dr. Kandy hernandez DO Work Phone: [facility] 01-11-2023 Covid (Spikevax) Dr. Kandy Rincon mary DO Work Phone: [facility] 12-14-2022 influenza, injectabl e, quadrivalent, preservative free Dr. Kandy Valle DO Work Phone: [facility] 12-19-2021 influenza, injectabl e, quadrivalent, preservative free [facility] 12-19-2021 influenza, seasonal, injectable [facility] 06-28-2021 Covid (Moderna) Dr. Kandy adrian Work Phone: [facility] 01-21-2021 Covid (Pfizer) Dr. Kandy Lundy s Work Phone: [facility] 12-24-2020 influenza, injectabl e, quadrivalent, preservative free [facility] 12-24-2020 influenza, seasonal, injectable Dr. Kandy Valle Work Phone: [facility] 04-14-2020 Covid (Moderna) Dr. Kandy adrian Work Phone: [facility] 03-17-2020 Covid (Moderna) Dr. Kandy adrian Work Phone: [facility] 12-16-2019 influenza, injectabl e, quadrivalent, preservative free [facility] 12-16-2019 influenza, seasonal, injectable Dr. Kandy Valle Work Phone: [facility] 12-12-2018 influenza, injectabl e, quadrivalent, preservative free [facility] 12-12-2018 influenza, seasonal, injectable Dr. Kandy Valle Work Phone: [facility] 12-14-2017 influenza, injectabl e, quadrivalent, preservative free [facility] 12-14-2017 influenza, seasonal, injectable Dr. Kandy Valle Work Phone: [facility] 12-13-2016 influenza, injectabl e, quadrivalent, preservative free [facility] 12-13-2016 influenza, seasonal, injectable Dr. Kandy Valle Work Phone: [facility] 12-16-2015 influenza, injectabl e, quadrivalent, preservative free [facility] 12-16-2015 influenza, seasonal, injectable Dr. Kandy Valle Work Phone: [facility] 02-01-2015 influenza, injectabl e, quadrivalent, preservative free [facility] 02-01-2015 influenza, seasonal, injectable Dr. Kandy Valle Work Phone: [facility] 12-17-2013 influenza, injectabl e, quadrivalent, preservative free [facility] 12-17-2013 influenza, seasonal, injectable Dr. Kandy Valle Work Phone: [facility] 04-30-2013 hepatitis B vaccine, pediatric or pediatric/adolescent dosage Dr. Kandy Valle Work Phone: [facility] 01-20-[address] Kandy Valle Work Phone: [facility] Payers Date Payer Category Payer Self-pay [id number] 2023 Unknown [id number] [facility] [id number] 2016 Unknown [id number] Unknown [id number] Unknown [id number] 2.16.8 [id number] Unknown [id number] 2.16.8 [id number] Unknown [id number] 2.16.8 40.1.073027.3.579.2.462 Unknown [id number] 2.16.8 40.1.969678.3.579.2.462 Unknown [id number] 2.16.8 40.1.511473.3.579.2.462 Unknown [id number] 2.16.8 40.1.353683.3.579.2.462 Unknown [id number] 2.16.8 40.1.968066.3.579.2.462 Unknown [id number] 2.16.8 40.1.069543.3.579.2.462 Unknown [id number] 2.16.8 40.1.465599.3.579.2.462 Unknown [id number] 2.16.8 40.1.667070.3.579.2.462 Unknown [id number] 2.16.8 40.1.073630.3.579.2.462 Unknown [id number] 2.16.8 40.1.971846.3.579.2.462 Unknown [id number] 2.16.8 40.1.143283.3.579.2.462 Unknown [id number] 2.16.8 40.1.287346.3.579.2.462 Unknown [id number] 2.16.8 40.1.326353.3.579.2.462 Unknown [id number] 2.16.8 40.1.872209.3.579.2.462 Unknown [id number] 2.16.8 40.1.232722.3.579.2.462 Unknown [id number] 2.16.8 40.1.942883.3.579.2.462 Unknown [id number] 2.16.8 40.1.192468.3.579.2.462 Unknown [id number] 2.16.8 40.1.718153.3.579.2.462 Social History Date Type Detail Facility Start: 09-14-2021 End: 09-14-2021 Tobacco smoking status NHIS Unknown if ever smoked [facility] Start: 04-28-2021 Non-smoker [facility] Start: 1970 Sex Assigned At Female W [facility] Start: 04-21-2017 Occasional [facility] Start: 04-21-2017 None [facility] Start: 04-21-2017 Spouse/ Signif icant Other [facility] Start: 02-17-2024 End: 06-10-2024 Tobacco smoking status NHIS Never smoked tobacco (finding) [facility] Start: 05-27-2024 End: 06-23-2024 Sex Female (finding) [facility] Goals Date Patient Goal Desired Activity /State Clinical Notes 02-17-2024 to 09-04-2024 Note Date & Type Note Facility 09-04-2024 Radiology Diagnostic study note [facility] Imaging Services [address] [place], [place] [address] Wrist min 3 Views MR#: [id number] Acct: [id number] Name: GABRIELA RUSSELL KYLE Rep #: [id number] : 1970 F 54 From: Stacy Calixto MD PCP: Dr. Kandy Valle, DO Status: REG CLI Study:Wrist min 3 Views Date of Exam: Exam# [id number] Ordering Dr: Tenisha Hammond PROCEDURE: WRIST MIN 3 VIEWS 09/03/2024 REASON FOR EXAM: WRSIT AND HAND PAIN/NUMBNESS TECHNIQUE: WRIST MIN 3 VIEWS COMPARISON: None. FINDINGS: Mild osteopenia of the visualized bones. Degenerative joint disease. No fracture or dislocation is seen. . RAD/Wrist min 3 Views IMPRESSION: No evidence for acute abnormality. Reading [facility] CC: PIPE Hammond; Dr. Kandy Valle, DO ~ Binder Fixer: Signed [facility] 09-03-2024 Procedure note [facility] 08-08-2024 Evaluation note Diagnosis Onset Date Resolution Arm paresthesia, left acute August 08, 2024 1:15pm Wrist pain, left acute July 1:15pm [facility] Work Phone: 1(844) 200-850503-25-2025 Procedure note [facility] Pulmonary Services/Neurology [address] [place] [address] MR#: [id number] Acct: [id number] Name: GABRIELA RUSSELL KYLE Rep #:[id number] : 1970 54 From: Roshni Kirkpatrick MD Referring Dr: Priti Hammond tatus: REG CLI Location: [facility] Date: 06/10/24 Sex: F C NCS and/or EMG Patient Report Ordering Doctor: Priti Hammond DATE OF SERVICE: 06/10/24 Clinical Summary: 54 year old female patient with symptoms of numbness in the first three digits of the right hand and decreased range of motion of the thumb. She has a history of right carpal tunnel release surgery about 8 to 9 years ago. Nerve Conduction Studies Summary: Nerve conduction studies of the right upper extremity were performed. The right median-D2 SNAP distal latency was prolonged with reduced amplitude. The right median-APB CMAP distal latency was prolonged. Needle Examination Summary: Needle examination of the right upper extremity demonstrated increased insertional activity and spontaneous activity (positive sharp waves and fibrillation potentials) in the right abductor pollicis brevis muscle. No motor units were seen in the right abductor pollicis brevis muscle. Impression: This is an abnormal study. There is electrodiagnostic evidence of the following - 1) Severe, right median mononeuropathy at the wrist (carpal tunnel syndrome), with active denervation NOTE: in comparison to the EMG/NCS performed on , there has been interval worsening of the right median sensory and motor response amplitudes anddevelopment of active denervation. Multi Select Codes Neurology Neurology Interp Codes: 45433-14 Musc test done w/n test comp (interp) (1) and 53894-18 Nrv cndj tst 5-6 studies (interp) 06/10/24 0937 MD> Date _ Roshni Kirkpatrick MD CC: INTERNATIONAL FIRST OFFICERClarisse Hammond; Dr. Roshni Kirkpatrick MD; Dr. Kandy Valle, ~ Date Dictated: 06/10/24928 Date Transcribed: 06/10/24928 Binder Fixer: Signed [facility]03-10-2025 Evaluation note* Diagnosis Onset Date Resolution Status Admit Date Hand pain, right acute May 262024 3:01pm Right hand paresthesia acute [facility] 2024 3:01pm Sprain of hand, thumb, right acute May 26, 2024 3:01pm Carpal tunnel syndrome of ri ght wrist acute June 10, 2024 2:28pm Right hand paresthesia acute [facility] 2024 2:28pm Arm paresthesia, left acute August 08, 2024 1:15pm Wrist pain, left acute July 1:15pm [facility] Work Phone: 1(649) 291-209102-27-2025 Radiology Diagnostic study note [facility] Imaging Services [address] [place], [place] [address] Wrist min 3 Views MR#: [id number] Acct: [id number] Name: GABRIELA RUSSELL KYLE Rep #: [id number] : 1970 F 54 From: Nakul Murphy DO PCP: Dr. Kandy Valle, Status: REG CLI Study:Wrist min 3 Views Date of Exam: Exam# [id number] Ordering Dr: Tenisha Hammond PROCEDURE: Right wrist radiographs REASON FOR EXAM: Pain, weakness TECHNIQUE: Three views of the right wrist COMPARISON: None. FINDINGS: See impression RAD/Wrist min 3 Views IMPRESSION: Negative for acute displaced fracture or dislocation. No significant arthropathy. Reading Location: [facility] CC: INTERNATIONAL FIRST OFFICER-C Priti Hammond; Dr. Kandy Valle DO ~ Binder Fixer: Signed [facility]02-27-2025 Evaluation note* Diagnosis Onset Date Resolution Status Admit Date Sprain of hand, thumb, right acute May 15, 2024 12:43pm Segmental and somatic dysfunction of cervical region acute [facility] 2024 2:59pm Segmental and somatic dysfunction of lumbar region acute Mar 2024 2:59pm Segmental and somatic dysfunction of pelvic region acute [facility] 2024 2:59pm Segmental and somatic dysfunction of thoracic region acute [facility] 2024 2:59pm Hand pain, right acute May 262024 3:01pm Right hand paresthesia acute [facility] 2024 3:01pm Sprain of hand, thumb, right acute May 26, 2024 3:01pm Carpal tunnel syndrome of right wrist acute June 10, 2024 2:28pm Right hand paresthesia acute [facility] 2024 2:28pm [facility] Work Phone: 1(191) 923-288402-27-2025 Evaluation note* Diagnosis Onset Date Resolution Status Admit Date Sprain of hand, thumb, right acute May 15, 2024 12:43pm Segmental and somatic dysfunction of cervical region acute [facility] 2024 2:59pm Segmental and somatic dysfunction of lumbar region acute Mar 2024 2:59pm Segmental and somatic dysfunction of pelvic region acute Mar 2024 2:59pm Segmental and somatic dysfunction of thoracic region acute [facility] 2024 2:59pm Hand pain, right acute May 262024 3:01pm Right hand paresthesia acute [facility] 2024 3:01pm Sprain of hand, thumb, right acute May 26, 2024 3:01pm Carpal tunnel syndrome of right wrist acute June 10, 2024 2:28pm Right hand paresthesia acute [facility] 2024 2:28pm Arm paresthesia, left acute August 08, 2024 1:15pm Wrist pain, left acute July 1:15pm [facility] Work Phone: 1(860) 880-747712-01-2024 Evaluation note* Diagnosis Onset Date Resolution Status Admit Date Urinary tract infection with hematuria acute February 16 8:01am Sprain of hand, thumb, right acute May 15, 2024 12:43pm Segmental and somatic dysfunction of cervical region acute [facility] 2024 2:59pm Segmental and somatic dysfunction of lumbar region acute Mar 2024 2:59pm Segmental and somatic dysfunction of pelvic region acute [facility] 2024 2:59pm Segmental and somatic dysfunction of thoracic region acute [facility] 2024 2:59pm Hand pain, right acute May 262024 3:01pm Right hand paresthesia acute [facility] 2024 3:01pm Sprain of hand, thumb, right acute May 26, 2024 3:01pm [facility] Work Phone: 1(823) 761-658612-01-2024 Evaluation note* Diagnosis Onset Date Resolution Status Admit Date Urinary tract infection with hematuria acute February 16 8:01am Sprain of hand, thumb, right acute May 15, 2024 12:43pm Segmental and somatic dysfunction of cervical region acute [facility] 2024 2:59pm Segmental and somatic dysfunction of lumbar region acute [facility] 2024 2:59pm Segmental and somatic dysfunction of pelvic region acute [facility] 2024 2:59pm Segmental and somatic dysfunction of thoracic region acute [facility] 2024 2:59pm Hand pain, right acute May 262024 3:01pm Right hand paresthesia acute [facility] 2024 3:01pm Sprain of hand, thumb, right acute May 26, 2024 3:01pm Carpal tunnel syndrome of right wrist acute June 10, 2024 2:28pm Right hand paresthesia acute [facility] 2024 2:28pm [facility] Work Phone: Evaluation note* Diagnosis Onset Date Resolution Status Urinary tract infection with hematuria acute [facility] Work Phone: Evaluation noteNo assessment information available [facility] Work Phone: Hospital Discharge instructionsAmbulatory Orders* Occupational Therapy Referral Location: None Selected [facility] Work Phone: Reason for referral (narrative)No reason for referral information [facility] Work Phone: Chief Complaint and Reason for Visit Chief Complaint CONCERN FOR UTI SCREENING Reason for Visit Urinary tract infect ion with hematuria Chief Complaint SCREENING HRA Chief Complaint HRA Chief Complaint SCREENING Chief Complaint Admit Date Urinary tract infection February 16 8:01am URINE February 18, 2024 1 0:40am E-ORDER May 15, 2024 12:31pm RIGHT HAND May 15, 2024 12:43pm Back pain May 19, 2024 2:59 pm RIGHT HAND May 26, 2024 3:0 1pm Reason for Visit Admit Date Urinary tract infection with hematuria D ecember 2023 8:01am Sprain of hand, thumb, right May 152024 12:43pm Segmental and somatic dysfunction of cer vical region May 19, 2024 2:59pm Segmental and somatic dysfunction of lum bar region May 19, 2024 2:59pm Segmental and somatic dysfunction of pel annabelle region May 19, 2024 2:59pm Segmental and somatic dysfunction of tho racic region May 19, 2024 2:59pm Hand pain, right May 26, 2024 3:0 1pm Right hand paresthesia May 26, 2024 3:01pm Sprain of hand, thumb, right May 26, 2024 3:01pm Chief Complaint Admit Date Urinary tract infection February 16 8:01am URINE February 18, 2024 1 0:40am E-ORDER May 15, 2024 12:31pm RIGHT HAND May 15, 2024 12:43pm Back pain May 19, 2024 2:59 pm RIGHT HAND May 26, 2024 3:0 1pm RIGHT HAND PARASTHESIA. RX HERE June 092024 12:00pm RUE; thumb weakness, decreased sensation June 10, 2024 8:38am RUE; thumb weakness, decreased sensation June 10, 2024 9:29am RIGHT HAND June 10, 2024 2:2 8pm Reason for Visit Admit Date Urinary tract infection with hematuria D ecember 2023 8:01am Sprain of hand, thumb, right May 152024 12:43pm Segmental and somatic dysfunction of cer vical region May 19, 2024 2:59pm Segmental and somatic dysfunction of lum bar region May 19, 2024 2:59pm Segmental and somatic dysfunction of pel annabelle region May 19, 2024 2:59pm Segmental and somatic dysfunction of tho racic region May 19, 2024 2:59pm Hand pain, right May 26, 2024 3:0 1pm Right hand paresthesia May 26, 2024 3:01pm Sprain of hand, thumb, right May 26, 2024 3:01pm Carpal tunnel syndrome of right wrist [facility] 2024 2:28pm Right hand paresthesia June 10, 2024 2:28pm Chief Complaint Admit Date E-ORDER May 15, 2024 12:31pm RIGHT HAND May 15, 2024 12:43pm Back pain May 19, 2024 2:59 pm RIGHT HAND May 26, 2024 3:0 1pm RIGHT HAND PARASTHESIA. RX HERE June 092024 12:00pm RUE; thumb weakness, decreased sensation June 10, 2024 8:38am RUE; thumb weakness, decreased sensation June 10, 2024 9:29am RIGHT HAND June 10, 2024 2:2 8pm Reason for Visit Admit Date Sprain of hand, thumb, right May 152024 12:43pm Segmental and somatic dysfunction of cer vical region May 19, 2024 2:59pm Segmental and somatic dysfunction of lum bar region May 19, 2024 2:59pm Segmental and somatic dysfunction of pel annabelle region May 19, 2024 2:59pm Segmental and somatic dysfunction of tho racic region May 19, 2024 2:59pm Hand pain, right May 26, 2024 3:0 1pm Right hand paresthesia May 26, 2024 3:01pm Sprain of hand, thumb, right May 26, 2024 3:01pm Carpal tunnel syndrome of right wrist [facility] 2024 2:28pm Right hand paresthesia June 10, 2024 2:28pm Chief Complaint Admit Date E-ORDER May 15, 2024 12:31pm RIGHT HAND May 15, 2024 12:43pm Back pain May 19, 2024 2:59 pm RIGHT HAND May 26, 2024 3:0 1pm RIGHT HAND PARASTHESIA. RX HERE June 092024 12:00pm RUE; thumb weakness, decreased sensation June 10, 2024 8:38am RUE; thumb weakness, decreased sensation June 10, 2024 9:29am RIGHT HAND June 10, 2024 2:2 8pm HYPERGLYCEMIA July 10, 2024 6:5 1am LEFT HAND August 08, 2024 1:15p m LUE; Paresthesia of skin September 03, 2024 1:09pm LUE; Paresthesia of skin September 03, 2024 2:09pm CARPAL TUNNEL SYNDROME RIGHT LIMB. RX HE RE September 04, 2024 1:30pm Reason for Visit Admit Date Sprain of hand, thumb, right May 152024 12:43pm Segmental and somatic dysfunction of cer vical region May 19, 2024 2:59pm Segmental and somatic dysfunction of lum bar region May 19, 2024 2:59pm Segmental and somatic dysfunction of pel annabelle region May 19, 2024 2:59pm Segmental and somatic dysfunction of tho racic region May 19, 2024 2:59pm Hand pain, right May 26, 2024 3:0 1pm Right hand paresthesia May 26, 2024 3:01pm Sprain of hand, thumb, right May 26, 2024 3:01pm Carpal tunnel syndrome of right wrist [facility] 2024 2:28pm Right hand paresthesia June 10, 2024 2:28pm Arm paresthesia, left August 08, 2024 1:1 5pm Wrist pain, left August 08, 2024 1:15p m Chief Complaint Admit Date RIGHT HAND May 26, 2024 3:0 1pm RIGHT HAND PARASTHESIA. RX HERE June 092024 12:00pm RUE; thumb weakness, decreased sensation June 10, 2024 8:38am RUE; thumb weakness, decreased sensation June 10, 2024 9:29am RIGHT HAND June 10, 2024 2:2 8pm HYPERGLYCEMIA July 10, 2024 6:5 1am LEFT HAND August 08, 2024 1:15p m LUE; Paresthesia of skin September 03, 2024 1:09pm LUE; Paresthesia of skin September 03, 2024 2:09pm CARPAL TUNNEL SYNDROME RIGHT LIMB. RX HE RE September 22, 2024 3:30pm Reason for Visit Admit Date Hand pain, right May 26, 2024 3:0 1pm Right hand paresthesia May 26, 2024 3:01pm Sprain of hand, thumb, right May 26, 2024 3:01pm Carpal tunnel syndrome of right wrist [facility] 2024 2:28pm Right hand paresthesia June 10, 2024 2:28pm Arm paresthesia, left August 08, 2024 1:1 5pm Wrist pain, left August 08, 2024 1:15p m Chief Complaint Admit Date LEFT HAND August 08, 2024 1:15p m LUE; Paresthesia of skin September 03, 2024 1:09pm LUE; Paresthesia of skin September 03, 2024 2:09pm CARPAL TUNNEL SYNDROME RIGHT LIMB. RX HE RE September 22, 2024 3:30pm Reason for Visit Admit Date Arm paresthesia, left August 08, 2024 1:1 5pm Wrist pain, left August 08, 2024 1:15p m Family History No Family History Records Found Relationship Condition Age at Onset Recorded Date/T gemma mother Malignant neoplasm of breast Unknown father Cardiac disease Unknown grandfather Myocardial infarction Unknown Advance Directives No Advanced Directives Records Found Advance Directive Response Recorded Date/ Time Advance Directives No April 3:04pm Living Will No April 28, 2 022 3:04pm Power of Geospatial Developer No April 28, 2021 3:04pm Advance Directive Response Recorded Date/ Time Advance Directives No April 2:04pm Living Will No April 28, 2 022 2:04pm Power of Geospatial Developer No April 28, 2021 2:04pm Advance Directive Response Recorded Date/ Time Advance Directives No February 17, 2024 9:00am Advance Directive Response Recorded Date/ Time Advance Directives No June 10, 2 025 2:28pm Summary Purpose Additional Source Comments Goals (unrecognized section and content) Goals may be documented in a n alternate sectionGoals may be documented in an alternate sectionGoals may be documented in an alternate sectionGoals may be documented in an alternate sectionGoals may be documented in an alternate section Care Teams (unrecognized sec tion and content) Team Status: Active Member Role Status Dates Dr. Kandy Valle DO Primary Care Provider Active Team Status: Inactive Member Role Status Dates Dr. Kandy Valle DO Primary Care Provider Active Start: February 17, 2024 End: February 17, 2024 Dr. Kandy Valle DO Referring Provider Active St art: February 17, 2024 End: February 17, 2024 Danny Landaverde INTERNATIONAL FIRST OFFICER, INTERNATIONAL FIRST OFFICER-C Attending Provider Active S tart: February 17, 2024 End: February 17, 2024 Team Status: Inactive Member Role Status Dates Dr. Kandy Valle DO Primary Care Provider Active Start: February 18, 2024 End: February 18, 2024 Danny Landaverde INTERNATIONAL FIRST OFFICER INTERNATIONAL FIRST OFFICER-C Attending Provider Active S tart: February 18, 2024 End: February 18, 2024 Danny Landaverde INTERNATIONAL FIRST OFFICER INTERNATIONAL FIRST OFFICER-C Referring Provider Active S tart: February 18, 2024 End: February 18, 2024 Team Status: Inactive Member Role Status Dates Dr. Kandy Valle DO Primary Care Provider Active Start: May 15, 2024 End: May 15, 2024 PIPE Luna Attending Provider Active Start: May 15, 2024 End: May 15, 2024 PIPE Luna Referring Provider Active Start: May 15, 2024 End: May 15, 2024 Team Status: Inactive Member Role Status Dates Dr. Kandy Valle DO Primary Care Provider Active Start: May 15, 2024 End: May 15, 2024 Dr. Kandy Valle DO Referring Provider Active St art: May 15, 2024 End: May 15, 2024 PIPE Luna Attending Provider Active Start: May 15, 2024 End: May 15, 2024 Team Status: Inactive Member Role Status Dates Dr. Kandy Valle DO Primary Care Provider Active Start: May 19, 2024 End: May 19, 2024 Dr. Kandy Valle DO Referring Provider Active St art: May 19, 2024 End: May 19, 2024 Dr. Zulema Tobias , GUILLERMINA Attending Provider Active S tart: May 19, 2024 End: May 19, 2024 Team Status: Inactive Member Role Status Dates Dr. Kandy Valle DO Primary Care Provider Active Start: May 26, 2024 End: May 26, 2024 Dr. Kandy Valle DO Referring Provider Active St art: May 26, 2024 End: May 26, 2024 PIPE Luna Attending Provider Active Start: May 26, 2024 End: May 26, 2024 Team Status: Active Member Role Status Dates Dr. Kandy Valle DO Primary Care Provider Active Start: June 09, 2024 PIPE Luna Attending Provider Active Start: June 09, 2024 Team Status: Inactive Member Role Status Dates Dr. Kandy Valle DO Primary Care Provider Active Start: June 10, 2024 End: June 10, 2024 PIPE Luna Attending Provider Active Start: June 10, 2024 End: June 10, 2024 PIPE Luna Referring Provider Active Start: June 10, 2024 End: June 10, 2024 Team Status: Active Member Role Status Dates Dr. Kandy Valle DO Primary Care Provider Active Start: June 10, 2024 PIPE Luna Referring Provider Active Start: June 10, 2024 PIPE Luna Other Provider Active Star t: June 10, 2024 Dr. Roshni Kirkpatrick MD Attending Provider Active Start: June 10, 2024 Team Status: Inactive Member Role Status Dates Dr. Kandy Valle DO Primary Care Provider Active Start: June 10, 2024 End: June 10, 2024 Dr. Kandy Valle DO Referring Provider Active St art: June 10, 2024 End: June 10, 2024 PIPE Luna Attending Provider Active Start: June 10, 2024 End: June 10, 2024 Team Status: Active Member Role Status Dates Dr. Kandy Valle DO Family Provider Active Dr. Kandy Valle DO Primary Care Provider Active Team Status: Active Member Role Status Dates Dr. Kandy Valle DO Primary Care Provider Active Health Risk Assessment Attending Provider Active Team Status: Inactive Member Role Status Dates Dr. Kandy Valle DO Primary Care Provide r, Attending Provider, Referring Provider Active Team Status: Inactive Member Role Status Dates Dr. Kandy Valle DO Primary Care Provider Active Start: June 17, 2024 End: June 17, 2024 Dr. Kandy Valle DO Attending Provider Active St art: June 17, 2024 End: June 17, 2024 Dr. Kandy Valle DO Referring Provider Active St art: June 17, 2024 End: June 17, 2024 Team Status: Inactive Member Role Status Dates Dr. Kandy Valle DO Primary Care Provider Active Start: July 10, 2024 End: July 10, 2024 Dr. Kandy Valle DO Attending Provider Active St art: July 10, 2024 End: July 10, 2024 Dr. Kandy Valle DO Referring Provider Active St art: July 10, 2024 End: July 10, 2024 Team Status: Inactive Member Role Status Dates Dr. Kandy Valle DO Primary Care Provider Active Start: August 08, 2024 End: August 08, 2024 Dr. Kandy Valle DO Referring Provider Active St art: August 08, 2024 End: August 08, 2024 PIPE Luna Attending Provider Active Start: August 08, 2024 End: August 08, 2024 Team Status: Inactive Member Role Status Dates Dr. Kandy Valle DO Primary Care Provider Active Start: September 03, 2024 End: September 03, 2024 PIPE Luna Attending Provider Active Start: September 03, 2024 End: September 03, 2024 PIPE Luna Referring Provider Active Start: September 03, 2024 End: September 03, 2024 Team Status: Active Member Role Status Dates Dr. Kandy Valle DO Primary Care Provider Active Start: September 03, 2024 PIPE Luna Referring Provider Active Start: September 03, 2024 PIPE Luna Other Provider Active Star t: September 03, 2024 Dr. Michelle Barakat MD Attending Provider Active S tart: September 03, 2024 Team Status: Active Member Role Status Dates Dr. Kandy Valle DO Primary Care Provider Active Start: September 04, 2024 Maria Teresa Osborn PA-C Attending Provider Active Start: September 04, 2024 Maria Teresa Osborn PA-C Referring Provider Active Start: September 04, 2024 Team Status: Active Member Role/Relationship Status Dates Dr. Kandy Valle DO Primary Care Provider Active Team Status: Inactive Member Role/Relationship Status Dates Dr. Kandy Valle DO Primary Care Provider Active Start: May 26, 2024 End: May 26, 2024 Dr. Kandy Valle DO Referring Provider Active St art: May 26, 2024 End: May 26, 2024 PIPE Luna Attending Provider Active Start: May 26, 2024 End: May 26, 2024 Team Status: Active Member Role/Relationship Status Dates Dr. Kandy Valle DO Primary Care Provider Active Start: June 09, 2024 PIPE Luna Attending Provider Active Start: June 09, 2024 Team Status: Inactive Member Role/Relationship Status Dates Dr. Kandy Valle DO Primary Care Provider Active Start: June 10, 2024 End: June 10, 2024 PIPE Luna Attending Provider Active Start: June 10, 2024 End: June 10, 2024 PIPE Luna Referring Provider Active Start: June 10, 2024 End: June 10, 2024 Team Status: Active Member Role/Relationship Status Dates Dr. Kandy Valle DO Primary Care Provider Active Start: June 10, 2024 PIPE Luna Referring Provider Active Start: June 10, 2024 PIPE Luna Other Provider Active Star t: June 10, 2024 Dr. Roshni Kirkpatrick MD Attending Provider Active Start: June 10, 2024 Team Status: Inactive Member Role/Relationship Status Dates Dr. Kandy Valle DO Primary Care Provider Active Start: June 10, 2024 End: June 10, 2024 Dr. Kandy Valle DO Referring Provider Active St art: June 10, 2024 End: June 10, 2024 PIPE Luna Attending Provider Active Start: June 10, 2024 End: June 10, 2024 Team Status: Inactive Member Role/Relationship Status Dates Dr. Kandy Valle DO Primary Care Provider Active Start: June 17, 2024 End: June 17, 2024 Dr. Kandy Valle DO Attending Provider Active St art: June 17, 2024 End: June 17, 2024 Dr. Kandy Valle DO Referring Provider Active St art: June 17, 2024 End: June 17, 2024 Team Status: Inactive Member Role/Relationship Status Dates Dr. Kandy Valle DO Primary Care Provider Active Start: July 10, 2024 End: July 10, 2024 Dr. Kandy Valle DO Attending Provider Active St art: July 10, 2024 End: July 10, 2024 Dr. Knady Valle DO Referring Provider Active St art: July 10, 2024 End: July 10, 2024 Team Status: Inactive Member Role/Relationship Status Dates Dr. Kandy Valle DO Primary Care Provider Active Start: August 08, 2024 End: August 08, 2024 Dr. Kandy Valle DO Referring Provider Active St art: August 08, 2024 End: August 08, 2024 PIPE Luna Attending Provider Active Start: August 08, 2024 End: August 08, 2024 Team Status: Inactive Member Role/Relationship Status Dates Dr. Kandy Valle DO Primary Care Provider Active Start: September 03, 2024 End: September 03, 2024 PIPE Luna Attending Provider Active Start: September 03, 2024 End: September 03, 2024 PIPE Luna Referring Provider Active Start: September 03, 2024 End: September 03, 2024 Team Status: Active Member Role/Relationship Status Dates Dr. Kandy Valle DO Primary Care Provider Active Start: September 03, 2024 PPIE Luna Referring Provider Active Start: September 03, 2024 PIPE Luna Other Provider Active Star t: September 03, 2024 Dr. Michelle Barakat MD Attending Provider Active S tart: September 03, 2024 Team Status: Inactive Member Role/Relationship Status Dates Dr. Kandy Valle DO Primary Care Provider Active Start: September 22, 2024 End: September 22, 2024 Maria Teresa Osborn PA-C Attending Provider Active Start: September 22, 2024 End: September 22, 2024 Maria Teresa Osborn PA-C Referring Provider Active Start: September 22, 2024 End: September 22, 2024 Team Status: Inactive Member Role/Relationship Status Dates Dr. Kandy Valle DO Primary Care Provider Active Start: August 08, 2024 End: August 08, 2024 Dr. Kandy Valle DO Referring Provider Active St art: August 08, 2024 End: August 08, 2024 PIPE Luna Attending Provider Active Start: August 08, 2024 End: August 08, 2024 Team Status: Inactive Member Role/Relationship Status Dates Dr. Kandy Valle DO Primary Care Provider Active Start: September 03, 2024 End: September 03, 2024 PIPE Luna Attending Provider Active Start: September 03, 2024 End: September 03, 2024 PIPE Luna Referring Provider Active Start: September 03, 2024 End: September 03, 2024 Team Status: Active Member Role/Relationship Status Dates Dr. Kandy Valle DO Primary Care Provider Active Start: September 03, 2024 PIPE Luna Referring Provider Active Start: September 03, 2024 PIPE Luna Other Provider Active Star t: September 03, 2024 Dr. Michelle Barakat MD Attending Provider Active S tart: September 03, 2024 Team Status: Inactive Member Role/Relationship Status Dates Dr. Kandy Valle DO Primary Care Provider Active Start: September 22, 2024 End: September 22, 2024 Maria Teresa Osborn PA-C Attending Provider Active Start: September 22, 2024 End: September 22, 2024 Maria Teresa Osborn PA-C Referring Provider Active Start: September 22, 2024 End: September 22, 2024 INFORMATION SOURCE (unrecogn ized section and content) DATE CREATED AUTHOR 11/21/2024 [facility] FOR RECORDS PERTAINING TO PATIENTS WHO ARE OR HAVE BEEN ENROLLED IN A CHEMICAL DEPENDENCY/SUBSTANCEABUSE PROGRAM, SOME INFORMATION MAY BE OMITTED. This clinical summary was aggregated from multiple sources. Caution should be exercised in using it in the provision of clinical care. This summary normalizes information from multiple sources, and as a consequence, information in this document may materially change the coding, format and clinical context of patient data. In addition, data may be omitted in some cases. CLINICAL DECISIONS SHOULD BE BASED ON THE PRIMARY CLINICAL RECORDS. [email or web address] provides no warranty or guarantee of the accuracy or completeness of information in this document.
[2024-11-29 15:54] VITALS: BP 142/78; PULSE 64; RESP 18; TEMP 37.1; O2SAT 99
== END 2024-11-29 15:55 | disposition home or self-care (01) ==
PROVIDERS: Emergency Provider Emergency Medicine; PCP Family Medicine; Visit Provider Emergency Medicine
DX: M25.532 Pain in left wrist (principal); I10 Essential (primary) hypertension; W19.XXXA Unspecified fall, initial encounter
CPT/HCPCS: 73060; 73110; 73130; 99282

== ENCOUNTER → 2024-12-22 | Outpatient (CLI) | payer OTHER, SELFPAY ==
--- NOTE | 2024-12-22 15:08 | BI_ITS ---
EXAM: SCRN MAMM (CAD)W/DWIGHT BILAT DATE: 12/22/2024 CLINICAL HISTORY: F, Age 54 y/o , SCREENING TECHNIQUE: Procedure Code: [id number] Modality: MG Procedure: SCRN MAMM (CAD)W/DWIGHT BILAT COMPARISON: Prior exam(s) dated 2023.. FINDINGS: TISSUE DENSITY: The breasts are almost entirely fatty. Bilateral Breast Mammographic Findings: No significant masses, calcifications or other abnormalities are identified. STABLE SMALL BENIGN-APPEARING BILATERAL AXILLARY LYMPH NODES. No suspicious masses, areas of developing architectural distortion, or suspicious calcifications. There has been no significant interval change. BI/SCRN MAMM (CAD)W/DWIGHT BILAT IMPRESSION: STABLE BILATERAL SCREENING MAMMOGRAM. OVERALL FINAL ASSESSMENT BI-RADS 2: BENIGN RECOMMENDATION: Routine annual follow-up in 1 Year Additional Recommendation none A letter with findings and recommendations will be mailed to the patient. Reading Location: [facility]
--- NOTE | 2024-12-22 15:08 | BI_ITS ---
EXAM: SCRN MAMM (CAD)W/DWIGHT BILAT DATE: 12/22/2024 CLINICAL HISTORY: F, Age 54 y/o , SCREENING TECHNIQUE: Procedure Code: [id number] Modality: MG Procedure: SCRN MAMM (CAD)W/DWIGHT BILAT COMPARISON: Prior exam(s) dated 2023.. FINDINGS: TISSUE DENSITY: The breasts are almost entirely fatty. Bilateral Breast Mammographic Findings: No significant masses, calcifications or other abnormalities are identified. STABLE SMALL BENIGN-APPEARING BILATERAL AXILLARY LYMPH NODES. No suspicious masses, areas of developing architectural distortion, or suspicious calcifications. There has been no significant interval change. BI/SCRN MAMM (CAD)W/DWIGHT BILAT IMPRESSION: STABLE BILATERAL SCREENING MAMMOGRAM. OVERALL FINAL ASSESSMENT BI-RADS 2: BENIGN RECOMMENDATION: Routine annual follow-up in 1 Year Additional Recommendation none A letter with findings and recommendations will be mailed to the patient. Reading Location: [facility]
== END | disposition home or self-care (01) ==
LOC: OPBI 15:07
PROVIDERS: PCP Family Medicine; Referring Provider Family Medicine; Visit Provider Family Medicine
DX: Z12.31 Encounter for screening mammogram for malignant neoplasm of breast (principal)
CPT/HCPCS: 77063; 77067

== ENCOUNTER → 2025-01-08 | Outpatient (CLI) | payer OTHER, SELFPAY ==
--- NOTE | 2025-01-08 07:49 | CT_ITS ---
PROCEDURE: LIMITED CHEST CT CARDIAC ONLY 01/08/2025 REASON FOR EXAM: HYPERLIPIDEMIA, UNSPECIFIED. Hypertension. Family history of coronary artery disease. TECHNIQUE: Procedure Code: [id number] Modality: CT Procedure: LIMITED CHEST CT CARDIAC ONLY One or more dose reduction techniques were used (e.g., Automated exposure control, adjustment of the mA and/or kV according to patient size, use of iterative reconstruction technique). RADIATION DOSE SUMMARY: CTDlvol: 12.19 mGy DLP: 170.66 mGycm COMPARISON: None. CT/Limited Chest CT Cardiac Only IMPRESSION: Limited imaging of the lungs demonstrates no acute process. No pleural effusion or pneumothorax is seen in visualized areas. No adenopathy is noted. The visualized upper abdomen demonstrates no significant abnormality. Reading Location: [id number]
--- NOTE | 2025-01-08 07:49 | CT_ITS ---
PROCEDURE: LIMITED CHEST CT CARDIAC ONLY 01/08/2025 REASON FOR EXAM: HYPERLIPIDEMIA, UNSPECIFIED. Hypertension. Family history of coronary artery disease. TECHNIQUE: Procedure Code: [id number] Modality: CT Procedure: LIMITED CHEST CT CARDIAC ONLY One or more dose reduction techniques were used (e.g., Automated exposure control, adjustment of the mA and/or kV according to patient size, use of iterative reconstruction technique). RADIATION DOSE SUMMARY: CTDlvol: 12.19 mGy DLP: 170.66 mGycm COMPARISON: None. CT/Limited Chest CT Cardiac Only IMPRESSION: Limited imaging of the lungs demonstrates no acute process. No pleural effusion or pneumothorax is seen in visualized areas. No adenopathy is noted. The visualized upper abdomen demonstrates no significant abnormality. Reading Location: [id number]
--- NOTE | 2025-01-08 18:30 | CCTA_ITS ---
Calcium Scoring Date of Study:: 01/08/25 Indications Indications: Family history hypertension hyperlipidemia Coronary Calcium Scoring: High-resolution Computed Tomographic imaging of the chest was performed on [01/08/2025], with particular attention paid to the coronary arteries. Images from the examination were analyzed for the presence and extent of coronary artery calcification , using coronary calcium quantification software. The pa tient tolerated the procedure well and there were no complications. The results of the coronary calcification analysis are provided below. Findings Coronary Artery Left Main (LM): 0 Left Anterior Descending (LAD): 0 Left Circumflex (LCX): 0 Right Coronary Artery (RCA): 3.58 Total Agatston Score: 3.58 Percentile Rankin-75 Calcium Scoring Interpretation: Different methods to categorize the overall amount of coronary plaque. Overall amount CAC SIS Visual of coronary plaque P1 Mild -100 <2 1-2 vessels with mild amount of plaque P2 Moderate 101-300 3-4 1-2 vessels with moderate amount, 3 vessels with mild amount of plaque P3 Severe 301-999 5-7 3 vessels with moderate amount, 1 vessel with severe amount of plaque P4 Extensive >1000 >8 2-3 vessels with severe amount of plaque Calcium Score: Mild: 1-2 vessels w/mild amount of plaque Conclusion: Mild focal single-vessel atherosclerotic plaquing.
== END | disposition home or self-care (01) ==
LOC: CT 07:49
PROVIDERS: PCP Family Medicine; Referring Provider Nurse Practitioner Family; Visit Provider Nurse Practitioner Family
DX: E78.5 Hyperlipidemia, unspecified (principal)
CPT/HCPCS: 75571; 76380

== ENCOUNTER 2025-03-03 05:51 | Day surgery (SDC) | payer OTHER, SELFPAY ==
[2025-03-03] VITALS (9 sets, daily range): BP systolic 92–122; BP diastolic 69–85; PULSE 80–95; RESP 12–18; TEMP 36.3–36.6; O2SAT 92–98; BMI 34.3
--- OUTSIDE RECORDS SUMMARY | 2025-03-03 06:02 | XMS RPT_ITS | CCD ---
Author Organization [facility] Care Team Providers Care Space Technologist Name Role Phone Juan David Brink Unavailable Dr. Kandy Valle Primary Care Provider Dr. Kandy Valle Referring Provider 1([facility])[phone] BITA Elena Attending Provider Dr. Kandy Valle DO Primary Care Provider Dr. Kandy Valle DO Referring Provider 1([facility])[phone] Saima SIGNAL APPRENTICE-CDanny Attending Provider Saima SIGNAL APPRENTICE-CDanny Referring Provider Manish SIGNAL APPRENTICE-CPriti Attending Provider Manish SIGNAL APPRENTICE-CPriti Referring Provider 1([facility])[phone] Jatinder SARMIENTO, Dr. Poole Attending Provider Manish SIGNAL APPRENTICE-CPriti Other Provider Casimiro BELL, Dr. Barakat Attending Provider Dr. Kandy Valle DO Primary Care Provider 1([facility])[phone] Dr. Kandy Valle DO Referring Provider Dr. Kandy Valle DO Attending Provider 1([facility])[phone] Roshni BELL, Dr. Martinez Attending Provider 1([facility])[phone] Maria Teresa Osborn PA-C Attending Provider 1([facility])[phone] Maria Teresa Osborn PA-C Referring Provider Tori WALKER, Dr. Gaitan Primary Care Provider Tori WALKER, Dr. Gaitan Referring Provider Manish SIGNAL APPRENTICE-CPriti Attending Provider Manish SIGNAL APPRENTICE-C, Priti Referring Provider Maria Teresa Osborn PA-C Attending Provider Anurag SUNSHINE-CMaria Teresa Referring Provider Tori WALKER, Dr. Gaitan Primary Care Provider Tori WALKER, Dr. Gaitan Referring Provider Manish SIGNAL APPRENTICE-CPriti Attending Provider Manish SIGNAL APPRENTICE-C, Priti Referring Provider Manish SIGNAL APPRENTICE-C, Priti Other Provider Dr. Mikhail Davis DO Emergency Provider Tori WALKER, Dr. Gaitan Primary Care Physician Manish SIGNAL APPRENTICE-CPriti Attending Physician Manish SIGNAL APPRENTICE-CPriti Nurse Practitioner Roshni BELL, Dr. Martinez Attending Physician Maria Teresa Osborn PA-C Attending Physician Dr. Mikhail Davis DO Attending Physician [phone] Mikhail Davis DO Emergency Department Physic zoraida Assessment, Health Risk Attending Physician Unav ailable Assessment, Health Risk Referring Provider Unava ilable Tori WALKER, Dr. Gaitan Referring Provider [phone] Zulema Tobias DC Attending Physician Priti Hammond Attending Unavailable Kandy Valle Referring Unavailable Tori, Kandy Primary Care Unavailable Priti Hammond Consulting Unavailable Priti Hammond Referring Unavailable Roshni Kirkpatrick Attending Unavailable Malys, Kandy Primary Care Unavailable Michelle Barakat Attending Unavailable Priti Hammond Consulting Unavailable Priti Hammond Referring Unavailable Malys, Kandy Primary Care Unavailable Priti Hammond Attending Unavailable Malys, Kandy Primary Care Unavailable Malys, Kandy Referring Unavailable Malys, Kandy Attending Unavailable Malys, Kandy Referring Unavailable Malys, Kandy Primary Care Unavailable Roof SIGNAL APPRENTICE, Dnany H Referring Unavailable Roof SIGNAL APPRENTICE, Danny Varghese Attending Unavailable Malys, Kandy Primary Care Unavailable Malys, Kandy Attending Unavailable Malys, Kandy Primary Care Unavailable Malys, Kandy Referring Unavailable Malys, Kandy Primary Care Unavailable Malys, Kandy Referring Unavailable Zulema Tobias Attending Unavailable Eduardo, Pamella Referring Unavailable Eduardo, Pamella Consulting Unavailable Malys, Kandy Primary Care Unavailable Ramsey Gramajo Attending Unavailable Roof SIGNAL APPRENTICE, Danny H Attending Unavailable Malys, Kandy Referring Unavailable Malys, Kandy Primary Care Unavailable Malys, Kandy Primary Care Unavailable Malys, Kandy Referring Unavailable Malys, Kandy Attending Unavailable Priti Hammond Attending Unavailable Priti Hammond Referring Unavailable Malys, Kandy Primary Care Unavailable Priti Hammond Attending Unavailable Malys, Kandy Primary Care Unavailable Priti Hammond Attending Unavailable Priti Hammond Referring Unavailable Malys, Kandy Primary Care Unavailable Malys, Kandy Referring Unavailable Malys, Kanyd Attending Unavailable Malys, Kandy Primary Care Unavailable Malys, Kandy Primary Care Unavailable Assessment, Health Risk Referring Unavaila ble Assessment, Health Risk Attending Unavaila ble Malys, Kandy Primary Care Unavailable Jasbir Ascencio Attending Unavailable Malys, Kandy Primary Care Unavailable Mikhail Davis Attending Unavailable Priti Hammond Attending Unavailable Malys, Kandy Referring Unavailable Malys, Kandy Primary Care Unavailable Malys, Kandy Primary Care Unavailable KlucarMaria Teresa A Referring Unavailable KlucarMaria Teresa A Attending Unavailable Priti Hammond Referring Unavailable Priti Hammond Attending Unavailable Malys, Kandy Primary Care Unavailable Priti Hammond Attending Unavailable Malys, Kandy Referring Unavailable Malys, Kandy Primary Care Unavailable Malys, Kandy Primary Care Unavailable Malys, Kandy Referring Unavailable Jasbir Ascencio Attending Unavailable Malys, Kandy Referring Unavailable Malys, Kandy Primary Care Unavailable Zulema Tobias Attending Unavailable Eduardo, Pamella Referring Unavailable Eduardo, Pamella Attending Unavailable Malys, Kandy Primary Care Unavailable Allergies Allergy Classification Reported Allergen(s) Allergy Type Date of Onset Reaction(s) Facility (13 sources) Morphine Drug Allergy 05-02-2021 Nausea [facility] (1 source) Morphine Drug Allergy 01-21-2025 [facility] Repository Medications Current Medications Medication Drug Class(es) Dates Sig (Normalized) Sig (Original) amitriptyline hydrochloride 75 mg oral tablet (20 sources) Tricyclic Antidepressant Start: 12-14-2018 take 1 tablet by mouth once daily Start: 03-07-2016 End: 12-14-2018 take 1 tablet by mouth at bedtime Amitriptyline 100 MG tablet Discontinued 100 mg PO AT BEDTIME March 07, 2016 1:00am December 14, 2018 10:49am sleep/depression Start: 04-01-2014 take 1 tablet by deepthi th once daily at bedtime AMITRIPTYLINE HCL 75 MG TABS 1 po QHS AMITRIPTYLINE HCL [id number] June Alex PA-C amLODIPine 10 mg oral tablet (16 sources) Dihydropyridine Calcium Channel Adan Start: 08-05-2015 take 1 tablet by mouth once daily cyclobenzaprine hydrochloride 5 mg oral tablet (13 sources) Muscle Relaxant Start: 05-02-2021 Start: 05-02-2021 Cyclobenzaprin e Active EACH PO May 02, 2021 1:00am escitalopram 10 mg oral tablet (8 sources) Serotonin Reuptake Inhibitor Start: 05-15-2024 take 1 mg by mouth once daily lisinopril 10 mg oral tablet (20 sources) Angiotensin Converting Enzyme Inhibitor Start: 12-14-2018 take 1 tablet by mouth once daily Start: 03-07-2016 End: 12-14-2018 take 1 tablet by mouth once daily Lisinopril 20 MG tablet Discontinued 20 mg PO DAILY March 07, 2016 1:00am December 14, 2018 10:50am BP Start: 02-24-2014 take 1 tablet by deepthi th once daily LISINOPRIL 10 MG TABS One tablet by mouth daily LISINOPRIL [id number] Kandy Valle DO Start: 02-24-2014 take 2 tablets by mo uth once daily LISINOPRIL 10 MG TABS Two tablets by mouth daily LISINOPRIL [id number] Cipriano Guzman DO meloxicam 15 mg oral tablet (16 sources) Nonsteroidal Anti-inflammatory Drug Start: 07-21-2020 take 1 tablet by mouth once daily Start: 10-18-2016 take 1 tablet by deepthi th once daily MELOXICAM 15 MG TABS 1 po daily MELOXICAM [id number] Juan David June [place] 24 hr metoprolol succinate 100 mg extended release oral tablet (20 sources) beta-Adrenergic Adan Start: 03-07-2016 take 1 tablet by mouth once daily Start: 02-24-2014 End: 08-05-2015 METOPROLOL SUCCINATE ER 100 MG [id number] METOPROLOL SUCCINATE [id number] Cipriano Guzman DO Multivitamin 1 EACH tablet (8 sources) Start: 03-07-2016 Start: 03-07-2016 Multivitamin 1 EACH tablet Active [...] omeprazole 20 mg delayed release oral capsule (19 sources) Proton Pump Inhibitor Start: 03-07-2016 take 1 capsule by mouth once daily Start: 02-24-2014 [facility] OMEPRAZOLE 20 MG [facility] OMEPRAZOLE [id number] Cipriano Guzman DO pravastatin sodium 20 mg oral tablet (8 sources) HMG-CoA Reductase Inhibitor Start: 05-28-2023 take 1 tablet by mouth once daily Completed/Discontinued Medications Medication Drug Class(es) Dates Sig (Normalized) Sig (Original) acetaminophen 325 mg oral tablet (13 sources) Start: 04-21-2017 End: 12-14-2018 Acetaminophen 325 [...] / HYDROcodone bitartrate 5 mg oral tablet (13 sources) Opioid Agonist Start: 03-24-2017 End: 04-21-2017 [...] 24, 2017 1:00am April 21, 2017 11:16am [id number] 200 actuat albuterol 0.09 mg/actuat metered dose inhaler (6 sources) beta2-Adrenergic Agonist Start: 04-21-2017 End: 05-28-2023 Albuterol Sulfate 1 PUFF inhaler Discontinued 1 - 2 NMA INHALATION EVERY 4 HOURS NEEDED as needed for dyspnea, wheezing April 21, 2017 1:00am May 28, 2023 3:37pm Start: 04-21-2017 take 1 puff(s) by in halation every four hours as needed Albuterol Sulfate Active 1 - 2 PUFF INHALATION EVERY 4 HOURS NEEDED April 21, 2017 12:00am Start: 04-21-2017 take 1 puff(s) by in halation every four hours as needed Albuterol Sulfate Active 1 - 2 PUFF INHALATION EVERY 4 HOURS NEEDED April 21, 2017 1:00am Albuterol Sulfate 1 PUFF inhaler (7 sources) Start: 04-21-2017 End: 05-28-2023 Albuterol Sulfate 1 PUFF inhaler Discontinued 1 - 2 NMA INHALATION EVERY 4 HOURS NEEDED as needed for dyspnea, wheezing April 21, 2017 1:00am May 28, 2023 3:37pm azithromycin 250 mg oral tablet (13 sources) Macrolide Antimicrobial Start: 12-16-2018 End: 12-16-2018 [...] by mouth daily CALCIUM CARBONATE-VITAMIN D CAPS [id number] Kandy Valle DO calcium citrate 1500 mg / cholecalciferol 250 unt oral tablet (13 sources) Vitamin D Start: 03-07-2016 End: 12-14-2018 [...] One tablet by mouth daily CETIRIZINE HCL [id number] Kandy Valle DO clindamycin 0.01 mg/mg topical gel (3 sources) Lincosamide Antibacterial Start: 03-15-2015 CLINDAMYCIN PHOSPHATE 1 % GEL apply thin layer to affected area 1-2 times daily CLINDAMYCIN PHOSPHATE [id number] Kandy Valle DO Cranberry Conc-Ascorbic Acid (5 sources) Start: 03-07-2016 End: 12-14-2018 Cranberry Conc-Ascorbic Acid Discontinued 1 EACH PO DAILY March 07, 2016 12:00am December 14, 2018 9:49am Start: 03-07-2016 End: 12-14-2018 Cranberry Conc-Ascorbic Acid Discontinued 1 EACH PO DAILY March 07, 2016 1:00am December 14, 2018 10:49am Cranberry Conc-Ascorbic Acid 1 EACH capsule (8 sources) Start: 03-07-2016 End: 12-14-2018 Cranberry Conc-Ascorbic [...] caps once daily CRANBERRY-VITAMIN C-VITAMIN E CAPS [id number] Kandy Valle DO docusate sodium 100 mg oral capsule (13 sources) Start: 03-14-2016 End: 04-21-2017 take 1 capsule by mouth twice daily as needed for constipation Docusate Sodium 100 MG capsule Discontinued 100 mg PO TWICE DAILY NEEDED as needed for Constipation 10 0 March 14, 2016 1:00am April 21, 2017 11:14am docusate sodium 50 mg / sennosides, alf 8.6 mg oral tablet (13 sources) Start: 04-21-2017 End: 12-14-2018 Sennosides-Docusate Sodium 1 TABLET tablet Discontinued 2 {tbl} PO DAILY 60 0 April 21, 2017 1:00am December 14, 2018 10:50am Start: 04-21-2017 End: 12-14-2018 take 2 tablets by mouth once daily Sennosides-Docusate Sodium Discontinued 2 TABLET PO DAILY 60 April 21, 2017 1:00am December 14, 2018 10:50am fluticasone propionate 0.05 mg/actuat metered dose nasal spray (9 sources) Corticosteroid Start: 02-24-2014 End: 12-07-2014 take 2 spray(s) nasal route once daily FLUTICASONE PROPIONATE 50 MCG/ACT SUSP 2 sprays each nostril once daily FLUTICASONE PROPIONATE [id number] Kandy Valle DO gemfibrozil 600 mg oral tablet (13 sources) Peroxisome Proliferator Receptor alpha Agonist Start: 07-21-2020 End: 05-28-2023 take 1 tablet by mouth twice daily Gemfibrozil 600 mg Tablet Discontinued 600 mg PO TWICE A DAY July 21, 2020 12:00am May 28, 2023 3:38pm methylPREDNISolone 4 mg oral tablet (8 sources) Corticosteroid Start: 05-15-2024 End: 05-26-2024 take [...] TABS One tablet by mouth daily METHYLSULFONYLMETHANE [id number] Kandy Valle DO [facility] [place] [employer] (3 sources) Start: 02-24-2014 take 2 tablets by mouth once daily GLUCOSAMINE CHONDROITIN ADV TABS Two tablets by mouth daily [facility] [place] [employer] [id number] Kandy Valle DO naproxen 500 mg oral tablet (13 sources) Nonsteroidal Anti-inflammator y Drug Start: 03-24-2017 End: 04-21-2017 take 1 tablet by mouth twice daily as needed Naproxen 500 MG tablet Discontinued 500 mg PO TWICE DAILY NEEDED March 24, 2017 1:00am April 21, 2017 11:16am No Diagnosis Code nitrofurantoin, macrocrystals 25 mg / nitrofurantoin, monohydrate 75 mg oral capsule (20 sources) Nitrofuran Antibacterial Start: 02-17-2024 End: 02-24-2024 [...] meal/food oxyCODONE hydrochloride 5 mg oral tablet (13 sources) Opioid Agonist Start: 04-21-2017 End: 12-14-2018 [...] pulmonale potassium gluconate 2.5 meq oral tablet (16 sources) Start: 03-07-2016 End: 12-14-2018 take 1 tablet by mouth once daily Potassium 99 MG tablet Discontinued 99 mg PO DAILY March 07, 2016 1:00am December 14, 2018 10:50am supplement Start: 02-24-2014 POTASSIUM GLUC SUDHA TABS 99mg once daily POTASSIUM GLUCONATE TABS [id number] Kandy Valle DO rivaroxaban 20 mg oral tablet (13 sources) Factor Xa Inhibitor Start: 04-20-2017 End: 12-14-2018 take 1 tablet by mouth once daily Rivaroxaban 1 EACH tablets,dose pack Discontinued 1 NMA PO DIRECTED 1 April 20, 2017 1:00am December 14, 2018 10:50am Acute BL Pulmonary Emboli Please take xarelto pack as noted with 15 mg po BID x 21 days and then transition to 20 mg daily following. simvastatin 10 mg oral tablet (16 sources) HMG-CoA Reductase Inhibitor Start: 03-07-2016 End: 12-14-2018 take 1 tablet by mouth at bedtime Simvastatin 10 MG tablet Discontinued 10 mg PO AT BEDTIME March 07, 2016 1:00am December 14, 2018 10:50am cholesterol Start: 03-02-2014 take 1 tablet by deepthi th once daily at bedtime SIMVASTATIN 20 MG TABS 1 po daily at bedtime SIMVASTATIN [id number] Kandy Valle DO temazepam 7.5 mg oral capsule (6 sources) Benzodiazepine Start: 02-24-2014 End: 04-01-2014 take 1 capsule by mouth once daily for sleep TEMAZEPAM 7.5 MG CAPS 1-2 po every night for sleep TEMAZEPAM [id number] Kandy Valle DO traMADol hydrochloride 50 mg oral tablet (3 sources) Opioid Agonist Start: 10-18-2016 take 1 tablet by mouth every eight hours as needed TRAMADOL HCL 50 MG TABS 1-2 po q8h prn TRAMADOL HCL [id number] Juan David Brink valACYclovir 1000 mg oral tablet (3 sources) Herpesvirus Nucleoside Analog DNA Polymerase Inhibitor, Herpes Simplex Virus Nucleoside Analog DNA Polymerase Inhibitor, Herpes Zoster Virus Nucleoside Analog DNA Polymerase Inhibitor Start: 02-24-2014 VALACYCLOVIR HCL 1 GM TABS 2 tabs every 12 hours as needed for cold sores VALACYCLOVIR HCL [id number] Kandy Valle, DO Problems Active Problems Problem Classification Problem Date Documented Date Episodic/Chronic Benign neoplasm of uterus (13 sources) Uterine leiomyoma; Translations: [Leiomyoma of uterus, unspecified] 04-21-2017 Episodic Disorders of lipid metabolism (18 sources) Hyperlipidemia; Translations: [Hyperlipidemia, unspecified] Onset: 5 09-04-2014 Chronic E Codes: Fall (2 sources) Fall; Translations: [Unspecified fall, initial encounter] 11-29-2024 Episodic Esophageal disorders (3 sources) Gastroesophageal reflux disease; Translations: [Gastro-esophageal reflux disease without esophagitis] Onset: 4 02-24-2014 Chronic Essential hypertension (16 sources) Hypertensive disorder; Translations: [Essential (primary) hypertension] 02-24-2014 Chronic Immunizations and screening for infectious disease (13 sources) Patient encounter status; Translations: [Encounter for screening for COVID-19] 03-09-2021 Episodic Joint disorders and dislocations; trauma-related (2 sources) Derangement of knee; Translations: [Unspecified internal derangement of right knee] Onset: 7 10-30-2016 Chronic Menstrual disorders (6 sources) Dysmenorrhea; Translations: [Menorrhagia] Onset: 6 06-28-2015 Chronic Nonspecific chest pain (13 sources) Chest pain; Translations: [Chest pain, unspecified] 07-22-2020 Episodic Osteoarthritis (2 sources) Localized, primary osteoarthritis; Translations: [Unilateral primary osteoarthritis, right knee] Onset: 7 10-30-2016 Chronic Other bone disease and musculoskeletal deformities (20 sources) Segmental and somatic dysfunction; Translations: [Segmental and somatic dysfunction of cervical region] 05-29-2023 Episodic Other bone disease and musculoskeletal deformities (1 source) Segmental and somatic dysfunction of pelvic region; Translations: [Segmental and somatic dysfunction of pelvic region] Onset: 5 Episodic Other bone disease and musculoskeletal deformities (1 source) Segmental and somatic dysfunction of lumbar region; Translations: [Segmental and somatic dysfunction of lumbar region] Onset: 5 Episodic Other bone disease and musculoskeletal deformities (1 source) Segmental and somatic dysfunction of thoracic region; Translations: [Segmental and somatic dysfunction of thoracic region] Onset: 5 Episodic Other bone disease and musculoskeletal deformities (1 source) Segmental and somatic dysfunction of cervical region; Translations: [Segmental and somatic dysfunction of cervical region] Onset: 5 Episodic Other connective tissue disease (20 sources) Hand pain; Translations: [Pain in right hand] 05-14-2024 Episodic Other connective tissue disease (1 source) Pain in right hand; Translations: [Pain in right hand] 05-14-2024 Episodic Other connective tissue disease (1 source) Pain in right hand; Translations: [Pain in right hand] Onset: 5 Episodic Other female genital disorders (13 sources) Enlarged uterus; Translations: [Hypertrophy of uterus] 04-21-2017 Episodic Other nervous system disorders (3 sources) Carpal tunnel syndrome; Translations: [Carpal tunnel syndrome, right upper limb] Onset: 6 12-16-2015 Chronic Other nervous system disorders (11 sources) Carpal tunnel syndrome of right wrist; Translations: [Carpal tunnel syndrome, right upper limb] 06-10-2024 Chronic Other nervous system disorders (1 source) Carpal tunnel syndrome, right upper limb; Translations: [Carpal tunnel syndrome, right upper limb] Onset: 5 Chronic Other nervous system disorders (13 sources) Paresthesia of upper limb; Translations: [Anesthesia of skin] 05-02-2021 Episodic Other nervous system disorders (17 sources) Paresthesia of hand ; Translations: [Paresthesia of skin] 05-14-2024 Episodic Other nervous system disorders (9 sources) Paresthesia of left upper limb; Translations: [Paresthesia of skin] 08-08-2024 Episodic Comment on above: Current symptoms, pr ogression and exam findings consistent with carpal tunnel syndrome Other nervous system disorders (2 sources) Paresthesia of skin; Translations: [Paresthesia of skin] Onset: 5 Episodic Other non-traumatic joint disorders (12 sources) Pain in wrist; Translations: [Pain in left wrist] Onset: 6 12-22-2015 Episodic Other non-traumatic joint disorders (2 sources) Pain of left wrist; Translations: [Pain in left wrist] 08-08-2024 Episodic Other non-traumatic joint disorders (2 sources) Pain in left wrist; Translations: [Pain in left wrist] Onset: 5 Episodic Other nutritional; endocrine; and metabolic disorders (13 sources) Body mass index 30+ - obesity; Translations: [Obesity, unspecified] 04-20-2017 Chronic Other screening for suspected conditions (not mental disorders or infectious disease) (1 source) Encounter for screening mammogram for malignant neoplasm of breast; Translations: [Encounter for screening mammogram for malignant neoplasm of breast] Onset: 5 Episodic Other upper respiratory disease (3 sources) Allergic rhinitis; Translations: [Allergic rhinitis, unspecified] Onset: 4 02-24-2014 Chronic Other upper respiratory infections (20 sources) Acute upper respiratory infection; Translations: [Acute upper respiratory infection, unspecified] 12-16-2018 Episodic Pulmonary heart disease (13 sources) Pulmonary embolism; Translations: [Other pulmonary embolism without acute cor pulmonale] 04-20-2017 Episodic Residual codes; unclassified (13 sources) Postoperative state; Translations: [Other specified postprocedural states] 04-21-2017 Episodic Spondylosis; intervertebral disc disorders; other back problems (8 sources) Backache; Translations: [Dorsalgia, unspecified] 05-29-2023 Episodic [...] initial encounter] Onset: 10-18-2016 10-30-2016 Episodic Other connective tissue disease (3 sources) [...] right knee] Onset: 10-18-2016 10-18-2016 Episodic Other skin disorders (3 sources) Acne vulgaris; Translations: [Acne vulgaris] Onset: 03-15-2015 03-16-2015 Episodic Other skin disorders (3 sources) Senile hyperkeratosis; Translations: [Other seborrheic keratosis] Onset: 02-24-2014 02-27-2014 Episodic Residual codes; unclassified (3 sources) Edema of lower extremity; Translations: [Localized edema] Onset: 07-14-2015 Resolved: 07-24-2015 07-14-2015 Episodic Residual codes; unclassified (3 sources) Insomnia; Translations: [Psychophysiologic insomnia] Onset: 02-24-2014 02-24-2014 Episodic Unclassified (13 sources) carpal tunnel surgery 10-13-2021 Unclassified (13 sources) tailbone cyst 10-13-2021 Urinary tract infections (17 sources) Urinary tract infectious disease; Translations: [Urinary tract infection, site not specified] Onset: 03-18-2024 Episodic Results Test Name Value Interpretation Reference Range Facility Orthopedic Visit Reporton Orthopedic Visit Report [facility] [facility] [address] [place] [address] OFFICE VISIT Date of Service: 01/21/25 MR#: [id number] Acct: [id number] Name: GABRIELA RUSSELL Rep #: [id number] : 1970 Provider: Dr. Jasbir genao DO Age/Sex: 54/F [place] [facility] [place] Status: Signed Intake Vital Signs 11/29/24 14:07 01/21/25 15:34 Height 5 ft 7 in 5 ft 7 in Weight: 226 lb 2 oz BMI 35.4 Intake Visit Reasons: LEFT HAND Chief Complaint: Left Hand - Discuss Surgery Accompanied by: Self Is patient in pain?: Yes Allergies morphine Adverse Reaction (Verified 01/21/25 15:36) Nausea Medications ???Medication ???Instructions ???Recorded ???Confirmed ???Type amlodipine 10 mg tablet 10 mg PO DAILY BP 03/07/16 5 History metoprolol succinate 100 mg 100 mg PO DAILY BP 03/07/16 History tablet,extended release 24 hr multivitamin 1 ea PO DAILY supplement 03/07/16 01/21/25 History omeprazole 20 mg capsule,delayed 20 mg PO DAILY acid reflux 6 01/21/25 History release amitriptyline 75 mg tablet 75 mg PO DAILY #90 tabs 12/14/18 1 03/23/24 History lisinopril 10 mg tablet 10 mg PO DAILY #180 tabs 12/14/18 01/21/25 History meloxicam 15 mg tablet 15 mg PO DAILY 07/21/20 01/21/25 H istory cyclobenzaprine 5 mg tablet ea PO 05/02/21 01/21/25 History pravastatin 20 mg tablet 20 mg PO QDAY 05/28/23 01/21/25 Hi story escitalopram oxalate 10 mg tablet mg PO DAILY 05/15/24 01/21/25 His tory [facility] Medical History Urinary tract infection with hematuria [...] provided and the decisions made by me, Dr. Jasbir Ascencio, DO 01/21/25 0965. Part of today???s visit was documented by Martina Terrell ATC, acting as scribe. GABRIELA RUSSELL is a 54 year old F history significant for but not limited to obesity, hyperlipidemia, hypertension, pulmonary emboli bilateral, here today for left hand pain and wants to discuss carpal tunnel surgery. Patient already had an EMG study done and it showed moderate carpal tunnel syndrome. She states she had the right wrist done in the past and then had the symptoms return and she put it off and waited too long and had to have a revision and tendon transfer. She gets numbness in the tips of the fingers, the whole hand cramps up really bad and the hand falls asleep at night. She denies any bracing for the hand/wrist. She denies any injections. Patient has been dealing with the symptoms for at least the last year. The numbness is worse in the index, middle and ring fingers. Ortho Exam General General: Yes no acute distress and Yes well groomed Neurologic: Yes alert and Yes oriented x3 Psychologic: Yes reasonable and appropriate Right Wrist/Hand Skin/Wound: No Swelling and No Ecchymosis Left Wrist/Hand Skin/Wound: Yes CDI, No Swelling, No Ecchymosis and No erythema WRIST: Patient has symptoms at rest which make provocative maneuvers not really helpful Tinel's Phalen's and Durkan's do not make symptoms any worse 80 wrist EXT 35 wrist FLEX full supination full pronation stiffness in the index finger Supplemental Info 09/03/2024 EMG Left UE: 1. Electrodiagnostic findings suggestive of left-sided median mononeuropathy. This consistent with a moderate left carpal tunnel syndrome. Coding Level of Care Code Off vis,est,level 4 Diagnoses Carpal tunnel syndrome, left G56.02 Assessment and Plan Assessment and Plan (1) Carpal tunnel syndrome, left: Status: Acute Plan Patient is here today for left hand carpal tunnel symptoms and wants to discuss carpal tunnel syndrome release surgical procedure. I reviewed a prior EMG study that was done in August of 2024. I explained the pros, cons, risks and benefits to the carpal tunnel release surgical procedure. I explained to her that she will have weight restrictions following surg (more content not included)... Normal [facility] Coronary Angiography CTon Coronary Angiography CT [facility] Imaging Services [address] [place] [address] 01/08/25 1830 MR#: [id number] Acct: [id number] Name: GABRIELA RUSSELL KYLE Rep #: [id number] : 1970 54 From: Ramsey Gramajo MD PCP: Dr. Kandy Valle DO Status:REG CLI Y Location: CT Calcium Scoring Date of Study:: 01/08/25 Indications Indications: Family history hypertension hyperlipidemia Coronary Calcium Scoring: High-resolution Computed Tomographic imaging of the chest was performed on [01/08/2025], with particular attention paid to the coronary arteries. Images from the examination were analyzed for the presence and extent of coronary artery calcification , using coronary calcium quantification software. The patient tolerated the procedure well and there were no complications. The results of the coronary calcification analysis are provided below. Findings Coronary Artery Left Main (LM): 0 Left Anterior Descending (LAD): 0 Left Circumflex (LCX): 0 Right Coronary Artery (RCA): 3.58 Total Agatston Score: 3.58 Percentile Rankin-75 Calcium Scoring Interpretation: Different methods to categorize the overall amount of coronary plaque. Overall amount CAC SIS Visual of coronary plaque P1 Mild -100 <2 1-2 vessels with mild amount of plaque P2 Moderate 101-300 3-4 1-2 vessels with moderate amount, 3 vessels with mild amount of plaque P3 Severe 301-999 5-7 3 vessels with moderate amount, 1 vessel with severe amount of plaque P4 Extensive >1000 >8 2-3 vessels with severe amount of plaque Calcium Score: Mild: 1-2 vessels w/mild amount of plaque Conclusion: Mild focal single-vessel atherosclerotic plaquing. 01/08/25 1830 Date Ramsey Gramajo MD Cosigner Signature (if applicable): Date CC: SIGNAL APPRENTICE-C Pamella Clark; Dr. Ramsey Gramajo MD; Dr. Kandy Valle DO Signed Normal [facility] Limited Chest CT Cardiac Onl yon 01-08-[address] Cardiac Only [facility] Imaging Services [address] [place] [address] Cardiac Only MR#: [id number] Acct: [id number] Name: GABRIELA RUSSELL Rep #: [id number] : 1970 F 54 From: Cong Bergman PCP: Dr. Kandy Valle DO Status: [facility] CLI Study: Limited Chest CT Cardiac Only Date of Exam: Exam# [id number] Ordering Dr: Pamella Clark SIGNAL APPRENTICE-C PROCEDURE: LIMITED CHEST CT CARDIAC ONLY 01/08/2025 REASON FOR EXAM: HYPERLIPIDEMIA, UNSPECIFIED. Hypertension. Family history of coronary artery disease. TECHNIQUE: Procedure Code: CTCCTACHLIM Modality: CT Procedure: LIMITED CHEST CT CARDIAC ONLY One or more dose reduction techniques were used (e.g., Automated exposure control, adjustment of the mA and/or kV according to patient size, use of iterative reconstruction technique). RADIATION DOSE SUMMARY: CTDlvol: 12.19 mGy DLP: 170.66 mGycm COMPARISON: None. CT/Limited Chest CT Cardiac Only IMPRESSION: Limited imaging of the lungs demonstrates no acute process. No pleural effusion or pneumothorax is seen in visualized areas. No adenopathy is noted. The visualized upper abdomen demonstrates no significant abnormality. Reading Location: [id number] CC: SIGNAL APPRENTICEClarisse Clark; Dr. Kandy Valle DO Director Of Therapy Services: Signed Normal [facility] SCRN MAMM (CAD)W/DWIGHT BILATo n 12-22-2024 SCRN MAMM (CAD)W/DWIGHT BILAT [facility] Imaging Services [address] [place] [address] SCRN MAMM (CAD)W/DWIGHT BILAT MR#: [id number] Acct: [id number] Name: GABRIELA RUSSELL KYLE Rep #: [id number] : 1970 F 54 From: Melvin larsen MD PCP: Dr. Kandy Valle DO Status: REG CLI Study: SCRN MAMM (CAD)W/DWIGHT BILAT Date of Exam: 09/10 Exam# [id number] Ordering Dr: Kandy Valle DO EXAM: SCRN MAMM (CAD)W/DWIGHT BILAT DATE: 12/22/2024 CLINICAL HISTORY: F, Age 54 y/o , SCREENING TECHNIQUE: Procedure Code: BISMWCADBTOM Modality: MG Procedure: SCRN MAMM (CAD)W/DWIGHT BILAT COMPARISON: Prior exam(s) dated 2023.. FINDINGS: TISSUE DENSITY: The breasts are almost entirely fatty. Bilateral Breast Mammographic Findings: No significant masses, calcifications or other abnormalities are identified. STABLE SMALL BENIGN- APPEARING BILATERAL AXILLARY LYMPH NODES. No suspicious masses, areas of developing architectural distortion, or suspicious calcifications. There has been no significant interval change. BI/SCRN MAMM (CAD)W/DWIGHT BILAT IMPRESSION: STABLE BILATERAL SCREENING MAMMOGRAM. OVERALL FINAL ASSESSMENT BI-RADS 2: BENIGN RECOMMENDATION: Routine annual follow-up in 1 Year Additional Recommendation none A letter with findings and recommendations will be mailed to the patient. Reading Location: [id number] CC: Dr. Kandy Valle DO Director Of Therapy Services: Signed Normal [facility] Chiropractic Reporton 2024 Chiropractic Report [facility] Chiropractic [facility] [place] [address] OFFICE VISIT Date of Service: 12/15/24 MR#: [id number] Acct: [id number] Name: GABRIELA RUSSELL Rep #: [id number] : 1970 Provider: GUILLERMINA Poole Do ssi Age/Sex: 54/F [place] [facility] [place]: Signed Intake Vital Signs 06/10/24 14:28 11/29/24 14:07 Height 5 ft 7 in 5 ft 7 in Intake Visit Reasons: Back pain Chief Complaint: neck, Low back Pain Is patient in pain?: Yes (low back ) Pain scale (1-10): 2 Allergies morphine Adverse Reaction (Verified 12/15/24 15:38) Nausea Medications ???Medication ???Instructions ???Recorded ???Confirmed ???Type amlodipine 10 mg tablet 10 mg PO DAILY BP 03/07/16 5 History metoprolol succinate 100 mg 100 mg PO DAILY BP 03/07/16 History tablet,extended release 24 hr multivitamin 1 ea PO DAILY supplement 03/07/16 12/15/24 History omeprazole 20 mg capsule,delayed 20 mg PO DAILY acid reflux 6 12/15/24 History release amitriptyline 75 mg tablet 75 mg PO DAILY #90 tabs 12/14/18 0 12/15/24 History lisinopril 10 mg tablet 10 mg PO DAILY #180 tabs 12/14/18 12/15/24 History meloxicam 15 mg tablet 15 mg PO DAILY 07/21/20 12/15/24 H istory cyclobenzaprine 5 mg tablet ea PO 05/02/21 12/15/24 History pravastatin 20 mg tablet 20 mg PO QDAY 05/28/23 12/15/24 Hi story escitalopram oxalate 10 mg tablet mg PO DAILY 05/15/24 12/15/24 His tory PFSH Medical History Urinary tract infection with [...] Chief Complaint: Low Back pain Visit Number: 2 Details: Gabriela is a 54 y/o female here to follow up with neck and low back pain. Pt. advises she has been experiencing stiffness and tension in her neck and across her shoulder blades recently. She also complains of low back achiness that is equal across bilaterally. She rates her low back pain 2/10 today. 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 She has been trying to rest it and stretch it as needed to alleviate her discomfort. She denies numbness, tingling or radiculopathy. She treats pain with Tylenol and heat as needed. She reports chiropractic adjustments are helpful to alleviate her pain and stiffness but it gradually returns. Location: neck/back Duration: frequent Aggravating or associated factors: bending, lifting, mornings,sitting Relieving factors: chiro Pain Quality: aching and dull Exam Musc General: Yes normal posture, normal gait and joint tenderness; No muscle weakness Cervical Spine: Yes loss of normal cervical lordosis, Yes cervical muscular tenderness bilateral lower , Yes cervical spasm bilateral lower trapezius and paracervical muscles and Yes misalignment misalignment: C5, C6 and C7 Thoracic/Lumber: Yes thoracic and lumbar spine normal [...] T3 and Pelvis LIL Manipulation: 3-4 regions Traction, Mechanical: Yes Patient Response: positive Assessment and Plan Assessment and Plan (1) Segmental and somatic dysfunction of cervical region: Status: Acute (2) Segmental and somatic dysfunction of thoracic region: Status: Acute (3) Segmental and somatic dysfunction of lumbar region: Status: Acute (4) Segmental and somatic dysfunction of pelvic region: Status: Acute Orders: Orders Chiropractic Treatments 12/15/24 M99.01 - Segm (more content not included)... Normal [facility] Absolute lymphocyte countOrd ered By: HEALTH ASSESSMENT on 12-12-2024 Lymphocytes Auto (Unsp spec) [#/Vol] 2.31 10*3/uL 0.83-4.51 [facility] Absolute neutrophil countOrd ered By: HEALTH ASSESSMENT on 12-12-2024 Neutrophils (Bld) [#/Vol] 4.4 10*3/uL 2.0-7.7 [facility] Absolute nucleated red blood cell countOrdered By: HEALTH ASSESSMENT on 12-12-2024 Nucleated RBC (Bld) [#/Vol] 0.00 10*3/uL 0-5 [facility] Anion gap in Serum or Plasma Ordered By: HEALTH ASSESSMENT on 12-12-2024 Anion gap [Moles/Vol] 11 mmol/L 5-15 [facility] BUN/creatinine ratioOrdered By: HEALTH ASSESSMENT on 12-12-2024 Urea nitrogen/Creatinine [Mass ratio] 13.4 mg/mg 10-20 [facility] Bilirubin directOrdered By: HEALTH ASSESSMENT on 12-12-2024 Bilirubin.direct [Mass/Vol] 0.13 mg/dL 0.00-0.30 [facility] Bilirubin, totalOrdered By: HEALTH ASSESSMENT on 12-12-2024 Bilirubin [Mass/Vol] 0.28 mg/dL 0.00-1.30 [facility] CBC, Employeeon 12-12-2024 Absolute Lymph 2.31 X10 3/uL Normal 0.83-4.51 [facility] Comment on above: Performed By: #### L 500.2900, L400.0100, L100.0200 #### [facility] [address] [place], [address] Absolute Neut 4.4 X10 3/uL Normal 2.0-7.7 [facility] Comment on above: Performed By: #### L 500.2900, L400.0100, L100.0200 #### [facility] [address] [place], [address] Basophils/100 WBC (Bld) 0.8 % Normal 0-1 [facility] Comment on above: Performed By: #### L 500.2900, L400.0100, L100.0200 #### [facility] [address] [place], [address] Eosinophils/100 WBC (Bld) 3.3 % Normal 0-5 [facility] Comment on above: Performed By: #### L 500.2900, L400.0100, L100.0200 #### [facility] [address] [place], [address] Erythrocyte distribution width (RBC) [Ratio] 11.9 % Normal 11.6-14.6 [facility] Comment on above: Performed By: #### L 500.2900, L400.0100, L100.0200 #### [facility] [address] [place], [address] Hematocrit (Bld) [Volume fraction] 41.1 % Normal 37-47 [facility] Comment on above: Performed By: #### L 500.2900, L400.0100, L100.0200 #### [facility] [address] [place], [address] Hemoglobin (Bld) [Mass/Vol] 14.3 g/dL Normal 12.0-15.0 [facility] Comment on above: Performed By: #### L 500.2900, L400.0100, L100.0200 #### [facility] [address] [place], [address] Lymphocytes/100 WBC (Bld) 30.8 % Normal 19-41 [facility] Comment on above: Performed By: #### L 500.2900, L400.0100, L100.0200 #### [facility] [address] [place], [address] MCH (RBC) [Entitic mass] 30.4 pg Normal 27.0-32.0 [facility] Comment on above: Performed By: #### L 500.2900, L400.0100, L100.0200 #### [facility] [address] [place], [address] MCHC (RBC) [Mass/Vol] 34.8 g/dL Normal 32-36 [facility] Comment on above: Performed By: #### L 500.2900, L400.0100, L100.0200 #### [facility] [address] [place], [address] MCV (RBC) [Entitic vol] 87.4 fL Normal 81-99 [facility] Comment on above: Performed By: #### L 500.2900, L400.0100, L100.0200 #### [facility] [address] [place], [address] Monocytes/100 WBC (Bld) 6.0 % Normal 0-10 [facility] Comment on above: Performed By: #### L 500.2900, L400.0100, L100.0200 #### [facility] [address] [place], [address] Neutrophils/100 WBC (Bld) 59.0 % Normal 47-70 [facility] Comment on above: Performed By: #### L 500.2900, L400.0100, L100.0200 #### [facility] [address] [place], [address] NRBC # 0.00 10 3/uL Normal 0-5 [facility] Comment on above: Performed By: #### L 500.2900, L400.0100, L100.0200 #### [facility] [address] [place], [address] Nucleated RBC (Bld) [#/Vol] 0 10*3/uL Normal 0-5 [facility] Comment on above: Performed By: #### L 500.2900, L400.0100, L100.0200 #### [facility] [address] [place], [address] Platelet mean volume (Bld) [Entitic vol] 9.7 fL Normal 6.2-12.0 [facility] Comment on above: Performed By: #### L 500.2900, L400.0100, L100.0200 #### [facility] [address] [place], [address] Platelets (Bld) [#/Vol] 326 10*3/uL Normal 150-450 [facility] Comment on above: Performed By: #### L 500.2900, L400.0100, L100.0200 #### [facility] [address] [place], [address] RBC (Bld) [#/Vol] 4.70 10*6/uL Normal 4.2-5.4 [facility] Comment on above: Performed By: #### L 500.2900, L400.0100, L100.0200 #### [facility] [address] [place], [address] RDW SD 38.6 fl Normal 35.1-43.9 [facility] Comment on above: Performed By: #### L 500.2900, L400.0100, L100.0200 #### [facility] [address] [place], [address] WBC (Bld) [#/Vol] 7.5 10*3/uL Normal 4.4-11.0 [facility] Comment on above: Performed By: #### L 500.2900, L400.0100, L100.0200 #### [facility] [address] [place], [address] Calculated very low density lipoprotein (VLDL) cholesterol measurementOrdered By: HEALTH ASSESSMENT on 12-12-2024 Calculated very low density lipoprotein (VLDL) cholesterol measurement 28 mg/dL 5-40 [facility] Carbon dioxide, total [Moles /volume] in Central venous bloodOrdered By: HEALTH ASSESSMENT on 12-12-2024 CO2 [Moles/Vol] 25.1 mmol/L 21.0-32.0 [facility] Chloride assayOrdered By: HE ALTH ASSESSMENT on 12-12-2024 Chloride [Moles/Vol] 107 mmol/L 98-108 [facility] Employee Profileon CHOL:HDL 4.38 Normal [facility] Comment on above: Performed By: #### L 500.2900, L400.0100, L100.0200 ####[facility] [address] [place], [address] Cholesterol [Mass/Vol] 189 mg/dL Normal <=200 [facility] Comment on above: Result Comment: Chol esterol level, Desirable <200 mg/dL Borderline high cholesterol 200-239 mg/dL High cholesterol >=240 mg/dL Recommendations of the NCEP Adult Treatment Panel for the following risk-cutoff thresholds for the [place] population. Performed By: #### L 500.2900, L400.0100, L100.0200 ####[facility] [address] [place], [address] Cholesterol in HDL [Mass/Vol] 43 mg/dL Normal [facility] Comment on above: Result Comment: Mary onal Cholesterol Education Program (NCEP) guidelines: <40 mg/dL: Low HDL-cholesterol (major risk factor for CHD) >= 60 mg/dL: High HDL-cholesterol (negative risk factor for CHD) HDL-cholesterol is affected by a number of factors, e.g. smoking, exercise, hormones, sex and age. Performed By: #### L 500.2900, L400.0100, L100.0200 ####[facility] [address] [place], [address] Cholesterol in LDL [Mass/Vol] 118 mg/dL Normal [facility] Comment on above: Result Comment: Bord kgiecx=846-675 mg/dL Higher Rebo=895 mg/dL or greater Friedwald Equation for LDL-C Performed By: #### L 500.2900, L400.0100, L100.0200 ####[facility] [address] [place], [address] Cholesterol in VLDL [Mass/Vol] 28 mg/dL Normal 5-40 [facility] Comment on above: Performed By: #### L 500.2900, L400.0100, L100.0200 ####[facility] [address] [place], [address] LDH 287 U/L High 84-246 [facility] Comment on above: Performed By: #### L 500.2900, L400.0100, L100.0200 ####[facility] [address] [place], [address] Phosphate [Mass/Vol] 4.2 mg/dL Normal 2.7-4.5 [facility] Comment on above: Performed By: #### L 500.2900, L400.0100, L100.0200 ####[facility] [address] [place], [address] Triglyceride [Mass/Vol] 141 mg/dL Normal [facility] Comment on above: Result Comment: The drugs N-Acetylcysteine and Metamizole may falsely depress this assay. Normal range: <150 mg/dL Borderline High: 150-199 mg/dL High: 200-499 mg/dL Very High: >500 mg/dL Performed By: #### L 500.2900, L400.0100, L100.0200 ####[facility] [address] [place], [address] URIC 5.9 mg/dL Normal 2.6-6.0 [facility] Comment on above: Result Comment: The drugs N-Acetylcysteine and Metamizole may falsely depress this assay. Performed By: #### L 500.2900, L400.0100, L100.0200 ####[facility] [address] [place], [address] Erythrocyte distribution wid th ratioOrdered By: HEALTH ASSESSMENT on 12-12-2024 Erythrocyte distribution width (RBC) [Ratio] 11.9 % 11.6-14.6 [facility] Erythrocyte distribution wid th standard deviationOrdered By: HEALTH ASSESSMENT on 12-12-2024 Erythrocyte distribution width (RBC) [Ratio] 38.6 fl 35.1-43.9 [facility] Glomerular filtration rate ( GFR) estimation/1.73 sq m using serum, plasma, or whole bOrdered By: HEALTH ASSESSMENT on 12-12-2024 GFR/1.73 sq M.predicted among non-blacks MDRD (S/P/Bld) [Vol rate/Area] 86 mL/min/{1.73_m2} >60 [facility] Comment on above: mL/min/1.73m2 CKD-EP I Creatinine Equation (2020) Hematocrit Auto (Bld) [Volum e fraction]Ordered By: HEALTH ASSESSMENT on 12-12-2024 Hematocrit (Bld) [Volume fraction] 41.1 % 37-47 [facility] Hemoglobin measurementOrdere d By: HEALTH ASSESSMENT on 12-12-2024 Hemoglobin (Bld) [Mass/Vol] 14.3 g/dL 12.0-15.0 [facility] LDL calc ser/plasOrdered By: HEALTH ASSESSMENT on 12-12-2024 Cholesterol in LDL [Mass/Vol] 118 mg/dL [facility] Comment on above: Dcibfjeuvd=183-291 m g/dL & Higher Pmhl=474 mg/dL or greaterFriedwald Equation for LDL-C Laboratory - Chemistry and C hemistry - challengeOrdered By: HEALTH ASSESSMENT on 12-12-2024 AST [Catalytic activity/Vol] 68 U/L High <32 [facility] Lactate dehydrogenase (LDH) measurementOrdered By: HEALTH ASSESSMENT on 12-12-2024 LDH [Catalytic activity/Vol] 287 U/L High 84-246 [facility] MCV (mean corpuscular volume ) determinationOrdered By: HEALTH ASSESSMENT on 12-12-2024 MCV (RBC) [Entitic vol] 87.4 fL 81-99 [facility] Mean corpuscular hemoglobin (MCH) determinationOrdered By: HEALTH ASSESSMENT on 12-12-2024 MCH (RBC) [Entitic mass] 30.4 pg 27.0-32.0 [facility] Mean corpuscular hemoglobin concentration (MCHC) determinationOrdered By: HEALTH ASSESSMENT on 12-12-2024 MCHC (RBC) [Mass/Vol] 34.8 g/dL 32-36 [facility] Mean platelet volume determi nationOrdered By: HEALTH ASSESSMENT on 12-12-2024 Platelet mean volume (Bld) [Entitic vol] 9.7 fL 6.2-12.0 [facility] Neutrophil percentageOrdered By: HEALTH ASSESSMENT on 12-12-2024 Neutrophils/100 WBC (Bld) 59.0 % 47-70 [facility] Nucleated red blood cell per centageOrdered By: HEALTH ASSESSMENT on 12-12-2024 Nucleated RBC/100 WBC (Bld) [Ratio] 0 % 0-5 [facility] Platelet countOrdered By: HE ALTH ASSESSMENT on 12-12-2024 Platelets (Bld) [#/Vol] 326 10*3/uL 150-450 [facility] Potassium measurement (mass/ volume)Ordered By: HEALTH ASSESSMENT on 12-12-2024 Potassium (Unsp spec) [Mass/Vol] 4.4 mmol/L 3.3-5.1 [facility] RBC Auto (Bld) [#/Vol]Ordere d By: HEALTH ASSESSMENT on 12-12-2024 RBC (Bld) [#/Vol] 4.70 10*6/uL 4.2-5.4 [facility] Screening total cholesterol/ high density lipoprotein (HDL) cholesterol ratioOrdered By: HEALTH ASSESSMENT on 12-12-2024 Cholesterol.total/Mattie sterol in HDL [Mass ratio] 4.38 {ratio} [facility] Serum creatinine measurement (mass/volume)Ordered By: HEALTH ASSESSMENT on 12-12-2024 Creatinine [Mass/Vol] 0.82 mg/dL 0.70-1.20 [facility] Serum globulin measurementOr dered By: HEALTH ASSESSMENT on 12-12-2024 Globulin (S) [Mass/Vol] 2.4 g/dL 2.2-4.2 [facility] Serum glucose measurement (m ass/volume)Ordered By: HEALTH ASSESSMENT on 12-12-2024 Glucose [Mass/Vol] 98 mg/dL 70-99 [facility] Serum or plasma alanine townsend otransferase (ALT) measurementOrdered By: HEALTH ASSESSMENT on 12-12-2024 ALT [Catalytic activity/Vol] 114 U/L High <35 [facility] Serum or plasma albumin quinton urement (mass/volume)Ordered By: HEALTH ASSESSMENT on 12-12-2024 Albumin [Mass/Vol] 4.6 g/dL 3.5-5.0 [facility] Serum or plasma albumin/glob ulin mass ratioOrdered By: HEALTH ASSESSMENT on 12-12-2024 Albumin/Globulin [Mass ratio] 2.0 {ratio} 0.9-2.4 [facility] Serum or plasma alkaline tianna sphatase measurementOrdered By: HEALTH ASSESSMENT on 12-12-2024 ALP [Catalytic activity/Vol] 132 U/L High 35-104 [facility] Serum or plasma calcium quinton urement (mass/volume)Ordered By: HEALTH ASSESSMENT on 12-12-2024 Calcium [Mass/Vol] 9.2 mg/dL 7.6-11.0 [facility] Serum or plasma cholesterol in HDL measurement (mass/volume)Ordered By: HEALTH ASSESSMENT on 12-12-2024 Cholesterol in HDL [Mass/Vol] 43 mg/dL >40 [facility] Comment on above: National Cholesterol Education Program (NCEP) guidelines:<40 mg/dL: Low HDL-cholesterol (major risk factor for CHD)>= 60 mg/dL: High HDL-cholesterol (negative risk factor for CHD)HDL-cholesterol is affected by a number of factors, e.g. smoking, exercise, hormones, sex and age. Serum or plasma cholesterol measurement (mass/volume)Ordered By: HEALTH ASSESSMENT on 12-12-2024 Cholesterol [Mass/Vol] 189 mg/dL <201 [facility] Comment on above: Cholesterol level, D esirable <200 mg/dLBorderline high cholesterol 200-239 mg/dLHigh cholesterol >=240 mg/dLRecommendations of the NCEP Adult Treatment Panel for the following risk-cutoff thresholds for the [place] population. Serum or plasma urea nitroge n measurement (mass/volume)Ordered By: HEALTH ASSESSMENT on 12-12-2024 Urea nitrogen [Mass/Vol] 11 mg/dL 4-19 [facility] Serum or plasma uric acid me asurement (mass/volume)Ordered By: HEALTH ASSESSMENT on 12-12-2024 Urate [Mass/Vol] 5.9 mg/dL 2.6-6.0 [facility] Comment on above: The drugs N-Acetylcy steine and Metamizole may falsely depress this assay. Sodium levelOrdered By: [facility] ASSESSMENT on 12-12-2024 Sodium [Moles/Vol] 143 mmol/L 133-145 [facility] Total proteinOrdered By: [facility] ASSESSMENT on 12-12-2024 Protein [Mass/Vol] 7.0 g/dL 5.9-8.4 [facility] Triglycerides measurementOrd ered By: HEALTH ASSESSMENT on 12-12-2024 Triglyceride [Mass/Vol] 141 mg/dL <199 [facility] Comment on above: The drugs N-Acetylcy steine and Metamizole may falsely depress this assay. Normal range: <150 mg/dLBorderline High: 150-199 mg/dLHigh: 200-499 mg/dLVery High: >500 mg/dL Urinalysis, Employeeon 12-12 BILIRUBIN URINE Normal Negative [facility] Comment on above: Order Comment: Urine , Random Result Comment: NOT WANTED Performed By: #### L 500.2900, L400.0100, L100.0200 #### [facility] [address] [place], [address] Clarity (U) Normal Clear [facility] Comment on above: Order Comment: Urine , Random Result Comment: NOT WANTED Performed By: #### L 500.2900, L400.0100, L100.0200 #### [facility] [address] [place], [address] Color (U) Normal Yellow [facility] Comment on above: Order Comment: Urine , Random Result Comment: NOT WANTED Performed By: #### L 500.2900, L400.0100, L100.0200 #### [facility] [address] [place], [address] GLUCOSE, UR Normal Normal [facility] Comment on above: Order Comment: Urine , Random Result Comment: NOT WANTED Performed By: #### L 500.2900, L400.0100, L100.0200 #### [facility] [address] [place], [address] KETONE UR Normal Negative [facility] Comment on above: Order Comment: Urine , Random Result Comment: NOT WANTED Performed By: #### L 500.2900, L400.0100, L100.0200 #### [facility] [address] [place], [address] LEUK ESTERASE Normal Negative [facility] Comment on above: Order Comment: Urine , Random Result Comment: NOT WANTED Performed By: #### L 500.2900, L400.0100, L100.0200 #### [facility] [address] [place], [address] Nitrite Ql (U) Normal Negative [facility] Comment on above: Order Comment: Urine , Random Result Comment: NOT WANTED Performed By: #### L 500.2900, L400.0100, L100.0200 #### [facility] [address] [place], [address] OCCULT BLOOD-UR Normal Negative [facility] Comment on above: Order Comment: Urine , Random Result Comment: NOT WANTED Performed By: #### L 500.2900, L400.0100, L100.0200 #### [facility] [address] [place], [address] pH UR Normal 5.0 - 8.0 [facility] Comment on above: Order Comment: Urine , Random Result Comment: NOT WANTED Performed By: #### L 500.2900, L400.0100, L100.0200 #### [facility] [address] [place], [address] PROT DIPSTX Normal Negative [facility] Comment on above: Order Comment: Urine , Random Result Comment: NOT WANTED Performed By: #### L 500.2900, L400.0100, L100.0200 #### [facility] [address] [place], [address] SP.GR. DIPSTX Normal 1.002-1.030 [facility] Comment on above: Order Comment: Urine , Random Result Comment: NOT WANTED Performed By: #### L 500.2900, L400.0100, L100.0200 #### [facility] [address] [place], [address] UR Preservative Normal [facility] Comment on above: Order Comment: Urine , Random Result Comment: NOT WANTED Performed By: #### L 500.2900, L400.0100, L100.0200 #### [facility] [address] [place], [address] UROBILI Normal Normal [facility] Comment on above: Order Comment: Urine , Random Result Comment: NOT WANTED Performed By: #### L 500.2900, L400.0100, L100.0200 #### [facility] [address] [place], [address] White blood cell (WBC) count Ordered By: HEALTH ASSESSMENT on 12-12-2024 WBC (Bld) [#/Vol] 7.5 10*3/uL 4.4-11.0 [facility] Emergency Department Summary on 11-29-2024 Emergency Department Summary [facility] Medical Records Department [address] [place] [address] Emergency Department Summary 11/29/24 MR#: [id number] Acct: [id number] Name: GABRIELA RUSSELL Rep #: [id number] : 1970 54 From: Mikhail Davis DO PCP: Dr. Kandy Valle DO Status:REG ER Location: ED HPI History of Present Illness Chief Complaint: Fall Narrative Narrative: Patient is a 54-year-old female with past medical history hypercholesteremia, hypertension who presented to the emergency department the chief complaint of left wrist pain. Patient states that she was in the garage tripped over items causing her to fall at her knees and on her left wrist. 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 Patient denies any blood thinning medications. [facility] Medical History Urinary tract infection with hematuria Acute pharyngitis Encounter for screening for COVID-19 High cholesterol Hay fever Hypertension Home Medications ???Medication ???Instructions ???Recorded ???Last Taken ???Type amlodipine 10 mg tablet 10 mg PO DAILY BP 03/07/16 8 History metoprolol succinate 100 mg 100 mg PO DAILY BP 03/07/16 History tablet,extended release 24 hr multivitamin 1 ea PO DAILY supplement 03/07/16 04/19/17 History omeprazole 20 mg capsule,delayed 20 mg PO DAILY acid reflux 6 04/19/17 History release amitriptyline 75 mg tablet 75 mg PO DAILY #90 tabs 12/14/18 U nknown History lisinopril 10 mg tablet 10 mg PO DAILY #180 tabs 12/14/18 Unknown History meloxicam 15 mg tablet 15 mg PO DAILY 07/21/20 Unknown Hi story cyclobenzaprine 5 mg tablet ea PO 05/02/21 Unknown History pravastatin 20 mg tablet 20 mg PO QDAY 05/28/23 Unknown His tory escitalopram oxalate 10 mg tablet mg PO DAILY 05/15/24 Unknown Hist ory Allergy/AdvReac Type Severity Reaction Status Date / Time morphine AdvReac Nausea Verified 11/29/24 14:09 Family History Mother Breast cancer Father Heart disease Grandfather Myocardial infarction Surgical History History of surgery on right wrist H/O: hysterectomy carpal tunnel surgery History of tonsillectomy H/O tubal ligation tailbone cyst Social History Smoking Status: Never smoker alcohol intake: current details: 1 glass of wine a night substance use type: does not use caffeine: Yes what type of physical activity do you participate in: none seatbelt use: always do you feel safe at home: Yes additional social history: 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 ROS ROS ED ROS Narrative Neurological: Denies any numbness, weakness, tingling Musculoskeletal: Complains of left wrist pain as noted above Skin: Denies any rashes or lesions complains of some swelling to the dorsal aspect of her left wrist EXAM Physical Exam Narrative Exam Narrative: General: Patient was lying in bed rest comfortably did not appear to be in acute distress Head: Atraumatic, normocephalic Eyes: PERRL bilaterally, EOMI bilaterally, no conjunctival injection noted Neck: Soft, supple, trachea midline Cardiovascular: Regular rate and rhythm Musculoskeletal: Patient has a tender to palpation over the left distal wrist Extremities: Radial pulses +2/4 in the left upper extremity, +5/5 strength noted in the bilateral upper and lower extremities Neurological: Patient following commands and that she was at [facility] the year is 2024 sensation grossly intact in the median, ulnar and radial nerve distribution bilaterally Skin: Warm, dry, intact no rashes or lesions noted patient has edema noted to the dorsal aspect of the left wrist and states that her hands are chronically swollen and states that she has not been able to get her ring off for a very long time she was advised that she needs to try to take this off here in the emergency department Const Vital Signs: 11/29/24 14:07 11/29/24 14:57 Temperature 98.9 F Temperature Source Oral Pulse Rate 88 Respiratory Rate 16 Respiratory Effort Normal Non-Labored Respiratory Depth Normal Respiratory Pattern Normal Blood Pressure 153/83 H Blood Pressure Mean 106 Pulse Ox 99 96 Oxygen Delivery Method Room Air Room Air MDM MDM MDM Narrative Medical decision making narrative: Patient is a 54-year-old female who presents to the emergency department with a chief complaint of left wrist pain after mechanical fall tripping over some items in her garage and object falling on her left wrist. On the differential diagnose includes (more content not included)... Normal [facility] Hand Min 3 Viewson Hand Min 3 Views [facility] Imaging Services [address], [place] [id number] Hand Min 3 Views MR#: [id number] Acct: [id number] Name: GABRIELA RUSSELL Rep #: [id number] : 1970 F 54 From: Kya Lyn MD PCP: Dr. Kandy Valle DO Status: REG ER Study: Hand Min 3 Views Date of Exam: 11/29/24 Exam# [id number] Ordering Dr: Mikhail Davis DO PROCEDURE: HAND MIN 3 VIEWS 11/29/2024 REASON FOR EXAM: INJURY TECHNIQUE: Procedure Code: KULDEEP Modality: DX Procedure: HAND MIN 3 VIEWS Laterality: Left COMPARISON: None. FINDINGS: Bones: No acute bony abnormalities. Joints: No dislocations. Soft tissues: No soft tissue abnormalities. RAD/Hand Min 3 Views IMPRESSION: No acute osseous abnormalities. Reading Location: [facility] CC: Dr. Kandy Valle DO; Dr. Mikhail Davis DO Director Of Therapy Services: Signed Normal [facility] Humerus min 2 Viewson 2024 Humerus min 2 Views [facility] Imaging Services [address], [place] [address] Humerus min 2 Views MR#: [id number] Acct: [id number] Name: GABRIELA RUSSELL KYLE Rep #: [id number] : 1970 F 54 From: Kya Lyn MD PCP: Dr. Kandy Valle DO Status: REG ER Study: Humerus min 2 Views Date of Exam: 11/29/24 Exam# [id number] Ordering Dr: Mikhail Davis DO PROCEDURE: HUMERUS MIN 2 VIEWS 11/29/2024 REASON FOR EXAM: INJURY TECHNIQUE: Procedure Code: RADHUM Modality: DX Procedure: HUMERUS MIN 2 VIEWS Laterality: COMPARISON: None. FINDINGS: Bones: No acute bony abnormalities. Joints: No dislocations. Soft tissues: No soft tissue abnormalities. RAD/Humerus min 2 Views IMPRESSION: No acute bony abnormalities. Reading Location: [facility] CC: Dr. Kandy Valle DO; Dr. Mikhail Davis DO Director Of Therapy Services: Signed Normal [facility] Wrist min 3 Viewson 11-30-19 Wrist min 3 Views [facility] Imaging Services [address] [place] [address] Wrist min 3 Views MR#: [id number] Acct: [id number] Name: GABRIELA RUSSELL KYLE Rep #: [id number] : 1970 F 54 From: Kya Lyn MD PCP: Dr. Kandy Valle DO Status: REG ER Study: Wrist min 3 Views Date of Exam: 11/29/24 Exam# [id number] Ordering Dr: Mikhail Davis DO PROCEDURE: WRIST MIN 3 VIEWS 11/29/2024 REASON FOR EXAM: INJURY TECHNIQUE: Procedure Code: RADWR Modality: DX Procedure: WRIST MIN 3 VIEWS Laterality: COMPARISON: Left FINDINGS: Bones: No acute bony abnormalities. Joints: No dislocations. Soft tissues: No soft tissue abnormalities. RAD/Wrist min 3 Views IMPRESSION: No acute osseous abnormalities. Reading Location: [facility] CC: Dr. Kandy Valle DO; Dr. Mikhail Davis DO Director Of Therapy Services: Signed Normal [facility] OT D/C of Non Returning Pton 11-19-2024 OT D/C of Non Returning Pt [facility] Occupational Therapy [facility] [address] [place] [address] / REHABILITATION SERVICES DISCHARGE SUMMARY MR#: [id number] Acct: [id number] Name: GABRIELA RUSSELL KYLE Rep #: [id number] : 1970 54 From: Stacey Qureshi OTR/L, CHT Referring Dr.: PIPE Hammond Status: REG RCR Eval Date: [...] Stacey Qureshi, OTR/L, CHT 11/19/24 1132 CC: PIPE Hammond; Dr. Kandy Valle DO ALONZO Signed Normal [facility] NCS and/or EMG Patienton NCS and/or EMG Patient [facility] Pulmonary Services/Neurology [address] [place] [address] MR#: [id number] Acct: [id number] Name: GABRIELA RUSSELL KYLE Rep #: [id number] : 1970 54 From: Michelle Barakat MD Referring Dr: Priti Hammond SIGNAL APPRENTICE-C Status: REG C LI Location: PSN Date: [...] Multi Select Codes Neurology Neurology Interp Codes: 85453-94 Musc test done w/n test comp (interp) and 97808-99 Nrv cndj tst 5-6 studies (interp) 09/03/24 1410 Date Michelle Barakat MD CC: SIGNAL APPRENTICE-C Priti Hammond; Dr. Michelle Barakat MD; Dr. Kandy Valle DO Date Dictated: 09/03/241408 Date Transcribed: 09/03/241408 Director Of Therapy Services: AA Signed Normal [facility] Wrist min 3 Viewson 09-04-19 Wrist min 3 Views [facility] Imaging Services [address], [place] [id number] Wrist min 3 Views MR#: [id number] Acct: [id number] Name: GABRIELA RUSSELL KYLE Rep #: [id number] : 1970 F 54 From: Gonzalo cotter MD PCP: Dr. Kandy Valle DO Status: REG CLI Study: Wrist min 3 Views Date of Exam: 09/03/24 Exam# [id number] Ordering Dr: Priti Hammond PROCEDURE: WRIST MIN 3 VIEWS 09/03/2024 REASON FOR EXAM: WRSIT AND HAND PAIN/NUMBNESS TECHNIQUE: WRIST MIN 3 VIEWS COMPARISON: None. FINDINGS: Mild osteopenia of the visualized bones. Degenerative joint disease. No fracture or dislocation is seen. . RAD/Wrist min 3 Views IMPRESSION: No evidence for acute abnormality. [facility] CC: PIPE Hammond; Dr. Kandy Valle DO Director Of Therapy Services: Signed Normal [facility] OT General Evaluationon 07-18 OT General Evaluation [facility] Occupational Therapy [facility] [address] [place] [address]. 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 Her first day back is intended to be September 08. She reports she has a follow up appointment with orthotics in mid-late September. 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 Pt reports modifying activities to be more independent at home Objective Objective/Observation : Pt presents with radial sided forearm based wrist and thumb extension orthosis. Pt with scarring to carpal tunnel incision and at CMC joint from palmaris longis tendon transfer flexor tenosynovectomy fasciocutaneous flap. Pt reports no pain post sx. ROM CMC: R: 32 adduction L: 50 adduction MP: R: 42 L: 55 IP: R: 51 L: 61 ROM Comments: No limitations with digits Strength Machine Buffer: R: NT L: 42 Lateral Pinch: R: [...] Yes Goal:ROM equal to unaffected hand: Yes Goal:Machine Buffer/Pinch strength at least 75% of unaffected hand: [...] refrain from activities demanding tight and sustained prosthetist/pinch until 10 weeks post op. TEXT: Thank you for the opportunity to evaluate your patient. For Medicare and Medicare HMO plans, please review the plan of care and approve it. It will need to be FAXED BACK to us at [phone] for Medicare purposes. Please let me know if there are questions or concerns regarding this plan of care. Physician Signature: Date : 08/14/24 1656 CC: MICHELLE Osborn; Dr. Kandy Valle, DO OM Signed For Medicare only, by signing this I certify the plan of care. Physicians Signature Date Normal [facility] Orthopedic Visit Reporton Orthopedic Visit Report [facility] [address] [place] [id number] OFFICE VISIT Date of Service: 08/08/24 MR#: [id number] Acct: [id number] Name: GABRIELA RUSSELL KYLE Rep #: [id number] : 1970 Provider: PIPE breaux Age/Sex: 54/F [place] [facility] [place] Status: Signed Intake Vital Signs 06/10/24 14:28 [...] tablet mg PO DAILY 05/15/24 08/08/24 [facility] Medical History Urinary tract infection with hematuria [...] provided and the decisions made by me, SULLY LunaC 08/08/24 2345. Part of today???s visit was documented by [...] additional compl (more content not included)... Normal [facility] 2 HR Glucose Tolerance Testo n 07-10-2024 2HR GTT High [facility] Comment on above: Order Comment: Y Result Comment: FAST ING 126 H Col: 07/10/24 0658 GLU 1/2 HR 165 Col: 07/10/24 0731 GLU 1 HR 223 H Col: 07/10/24 0801 GLU 2 HR 155 H Col: 07/10/24 0901 Performed By: #### L 500.4600 ####[facility] [address] [place], [address] Serum or plasma glucose quinton urement 2 hours after glucose dose (mass/volume)Ordered By: Kandy Valle on 07-10-2024 Glucose 2 Hr post dose glucose [Mass/Vol] See comment [facility] Comment on above: FASTING 126 H Col: 0 07/10/24 0658 GLU 1/2 HR 165 Col: 07/10/24 0731 GLU 1 HR 223 H Col: 07/10/24 0801 GLU 2 HR 155 H Col: 07/10/24 0901 Anion gap in Serum or Plasma Ordered By: Kandy Valle on 06-17-2024 Anion gap [Moles/Vol] 14 mmol/L 5- [facility] BUN/creatinine ratioOrdered By: Kandy Valle on 06-17-2024 Urea nitrogen/Creatinine [Mass ratio] 13.8 mg/mg 10- [facility] Bilirubin, totalOrdered By: Kandy Valle on 06-17-2024 Bilirubin [Mass/Vol] 0.39 mg/dL 0.00-1.30 [facility] Calculated very low density lipoprotein (VLDL) cholesterol measurementOrdered By: Kandy Valle on 06-17-2024 Calculated very low density lipoprotein (VLDL) cholesterol measurement 49 mg/dL High 5 [facility] VLDL Cholesterol 49 mg/dL High [facility] Carbon dioxide, total [Moles /volume] in Central venous bloodOrdered By: Kandy Valle on 06-17-2024 CO2 [Moles/Vol] 21.4 mmol/L 21.0-32.0 [facility] Chloride assayOrdered By: Shelby Vlale on 06-17-2024 Chloride [Moles/Vol] 105 mmol/L 98-108 [facility] Comprehensive Metabolic Prof ilon 06-17-2024 Albumin [Mass/Vol] 4.5 g/dL Normal 3.5-5.0 [facility] Comment on above: Performed By: #### L 500.4050, L500.4100 ####[facility] [address] [place], [address] Albumin/Globulin [Mass ratio] 1.5 {ratio} Normal 0.9-2.4 [facility] Comment on above: Performed By: #### L 500.4050, L500.4100 ####[facility] [address] [place], [address] ALK PHOS 131 U/L High 35-104 [facility] Comment on above: Performed By: #### L 500.4050, L500.4100 ####[facility] [address] [place], [address] ALT [Catalytic activity/Vol] 84 U/L High <=34 [facility] Comment on above: Performed By: #### L 500.4050, L500.4100 ####[facility] [address] [place], [address] AST [Catalytic activity/Vol] 52 U/L High <=31 [facility] Comment on above: Performed By: #### L 500.4050, L500.4100 ####[facility] [address] [place], [address] Bilirubin [Mass/Vol] 0.39 mg/dL Normal 0.00-1.30 [facility] Comment on above: Performed By: #### L 500.4050, L500.4100 ####[facility] [address] [place], [address] BUN/CRE 13.8 RATIO Normal 10-20 [facility] Comment on above: Performed By: #### L 500.4050, L500.4100 ####[facility] [address] [place], [address] Calcium [Mass/Vol] 9.1 mg/dL Normal 7.6-11.0 [facility] Comment on above: Performed By: #### L 500.4050, L500.4100 ####[facility] [address] [place], [address] Chloride [Moles/Vol] 105 mmol/L Normal 98-108 [facility] Comment on above: Performed By: #### L 500.4050, L500.4100 ####[facility] [address] [place], [address] CO2 [Moles/Vol] 21.4 mmol/L Normal 21.0-32.0 [facility] Comment on above: Performed By: #### L 500.4050, L500.4100 ####[facility] [address] [place], [address] Creatinine [Mass/Vol] 0.79 mg/dL Normal 0.70-1.20 [facility] Comment on above: Performed By: #### L 500.4050, L500.4100 ####[facility] [address] [place], [address] GAP 14 Normal 5-15 [facility] Comment on above: Performed By: #### L 500.4050, L500.4100 ####[facility] [address] [place], [address] GFR/1.73 sq M.predicted among non-blacks MDRD (S/P/Bld) [Vol rate/Area] 90 mL/min/{1.73_m2} Normal >60 [facility] Comment on above: Result Comment: mL/m in/1.73m2 CKD-EPI Creatinine Equation (2020) Performed By: #### L 500.4050, L500.4100 ####[facility] [address] [place], [address] Globulin (S) [Mass/Vol] 2.9 g/dL Normal 2.2-4.2 [facility] Comment on above: Performed By: #### L 500.4050, L500.4100 ####[facility] [address] [place], [address] Glucose [Mass/Vol] 132 mg/dL High 70-99 [facility] Comment on above: Performed By: #### L 500.4050, L500.4100 ####[facility] [address] [place], [address] Potassium [Moles/Vol] 3.8 mmol/L Normal 3.3-5.1 [facility] Comment on above: Performed By: #### L 500.4050, L500.4100 ####[facility] [address] [place], [address] Sodium [Moles/Vol] 141 mmol/L Normal 133-145 [facility] Comment on above: Performed By: #### L 500.4050, L500.4100 ####[facility] [address] [place], [address] T PROT 7.4 g/dL Normal 5.9-8.4 [facility] Comment on above: Performed By: #### L 500.4050, L500.4100 ####[facility] [address] [place], [address] Urea nitrogen [Mass/Vol] 11 mg/dL Normal 4-19 [facility] Comment on above: Performed By: #### L 500.4050, L500.4100 ####[facility] [address] [place], [address] GFR/1.73 sq M.predicted jorge l g non-blacks MDRD (S/P/Bld) [Vol rate/Area]Ordered By: Kandy Valle on 06-17-2024 Estimated GFR (MDRD) Non-Af Amer 90 >60 [facility] Comment on above: mL/min/1.73m2 CKD-EP I Creatinine Equation (2020) Glomerular filtration rate ( GFR) estimation/1.73 sq m using serum, plasma, or whole bOrdered By: Kandy Valle on 06-17-2024 GFR/1.73 sq M.predicted among non-blacks MDRD (S/P/Bld) [Vol rate/Area] 90 mL/min/{1.73_m2} >60 [facility] Comment on above: mL/min/1.73m2 CKD-EP I Creatinine Equation (2020) LDL calc ser/plasOrdered By: Kandy Valle on 06-17-2024 Cholesterol in LDL [Mass/Vol] 165 mg/dL [facility] Comment on above: Ydcfugiuwg=611-713 m g/dL & Higher Aerf=711 mg/dL or greater LDL Cholesterol, Calculated 165 mg/dL [facility] Comment on above: Fhmaxzwphc=677-678 m g/dL & Higher Ttuj=397 mg/dL or greater Laboratory - Chemistry and C hemistry - challengeOrdered By: Kandy Valle on 06-17-2024 AST [Catalytic activity/Vol] 52 U/L High <32 [facility] Lipid Profileon 06-17-2024 CHOL:HDL 5.99 Normal [facility] Comment on above: Performed By: #### L 500.4050, L500.4100 ####[facility] [address] [place], [address] Cholesterol [Mass/Vol] 257 mg/dL High <=200 [facility] Comment on above: Result Comment: Chol esterol level, Desirable <200 mg/dL Borderline high cholesterol 200-239 mg/dL High cholesterol >=240 mg/dL Recommendations of the NCEP Adult Treatment Panel for the following risk-cutoff thresholds for the [place] population. Performed By: #### L 500.4050, L500.4100 ####[facility] [address] [place], [address] Cholesterol in HDL [Mass/Vol] 43 mg/dL Normal [facility] Comment on above: Result Comment: Mary onal Cholesterol Education Program (NCEP) guidelines: <40 mg/dL: Low HDL-cholesterol (major risk factor for CHD) >= 60 mg/dL: High HDL-cholesterol (negative risk factor for CHD) HDL-cholesterol is affected by a number of factors, e.g. smoking, exercise, hormones, sex and age. Performed By: #### L 500.4050, L500.4100 ####[facility] [address] [place], [address] Cholesterol in LDL [Mass/Vol] 165 mg/dL Normal [facility] Comment on above: Result Comment: Bord xcbhbi=293-111 mg/dL Higher Yghj=384 mg/dL or greater Performed By: #### L 500.4050, L500.4100 ####[facility] [address] [place], [address] Cholesterol in VLDL [Mass/Vol] 49 mg/dL High 5-40 [facility] Comment on above: Performed By: #### L 500.4050, L500.4100 ####[facility] [address] [place], [address] Triglyceride [Mass/Vol] 244 mg/dL High [facility] Comment on above: Result Comment: The drugs N-Acetylcysteine and Metamizole may falsely depress this assay. Normal range: <150 mg/dL Borderline High: 150-199 mg/dL High: 200-499 mg/dL Very High: >500 mg/dL Performed By: #### L 500.4050, L500.4100 ####[facility] [address] [place], [address] Potassium (Unsp spec) [Mass/ Vol]Ordered By: Kandy Valle on 06-17-2024 Potassium [Moles/Vol] 3.8 mmol/L 3.3-5.1 [facility] Potassium measurement (mass/ volume)Ordered By: Kandy Valle on 06-17-2024 Potassium (Unsp spec) [Mass/Vol] 3.8 mmol/L 3.3-5.1 [facility] Screening total cholesterol/ high density lipoprotein (HDL) cholesterol ratioOrdered By: Kandy Valle on 06-17-2024 Cholesterol.total/Mattie sterol in HDL [Mass ratio] 5.99 {ratio} [facility] Serum creatinine measurement (mass/volume)Ordered By: Kandy Valle on 06-17-2024 Creatinine [Mass/Vol] 0.79 mg/dL 0.70-1.20 [facility] Serum globulin measurementOr dered By: Kandy Valle on 06-17-2024 Globulin (S) [Mass/Vol] 2.9 g/dL 2.2-4.2 [facility] Serum glucose measurement (m ass/volume)Ordered By: Kandy Valle on 06-17-2024 Glucose [Mass/Vol] 132 mg/dL High 70-99 [facility] Serum or plasma alanine townsend otransferase (ALT) measurementOrdered By: Kandy Valle on 06-17-2024 ALT [Catalytic activity/Vol] 84 U/L High <35 [facility] Serum or plasma albumin quinton urement (mass/volume)Ordered By: Kandy Valle on 06-17-2024 Albumin [Mass/Vol] 4.5 g/dL 3.5-5.0 [facility] Serum or plasma albumin/glob ulin mass ratioOrdered By: Kandy Valle on 06-17-2024 Albumin/Globulin [Mass ratio] 1.5 {ratio} 0.9-2.4 [facility] Serum or plasma alkaline tianna sphatase measurementOrdered By: Kandy Valle on 06-17-2024 ALP [Catalytic activity/Vol] 131 U/L High 35-104 [facility] Serum or plasma calcium quinton urement (mass/volume)Ordered By: Kandy Valle on 06-17-2024 Calcium [Mass/Vol] 9.1 mg/dL 7.6-11.0 [facility] Serum or plasma cholesterol in HDL measurement (mass/volume)Ordered By: Kandy Valle on 06-17-2024 Cholesterol in HDL [Mass/Vol] 43 mg/dL >40 [facility] Comment on above: National Cholesterol Education Program (NCEP) guidelines:<40 mg/dL: Low HDL-cholesterol (major risk factor for CHD)>= 60 mg/dL: High HDL-cholesterol (negative risk factor for CHD)HDL-cholesterol is affected by a number of factors, e.g. smoking, exercise, hormones, sex and age. Serum or plasma cholesterol measurement (mass/volume)Ordered By: Kandy Valle on 06-17-2024 Cholesterol [Mass/Vol] 257 mg/dL High <201 [facility] Comment on above: Cholesterol level, D esirable <200 mg/dLBorderline high cholesterol 200-239 mg/dLHigh cholesterol >=240 mg/dLRecommendations of the NCEP Adult Treatment Panel for the following risk-cutoff thresholds for the [place] population. Serum or plasma urea nitroge n measurement (mass/volume)Ordered By: Kandy Valle on 06-17-2024 Urea nitrogen [Mass/Vol] 11 mg/dL 4-19 [facility] Sodium levelOrdered By: Kandy Valle on 06-17-2024 Sodium [Moles/Vol] 141 mmol/L 133-145 [facility] Total proteinOrdered By: Anupama Valle on 06-17-2024 Protein [Mass/Vol] 7.4 g/dL 5.9-8.4 [facility] Triglycerides measurementOrd ered By: Kandy Valle on 06-17-2024 Triglyceride [Mass/Vol] 244 mg/dL High <199 [facility] Comment on above: The drugs N-Acetylcy steine and Metamizole may falsely depress this assay. Normal range: <150 mg/dLBorderline High: 150-199 mg/dLHigh: 200-499 mg/dLVery High: >500 mg/dL NCS and/or EMG Patienton NCS and/or EMG Patient [facility] Pulmonary Services/Neurology [address] [place] [address] MR#: [id number] Acct: [id number] Name: GABRIELA RUSSELL KYLE Rep #: [id number] : 1970 54 From: Roshni Kirkpatrick MD Referring Dr: Priti Hammond SIGNAL APPRENTICE-C Status: REG C LI Location: [facility] Date: 06/10/24 Sex: F C NCS and/or [...] Multi Select Codes Neurology Neurology Interp Codes: 29017-85 Musc test done w/n test comp (interp) (1) and 92988-75 Nrv cndj tst 5-6 studies (interp) 06/10/24936 Date Roshni Kirkpatrick MD CC: PIPE Hammond; Dr. Roshni Kirkpatrick MD; Dr. Kandy Valle DO Date Dictated: 06/10/24928 Date Transcribed: 06/10/24928 Director Of Therapy Services: Signed Normal [facility] Orthopedic Visit Reporton Orthopedic Visit Report [facility] [address] [place] [address] 5 [place], [place] [id number] OFFICE VISIT Date of Service: 06/10/24 MR#: [id number] Acct: [id number] Name: GABRIELA RUSSELL KYLE Rep #: [id number] : 1970 Provider: PIPE breaux Age/Sex: 54/F [place] [facility] [place]: Signed Intake Vital Signs 05/15/24 12:56 [...] provided and the decisions made by me, Priti Hammond NP-C 06/10/24 9098. GABRIELA RUSSELL is a 54 year old [...] Patient requests referral for Dr. Rivera at [facility], [facility]. At this time, patient may continue home stretches and exercises, okay to put OT on hold until evaluation at specialist. Message to staff to share EMG results with [facility]. Plan will be to follow-up here on as needed basis. Patient in agreement with plan of care This document has been transcribed using [email or web address] dictation software. There may be incorrect words, spelling, and punctuation. (2) Right hand paresthesia: Status: Acute Plan Details Goals Barriers: Goals Decrease spasm Decrease pain Improve ability to perform job 06/10/24 1443 Date Priti Castaneda Signature: Date (if applicable) CC: OTR/L CHMalik Qureshi; Dr. Kandy Valle, DO Normal [facility] OT General Evaluationon 05-18 OT General Evaluation [facility] Occupational Therapy [address] [place] [address] / REHABILITATION SERVICES INITIAL EVALUATION MR#: [id number] Acct: [id number] Name: GABRIELA RUSSELL Rep #: [id number] : 1970 54 From: Stacey VELAZQUEZ CHT Referring Dr.: PIPE Hammond Status: REG RCR Insurance: [employer] Eval Date: SELF PAY INSURANCE Patient's Visit Information Visit Information Visit Information: GABRIELA RUSSELL is a 54 year old F, referred to Occupational Therapy by PIPE Luna, with a diagnosis of right hand paresthesia, sprain metacarpophalangeal joint R thumb, pain. Date of Evaluation: 06/04/24 Occupational Therapist: NELL De Leon/David, OUSMANE Subjective Subjective: This 54 year old female [...] Forearm: right /left WFL Wrist: Right/left WFL Machine Buffer: right 60# left 60# Lateral Pinch: right [...] IND with work and daily tasks by vernac Goal:: pt will demo increase in thumb opposition to tip of LF by vernac to increase pts ind with ADLs and [...] to be FAXED BACK to us at [phone] for Medicare purposes. Please let me know if there are questions or concerns regarding this plan of care. Physician Signature: Date : 06/05/24 0737 CC: PIPE Hammond; Dr. Kandy Valle DO MK Signed For Medicare only, by signing this I certify the plan of care. Physicians Signature Date Normal [facility] Orthopedic Visit Reporton Orthopedic Visit Report [facility] [facility] [address] [place] [address] OFFICE VISIT Date of Service: 05/26/24 MR#: [id number] Acct: [id number] Name: GABRIELA RUSSELL Rep #: [id number] : 1970 Provider: PIPE breaux Age/Sex: 54/F [place] [facility] [place] Status: Signed Intake Vital Signs 05/15/24 12:56 [...] mg PO DAILY 05/15/24 05/26/24 His tory PFSH Medical History Urinary tract infection with [...] provided and the decisions made by me, Priti Hammond, HUNG-C 05/26/24 7764. Part of today???s visit was documented by [...] is luda (more content not included)... Normal [facility] Chiropractic Reporton 2024 Chiropractic Report [facility] [address] [place], [place] [id number] OFFICE VISIT Date of Service: 05/19/24 MR#: [id number] Acct: [id number] Name: GABRIELA RUSSELL KYLE Rep #: [id number] : 1970 Provider: GUILLERMINA Rome Age/Sex: 54/F [place] [facility] [place] Status: Signed Intake Vital Signs 02/17/24 08:00 [...] pelvic re (more content not included)... Normal [facility] Orthopedic Visit Reporton Orthopedic Visit Report [facility] [facility] [address] [place] [address] OFFICE VISIT Date of Service: 05/15/24 MR#: [id number] Acct: [id number] Name: GABRIELA RUSSELL Rep #: [id number] : 1970 Provider: PIPE breaux Age/Sex: 54/F [place] [facility] [place] Status: Signed Intake Vital Signs 02/17/24 08:00 [...] a dose pack (Medrol (Juan)) #21 tabs [facility] Medical History Urinary tract infection with hematuria [...] provided and the decisions made by me, Priti Hammond, SIGNAL APPRENTICE-C 05/15/24 3361. Part of today???s visit was documented by Martina Terrell ATC, acting as scribe. GABRIELA RUSSELL is a 54 year old F here today for right hand pain. She states it is mainly the thumb, index and middle finger. She states the fingertips are numb and the fingers feel weak and she has no strength. 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 She complains [...] 6-week history of decreased range of motion, prosthetist strength and paresthesias mainly of the thumb [...] of wrist (more content not included)... Normal [facility] Wrist min 3 Viewson 05-15-19 Wrist min 3 Views [facility] Imaging Services [address] [place], [place] [id number] Wrist min 3 Views MR#: [id number] Acct: [id number] Name: GABRIELA RUSSELL Rep #: [id number] : 1970 F 54 From: Landry Zacarias PCP: Dr. Kandy Valle DO Status: REG CLI Study: Wrist min 3 Views Date of Exam: 05/15/24 Exam# [id number] Ordering Dr: Priti Hammond PROCEDURE: Right wrist radiographs REASON FOR EXAM: Pain, weakness TECHNIQUE: Three views of the right wrist COMPARISON: None. FINDINGS: See impression RAD/Wrist min 3 Views IMPRESSION: Negative for acute displaced fracture or dislocation. No significant arthropathy. Reading Location: [facility] CC: SIGNAL APPRENTICE-Airam Hammond; Dr. Kandy Valle DO Director Of Therapy Services: Signed Normal [facility] Urine Cultureon 02-20-2024 URC #1, 2 Below infectio n level. 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 Submit a new specimen if indicated. 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 Abnormal [facility] Bacteria identified Cx Nom (U) Positive Abnormal [facility] Laboratory - Chemistry and C hemistry - challengeon 02-17-2024 Bilirubin Ql (U) Negative [facility] Glucose Ql (U) Negative [facility] Ketones Ql (U) Negative [facility] pH (U) 6.0 [pH] [facility] Specific gravity (U) [Rel density] 1.010 [facility] Urobilinogen (U) [Mass/Vol] Negative [facility] Laboratory - Hematology and Cell countson 02-17-2024 Hemoglobin Ql (U) Large [facility] Laboratory - Specimen inform ationon 02-17-2024 Clarity (U) Cloudy [facility] Color (U) Yellow [facility] Laboratory - Urinalysison Nitrite Ql (U) Negative [facility] Protein Ql (U) 1+ [facility] No Panel Informationon 02-16 Urine Leukocytes Positive [facility] Urine Non-Hemolyzed Blood [facility] Urgent Care Visit Reporton 1 04-19-2023 Urgent Care Visit Report [facility] [address], [address] [place] [address] OFFICE VISIT Date of Service: 02/17/24 MR#: [id number] Acct: [id number] Name: GABRIELA RUSSELL KYLE Rep #: [id number] : 1970 Provider: PIPE ellis Age/Sex: 53/F [place] [facility] [place] Status: Signed Intake Vital Signs 05/28/23 15:50 02/17/24 08:00 02/17/24 08:06 Height 5 ft 7 in 5 ft 7 in BP 126/70 H Blood Pressure Location Lt brachial Position Sitting Respiration 15 Pulse 94 Pulse Source NIBP Temp 98.3 F Temp Source Oral Pulse Oximetry (%) 96 Oxygen Delivery Method room air Intake Visit Reasons: Urinary tract infection Chief Complaint: dysuria, frequency Tie Buyer Required: No Is patient in pain?: No [...] the past year?: No 02/17/24 0833 Date __ (more content not included)... Normal [facility] HIP, UNI W/ Pelvis 2-3 Views on 01-26-2024 HIP, UNI W/ Pelvis 2-3 Views [facility] Imaging Services [address] [place] [address] HIP, UNI W/ Pelvis 2-3 Views MR#: [id number] Acct: [id number] Name: GABRIELA RUSSELL #: [id number] : 1970 F 53 From: Rangel Keller MD PCP: Dr. Kandy Valle DO Status: REG CLI Study: HIP, UNI W/ Pelvis 2-3 Views Date of Exam: 12/10 Exam# [id number] Ordering Dr: Kandy Valle DO [id number] STUDY: X-RAY - PELVIS AND LEFT HIP [...] EST , CC: Dr. Kandy Valle DO Director Of Therapy Services: Signed Normal [facility] L/S Spine Min 4 Viewson 11- L/S Spine Min 4 Views [facility] Imaging Services [address] [place] [address] L/S Spine Min 4 Views MR#: [id number] Acct: [id number] Name: TERI RUSSELLETTA KYLE Rep #: [id number] : 1970 F 53 From: Rangel Keller MD PCP: Dr. Kandy Valle DO Status: REG CLI Study: L/S Spine Min 4 Views Date of Exam: 01/26/24 Exam# [id number] Ordering Dr: Kandy Valle DO [id number] STUDY: X-RAY - LUMBAR SPINE REASON FOR [...] EST , CC: Dr. Kandy Valle DO Director Of Therapy Services: Signed Normal [facility] Basophil percentageOrdered B y: Dr. Valle on 04-05-2022 Bilirubin [Mass/Vol] 0.50 mg/dL 0.20-1.00 [facility] Comment on above: For patients on eltr ombopag therapy, use of Dimension Wood TBIL is not recommended. Chloride [Moles/Vol] 104 mmol/L 98-107 [facility] Cholesterol [Mass/Vol] 243 mg/dL <200 [facility] Comment on above: <200 mg/dL Desirable 200-240 mg/dL Borderline >240 mg/dL High Risk Glucose [Mass/Vol] 113 mg/dL 74-106 [facility] Comment on above: Fasting Glucose resu lt from 100 to 125 mg/dL suggests IMPAIRED HOMEOSTASIS per A.D.A. criteria. Potassium [Moles/Vol] 3.6 mmol/L 3.5-5.1 [facility] Protein [Mass/Vol] 7.1 g/dL 6.4-8.2 [facility] Sodium [Moles/Vol] 141 mmol/L 136-145 [facility] Triglyceride [Mass/Vol] 190 mg/dL <199 [facility] Comment on above: The drugs N-Acetylcy steine and Metamizole may falsely depress this assay.Serum Triglycerides Reference Interval Normal <150 mg/dL Borderline high 150 - 199 mg/dL High 200 - 499 mg/dL Very High > or = 500 mg/dL Laboratory - Chemistry and C hemistry - challengeOrdered By: Dr. Valle on 04-05-2022 ALP [Catalytic activity/Vol] 113 U/L 45-117 [facility] ALT [Catalytic activity/Vol] 97 U/L 13-56 [facility] CO2 [Moles/Vol] 28.0 mmol/L 21.0-32.0 [facility] Globulin (S) [Mass/Vol] 3.5 g/dL 2.2-4.2 [facility] Urea nitrogen/Creatinine [Mass ratio] 12.0 mg/mg 10-20 [facility] No Panel InformationOrdered By: Dr. Valle on 04-05-2022 Estimated GFR (MDRD) Amer 105 mL/min >60 [facility] Comment on above: GFR Calc Estimated GFR (MDRD) Non-Af Amer 87 mL/min >60 [facility] Comment on above: Non- GFR Calc Serum or plasma albumin quinton urement (mass/volume)Ordered By: Dr. Valle on 04-05-2022 Albumin [Mass/Vol] 3.6 g/dL 3.2-5.0 [facility] Serum or plasma albumin/glob ulin mass ratioOrdered By: Dr. Valle on 04-05-2022 Albumin/Globulin [Mass ratio] 1.0 {ratio} 0.9-2.4 [facility] Serum or plasma calcium quinton urement (mass/volume)Ordered By: Dr. Valle on 04-05-2022 Calcium [Mass/Vol] 8.7 mg/dL 8.5-10.1 [facility] Serum or plasma cholesterol in HDL measurement (mass/volume)Ordered By: Dr. Valle on 04-05-2022 Cholesterol in HDL [Mass/Vol] 38 mg/dL >40 [facility] Comment on above: The drugs N-Acetylcy steine and Metamizole may falsely depress this assay. Reference Range HDL <40 mg/dL Low HDL Cholesterol HDL >or= 60 mg/dL High HDL Cholesterol Serum or plasma cholesterol in VLDL measurement (mass/volume)Ordered By: Dr. Valle on 04-05-2022 Cholesterol in VLDL [Mass/Vol] 38 mg/dL 5-40 [facility] Serum or plasma creatinine m easurement (mass/volume)Ordered By: Dr. Valle on 04-05-2022 Creatinine [Mass/Vol] 0.75 mg/dL 0.55-1.02 [facility] Comment on above: The validity of the calculated GFR & GFRAA in patients over 70 years has not been determined. Clinical correlation is essential. Serum or plasma low density lipoprotein (LDL) cholesterol measurement (mass/volume)Ordered By: Dr. Valle on 04-05-2022 Cholesterol in LDL [Mass/Vol] 167 mg/dL 0-130 [facility] Serum or plasma urea nitroge n measurement (mass/volume)Ordered By: Dr. Valle on 04-05-2022 Urea nitrogen [Mass/Vol] 9 mg/dL 7-18 [facility] Thin prep Papanicolaou smear with manual screeningOrdered By: Dr. Valle on 04-05-2022 Thin prep Papanicolaou smear with manual screening 54 U/L 15-37 [facility] Thin prep Papanicolaou smear with manual screening 9 5-15 [facility] Basophil percentageOrdered B y: Dr. Valle on 02-04-2022 Bilirubin [Mass/Vol] 0.50 mg/dL 0.20-1.00 [facility] Comment on above: For patients on eltr ombopag therapy, use of Dimension Wood TBIL is not recommended. Chloride [Moles/Vol] 107 mmol/L 98-107 [facility] Glucose [Mass/Vol] 107 mg/dL 74-106 [facility] Comment on above: Fasting Glucose resu lt from 100 to 125 mg/dL suggests IMPAIRED HOMEOSTASIS per A.D.A. criteria. Potassium [Moles/Vol] 4.1 mmol/L 3.5-5.1 [facility] Protein [Mass/Vol] 7.2 g/dL 6.4-8.2 [facility] Sodium [Moles/Vol] 140 mmol/L 136-145 [facility] Laboratory - Chemistry and C hemistry - challengeOrdered By: Dr. Valle on 02-04-2022 ALP [Catalytic activity/Vol] 106 U/L 45-117 [facility] ALT [Catalytic activity/Vol] 89 U/L 13-56 [facility] CO2 [Moles/Vol] 28.0 mmol/L 21.0-32.0 [facility] Globulin (S) [Mass/Vol] 3.5 g/dL 2.2-4.2 [facility] Urea nitrogen/Creatinine [Mass ratio] 11.2 mg/mg 10-20 [facility] No Panel InformationOrdered By: Dr. Valle on 02-04-2022 Estimated GFR (MDRD) Amer 97 mL/min >60 [facility] Comment on above: GFR Calc Estimated GFR (MDRD) Non-Af Amer 80 mL/min >60 [facility] Comment on above: Non- GFR Calc Serum or plasma albumin quinton urement (mass/volume)Ordered By: Dr. Valle on 02-04-2022 Albumin [Mass/Vol] 3.7 g/dL 3.2-5.0 [facility] Serum or plasma albumin/glob ulin mass ratioOrdered By: Dr. Valle on 02-04-2022 Albumin/Globulin [Mass ratio] 1.1 {ratio} 0.9-2.4 [facility] Serum or plasma calcium quinton urement (mass/volume)Ordered By: Dr. Valle on 02-04-2022 Calcium [Mass/Vol] 8.9 mg/dL 8.5-10.1 [facility] Serum or plasma creatinine m easurement (mass/volume)Ordered By: Dr. Valle on 02-04-2022 Creatinine [Mass/Vol] 0.80 mg/dL 0.55-1.02 [facility] Comment on above: The validity of the calculated GFR & GFRAA in patients over 70 years has not been determined. Clinical correlation is essential. Serum or plasma urea nitroge n measurement (mass/volume)Ordered By: Dr. Valle on 02-04-2022 Urea nitrogen [Mass/Vol] 9 mg/dL 7-18 [facility] Thin prep Papanicolaou smear with manual screeningOrdered By: Dr. Valle on 02-04-2022 Thin prep Papanicolaou smear with manual screening 57 U/L 15-37 [facility] Thin prep Papanicolaou smear with manual screening 5 5-15 [facility] Absolute lymphocyte countOrd ered By: HEALTH ASSESSMENT on 12-22-2021 Lymphocytes Auto (Unsp spec) [#/Vol] 2.24 10*3/uL 0.83-4.51 [facility] Absolute reticulocyte countO rdered By: HEALTH ASSESSMENT on 12-22-2021 Reticulocytes (Bld) [#/Vol] 0.00 10*3/uL 0-5 [facility] Basophil percentageOrdered B y: HEALTH ASSESSMENT on 12-22-2021 Basophil percentage 3.2 mg/dL 2.5-4.9 [facility] Bilirubin [Mass/Vol] 0.50 mg/dL 0.20-1.00 [facility] Comment on above: For patients on eltr ombopag therapy, use of Dimension Wood TBIL is not recommended. Chloride [Moles/Vol] 106 mmol/L 98-107 [facility] Cholesterol [Mass/Vol] 299 mg/dL <200 [facility] Comment on above: <200 mg/dL Desirable 200-240 mg/dL Borderline >240 mg/dL High Risk Glucose [Mass/Vol] 101 mg/dL 74-106 [facility] Comment on above: Fasting Glucose resu lt from 100 to 125 mg/dL suggests IMPAIRED HOMEOSTASIS per A.D.A. criteria. Neutrophils (Bld) [#/Vol] 4.6 10*3/uL 2.0-7.7 [facility] Potassium [Moles/Vol] 3.5 mmol/L 3.5-5.1 [facility] Protein [Mass/Vol] 7.4 g/dL 6.4-8.2 [facility] Sodium [Moles/Vol] 140 mmol/L 136-145 [facility] Triglyceride [Mass/Vol] 297 mg/dL <199 [facility] [facility] Comment on above: The drugs N-Acetylcy steine and Metamizole may falsely depress this assay.Serum Triglycerides Reference Interval Normal <150 mg/dL Borderline high 150 - 199 mg/dL High 200 - 499 mg/dL Very High > or = 500 mg/dL WBC (Bld) [#/Vol] 7.7 10*3/uL 4.4-11.0 [facility] Blood erythrocytes count (nu mber/volume)Ordered By: HEALTH ASSESSMENT on 12-22-2021 RBC (Bld) [#/Vol] 4.77 10*6/uL 4.2-5.4 [facility] Blood hemoglobin measurement (mass/volume)Ordered By: HEALTH ASSESSMENT on 12-22-2021 Hemoglobin (Bld) [Mass/Vol] 14.0 g/dL 12.0-15.0 [facility] Blood platelet mean volumeOr dered By: HEALTH ASSESSMENT on 12-22-2021 Platelet mean volume (Bld) [Entitic vol] 9.4 fL 6.2-12.0 [facility] Determination of erythrocyte mean corpuscular volume (MCV)Ordered By: HEALTH ASSESSMENT on 12-22-2021 MCV (RBC) [Entitic vol] 88.7 fL 81-99 [facility] Direct bilirubinOrdered By: HEALTH ASSESSMENT on 12-22-2021 Bilirubin.direct [Mass/Vol] 0.09 mg/dL 0.00-0.30 [facility] Hematocrit Auto (Bld) [Volum e fraction]Ordered By: HEALTH ASSESSMENT on 12-22-2021 Hematocrit (Bld) [Volume fraction] 42.3 % 37-47 [facility] Laboratory - Chemistry and C hemistry - challengeOrdered By: HEALTH ASSESSMENT on 12-22-2021 ALP [Catalytic activity/Vol] 106 U/L 45-117 [facility] ALT [Catalytic activity/Vol] 128 U/L 13-56 [facility] Cholesterol.total/Mattie sterol in HDL [Mass ratio] 9.10 {ratio} [facility] CO2 [Moles/Vol] 27.0 mmol/L 21.0-32.0 [facility] Globulin (S) [Mass/Vol] 3.8 g/dL 2.2-4.2 [facility] Urea nitrogen/Creatinine [Mass ratio] 11.7 mg/mg 10-20 [facility] Laboratory - Hematology and Cell countsOrdered By: HEALTH ASSESSMENT on 12-22-2021 Erythrocyte distribution width (RBC) [Entitic vol] 39.9 fL 35.1-43.9 [facility] Erythrocyte distribution width (RBC) [Ratio] 12.2 % 11.6-14.6 [facility] MCH (RBC) [Entitic mass] 29.4 pg 27.0-32.0 [facility] Nucleated RBC/100 WBC (Bld) [Ratio] 0 % 0-5 [facility] MCHC Auto (RBC) [Mass/Vol]Or dered By: HEALTH ASSESSMENT on 12-22-2021 MCHC (RBC) [Mass/Vol] 33.1 g/dL 32-36 [facility] No Panel InformationOrdered By: HEALTH ASSESSMENT on 12-22-2021 Estimated GFR (MDRD) Amer 102 mL/min >60 [facility] Comment on above: GFR Calc Estimated GFR (MDRD) Non-Af Amer 85 mL/min >60 [facility] Comment on above: Non- GFR Calc Platelets bldOrdered By: [facility] ASSESSMENT on 12-22-2021 Platelets (Bld) [#/Vol] 296 10*3/uL 150-450 [facility] Segmented neutrophils/100 WB C Auto (Bld)Ordered By: HEALTH ASSESSMENT on 12-22-2021 Segmented neutrophils/100 WBC (Bld) 59.0 % 47-70 [facility] Serum or plasma albumin quinton urement (mass/volume)Ordered By: HEALTH ASSESSMENT on 12-22-2021 Albumin [Mass/Vol] 3.6 g/dL 3.2-5.0 [facility] Serum or plasma albumin/glob ulin mass ratioOrdered By: HEALTH ASSESSMENT on 12-22-2021 Albumin/Globulin [Mass ratio] 0.9 {ratio} 0.9-2.4 [facility] Serum or plasma calcium quinton urement (mass/volume)Ordered By: HEALTH ASSESSMENT on 12-22-2021 Calcium [Mass/Vol] 8.6 mg/dL 8.5-10.1 [facility] Serum or plasma cholesterol in HDL measurement (mass/volume)Ordered By: HEALTH ASSESSMENT on 12-22-2021 Cholesterol in HDL [Mass/Vol] 33 mg/dL >40 [facility] Comment on above: The drugs N-Acetylcy steine and Metamizole may falsely depress this assay. Reference Range HDL <40 mg/dL Low HDL Cholesterol HDL >or= 60 mg/dL High HDL Cholesterol Serum or plasma cholesterol in VLDL measurement (mass/volume)Ordered By: HEALTH ASSESSMENT on 12-22-2021 Cholesterol in VLDL [Mass/Vol] 59 mg/dL 5-40 [facility] Serum or plasma creatinine m easurement (mass/volume)Ordered By: HEALTH ASSESSMENT on 12-22-2021 Creatinine [Mass/Vol] 0.77 mg/dL 0.55-1.02 [facility] Comment on above: The validity of the calculated GFR & GFRAA in patients over 70 years has not been determined. Clinical correlation is essential. Serum or plasma low density lipoprotein (LDL) cholesterol measurement (mass/volume)Ordered By: HEALTH ASSESSMENT on 12-22-2021 Cholesterol in LDL [Mass/Vol] 207 mg/dL 0-130 [facility] Serum or plasma urea nitroge n measurement (mass/volume)Ordered By: HEALTH ASSESSMENT on 12-22-2021 Urea nitrogen [Mass/Vol] 9 mg/dL 7-18 [facility] Serum or plasma uric acid me asurement (mass/volume)Ordered By: HEALTH ASSESSMENT on 12-22-2021 Urate [Mass/Vol] 5.4 mg/dL 2.6-6.0 [facility] Comment on above: The drugs N-Acetylcy steine and Metamizole may falsely depress this assay. Thin prep Papanicolaou smear with manual screeningOrdered By: HEALTH ASSESSMENT on 12-22-2021 Thin prep Papanicolaou smear with manual screening 71 U/L 15-37 [facility] Thin prep Papanicolaou smear with manual screening 7 5-15 [facility] Thin prep Papanicolaou smear with manual screening 265 U/L 84-246 [facility] Laboratory - Chemistry and C hemistry - challengeon 09-14-2021 Bilirubin Ql (U) Negative [facility] Work Phone: Glucose Ql (U) Negative [facility] Work Phone: Ketones Ql (U) Trace (5) [facility] Work Phone: pH (U) 6.5 [pH] [facility] Work Phone: Specific gravity (U) [Rel density] 1.005 [facility] Work Phone: Urobilinogen (U) [Mass/Vol] Negative [facility] Work Phone: Laboratory - Hematology and Cell countson 09-14-2021 Hemoglobin Ql (U) Hemolyzed [facility] Work Phone: Laboratory - Specimen inform ationon 09-14-2021 Clarity (U) Turbid [facility] Work Phone: Color (U) STRAW [facility] Work Phone: Laboratory - Urinalysison Nitrite Ql (U) Negative [facility] Work Phone: Protein Ql (U) Negative [facility] Work Phone: No Panel Informationon 09-14 Urine Leukocytes Positive [facility] Work Phone: Urine Non-Hemolyzed Blood Large [facility] Work Phone: Office Visiton 10-18-2016 Protein mass conc Done [facility] Work Phone: Tobacco smoking status NHIS Former smoker [facility] Work Phone: Office Visiton 03-27-2016 Protein mass conc Done [facility] Work Phone: Tobacco smoking status NHIS Former smoker [facility] Work Phone: Lab Report: Miscellaneous La b Procedureon 08-14-2015 MISC LAB TEST . [facility] Work Phone: Lab Report: Basic Metabolic Profile (BMP)on 08-06-2015 Anion gap molar conc 8 mmol/L 5-15 [facility] Work Phone: Calcium mass conc 8.7 mg/dL 8.5-10.1 [facility] Work Phone: Chloride molar conc 109 mmol/L High 98-107 [facility] Work Phone: CO2 ppres (BldV) 27.0 mmol/L 21.0-32.0 [facility] Work Phone: Creatinine mass conc 0.85 mg/dL 0.55-1.20 [facility] Work Phone: EST GFR - AA 93 mL/min >60 [facility] Work Phone: GFR/1.73 sq M predicted among non-blacks MDRD vol rate/area (S/P/Bld) 77 mL/min/{1.73_m2} >60 [facility] Work Phone: Glucose mass conc 95 mg/dL 70-110 [facility] Work Phone: Potassium molar conc 3.4 mmol/L Low 3.5-5.1 [facility] Work Phone: Sodium molar conc 144 mmol/L 136-145 [facility] Work Phone: Urea nitrogen mass conc 9 mg/dL 7-18 [facility] Work Phone: Urea nitrogen/Creatinine mass ratio 10.5 RATIO 10-20 [facility] Work Phone: Lab Report: CBC W/Diff, Auto matedon 08-06-2015 Basophils/100 WBC (Bld) 0.4 % 0-1 [facility] Work Phone: Eosinophils/100 WBC (Bld) 1.4 % 0-5 [facility] Work Phone: Erythrocyte distribution width Ratio (RBC) 14.0 % 11.6-14.6 [facility] Work Phone: Erythrocyte distribution width Ratio (RBC) 43.4 fL 35.1-43.9 [facility] Work Phone: Hematocrit Volume Fraction (Bld) 39.1 % 37-47 [facility] Work Phone: Hemoglobin mass conc (Bld) 12.7 g/dL 12.0-15.0 [facility] Work Phone: Immature granulocytes #/vol (Bld) 0.200 % 0.0-0.9 [facility] Work Phone: Lymphocytes #/vol (Bld) 2.30 X10 3/UL 0.83-4.51 [facility] Work Phone: Lymphocytes/100 WBC (Bld) 23.6 % 19-41 [facility] Work Phone: MCH Entitic mass (RBC) 27.5 pg 27.0-32.0 [facility] Work Phone: MCHC mass conc (RBC) 32.5 G/GL 32-36 [facility] Work Phone: MCV Entitic volume (RBC) 84.6 fL 81-99 [facility] Work Phone: Monocytes/100 WBC (Bld) 6.3 % 0-10 [facility] Work Phone: Neutrophils #/vol (Bld) 6.7 X10 3/UL 2.0-7.7 [facility] Work Phone: Neutrophils/100 WBC (Bld) 68.1 % 47-70 [facility] Work Phone: Platelet mean volume Entitic volume (Bld) 9.2 fL 6.2-12.0 [facility] Work Phone: Platelets #/vol (Bld) 297 10*3/mm3 150-450 [facility] Work Phone: RBC #/vol (Bld) 4.62 10*6/uL 4.2-5.4 [facility] Work Phone: WBC #/vol (Bld) 9.8 10*3/uL 4.4-11.0 [facility] Work Phone: Lab Report: CK-MB Quantitati ve and Indexon 08-06-2015 CK enzyme act/vol 185 U/L 26-192 [facility] Work Phone: CK.MB mass conc 1.1 % 0.0-1.4 [facility] Work Phone: Creatine kinase.MB 2.0 NG/ML 0.0-5.0 [facility] Work Phone: Lab Report: Troponin-Ion Troponin I.cardiac mass conc ng/mL <0.06 [facility] Work Phone: Rx Refill: eRx Request for T OPROL XL 100 MG [id number] 05-15-2015 [facility]_RR [id number]`TOPROL XL 100 MG [id number]`100``90 Tablet``ONE TABLET BY MOUTH DAILY``3`0`05/21/2014 `01/21/2015`[employer]*`[id number]``METOPR OLOL SUCCINATE ER TABS 100MG Quantity: 90 Tablet Instructions: TAKE 1 TABLET DAILY [employer] [facility] Work Phone: Lab Report: Employee Profile on 02-22-2015 Albumin mass conc 3.5 g/dL 3.4-5.0 [facility] Work Phone: Albumin/Globulin mass ratio 1 {ratio} 0.9-2.4 [facility] Work Phone: ALP enzyme act/vol (Bld) 107 U/L 50-136 [facility] Work Phone: ALT enzyme act/vol 73 U/L 12-78 [facility] Work Phone: AST enzyme act/vol 41 U/L High 15-37 [facility] Work Phone: Bilirubin mass conc 0.20 mg/dL 0.20-1.00 [facility] Work Phone: Bilirubin.direct mass conc 0.08 mg/dL 0.00-0.30 [facility] Work Phone: Cholesterol in HDL mass conc 35 mg/dL Low [facility] Work Phone: Cholesterol in LDL mass conc 98 mg/dL 0-130 [facility] Work Phone: Cholesterol mass conc 172 mg/dL 200 [facility] Work Phone: Globulin mass conc (S) 3.5 g/dL 2.3-3.5 OS [facility] Work Phone: LDH 260 U/L High 84-246 [facility] Work Phone: Lipoprotein.pre-beta mass conc 39 mg/dL 5-40 [facility] Work Phone: PHOS 4.1 mg/dL 2.5-4.9 [facility] Work Phone: Protein mass conc 7.0 g/dL 6.4-8.2 [facility] Work Phone: Triglyceride mass conc 194 mg/dL [facility] Work Phone: Urate mass conc 5.1 mg/dL 2.6-6.0 [facility] Work Phone: Lab Report: Urinalysis, Keshawn oyeeon 02-22-2015 Albumin Ql (U) Negative Negative [facility] Work Phone: Bilirubin Ql (U) Negative Negative [facility]opa[facility] Work Phone: Clarity Nom (U) Clear Clear [facility] Work Phone: Color Nom (U) Yellow Yellow [facility] Medicine [facility] Work Phone: Glucose Ql (U) Normal mg/dl [facility] Work Phone: Ketones mass conc (U) Negative Negative [facility] Medicine [facility] Orth[facility] Work Phone: Leukocyte esterase Test strip Ql (U) 25 High Negative [facility] Work Phone: OCCULT BLOOD-UR 50 High Negative [facility] Work Phone: pH (U) 6.0 [pH] 5.0 - 8.0 [facility] Work Phone: Specific gravity Refractometry Relative Density (U) 1.015 1.002-1.030 [facility] Work Phone: Office Visit: 6 month follow upon 09-04-2014 Protein mass conc yes [facility] Work Phone: Lab Report: CBC, Employeeon 02-24-2014 Absolute Neut 6.5 X10 3/UL 2.0-7.7 [facility] Work Phone: Lab Report: Employee Profile on 02-24-2014 LDH enzyme act/vol 273 U/L Critically high 87-241 [facility] Work Phone: Vital Signs Date Time Vital Sign Value Performing Clinician Facility 11-29-2024 15:54-0400 Body temperature 98.7 [degF] Dr. Kandy Valle DO Work Phone: [facility] 11-29-2024 15:54-0400 Diastolic blood pressure 78 mm[Hg] Dr. Kandy Valle DO Work Phone: [facility] 11-29-2024 15:54-0400 Heart rate 64 /min Dr. Kandy Valle DO Work Phone: [facility] 11-29-2024 15:54-0400 Respiratory rate 18 /min Dr. Kandy Valle DO Work Phone: [facility] 11-29-2024 15:54-0400 SaO2% (BldA) [Mass fraction] 99 % Dr. Kandy Valle DO Work Phone: [facility] 11-29-2024 15:54-0400 Systolic blood pressure 142 mm[Hg] Dr. Kandy Valle DO Work Phone: [facility] 11-29-2024 14:07-0400 Body height 170.[address] Kandy Valle DO Work Phone: [facility] 11-29-2024 14:07-0400 Body mass index (BMI) [Ratio] 32.5 kg/m2 Dr. Kandy Valle DO Work Phone: [facility] 11-29-2024 14:07-0400 Body weight 94.[address] Kandy Valle DO Work Phone: [facility] 06-10-2024 14:28-0400 Body height 170.[address] Kandy Valle DO Work Phone: [facility] 05-15-2024 12:56-0500 Body height 170.[address] Kandy Valle DO Work Phone: [facility] 05-15-2024 12:56-0500 Body mass index (BMI) [Ratio] 37 kg/m2 Dr. Kandy Valle DO Work Phone: [facility] 05-15-2024 12:56-0500 Body weight 107.[address] Kandy Valle DO Work Phone: [facility] 02-17-2024 08:06-0500 Body temperature 98.3 [degF] Dr. Kandy Valle DO Work Phone: [facility] 02-17-2024 08:06-0500 Diastolic blood pressure 70 mm[Hg] Dr. Kandy Valle DO Work Phone: [facility] 02-17-2024 08:06-0500 Heart rate 94 /min Dr. Kandy Valle DO Work Phone: [facility] 02-17-2024 08:06-0500 Respiratory rate 15 /min Dr. Kandy Valle DO Work Phone: [facility] 02-17-2024 08:06-0500 SaO2% (BldA) [Mass fraction] 96 % Dr. Kandy Valle DO Work Phone: [facility] 02-17-2024 08:06-0500 Systolic blood pressure 126 mm[Hg] Dr. Kandy Valle DO Work Phone: [facility] 09-14-2021 09:05-0400 Body temperature 97.8 [degF] Dr. Kandy Valle Work Phone: [facility] Work Phone: 09-14-2021 09:05-0400 Diastolic blood pressure 74 mm[Hg] Dr. Kandy Valle Work Phone: [facility] Work Phone: 09-14-2021 09:05-0400 Heart rate 88 /min Dr. Kandy Valle Work Phone: [facility] Work Phone: 09-14-2021 09:05-0400 Respiratory rate 14 /min Dr. Kandy Valle Work Phone: [facility] Work Phone: 09-14-2021 09:05-0400 SaO2% (BldA) [Mass fraction] 99 % Dr. Kandy Valle Work Phone: [facility] Work Phone: 09-14-2021 09:05-0400 Systolic blood pressure 128 mm[Hg] Dr. Kandy Valle Work Phone: [facility] Work Phone: 08-09-2015 14:58-0400 BMI (Body Mass Index) 36.02 kg/m2 [facility] Work Phone: 08-09-2015 14:58-0400 Body Temperature 98.7 [degF] [facility] Work Phone: 08-09-2015 14:58-0400 BP Diastolic 90 mm[Hg] [facility] Work Phone: 08-09-2015 14:58-0400 BP Systolic 134 mm[Hg] [facility] Work Phone: 08-09-2015 14:58-0400 BSA (Body Surface Area) 2.22 m2 [facility] Work Phone: 08-09-2015 14:58-0400 Pulse (Heart Rate) 86 /min [facility] Work Phone: 08-09-2015 14:58-0400 Respiratory Rate 14 /min [facility] Work Phone: 08-09-2015 14:58-0400 Weight 109.05 kg Juan David [facility] Work Phone: 08-06-2015 14:51-0400 Body surface area Derived from formula 82.13 mL/min [facility] Work Phone: 07-14-2015 09:10-0400 BP Diastolic 100 mm[Hg] [facility] Work Phone: 07-14-2015 09:10-0400 BP Systolic 170 mm[Hg] [facility] Work Phone: 02-24-2014 08:08-0500 Height 173.99 cm [facility] Work Phone: Encounters Encounter Date Encounter Type Care Provider Facility Start: 03-03-2025 ambulatory Kandy Malkaylah Facility:[facility] Start: 01-21-2025 End: 01-21-2025 ambulatory Kandy Malkaylah [place] [place] Start: 01-08-2025 ambulatory [facility] Start: 01-08-2025 End: 01-08-2025 ambulatory [facility] Facility:[facility] Start: 12-22-2024 End: 12-22-2024 ambulatory [facility] Facility:[facility] Start: 12-15-2024 End: 12-15-[address] Zulema Tobias [place] -[facility] Work Phone: Start: 12-15-2024 End: 12-15-[address] Kandy Valle DO Work Phone: -[facility] Start: 12-12-2024 Registered Referred [employer] RISK [employer]SE [facility] -Employee Health Start: 12-12-2024 ambulatory Kandy Valle Facility:[facility] Start: 11-29-2024 End: 11-29-2024 Emergency department patient visit Dr. Kandy Valle DO Work Phone: -Emergency Department Work Phone: Start: 09-22-2024 End: 09-22-[address] Kandy Valle DO Work Phone: -Occupational Therapy Start: 09-22-2024 End: 09-22-2024 Discharged Recurring Maria Teresa Osborn PA-C -Occupational Thera py Work Phone: Start: 09-04-2024 Registered Recurring Maria Teresa Osborn PA-C -Occupational Therapy Work Phone: Start: 09-03-2024 Non-patient / Non-visit Dr. Michelle Barakat MD -[facility] Start: 09-03-2024 End: 09-03-[address] Kandy Valle DO Work Phone: [facility] Work Phone: Start: 09-03-2024 End: 09-03-2024 Patient encounter procedure Priti Hammond SIGNAL APPRENTICE-C -Pulmonary Services/Neurology Work Phone: Start: 09-03-2024 End: 09-03-2024 ambulatory Priti Hammond Facility:[facility] Start: 08-08-2024 End: 08-08-2024 Patient encounter procedure Priti Hammond SIGNAL APPRENTICE-C -[facility] Work Phone: Start: 08-08-2024 End: 08-08-2024 ambulatory Priti Hammond [place] [place] Start: 07-10-2024 End: 07-10-[address] Kandy Vlale DO -Laboratory Work Phone: Start: 07-10-2024 End: 07-10-2024 ambulatory Kandy Valle Facility:[facility] Start: 06-17-2024 End: 06-17-[address] Kandy Valle DO Work Phone: [facility] Work Phone: Start: 06-17-2024 End: 06-17-[address] Kandy Valle DO -Laboratory Work Phone: Start: 06-17-2024 End: 06-17-20[facility] Start: 06-10-2024 End: 06-10-2024 Patient encounter procedure Priti Hammond SIGNAL APPRENTICE-C -[facility] Work Phone: Start: 06-10-2024 End: 06-10-2024 ambulatory Priti Hammond [place] [place] Start: 06-10-2024 Non-patient / Non-visit Dr. Roshni Kirkpatrick MD -[facility] Start: 06-10-2024 End: 06-10-[address] Kandy Valle DO Work Phone: [facility] Work Phone: Start: 06-10-2024 End: 06-10-2024 Patient encounter procedure Priti Hammond SIGNAL APPRENTICE-C -Pulmonary Services/Neurology Work Phone: Start: 06-09-2024 End: 06-10-2024 ambulatory Priti Hammond Facility:[facility] Start: 06-09-2024 Registered Recurring Priti Hammond SIGNAL APPRENTICE-C -Occupational Therapy Work Phone: Start: 05-26-2024 End: 05-26-2024 Patient encounter procedure Priti Hammond SIGNAL APPRENTICE-C -[facility] Work Phone: Start: 05-26-2024 End: 05-26-2024 ambulatory Priti Hammond [place] [place] Start: 05-19-2024 End: 05-19-[address] Zulema Tobias [place] -[facility] Work Phone: Start: 05-19-2024 End: 05-19-2024 ambulatory Kandy Valle [place] [place] Start: 05-15-2024 End: 05-15-[address] Kandy Valle DO Work Phone: [facility] [facility] Work Phone: Start: 05-15-2024 End: 05-15-2024 Patient encounter procedure Priti Hammond NP-C -[facility] Work Phone: Start: 05-15-2024 End: 05-15-2024 ambulatory Priti Manish Facility:[facility] Start: 02-18-2024 End: 02-18-2024 Patient encounter procedure Danny Landaverde SIGNAL APPRENTICE-C -Laboratory, Spec[facility] Work Phone: Start: 02-17-2024 End: 02-17-2024 Patient encounter procedure Danny Landaverde SIGNAL APPRENTICE-C [facility] Work Phone: Start: 02-17-2024 End: 02-18-2024 ambulatory Danny Landaverde NP Facility:[facility] Start: 01-26-2024 End: 01-26-2024 ambulatory Kandy Valle Facility:[facility] Start: 11-23-2022 End: 11-23-2022 ambulatory [facility] Work Phone: Start: 11-23-2022 End: 11-23-2022 Patient encounter procedure [facility] Work Phone: Start: 04-05-2022 End: 04-05-2022 ambulatory [facility] Work Phone: Start: 04-05-2022 End: 04-05-2022 Patient encounter procedure [facility] Start: 02-04-2022 End: 02-04-2022 ambulatory [facility] Work Phone: Start: 02-04-2022 End: 02-04-2022 Patient encounter procedure [facility] Start: 12-22-2021 Registered Referred [facility] Start: 11-01-2021 End: 11-01-[address] Kandy Valle Work Phone: [facility] Start: 09-14-2021 End: 09-14-[address] Kandy Valle Work Phone: [facility] Procedures Date Procedure Procedure Detail Performing Clinician Start: 12-12-2024 Serum inorganic phos phate measurement Dr. Kandy Valle DO Work Phone: Start: 11-29-2024 Plain x-ray of hand Dr. Kandy Valle DO Work Phone: Start: 11-29-2024 Plain x-ray of humerus Dr. Kandy Valle DO Work Phone: Start: 11-29-2024 Plain x-ray of wrist Dr Wojciech Valle DO Work Phone: Start: 09-03-2024 Plain x-ray of wrist Dr Wojciech Valle DO Work Phone: Start: 05-15-2024 Plain x-ray of wrist Dr Wojciech Valle DO Work Phone: Start: 02-18-[address] Kandy Valle DO Work Phone: Start: 11-23-2022 Screening mammography Start: 11-01-2021 Screening mammography Pacheco Valle Work Phone: Start: 10-18-2016 End: 10-30-2016 Arthrocentesis aspir&/inj major jt/bursa w/o [facility] Juan David Brink Work Phone: Start: 08-09-2015 End: 08-17-2015 other Cipriano Guzman DO Work Phone: Start: 07-14-2015 End: 08-17-2015 Dup-scan xtr veins complete bilateral study Cipriano Guzman DO Work Phone: Start: 07-02-2015 End: 07-21-2015 Arthrocentesis aspir&/inj major jt/bursa w/o [facility] Juan David Brink Work Phone: Start: 02-22-2015 End: 02-22-2015 Urinalysis Juan David Brink Start: 09-04-2014 End: 09-10-2014 *CMP Complete Metabolic Panel Kandy Valle DO Work Phone: Start: 09-04-2014 End: 09-10-2014 Lipid 1996 panel - Serum or Plasma Kandy Valle DO Work Phone: Start: 02-24-2014 Screening mammography Screening mamm carrillo Brink Plan of Treatment Date Care Activity Detail Author Start: 11-29-2024 [facility] Start: 05-26-2024 Patient referral [facility] Work Phone: Start: 10-18-2016 End: 10-18-2016 Appointment Appointment [facility] Work Phone: Start: 10-18-2016 End: 10-18-2016 Radiologic exam knee complete 4/more views X-Ray, Knee [facility] Work Phone: Start: 12-16-2015 End: 12-16-2015 EMG EMG [facility] Work Phone: Start: 12-16-2015 End: 12-16-2015 Nerve Conduction Nerve Conduction [facility] Work Phone: Start: 08-09-2015 End: 08-17-2015 Other Other [facility] Work Phone: Start: 07-14-2015 End: 08-17-2015 Dup-scan xtr veins complete bilateral study Venous Doppler LE Left [facility] Work Phone: Start: 07-02-2015 End: 07-02-2015 Radex shoulder complete minimum 2 views X-Ray, Shoulder [facility] Work Phone: Start: 06-25-2015 End: 06-29-2015 Gynecology & Obstetrics Gynecology & Obstetrics [facility], [address] [place] [address], [address], [place], [address] [facility] Work Phone: Start: 03-15-2015 End: 03-15-2015 Mammogram, screening Mammogram, Screening, both breasts [facility] Work Phone: Start: 09-04-2014 End: 09-10-2014 *CMP Complete Metabolic Panel *CMP Complete Metabolic Panel [facility] Work Phone: Start: 09-04-2014 End: 09-10-2014 Lipid 1996 panel *Lipid Profile [facility] Work Phone: Start: 02-24-2014 End: 02-24-2014 Mammogram, Screening, both breasts Mammogram, Screening, both breasts [facility] Work Phone: Patient referral [facility] Work Phone: Immunizations Immunization Date Immunization Notes Care Provider Fa cili 12-21-2023 influenza, seasonal, injectable, preservative free Dr. Kandy Valle DO Work Phone: [facility] 12-12-2023 Covid (Spikevax) Dr. Kandy hernandez DO Work Phone: [facility] 01-11-2023 Covid (Spikevax) Dr. Kandy hernandez DO Work Phone: [facility] 12-14-2022 influenza, injectabl e, quadrivalent, preservative free Dr. Kandy Valle DO Work Phone: [facility] 12-19-2021 influenza, injectabl e, quadrivalent, preservative free [facility] 12-19-2021 influenza, seasonal, injectable [facility] 06-28-2021 Covid (Moderna) Dr. Kandy adrian Work Phone: [facility] 01-21-2021 Covid (Pfizer) Dr. Kandy june Work Phone: [facility] 12-24-2020 influenza, injectabl e, quadrivalent, preservative free [facility] 12-24-2020 influenza, seasonal, injectable Dr. Kandy Valle Work Phone: [facility] 04-14-2020 Covid (Moderna) Dr. Kandy adrian Work Phone: [facility] 03-17-2020 Covid (Moderna) Dr. Kandy adrian Work Phone: [facility] 12-16-2019 influenza, injectabl e, quadrivalent, preservative free [facility] 12-16-2019 influenza, seasonal, injectable Dr. Kandy Valle Work Phone: [facility] 12-12-2018 influenza, injectabl e, quadrivalent, preservative free [facility] 12-12-2018 influenza, seasonal, injectable Dr. Kandy Valle Work Phone: [facility] 12-14-2017 influenza, injectabl e, quadrivalent, preservative free [facility] 12-14-2017 influenza, seasonal, injectable Dr. Kandy Valle Work Phone: [facility] 12-13-2016 influenza, injectabl e, quadrivalent, preservative free [facility] 12-13-2016 influenza, seasonal, injectable Dr. Kandy Valle Work Phone: [facility] 12-16-2015 influenza, injectabl e, quadrivalent, preservative free [facility] 12-16-2015 influenza, seasonal, injectable Dr. Kandy Valle Work Phone: [facility] 02-01-2015 influenza, injectabl e, quadrivalent, preservative free [facility] 02-01-2015 influenza, seasonal, injectable Dr. Kandy Valle Work Phone: [facility] 12-17-2013 influenza, injectabl e, quadrivalent, preservative free [facility] 12-17-2013 influenza, seasonal, injectable Dr. Kandy Valle Work Phone: [facility] 04-30-2013 hepatitis B vaccine, pediatric or pediatric/adolescent dosage Dr. Kandy Valle Work Phone: [facility] 01-20-[address] Kandy Valle Work Phone: [facility] Payers Date Payer Category Payer Unknown [id number] 2024 Self-pay [id number] 2024 Unknown [id number] [facility] [id number] 2016 Unknown [id number] Unknown [id number] Unknown [id number] 2.16.8 40.1.467668.3.579.2.462 Unknown [id number] 2.16.8 40.1.384157.3.579.2.462 Unknown [id number] 2.16.8 40.1.454480.3.579.2.462 Unknown [id number] 2.16.8 40.1.669434.3.579.2.462 Unknown [id number] 2.16.8 40.1.757092.3.579.2.462 Unknown [id number] 2.16.8 40.1.618518.3.579.2.462 Unknown [id number] 2.16.8 40.1.006941.3.579.2.462 Unknown [id number] 2.16.8 40.1.391695.3.579.2.462 Unknown [id number] 2.16.8 40.1.874763.3.579.2.462 Unknown [id number] 2.16.8 40.1.474683.3.579.2.462 Unknown [id number] 2.16.8 40.1.697789.3.579.2.462 Unknown [id number] 2.16.8 40.1.023528.3.579.2.462 Unknown [id number] 2.16.8 40.1.213074.3.579.2.462 Unknown [id number] 2.16.8 40.1.263887.3.579.2.462 Unknown [id number] 2.16.8 40.1.244871.3.579.2.462 Unknown [id number] 2.16.8 40.1.153062.3.579.2.462 Unknown [id number] 2.16.8 40.1.246974.3.579.2.462 Unknown [id number] 2.16.8 40.1.813699.3.579.2.462 Unknown [id number] 2.16.8 40.1.742433.3.579.2.462 Unknown [id number] 2.16.8 40.1.315799.3.579.2.462 Unknown [id number] 2.16.8 40.1.198067.3.579.2.462 Unknown [id number] 2.16.8 40.1.167132.3.579.2.462 Unknown [id number] 2.16.8 40.1.738608.3.579.2.462 Unknown [id number] 2.16.8 40.1.132579.3.579.2.462 Unknown [id number] 2.16.8 40.1.776031.3.579.2.462 Social History Date Type Detail Facility Start: 09-14-2021 End: 09-14-2021 Tobacco smoking status AZIS Unknown if ever smoked [facility] Start: 04-28-2021 Non-smoker [facility] Start: 1970 Sex Assigned At Female [facility] Start: 04-21-2017 Occasional [facility] Start: 04-21-2017 None [facility] Start: 04-21-2017 Spouse/ Signif icant Other [facility] Start: 02-17-2024 End: 11-29-2024 Tobacco smoking status NHIS Never smoked tobacco (finding) [facility] Start: 05-27-2024 End: 06-23-2024 Sex Female (finding) [facility] Sex Female [facility] Goals Date Patient Goal Desired Activity /State Clinical Notes 02-17-2024 to 12-15-2024 Note Date & Type Note Facility 12-15-[address] [facility] 12-15-2024 Progress note Note Date/Time December 15, 2024 4:11pm [facility] [place] [address] OFFICE VISIT Date of Service: 12/15/24 MR#: [id number] Acct: [id number] Name: GABRIELA RUSSELL Rep #: [id number] : 1970 Provider: GUILLERMINA Tobias Age/Sex: 54/F Location[place] [facility] Status: Signed Intake Vital Signs 06/10/24 14:28 11/29/24 14:07 Height 5 ft 7 in 5 ft 7 in Intake Visit Reasons: Back pain Chief Complaint: neck, Low back Pain Is patient in pain?: Yes (low back ) Pain scale (1-10): 2 Allergies morphine Adverse Reaction (Verified 12/15/24 15:38) Nausea Medications ?Medication ?Instructions ?Recorded ?Confirmed ?Type amlodipine 10 mg tablet 10 mg PO DAILY BP 03/07/16 0 12/15/24 History metoprolol succinate 100 mg 100 mg PO DAILY BP 6 12/15/24 History tablet,extended release 24 hr multivitamin 1 ea PO DAILY supplement 12/15/24 History omeprazole 20 mg capsule,delayed 20 mg PO DAILY acid r eflux 03/07/16 12/15/24 History release amitriptyline 75 mg tablet 75 mg PO DAILY #90 tabs 12/15/24 History lisinopril 10 mg tablet 10 mg PO DAILY #180 tabs 12/15/24 History meloxicam 15 mg tablet 15 mg PO DAILY 07/21/2011/18 History cyclobenzaprine 5 mg tablet ea PO 05/02/21 12/15/24 Hi story pravastatin 20 mg tablet 20 mg PO QDAY 05/28/2312/15 History escitalopram oxalate 10 mg tablet mg PO DAILY 05/15/24 12/15/24 History PFSH Medical History Urinary tract infection [...] Chief Complaint: Low Back pain Visit Number: 2 Details: Gabriela is a 54 y/o female here to follow up with neck and low back pain. Pt. advises she has been experiencing stiffness and tension in her neck and across her shoulder blades recently. She also complains of low back achiness that is equal across bilaterally. She rates her low back pain 2/10 today. 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 She has been trying to rest it and stretch it as needed to alleviate her discomfort. She denies numbness, tingling or radiculopathy. She treats pain with Tylenol and heat as needed. She reports chiropractic adjustments are helpful to alleviate her pain and stiffness but it gradually returns. Location: neck/back Duration: frequent Aggravating or associated factors: bending, lifting, mornings,sitting Relieving factors: chiro Pain Quality: aching and dull Exam Musc General: Yes normal posture, normal gait and joint tenderness; No muscle weakness Cervical Spine: Yes loss of normal cervical lordosis, Yes cervical muscular tenderness bilateral lower , Yes cervical spasm bilateral lower trapezius and paracervical muscles and Yes misalignment misalignment: C5, C6 and C7 Thoracic/Lumber: Yes thoracic and lumbar spine normal to inspection, Yes paraspinal tenderness bilaterally (upper thoracic) in the upper thoracic and in the mid thoracic and on the left greater than right (lumbopelvic), No scoliosis,Yes thoraco-lumbar spasm bilaterally (trap,levator) in the upper thoracic and inthe mid thoracic, on the right greater than left (paraspinal L2-L5) and on the left greater than right (left glute,hamstring) and Yes misalignment T3, T4, T5, L4, L5 and LIL Sacroiliac joints: on the left tender to palpation Office Procedures Procedures - Chiropractic Procedures Manipulation: Cervical C6, Lumbar L4, Thoracic T3 and Pelvis LIL Manipulation: 3-4 regions Traction, Mechanical: Yes Patient Response: positive Assessment and Plan Assessment and Plan (1) Segmental and somatic dysfunction of cervical region: Status: Acute (2) Segmental and somatic dysfunction of thoracic region: Status: Acute (3) Segmental and somatic dysfunction of lumbar region: Status: Acute (4) Segmental and somatic dysfunction of pelvic region: Status: Acute Orders: Orders Chiropractic Treatments 12/15/24 M99.01 - Segmental and somatic dysfunction of cervical region, M99.02 - Segmental and somatic dysfunction of thoracic region, M99.03 - Segmental and somatic dysfunction of lumbar region, M99.05 - Segmental and somatic dysfunction of pelvic region Plan Patient was treated without incident. Continue care as needed. Plan Details Goals & Barriers: Goals Decrease spasm Decrease pain Improve ability to perform job Follow Up: PRN Coding Level of Care Code No Charge Diagnoses Segmental and somatic dysfunction of cervical region M99.01 Segmental and somatic dysfunction of thoracic region M99.02 Segmental and somatic dysfunction of lumbar region M99.03 Segmental and somatic dysfunction of pelvic region M99.05 CPT Codes Procedures - Manipulation: 3-4 regions (50577) Procedures - Traction, Mechanical: Yes (57275) 12/16/24 6587 <Electronically signed by Zulema Ornelas> Date _ Zulema Tobias D.C. Cosigner Signature: Date (if applicable) CC: ~ [facility] Work Phone: 1(740) 930-994309-13-2025 Discharge summary [facility] Medical Records Department [address] [place] [address] Emergency Department Summary 11/29/24 MR#: [id number] Acct: [id number] Name: GABRIELA RUSSELL KYLE Rep #:[id number] : 1970 54 From: Mikhail Davis DO PCP: Dr. Kandy Valle DO Status:REG ER Location: ED HPI History of Present Illness Chief Complaint: Fall Narrative Narrative: Patient is a 54-year-old female with past medical history hypercholesteremia, hypertension who presented to the emergency department the chief complaint of left wrist pain. Patient states that she was in the garage tripped over items causing her to fall at her knees and on her left wrist. 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 Patient denies any blood thinning medications. [facility] Medical History Urinary tract infection with hematuria Acute pharyngitis Encounter for screening for COVID-19 High cholesterol Hay fever Hypertension Home Medications ?Medication ?Instructions ?Recorded ?Last Taken ?Type amlodipine 10 mg tablet 10 mg PO DAILY BP 03/07/16 0 04/19/17 History metoprolol succinate 100 mg 100 mg PO DAILY BP 6 04/19/17 History tablet,extended release 24 hr multivitamin 1 ea PO DAILY supplement 04/19/17 History omeprazole 20 mg capsule,delayed 20 mg PO DAILY acid r eflux 03/07/16 04/19/17 History release amitriptyline 75 mg tablet 75 mg PO DAILY #90 tabs Unknown History lisinopril 10 mg tablet 10 mg PO DAILY #180 tabs Unknown History meloxicam 15 mg tablet 15 mg PO DAILY 07/21/20 Unkn own History cyclobenzaprine 5 mg tablet ea PO 05/02/21 Unknown His tory pravastatin 20 mg tablet 20 mg PO QDAY 05/28/23 Unkno wn History escitalopram oxalate 10 mg tablet mg PO DAILY 05/15/24 Unknown History Allergy/AdvReac Type Severity Reaction Status Date / Time morphine AdvReac Nausea Verified 11/29/24 14:09 Family History Mother Breast cancer Father Heart disease Grandfather Myocardial infarction Surgical History History of surgery on right wrist H/O: hysterectomy carpal tunnel surgery History of tonsillectomy H/O tubal ligation tailbone cyst Social History Smoking Status: Never smoker alcohol intake: current details: 1 glass of wine a night substance use type: does not use caffeine: Yes what type of physical activity do you participate in: none seatbelt use: always do you feel safe at home: Yes additional social history: 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 ROS ROS ED ROS Narrative Neurological: Denies any numbness, weakness, tingling Musculoskeletal: Complains of left wrist pain as noted above Skin: Denies any rashes or lesions complains of some swelling to the dorsal aspect of her left wrist EXAM Physical Exam Narrative Exam Narrative: General: Patient was lying in bed rest comfortably did not appear to be in acutedistress Head: Atraumatic, normocephalic Eyes: PERRL bilaterally, EOMI bilaterally, no conjunctival injection noted Neck: Soft, supple, trachea midline Cardiovascular: Regular rate and rhythm Musculoskeletal: Patient has a tender to palpation over the left distal wrist Extremities: Radial pulses +2/4 in the left upper extremity, +5/5 strength notedin the bilateral upper and lower extremities Neurological: Patient following commands and that she was at [facility] the year is 2024 sensation grossly intact in the median, ulnar and radial nerve distribution bilaterally Skin: Warm, dry, intact no rashes or lesions noted patient has edema noted to the dorsal aspect of the left wrist and states that her hands are chronically swollen and states that she has not been able to get her ring off for a very long time she was advised that she needs to try to take this off here in the emergency department Const Vital Signs: 11/29/24 14:07 11/29/24 14:57 Temperature 98.9 F Temperature Source Oral Pulse Rate 88 Respiratory Rate 16 Respiratory Effort Normal Non-Labored Respiratory Depth Normal Respiratory Pattern Normal Blood Pressure 153/83 H Blood Pressure Mean 106 Pulse Ox 99 96 Oxygen Delivery Method Room Air Room Air MDM MDM MDM Narrative Medical decision making narrative: Patient is a 54-year-old female who presents to the emergency department with a chief complaint of left wrist pain after mechanical fall tripping over some items in her garage and object falling on her left wrist. On the differential diagnose includes but not limited to wrist sprain, distal radius fracture, ulnarfracture. Once the workup is obtained reviewed she will be reevaluated. Patient's x-ray of the wrist reviewed by myself by radiology showed no acute fracture or dislocation. Patient's humerus x-ray reviewed by myself by radiology showed no acute fracture or dislocation. Patient's hand x-ray reviewed myself and by radiology and showed no acute fracture or dislocation. Discussed results with the patient she was advised to keep her hand elevated to help with the swelling as well as rotate Tylenol and ibuprofen [id number] for mild to moderate pain. She is advised to return with worsening symptoms or concerns. She is advised to follow-up her doctor in the outpatient setting. All question concerns answered she was discharged home in stable condition. Radiography Diagnostic Testing: Clinical Impression(s) from Imaging Studies Hand X-Ray 11/29/24 14:33 IMPRESSION: No acute osseous abnormalities. Reading Location: [id number] Humerus X-Ray 11/29/24 14:33 IMPRESSION: No acute bony abnormalities. Reading Location: [id number] Wrist X-Ray 11/29/24 14:33 IMPRESSION: No acute osseous abnormalities. Reading Location: [facility] Discharge Plan Triage Chief Complaint: Fall ED Provider: Mikhail Davis Dx/Rx/DC Orders Clinical Impression: Left wrist pain, HTN (hypertension), Fall Prescriptions: No Action lisinopril 10 mg tablet 10 mg PO DAILY Qty: 180 amitriptyline 75 mg tablet 75 mg PO DAILY Qty: 90 cyclobenzaprine 5 mg tablet PO pravastatin 20 mg tablet 20 mg PO QDAY escitalopram oxalate 10 mg tablet PO DAILY multivitamin 1 EACH tablet 1 ea PO DAILY Patient Comments: supplement metoprolol succinate 100 MG tablet 100 mg PO DAILY Patient Comments: bp med amlodipine 10 MG tablet 10 mg PO DAILY Patient Comments: bp med omeprazole 20 MG capsule 20 mg PO DAILY Patient Comments: acid reflux med meloxicam 15 mg Tablet 15 mg PO DAILY Primary Care Provider: Kandy Valle Referrals: Kandy Valle DO [Primary Care Provider] - Activity Restrictions/Additional Instructions: Your x-rays did not show any acute broken bones. Follow-up your doctor in the outpatient setting. Return with worsening symptoms or any other concerns. Rotate Tylenol and ibuprofen [id number] for pain when you do this you can take something every 3 hours for pain. Max dose of Tylenol in 24 hours 4000 mg max dose of ibuprofen in 24 hours 3200 mg Print Language: [place] Disposition Disposition: Home, Self Care What to do if you have Problems For any increased pain, shortness of breath, bleeding, nausea or vomiting, chestpain, or any unexpected problems, contact your Primary Care Provider. Call [facility] ([phone]) or report tothe closest Emergency Room. Call 911 if necessary. 11/29/24 1531 Cosigner Signature (if applicable): CC: Dr. Kandy Valle DO ~ Signed [facility]09-13-2025 Radiology Diagnostic study note [facility] Imaging Services [address] [place] [id number] Hand Min 3 Views MR#: [id number] Acct: [id number] Name: GABRIELA RUSSELL Rep #: [id number] : 1970 F 54 From: Bennett Lyn MD PCP: Dr. Kandy Valle DO Status: REG ER Study:Hand Min 3 Views Date of Exam: Exam# [id number] Ordering Dr: Malik Davis DO PROCEDURE: HAND MIN 3 VIEWS 11/29/2024 REASON FOR EXAM: INJURY TECHNIQUE: Procedure Code: KULDEEP Modality: DX Procedure: HAND MIN 3 VIEWS Laterality: Left COMPARISON: None. FINDINGS: Bones: No acute bony abnormalities. Joints: No dislocations. Soft tissues: No soft tissue abnormalities. RAD/Hand Min 3 Views IMPRESSION: No acute osseous abnormalities. Reading Location: [facility] CC: Dr. Kandy Valle DO; Dr. Mikhail Davis DO ~ Director Of Therapy Services: Signed [facility]09-13-2025 Radiology Diagnostic study note [facility] Imaging Services [address] [place] [address] Wrist min 3 Views MR#: [id number] Acct: [id number] Name: GABRIELA RUSSELL KYLE Rep #: [id number] : 1970 F 54 From: Bennett Lyn MD PCP: Dr. Kandy Valle DO Status: REG ER Study:Wrist min 3 Views Date of Exam: Exam# [id number] Ordering Dr: Malik Davis DO PROCEDURE: WRIST MIN 3 VIEWS 11/29/2024 REASON FOR EXAM: INJURY TECHNIQUE: Procedure Code: RADWR Modality: DX Procedure: WRIST MIN 3 VIEWS Laterality: COMPARISON: Left FINDINGS: Bones: No acute bony abnormalities. Joints: No dislocations. Soft tissues: No soft tissue abnormalities. RAD/Wrist min 3 Views IMPRESSION: No acute osseous abnormalities. Reading Location: [facility] CC: Dr. Kandy Valle DO; Dr. Mikhail Davis DO ~ Director Of Therapy Services: Signed [facility]09-13-2025 Radiology Diagnostic study note [facility] Imaging Services [address] [place] [id number] Humerus min 2 Views MR#: [id number] Acct: [id number] Name: GABRIELA RUSSELL KYLE Rep #: [id number] 3 : 1970 F 54 From: Bennett Lyn MD PCP: Dr. Kandy Valle DO Status: REG ER Study:Humerus min 2 Views Date of Exam: 11/29/24 Exam# [id number] Ordering Dr: Malik Davis DO PROCEDURE: HUMERUS MIN 2 VIEWS 11/29/2024 REASON FOR EXAM: INJURY TECHNIQUE: Procedure Code: RADHUM Modality: DX Procedure: HUMERUS MIN 2 VIEWS Laterality: COMPARISON: None. FINDINGS: Bones: No acute bony abnormalities. Joints: No dislocations. Soft tissues: No soft tissue abnormalities. RAD/Humerus min 2 Views IMPRESSION: No acute bony abnormalities. Reading Location: [facility] CC: Dr. Kandy Valle DO; Dr. Mikhail Davis DO ~ Director Of Therapy Services: Signed [facility]09-13-2025 Discharge summary Author Mikhail Davis [facility] Note Date/Time November 29, 2024 3:31pm [facility] Medical Records Department [address] [place] [address] Emergency Department Summary 11/29/24 MR#: [id number] Acct: [id number] Name: GABRIELA RUSSELL KYLE Rep #:[id number] : 1970 54 From: Mikhail Davis DO PCP: Dr. Kandy Valle DO Status:REG ER Location: ED HPI History of Present Illness Chief Complaint: Fall Narrative Narrative: Patient is a 54-year-old female with past medical history hypercholesteremia, hypertension who presented to the emergency department the chief complaint of left wrist pain. Patient states that she was in the garage tripped over items causing her to fall at her knees and on her left wrist. 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 Patient denies any blood thinning medications. [facility] Medical History Urinary tract infection with hematuria Acute pharyngitis Encounter for screening for COVID-19 High cholesterol Hay fever Hypertension Home Medications ?Medication ?Instructions ?Recorded ?Last Taken ?Type amlodipine 10 mg tablet 10 mg PO DAILY BP 03/07/16 0 04/19/17 History metoprolol succinate 100 mg 100 mg PO DAILY BP 6 04/19/17 History tablet,extended release 24 hr multivitamin 1 ea PO DAILY supplement 04/19/17 History omeprazole 20 mg capsule,delayed 20 mg PO DAILY acid r eflux 03/07/16 04/19/17 History release amitriptyline 75 mg tablet 75 mg PO DAILY #90 tabs Unknown History lisinopril 10 mg tablet 10 mg PO DAILY #180 tabs Unknown History meloxicam 15 mg tablet 15 mg PO DAILY 07/21/20 Unkn own History cyclobenzaprine 5 mg tablet ea PO 05/02/21 Unknown His tory pravastatin 20 mg tablet 20 mg PO QDAY 05/28/23 Unkno wn History escitalopram oxalate 10 mg tablet mg PO DAILY 05/15/24 Unknown History Allergy/AdvReac Type Severity Reaction Status Date / Time morphine AdvReac Nausea Verified 11/29/24 14:09 Family History Mother Breast cancer Father Heart disease Grandfather Myocardial infarction Surgical History History of surgery on right wrist H/O: hysterectomy carpal tunnel surgery History of tonsillectomy H/O tubal ligation tailbone cyst Social History Smoking Status: Never smoker alcohol intake: current details: 1 glass of wine a night substance use type: does not use caffeine: Yes what type of physical activity do you participate in: none seatbelt use: always do you feel safe at home: Yes additional social history: 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 ROS ROS ED ROS Narrative Neurological: Denies any numbness, weakness, tingling Musculoskeletal: Complains of left wrist pain as noted above Skin: Denies any rashes or lesions complains of some swelling to the dorsal aspect of her left wrist EXAM Physical Exam Narrative Exam Narrative: General: Patient was lying in bed rest comfortably did not appear to be in acutedistress Head: Atraumatic, normocephalic Eyes: PERRL bilaterally, EOMI bilaterally, no conjunctival injection noted Neck: Soft, supple, trachea midline Cardiovascular: Regular rate and rhythm Musculoskeletal: Patient has a tender to palpation over the left distal wrist Extremities: Radial pulses +2/4 in the left upper extremity, +5/5 strength notedin the bilateral upper and lower extremities Neurological: Patient following commands and that she was at [facility] the year is 2024 sensation grossly intact in the median, ulnar and radial nerve distribution bilaterally Skin: Warm, dry, intact no rashes or lesions noted patient has edema noted to the dorsal aspect of the left wrist and states that her hands are chronically swollen and states that she has not been able to get her ring off for a very long time she was advised that she needs to try to take this off here in the emergency department Const Vital Signs: 11/29/24 14:07 11/29/24 14:57 Temperature 98.9 F Temperature Source Oral Pulse Rate 88 Respiratory Rate 16 Respiratory Effort Normal Non-Labored Respiratory Depth Normal Respiratory Pattern Normal Blood Pressure 153/83 H Blood Pressure Mean 106 Pulse Ox 99 96 Oxygen Delivery Method Room Air Room Air MDM MDM MDM Narrative Medical decision making narrative: Patient is a 54-year-old female who presents to the emergency department with a chief complaint of left wrist pain after mechanical fall tripping over some items in her garage and object falling on her left wrist. On the differential diagnose includes but not limited to wrist sprain, distal radius fracture, ulnarfracture. Once the workup is obtained reviewed she will be reevaluated. Patient's x-ray of the wrist reviewed by myself by radiology showed no acute fracture or dislocation. Patient's humerus x-ray reviewed by myself by radiology showed no acute fracture or dislocation. Patient's hand x-ray reviewed myself and by radiology and showed no acute fracture or dislocation. Discussed results with the patient she was advised to keep her hand elevated to help with the swelling as well as rotate Tylenol and ibuprofen [id number]-gvp-[id number] for mild to moderate pain. She is advised to return with worsening symptoms or concerns. She is advised to follow-up her doctor in the outpatient setting. All question concerns answered she was discharged home in stable condition. Radiography Diagnostic Testing: Clinical Impression(s) from Imaging Studies Hand X-Ray 11/29/24 14:33 IMPRESSION: No acute osseous abnormalities. Reading Location: [id number] Humerus X-Ray 11/29/24 14:33 IMPRESSION: No acute bony abnormalities. Reading Location: [id number] Wrist X-Ray 11/29/24 14:33 IMPRESSION: No acute osseous abnormalities. Reading Location: [id number] Discharge Plan Triage Chief Complaint: Fall ED Provider: Mikhail Davis Dx/Rx/DC Orders Clinical Impression: Left wrist pain, HTN (hypertension), Fall Prescriptions: No Action lisinopril 10 mg tablet 10 mg PO DAILY Qty: 180 amitriptyline 75 mg tablet 75 mg PO DAILY Qty: 90 cyclobenzaprine 5 mg tablet PO pravastatin 20 mg tablet 20 mg PO QDAY escitalopram oxalate 10 mg tablet PO DAILY multivitamin 1 EACH tablet 1 ea PO DAILY Patient Comments: supplement metoprolol succinate 100 MG tablet 100 mg PO DAILY Patient Comments: bp med amlodipine 10 MG tablet 10 mg PO DAILY Patient Comments: bp med omeprazole 20 MG capsule 20 mg PO DAILY Patient Comments: acid reflux med meloxicam 15 mg Tablet 15 mg PO DAILY Primary Care Provider: Kandy Valle Referrals: Kandy Valle DO [Primary Care Provider] - Activity Restrictions/Additional Instructions: Your x-rays did not show any acute broken bones. Follow-up your doctor in the outpatient setting. Return with worsening symptoms or any other concerns. Rotate Tylenol and ibuprofen [id number]-[id number] for pain when you do this you can take something every 3 hours for pain. Max dose of Tylenol in 24 hours 4000 mg max dose of ibuprofen in 24 hours 3200 mg Print Language: [place] Disposition Disposition: Home, Self Care What to do if you have Problems For any increased pain, shortness of breath, bleeding, nausea or vomiting, chestpain, or any unexpected problems, contact your Primary Care Provider. Call [facility] ([phone]) or report to the closest Emergency Room. Call 911 if necessary. 11/29/24 1531 <Electronically signed by Mikhail Davis DO> Cosigner Signature (if applicable): CC: Dr. Kandy Valle DO ~ Signed [facility] Work Phone: 1(171) 509-996906-19-2025 Radiology Diagnostic study note [facility] Imaging Services [address], [place] [address] Wrist min 3 Views MR#: [id number] Acct: [id number] Name: GABRIELA RUSSELL Rep #: [id number] : 1970 F 54 From: Stacy Calixto MD PCP: Dr. Kandy Valle DO Status: REG CLI Study:Wrist min 3 Views Date of Exam: Exam# [id number] Ordering Dr: Tenisha Hammond PROCEDURE: WRIST MIN 3 VIEWS 09/03/2024 REASON FOR EXAM: WRSIT AND HAND PAIN/NUMBNESS TECHNIQUE: WRIST MIN 3 VIEWS COMPARISON: None. FINDINGS: Mild osteopenia of the visualized bones. Degenerative joint disease. No fracture or dislocation is seen. . RAD/Wrist min 3 Views IMPRESSION: No evidence for acute abnormality. Reading [facility] [address] CC: PIPE Hammond; Dr. Kandy Valle, DO ~ Director Of Therapy Services: Signed [facility]06-18-2025 Procedure note [facility] Pulmonary Services/Neurology [address] [place] [address] MR#: [id number] Acct: [id number] Name: GABRIELA RUSSELL KYLE Rep #:[id number] : 1970 54 From: Michelle Barakat MD Referring Dr: Priti Hammond tatus: REG CLI Location: [facility] Date: 09/03/24 Sex: F C NCS and/or EMG Patient Report Ordering Doctor: Priti Hammond DATE OF SERVICE: 09/03/24 Gabriela presents with complaints of numbness and tingling in the first 4 digits of the left hand. Electrodiagnostic findings: Left median motor nerve demonstrates prolonged latency with normal amplitude and reduced conduction velocity. Left ulnar motorresponse within normal limits. Normal left median and left ulnar F?waves. Prolonged left median sensory latency at the [...] Multi Select Codes Neurology Neurology Interp Codes: 99557-62 Musc test done w/n test comp (interp) and 09200-99 Nrv cndj tst 5-6 studies (interp) 09/03/24 1410 D> Date _ Michelle Barakat MD CC: PIPE Hammond; Dr. Michelle Barakat MD; Dr. Kandy Valle, DO ~ Date Dictated: 09/03/241408 Date Transcribed: 09/03/241408 Director Of Therapy Services: AA Signed [facility]05-23-2025 Evaluation note* Diagnosis Onset Date Resolution Status Admit Date Arm paresthesia, left acute August 08, 2024 1:15pm Wrist pain, left acute July 1:15pm [facility] Work Phone: 1(592) 165-586703-25-2025 Procedure note [facility] Pulmonary Services/Neurology [address] [place] [address] MR#: [id number] Acct: [id number] Name: GABRIELA RUSSELL KYLE Rep #:[id number] : 1970 54 From: Roshni Kirkpatrick MD Referring Dr: Priti Hammond S tatus: REG CLI Location: [facility] Date: 06/10/24 Sex: F C NCS and/or [...] Multi Select Codes Neurology Neurology Interp Codes: 46427-46 Musc test done w/n test comp (interp) (1) and 85848-52 Nrv cndj tst 5-6 studies (interp) 06/10/24 0937 MD> Date _ Roshni Kirkpatrick MD CC: SIGNAL APPRENTICE-C Priti Hammond; Dr. Roshni Kirkpatrick MD; Dr. Kandy Valle DO ~ Date Dictated: 06/10/24928 Date Transcribed: 06/10/24928 Director Of Therapy Services: Signed [facility]03-10-2025 Evaluation note* Diagnosis Onset Date Resolution Status Admit Date Hand pain, right acute May 262024 3:01pm Right hand paresthesia acute [facility] 2024 3:01pm Sprain of hand, thumb, right acute May 26, 2024 3:01pm Carpal tunnel syndrome of ri ght wrist acute June 10, 2024 2:28pm Right hand paresthesia acute [facility] 2024 2:28pm Arm paresthesia, left acute August 08, 2024 1:15pm Wrist pain, left acute July 1:15pm [facility] Work Phone: 1([phone]) 655-680002-27-2025 Radiology Diagnostic study note [facility] Imaging Services [address], [place] [address] Wrist min 3 Views MR#: [id number] Acct: [id number] Name: GABRIELA RUSSELL KYLE Rep #: [id number] 3 : 1970 F 54 From: Nakul Murphy DO PCP: Dr. Kandy Valle DO Status: REG CLI Study:Wrist min 3 Views Date of Exam: Exam# [id number] Ordering Dr: Tenisha Hammond SIGNAL APPRENTICE-Airam PROCEDURE: Right wrist radiographs REASON FOR EXAM: Pain, weakness TECHNIQUE: Three views of the right wrist COMPARISON: None. FINDINGS: See impression RAD/Wrist min 3 Views IMPRESSION: Negative for acute displaced fracture or dislocation. No significant arthropathy. Reading Location: [facility] CC: PIPE Hammond; Dr. Kandy Valle, DO ~ Director Of Therapy Services: Signed [facility]02-27-2025 Evaluation note* Diagnosis Onset Date Resolution Status Admit Date Sprain of hand, thumb, right acute May 15, 2024 12:43pm Segmental and somatic dysfunction of cervical region acute [facility] 2024 2:59pm Segmental and somatic dysfunction of lumbar region acute Mar 2024 2:59pm Segmental and somatic dysfunction of pelvic region acute Mar 2024 2:59pm Segmental and somatic dysfunction of thoracic region acute [facility] 2024 2:59pm Hand pain, right acute May 262024 3:01pm Right hand paresthesia acute [facility] 2024 3:01pm Sprain of hand, thumb, right acute May 26, 2024 3:01pm Carpal tunnel syndrome of right wrist acute June 10, 2024 2:28pm Right hand paresthesia acute [facility] 2024 2:28pm [facility] Work Phone: [phone]) 823-528002-27-2025 Evaluation note* Diagnosis Onset Date Resolution Status Admit Date Sprain of hand, thumb, right acute May 15, 2024 12:43pm Segmental and somatic dysfunction of cervical region acute [facility] 2024 2:59pm Segmental and somatic dysfunction of lumbar region acute Mar 2024 2:59pm Segmental and somatic dysfunction of pelvic region acute Mar 2024 2:59pm Segmental and somatic dysfunction of thoracic region acute [facility] 2024 2:59pm Hand pain, right acute May 262024 3:01pm Right hand paresthesia acute [facility] 2024 3:01pm Sprain of hand, thumb, right acute May 26, 2024 3:01pm Carpal tunnel syndrome of right wrist acute June 10, 2024 2:28pm Right hand paresthesia acute [facility] 2024 2:28pm Arm paresthesia, left acute August 08, 2024 1:15pm Wrist pain, left acute July 1:15pm [facility] Work Phone: 1(368) 138-935012-01-2024 Evaluation note* Diagnosis Onset Date Resolution Status Admit Date Urinary tract infection with hematuria acute February 16 8:01am Sprain of hand, thumb, right acute May 15, 2024 12:43pm Segmental and somatic dysfunction of cervical region acute [facility] 2024 2:59pm Segmental and somatic dysfunction of lumbar region acute Mar 2024 2:59pm Segmental and somatic dysfunction of pelvic region acute Mar [facility] 2024 2:59pm Segmental and somatic dysfunction of thoracic region acute [facility] 2024 2:59pm Hand pain, right acute May 262024 3:01pm Right hand paresthesia acute [facility] 2024 3:01pm Sprain of hand, thumb, right acute May 26, 2024 3:01pm [facility] Work Phone: 1(314) 777-650712-01-2024 Evaluation note* Diagnosis Onset Date Resolution Status Admit Date Urinary tract infection with hematuria acute February 16 8:01am Sprain of hand, thumb, right acute May 15, 2024 12:43pm Segmental and somatic dysfunction of cervical region acute [facility] 2024 2:59pm Segmental and somatic dysfunction of lumbar region acute Mar 2024 2:59pm Segmental and somatic dysfunction of pelvic region acute Mar 2024 2:59pm Segmental and somatic dysfunction of thoracic region acute [facility] 2024 2:59pm Hand pain, right acute May 262024 3:01pm Right hand paresthesia acute [facility] 2024 3:01pm Sprain of hand, thumb, right acute May 26, 2024 3:01pm Carpal tunnel syndrome of right wrist acute June 10, 2024 2:28pm Right hand paresthesia acute [facility] 2024 2:28pm [facility] Work Phone: Evaluation note* Diagnosis Onset Date Resolution Status Urinary tract infection with hematuria acute [facility] Work Phone: Evaluation noteNo assessment information available [facility] Work Phone: Evaluation note* Diagnosis Onset Date Resolution Status Admit Date Segmental and somatic dysfunction of cervical region acute December 15, 2024 3:25pm Segmental and somatic dysfunction of lumbar region acute Sep 2024 3:25pm Segmental and somatic dysfunction of pelvic region acute Sep 2024 3:25pm Segmental and somatic dysfunction of thoracic region acute December 15, 2024 3:25pm [facility] Work Phone: Hospital Discharge instructionsAmbulatory Orders* Occupational Therapy Referral Location: None Selected [facility] Work Phone: Hospital Discharge instructionsAdditional Instructions Your x-rays did not show any acute broken bones. Follow-up your doctor in the outpatient setting. Return with worsening symptoms or any other concerns. Rotate Tylenol and ibuprofen vpiztt-duu-[id number] for pain when you do this you can take something every 3 hours for pain. Max dose of Tylenol in 24 hours 4000 mg max dose of ibuprofen in 24 hours [facility] Work Phone: Reason for referral (narrative)No reason for referral information availableWCleveland Clinic [facility] Work Phone: Chief Complaint and Reason for [...] 3:01pm Carpal tunnel syndrome of right wrist [facility] 2024 2:28pm Right hand paresthesia June 10, [...] 3:01pm Carpal tunnel syndrome of right wrist [facility] 2024 2:28pm Right hand paresthesia June 10, [...] 3:01pm Carpal tunnel syndrome of right wrist [facility] 2024 2:28pm Right hand paresthesia June 10, [...] 3:01pm Carpal tunnel syndrome of right wrist [facility] 2024 2:28pm Right hand paresthesia June 10, [...] RX HE RE September 22, 2024 3:30pm FALL November 29, 2024 2:07pm Chief Complaint Admit Date LUE; Paresthesia of skin September 03, 2024 1:09pm LUE; Paresthesia of skin September 03, 2024 2:09pm CARPAL TUNNEL SYNDROME RIGHT LIMB. RX HE RE September 22, 2024 3:30pm FALL November 29, 2024 2:07pm [employer] December 12, 2024 7:05am BACK PAIN December 15, 2024 3:25pm Reason for Visit Admit Date Segmental and somatic dysfunction of cer vical region December 15, 2024 3:25pm Segmental and somatic dysfunction of lum bar region December 15, 2024 3:25pm Segmental and somatic dysfunction of pel annabelle region December 15, 2024 3:25pm Segmental and somatic dysfunction of tho racic region December 15, 2024 3:25pm Family History No Family History Records Found Relationship Condition Age at Onset Recorded Date/T gemma mother Malignant neoplasm of breast Unknown father Cardiac disease Unknown grandfather Myocardial infarction Unknown Advance Directives No Advanced Directives Records Found Advance Directive Response Recorded Date/ Time Advance Directives No April 3:04pm Living Will No April 28, 2 022 3:04pm Power of Aging Department Supervisor No April 28, 2021 3:04pm Advance Directive Response Recorded Date/ Time Advance Directives No April 2:04pm Living Will No April 28, 2 022 2:04pm Power of Aging Department Supervisor No April 28, 2021 2:04pm Advance Directive Response Recorded Date/ Time Advance Directives No February 17, 2024 9:00am Advance Directive Response Recorded Date/ Time Advance Directives No June 10, 2 025 2:28pm Advance Directive Response Recorded Date/ Time Do you have a Healthcare Power of Aging Department Supervisor? No November 29, 2024 2:57pm Advance Directives No June 10, 2 025 [...] 2024 End: February 17, 2024 Danny Landaverde NP SIGNAL APPRENTICE-C Attending Provider Active S tart: February 17, 2024 End: February 17, 2024 Team Status: Inactive Member Role Status Dates Dr. Kandy Valle DO Primary Care Provider Active Start: February 18, 2024 End: February 18, 2024 Danny Landaverde SIGNAL APPRENTICE, SIGNAL APPRENTICE-C Attending Provider Active S tart: February 18, 2024 End: February 18, 2024 Danny Landaverde SIGNAL APPRENTICE, SIGNAL APPRENTICE-C Referring Provider Active S tart: February 18, [...] End: May 19, 2024 Dr. Zulema Tobias DC Attending Provider Active S tart: May 19, [...] Provider Active Start: September 03, 2024 PIPE uLna Referring Provider Active Start: September 03, 2024 [...] Care Provider Active Start: September 03, 2024 Priti Hammond NP-Airam Referring Provider Active Start: September 03, 2024 [...] Valle DO Primary Care Provider Active Start: November 29, 2024 End: November 29, 2024 Dr. Mikhail Davis DO Emergency Provider Active Start: November 29, 2024 End: November 29, 2024 Team Status: Active Member Role/Relationship Status Dates Dr. Kandy Valle DO Primary care physician Active Team Status: Inactive Member Role/Relationship Status Dates Dr. Kandy Valle DO Primary care physician Active Start: September 03, 2024 End: September 03, 2024 PIPE Luna Attending physician Active Start: September 03, 2024 End: September 03, 2024 PIPE Luna Referring Provider Active Start: September 03, 2024 End: September 03, 2024 Team Status: Active Member Role/Relationship Status Dates Dr. Kandy Valle DO Primary care physician Active Start: September 03, 2024 PIPE Luna Referring Provider Active Start: September 03, 2024 PIPE Luna Nurse Practitioner Active Start: September 03, 2024 Dr. Michelle Barakat MD Attending physician Active Start: September 03, 2024 Team Status: Inactive Member Role/Relationship Status Dates Dr. Kandy Valle DO Primary care physician Active Start: September 22, 2024 End: September 22, 2024 Maria Teresa Osborn PA-C Attending physician Active Start: September 22, 2024 End: September 22, 2024 Maria Teresa Osborn PA-C Referring Provider Active Start: September 22, 2024 End: September 22, 2024 Team Status: Inactive Member Role/Relationship Status Dates Dr. Kandy Valle DO Primary care physician Active Start: November 29, 2024 End: November 29, 2024 Dr. Mikhail Davis DO Attending physician Active Start: November 29, 2024 End: November 29, 2024 Dr. Mikhail Davis DO Emergency Departme nt Physician Active Start: November 29, 2024 End: November 29, 2024 Team Status: Active Member Role/Relationship Status Dates Dr. Kandy Valle DO Primary care physician Active Start: December 12, 2024 Health Risk Assessment Attending physician Active Start: December 12, 2024 Health Risk Assessment Referring Provider Active Start: December 12, 2024 Team Status: Inactive Member Role/Relationship Status Dates Dr. Kandy Valle DO Primary care physician Active Start: December 15, 2024 End: December 15, 2024 Dr. Kandy Valle DO Referring Provider Active St art: December 15, 2024 End: December 15, 2024 Dr. Zulema Tobias DC Attending physician Active Start: December 15, 2024 End: December 15, 2024 INFORMATION SOURCE (unrecogn ized section and content) DATE CREATED AUTHOR 01/23/[address] [facility] FOR RECORDS PERTAINING TO PATIENTS WHO ARE [...] BE BASED ON THE PRIMARY CLINICAL RECORDS. [employer] [facility]. provides no warranty or guarantee of the accuracy or completeness of information in this document.
[2025-03-03] MEDS: Lactated Ringers 1,000 ML 15 ML IV (06:30)
--- NOTE | 2025-03-03 06:42 | PCM.PRE.AN2 ---
ASA Classification* ASA Classification ASA Classification: 2 Assessment & Plan Anesthesia* Anesthesia Assessment Anesthesia Assessment: Discussed sedation and/or anesthesia options, risks, benefits, and alternatives with patient/parents/legal guardian/POA. Questions invited. The patient/parents/legal guardian/POA seems to understand and agrees to proceed with anesthesia plan. Reviewed the physical assessment, medical history, allergy history and patient home medications list prior to surgery/procedure/anesthetic and documented any changes. Performed airway and anesthesia risk assessments. Anesthesia Type Anesthesia Type: MAC Anesthesia Focused Assessment* Temperature: 97.3 F Pulse Rate: 80 Blood Pressure: 110/69 Respiratory Rate: 16 Pulse Ox: 95 Airway Assessment Mouth opens: >3 cm Mallampati Score: II Labs Anesthesia Preop lab: CBC WBC, (4.4-11.0) 7.5 K/mm3 12/12/24, 07:08 RBC, (4.2-5.4) 4.70 M/mm3 12/12/24, 07:08 Hgb, (12.0-15.0) 14.3 g/dL 12/12/24, 07:08 Hct, (37-47) 41.1 % 12/12/24, 07:08 Plt Count, (150-450) 326 K/mm3 12/12/24, 07:08 CHEMISTRY Potassium, (3.3-5.1) 4.4 mmol/L 12/12/24, 07:08 Sodium, (133-145) 143 mmol/L 12/12/24, 07:08 Magnesium, (1.6-2.6) 2.2 mg/dL 10/08/19, 07:21 Phosphorus, (2.7-4.5) 4.2 mg/dL 12/12/24, 07:08 BUN, (4-19) 11 mg/dL 12/12/24, 07:08 Creatinine, (0.70-1.20) 0.82 mg/dL 12/12/24, 07:08 Glucose, (70-99) 98 mg/dL 12/12/24, 07:08 TSH, (0.358-3.74) 3.50 uIU/mL 10/30/17, 13:40 COAG Pre-Assessment Diagnosis/Proposed Procedure Planned Operative Procedure(s): (L) Left open Carpal Tunnel Release Anesthesia History Anesthesia History - groundsman: Anesthesia History - groundsman Hx Hospitalization No 02/23/25 10:25 Any Problems With Anesthesia No 02/23/25 10:25 Cholinesterase deficiency No 02/23/25 10:25 You/Your Family Experience No 02/23/25 10:25 fever (hyperthermia) with Relationship Recent Exposure to Contagious No 03/03/25 06:19 Disease Does patient have nerve No 02/23/25 10:25 stimulator Patient instructed to have device shut off --Does patient have Pacemaker No 03/03/25 06:20 or ICD? When Was Last Pacemaker Check QUESTION #4 FULL TEXT: You/Your Family Experience fever (hyperthermia) with Anesthesia Last Oral Intake Last Oral intake: Last Oral Intake NPO since 20:30 03/03/25 06:20 Meds taken in AM with sips of Yes 03/03/25 06:20 water? Meds patient instructed to take am of surgery PONV PONV - groundsman: PONV - groundsman Female Yes 02/23/25 10:25 HX of Motion Sickness Yes 02/23/25 10:25 HX of N/V After Surgery Yes 02/23/25 10:25 Non-Smoker Yes 02/23/25 10:25 Duration of Surgery greater No 02/23/25 10:25 than 60 minutes Number of Risk Factors 4 02/23/25 10:25 PONV Score Severe Risk 02/23/25 10:25 Height & Weight Height & Weight: Anesthesia: Height & Weight Height 5 ft 8 in 03/03/25 06:20 Weight: 102.512 kg 03/03/25 06:20 Body Mass Index (BMI) 34.3 03/03/25 06:20 Respiratory Assessment Respiratory Assessment - groundsman: Respiratory Tract Infection Hx - groundsman Hx Respiratory Tract Infection No 02/23/25 10:25 STOP Sleep Apnea STOP Sleep Apnea - groundsman: STOP Sleep Apnea - groundsman Hx Hypertension Yes: PER PT, CONTROLLED ON 02/23/25 10:25 MEDS Hx Sleep Apnea No 02/23/25 10:25 CPAP BIPAP Do you snore loudly (louder No 02/23/25 10:25 than talking or can be heard Do you often feel tired/ No 02/23/25 10:25 fatigued/ sleepy during daytime? Has anyone observed you stop No 02/23/25 10:25 breathing during sleep? STOP Results Negative 02/23/25 10:25 QUESTION #5 FULL TEXT : Do you snore loudly (louder than talking or can be heard through closed doors)? 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 Specify any problems Hx of Preganancy in last 3 No 02/23/25 10:25 Months Nurse Filling Out Transfusion MGRIFFITH 02/23/25 10:25 & Questions: Date: 02/23/25 02/23/25 10:25 Time: 10:28 02/23/25 10:25 Patient unable to answer at this time (ie. confused, unrespo /Reproduction History /Reproductive History - groundsman: /Reproductive Hx- groundsman Hx Now No 02/23/25 10:25 Gestational Age (in weeks): EDC: Hx Hx Para Hx Section SAB No 02/23/25 10:25 Does the father of the baby or his family experience fever w Father of the baby Malignant Hypertension history comment Active Medications Active Medications: Current Medications Generic Name Dose Route Start Last Admin Trade Name Freq PRN Reason Stop Dose Admin Cefazolin Sodium 2 gm/ Sodium 110 mls @ 200 mls/hr 03/03/25 07:00 Chloride IV 03/03/25 07:32 INTRAOP ONE Lactated Ringer's 1,000 mls @ 15 mls/hr 03/03/25 06:15 03/03/25 06:30 IV 15 mls/hr .Q48H RACHELL Administration PFSH Medical History (Updated 02/23/25 @ 10:34 by Veronica Garcia) Wears glasses Anxiety Alcohol use History of pulmonary embolism Gastric reflux Former smoker Shortness of breath on exertion History of edema Lipoma of back Urinary tract infection with hematuria Acute pharyngitis Encounter for screening for COVID-19 High cholesterol Hay fever Hypertension Home Medications ?Medication ?Instructions ?Recorded ?Last Taken ?Type amlodipine 10 mg tablet 10 mg PO DAILY BP 03/07/16 03/03/25 05:00 History metoprolol succinate 100 mg 100 mg PO DAILY BP 03/07/16 03/03/25 05:00 History tablet,extended release 24 hr multivitamin 1 ea PO QHS supplement 03/07/16 03/02/25 History omeprazole 20 mg capsule,delayed 20 mg PO DAILY acid reflux 03/07/16 03/03/25 05:00 History release lisinopril 10 mg tablet 10 mg PO DAILY #180 tabs 12/14/18 03/02/25 History meloxicam 15 mg tablet 15 mg PO DAILY 07/21/20 02/24/25 History cyclobenzaprine 5 mg tablet 5 mg PO QHS 05/02/21 03/02/25 History pravastatin 20 mg tablet 20 mg PO QHS HLD 05/28/23 03/02/25 History escitalopram oxalate 10 mg tablet 10 mg PO QHS 05/15/24 03/02/25 History amitriptyline 100 mg tablet 100 mg PO QHS 02/23/25 03/02/25 History Allergy/AdvReac Type Severity Reaction Status Date / Time No Known Allergies Allergy Verified 03/03/25 06:17 Family History Mother Breast cancer Father Heart disease Grandfather Myocardial infarction Surgical History History of surgery on right wrist H/O: hysterectomy carpal tunnel surgery History of tonsillectomy H/O tubal ligation tailbone cyst Social History Smoking Status: Never smoker alcohol intake: current details: 1 glass of wine a night substance use type: does not use caffeine: Yes what type of physical activity do you participate in: none seatbelt use: always do you feel safe at home: Yes 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
--- NOTE | 2025-03-03 07:12 | PCM.HP.BLA ---
History and Physical Date of Admission: 03/03/25 [facility] [address] [place] [address] OFFICE VISIT Date of Service: 01/21/25 MR#: [id number] Acct: [id number] Name: GABRIELA RUSSELL Rep #: [id number] : 1970 Provider: Dr. Jasbir Ascencio DO Age/Sex: 54/F Location: [facility] Status: Signed Intake Vital Signs 11/29/2513:07 01/21/2515:34 Height 5 ft 7 in 5 ft 7 in Weight: 226 lb 2 oz BMI 35.4 Intake Visit Reasons: LEFT HAND Chief Complaint: Left Hand - Discuss Surgery Accompanied by: Self Is patient in pain?: Yes Allergies morphine Adverse Reaction (Verified 01/21/25 15:36) Nausea Medications ?Medication ?Instructions ?Recorded ?Confirmed ?Type amlodipine 10 mg tablet 10 mg PO DAILY BP 03/07/16 01/21/25 History metoprolol succinate 100 mg 100 mg PO DAILY BP 03/07/16 01/21/25 History tablet,extended release 24 hr multivitamin 1 ea PO DAILY supplement 03/07/16 01/21/25 History omeprazole 20 mg capsule,delayed 20 mg PO DAILY acid reflux 03/07/16 01/21/25 History release amitriptyline 75 mg tablet 75 mg PO DAILY #90 tabs 12/14/18 01/21/25 History lisinopril 10 mg tablet 10 mg PO DAILY #180 tabs 12/14/18 01/21/25 History meloxicam 15 mg tablet 15 mg PO DAILY 07/21/20 01/21/25 History cyclobenzaprine 5 mg tablet ea PO 05/02/21 01/21/25 History pravastatin 20 mg tablet 20 mg PO QDAY 05/28/23 01/21/25 History escitalopram oxalate 10 mg tablet mg PO DAILY 05/15/24 01/21/25 History PFSH Medical History Urinary tract infection with hematuria Acute pharyngitis Encounter for screening for COVID-19 High cholesterol Hay fever Hypertension Surgical History History of surgery on right wrist H/O: hysterectomy carpal tunnel surgery History of tonsillectomy H/O tubal ligation tailbone cyst Family History Mother Breast cancer Father Heart disease Grandfather Myocardial infarction Social History Smoking Status: Never smoker alcohol intake: current details: 1 glass of wine a night substance use type: does not use caffeine: Yes what type of physical activity do you participate in: none seatbelt use: always do you feel safe at home: Yes 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 Jasbir Ascencio, DO 01/21/25 0940. Part of today?s visit was documented by Martina Terrell ATC, acting as scribe. GABRIELA RUSSELL is a 54 year old F history significant for but not limited to obesity, hyperlipidemia, hypertension, pulmonary emboli bilateral, here today for left hand pain and wants to discuss carpal tunnel surgery. Patient already had an EMG study done and it showed moderate carpal tunnel syndrome. She states she had the right wrist done in the past and then had the symptoms return and she put it off and waited too long and had to have a revision and tendon transfer. She gets numbness in the tips of the fingers, the whole hand cramps up really bad and the hand falls asleep at night. She denies any bracing for the hand/wrist. She denies any injections. Patient has been dealing with the symptoms for at least the last year. The numbness is worse in the index, middle and ring fingers. Ortho Exam General General: Yes no acute distress and Yes well groomed Neurologic: Yes alert and Yes oriented x3 Psychologic: Yes reasonable and appropriate Right Wrist/Hand Skin/Wound: No Swelling and No Ecchymosis Left Wrist/Hand Skin/Wound: Yes CDI, No Swelling, No Ecchymosis and No erythema WRIST: Patient has symptoms at rest which make provocative maneuvers not really helpful Tinel's Phalen's and Durkan's do not make symptoms any worse 80 wrist EXT 35 wrist FLEX full supination full pronation stiffness in the index finger Constitutional: Well-developed; well-nourished; in no acute distress Eyes: No jaundice ENT: Nares patent; no obvious deformity Cardiovascular: No cyanosis; clubbing; or edema Lymphatic: No adenopathy in area of examination Skin: No rashes or lesions in the area of examination and intact Neurologic: Alert and oriented x 3 Psychiatric: Mood and affect appropriate Supplemental Info 09/03/2024 EMG Left UE: 1. Electrodiagnostic findings suggestive of left-sided median mononeuropathy. This consistent with a moderate left carpal tunnel syndrome. Coding Level of Care Code Off vis,est,level 4 Diagnoses Carpal tunnel syndrome, left G56.02 Assessment and Plan Assessment and Plan (1) Carpal tunnel syndrome, left: Status: Acute Plan Patient is here today for left hand carpal tunnel symptoms and wants to discuss carpal tunnel syndrome release surgical procedure. I reviewed a prior EMG study that was done in August of 2024. I explained the pros, cons, risks and benefits to the carpal tunnel release surgical procedure. I explained to her that she will have weight restrictions following surgery. There is a chance of the carpal tunnel symptoms reoccurring and if this were to happen, I do not perform the revision surgeries. Patient would like to proceed with the carpal tunnel release surgery on March 03, 2025. She should not take any NSAIDs 7 days prior to the surgery. We did discuss risk of incisional hypersensitivity and pillar pain and expected postoperative course as well as risk that symptoms do not improve. Follow up once surgery is scheduled for post-op appointments or sooner if pain, swelling, numbness or associated symptoms, or concerns develop. All questions answered. Patient in agreement of plan. Plan Details Goals & Barriers: Goals Decrease spasm Decrease pain Improve ability to perform job 01/21/25 2955 <Electronically signed by Jasbir Ascencio DO> Date Jasbir Ascencio DO Cosigner Signature: Date (if applicable) CC: ~ I have examined the patient and the H&P has been reviewed. There are no clinical changes since date of exam.
[2025-03-03] MEDS: Midazolam 2 MG/2 ML Syringe IV (07:30)
[2025-03-03] MEDS: DiphenhydrAMINE 50 MG/ML Syringe 12.5 MG IV (07:34)
[2025-03-03] MEDS: Lidocaine 1% (5 ml sdv) 5 ML Vial IV (07:34)
[2025-03-03] MEDS: Cefazolin 1 GM/5 ML Vial 2 GM IV (07:35)
[2025-03-03] MEDS: Bupiv/Epi 0.25% 30 ML Vial (07:50)
--- NOTE | 2025-03-03 08:03 | OP.PCM_ITS ---
Operative Report (Standard) Operative Information Date of Procedure: 03/03/25 Pre-Operative Diagnosis: Left carpal tunnel syndrome Post-Operative Diagnosis: Same Surgery/Procedure Performed: Left open carpal tunnel release tire trimmer hand: Yes Senior Backup Administrator: Ori Collins Tasks completed by machinist first class: Opening & closing Type of Anesthesia: Local and MAC RN Documented Start/Stop Times: Operation Date: 03/03/25 07:30 Case Time Into Pre-Op 03/03/25 06:04 Out of Pre-Op 03/03/25 07:24 Anesthesia Start 03/03/25 07:30 Into Room 03/03/25 07:30 Procedure Start 03/03/25 07:45 Procedure End 03/03/25 07:57 Anesthesia End 03/03/25 08:01 Out of Room 03/03/25 08:01 Procedure Start Time: 07:45 Procedure Stop Time: 07:57 Select all DRAINS/GRAFTS/IMPLANTS that apply: None Estimated Blood Loss: 0 Specimen collected: No Description of surgery: Preoperative diagnosis; [left] carpal tunnel syndrome Postoperative diagnosis; same Procedure: [left] open carpal tunnel release Anesthesia: Local with MAC Tourniquet time; 11 minutes 250 mm Hg Complications: None Indication for procedure; This is a 54-year-old [female] with long-standing symptoms consistent with carpal tunnel syndrome the patient did have electrodiagnostic evidence of this and has failed conservative treatment. Risks benefits and alternatives were reviewed including risks of bleeding infection nerve artery tissue damage need for further surgery and continued pain and symptoms, hypersensitivity to scar and Pillar pain. Procedure; The patient was met in the preoperative holding area the operative extremity was identified by both patient and physician and was marked the patient was met by anesthesia and brought back to the operating room and transf erred to the operating table in the supine position. Anesthesia was started. A well-padded tourniquet was placed on the operative upper extremity. The patient was prepped and draped in the usual sterile fashion. A timeout was called to ensure the proper patient procedure and extremity were being contemplated. 0.5 percent [ Lidocaine] with epinephrine was injected into the incisional area. An Esmarch was used to exsanguinate the extremity. The tourniquet was inflated to 250 mmHg. A midline incision was made with a 15 blade scalpel between the thenar and hypothenar eminence. This was carried down through the skin and subcutaneous tissue. Jacob retractors were then used, a deep blade scalpel was used to make a deep incision in the palmar aponeurosis. The jacob retractors were then placed deep to this and the transverse carpal ligament was identified a perforation was made with a scalpel and a Littler scissors were used to complete the release of the transverse carpal ligament distally under direct visualization with the tips facing ulnarly until the perivascular fat was reached. Then turning our attention proximally using a tension slide technique the proximal extent of the transverse carpal ligament was released . There was noted to be hypertrophy of the transverse carpal ligament. The wound was thoroughly irrigated and was closed with 4-0 nylon vertical mattress stitches. Dressing was applied in the form of xeroform 4 x 4, web roll and an hailey wrap. Tourniquet was let down there is no intraoperative complications patient tolerated the procedure well and was transferred to the PACU. All counts were correct. Surgical Findings: As above Complications Complications: No
--- NOTE | 2025-03-03 08:04 | EX.PCM.DISCH ---
Discharge Instructions Diet Discharge Diet: No restrictions Dressing / Incision Call your doctor if you observe: Shortness of breath and Chest pain Additional Dressing/Incision Instructions:: Ice and elevate operative extremity next 72 hours. Keep dressing on clean and dry for 48 hours then may remove and allow warm soapy water to rinse over incision but do not submerge until sutures are out. Then apply bandaid over incision and change daily. encourage finger range of motion. Not lift more than 1/2 pound. Minimize narcotic use only as needed and directed, may use OTC NSAID and Tylenol to supplement/substitute for pain control. Follow Up Care Please Follow Up With: Jasbir Ascencio DO When: 2 weeks Test Results: Test results from this visit will be discussed in further detail at your follow-up appointment, if applicable. Discharge Plan Admission Attending Provider: Jasbir Ascencio Primary Care Provider: Kandy Valle Instructions Print Language: Ugandan Discharge Orders/Prescriptions Prescriptions: No Action lisinopril 10 mg tablet 10 mg PO DAILY Qty: 180 cyclobenzaprine 5 mg tablet 5 mg PO QHS pravastatin 20 mg tablet 20 mg PO QHS escitalopram oxalate 10 mg tablet 10 mg PO QHS multivitamin 1 EACH tablet 1 ea PO QHS Patient Comments: supplement metoprolol succinate 100 MG tablet 100 mg PO DAILY Patient Comments: bp med amlodipine 10 MG tablet 10 mg PO DAILY Patient Comments: bp med omeprazole 20 MG capsule 20 mg PO DAILY Patient Comments: acid reflux med meloxicam 15 mg Tablet 15 mg PO DAILY amitriptyline 100 mg tablet 100 mg PO QHS Referrals / Follow Up: Kandy Valle DO [Primary Care Provider, Family Practice] Disposition Disposition (needs filled in before D/C Order can be placed): Home, Self Care
--- NOTE | 2025-03-03 08:08 | PCM.POST.ANE ---
Anesthesia: Postop Eval I Current Vital Signs Temperature: 97.3 F Pulse Rate: 92 Blood Pressure: 121/75 Respiratory Rate: 16 Pulse Ox: 96 Oxygen Delivery Method: Room Air Assessment Airway patent: Yes Spontaneous unlabored respirations: Yes Mental status: Awake and Calm nausea: No Vomiting: No Anesthesia Complication: No Fluid Hydration Crystalloid volume administer (ml): 700 Total IV fluid infused: 700 Progress Note Anesthesia document: Postop Eval 1 completed: Yes
--- NOTE | 2025-03-03 08:18 | POSTOPAN2_ITS ---
Anesthesia Postop Eval I Sum Postop Eval Completion status Anesthesia document: Postop Eval 1 completed: Yes Anesthesia Postop Eval I Summary Anesthesia Postop Eval I Summary: Anesthesia Postop Eval I: Assessment Summary Airway patent Yes 03/03/25 08:08 CHAINSTITCH PANTS OUTSEAMERYARIEL Spontaneous unlabored Yes 03/03/25 08:08 JOSE respirations Mental status Awake,Calm 03/03/25 08:08 CHAINSTITCH PANTS OUTSEAMER.BRY nausea No 03/03/25 08:08 JOSE Vomiting No 03/03/25 08:08 JOSE Anesthesia Postop Eval I: Fluid Summary Crystalloid volume administer 700 03/03/25 08:08 JOSE (ml) Colloids volume administered ( ml) Blood Product volume administered (ml) Total IV fluid infused 700 03/03/25 08:08 JOSE Anesthesia Postop Eval I: Summary Notes Anesthesia Complication No 03/03/25 08:08 JOSE Anesthesia Complication Comment: Post-operative progress note Anesthesia: Postop Eval II Evaluation Mental status: Awake Pain Level: 1 nausea: No Vomiting: No
== END 2025-03-03 09:03 | disposition home or self-care (01) ==
LOC: SDC 05:51 → AC 05:53
PROVIDERS: PCP Family Medicine; Referring Provider Orthopaedic Surgery; Visit Provider Orthopaedic Surgery
PROC: (CPT 64721; principal; 2025-03-03 07:15)
DX: G56.02 Carpal tunnel syndrome, left upper limb (principal); I10 Essential (primary) hypertension; E78.00 Pure hypercholesterolemia, unspecified; K21.9 Gastro-esophageal reflux disease without esophagitis; Z79.899 Other long term (current) drug therapy
CPT/HCPCS: 64721; 01810; J2405